=== PATIENT | male | born 1945 | race Caucasian/White ===

== ENCOUNTER 2017-06-11 11:52 | Inpatient (IN) | payer OTHER ==
[2017-06-11] MEDS ORDERED: SODIUM CHLORIDE 0.9% 1000 ML INFUS.BAG IV ONE (12:30)
--- NOTE | 2017-06-11 12:35 | PDOC ---
Attending Attestation - Resident Resident Name: Marito Quezada - ED Attending Attestation I have performed the following: I have examined & evaluated the patient, The case was reviewed & discussed with the resident, I agree w/resident's findings & plan, Exceptions are as noted - Medical Decision Making 06/11/17 14:47 71 yo M with HTN, DM h/o etoh cirrhosis, here from urgent care with concerns for tremors, and etoh withdrawal. no h/o seizure. no hallucinations. also c/o emesis x 3 yesterday and loose watery stool. on exam awake alert resting tremor. cardiac and lung exam normal. abd soft nt nd. differential: etoh withdrawal, anemia, electrolyte abnormality, dehydration, hypoglycemia renal failure, gi bleed , pancreatitis. plan hydrate him, antiemetics gi prophylaxis with protonix, labs, ativan for etoh withdrawal ciwa scale. liklely admit. abd nontender, last emesis yesterday no imaging at this point. 06/11/17 14:53 <Alisha Villarreal - Last Filed: 06/11/17 14:53> - HPI HPI: 06/11/17 15:19 The patient is a 71 year old male with a significant PMH of HTN, HLD, NIDDM, Alcoholic cirrhosis, EtoH dependence who presents to the emergency department sent in by Urgent Care with concerns for tremors and EtOH withdrawal. The patient endorses acute onset of tremors and 3 episodes of bilious, non-bloody emesis yesterday but denies emesis today. Of note, the patient drank 2 beers yesterday but typically drinks 10-12 beers a day for many years. Patient denies history of seizures or hallucinations. The patient is complaining of frontal LOPEZ, decreased appetite, loose watery stools but denies abdominal pain, chest pain, shortness of breath, and dizziness. Denies fever, nausea, vomit, diarrhea and constipation. Denies dysuria, frequency, urgency and hematuria. Allergies: NKA Past surgical history: None reported. Social history: Alcohol abuse. No reported drug or cigarette use. - Physicial Exam PE: 06/11/17 15:23 GENERAL: (+) Resting tremor. Awake, alert, and fully oriented, in no acute distress HEAD: No signs of trauma EYES: PERRLA, EOMI, sclera anicteric, conjunctiva clear ENT: Auricles normal inspection, hearing grossly normal, nares patent, oropharynx clear without exudates. Moist mucosa NECK: Normal ROM, supple, no lymphadenopathy, JVD, or masses LUNGS: Breath sounds equal, clear to auscultation bilaterally. No wheezes, and no crackles HEART: Regular rate and rhythm, normal S1 and S2, no murmurs, rubs or gallops ABDOMEN: Soft, nontender, normoactive bowel sounds. No guarding, no rebound. No masses EXTREMITIES: Normal range of motion, no edema. No clubbing or cyanosis. No cords, erythema, or tenderness NEUROLOGICAL: Cranial nerves II through XII grossly intact. Normal speech, normal gait SKIN: Warm, Dry, normal turgor, no rashes or lesions noted. <Dora Stephenson - Last Filed: 06/11/17 15:25> Heart Score/ECG Review #1 General ECG Interpretation: Normal Intervals, No acute ischemic changes Compared to previous ECG there are: Other (sinus tachycardia. 124.) <Alisha Villarreal - Last Filed: 06/11/17 14:53>
--- NOTE | 2017-06-11 12:44 | PDOC ---
History of Present Illness - General Chief Complaint: Tremors Stated Complaint: Substance Abuse Time Seen by Provider: 06/11/17 12:29 - History of Present Illness Initial Comments: 06/11/17 12:44 71 yo M with h/o HTN, HLD, NIDDM, Alcoholic cirrhosis, EtoH dependence, who arrives from outside provider with alcohol withdrawal symptoms. Patient arrives from outside office Dr. Aubrey Lara ( [facility]) with CIWA score of 14, and tachycardia. Patient reports acute development of tremors yesterday evening and 3 episodes of bilious, non bloody emesis. No episodes of vomiting today. Also endorses mild frontal LOPEZ, decreased appetite, and loose watery stools. Denies confusion, difficulty with ambulation, convulsions, hallucinations. Reports intake of 2 beers yesterday. tyypically drinks 10-12 beers a day for many years. Denies F/C, CP, SOB, abdominal pain, constipation, urinary complaints, weakness, lightheadedness, sensory changes. Denies h/o TIA/ CVA. Denies tobacco or illicit drug use. No change in diet, recent travels. Past History - Past Medical History Allergies/Adverse Reactions: Allergies Allergy/AdvReac Type Severity Reaction Status Date / Time No Known Drug Allergies Allergy Verified 08/01/14 06:37 Home Medications: Ambulatory Orders Lactulose (Oral Use) [Cephulac -] 20 gm PO BID 30 Days udc 07/11/15 Metoprolol Tartrate [Lopressor -] 25 mg PO BID #60 tablet 07/11/15 Multivitamins [Multivit ([facility] Formulary)] 1 tab PO DAILY #30 tab 07/11/15 Naph,Mb-Db/K pH,Mbdb [PHOS-NaK PACKET -] 1 packet PO BID #60 pow 07/11/15 Nystatin Oral Suspension - [Nystatin Oral Susp 906807 Units/5 ML -] 500,000 units PO Q6HPO 5 Days cup 07/11/15 Pantoprazole Sodium [Protonix -] 40 mg PO DAILY #30 tablet.ec 07/11/15 Thiamine HCl [Vitamin B1 -] 100 mg PO BID #60 tablet 07/11/15 Anemia: No Asthma: No Cancer: No Cardiac Disorders: No CVA: No COPD: No CHF: No Dementia: No Diabetes: Yes (IDDM) GI Disorders: (liver cirrhosis) Disorders: No HTN: Yes Hypercholesterolemia: No Liver Disease: Yes Seizures: No Thyroid Disease: No - Surgical History Cholecystectomy: Yes Orthopedic Surgery: Yes (FX LEFT ANKLE. left knee sx) - Suicide/Smoking/Psychosocial Hx Smoking Status: No Smoking History: Never smoked Have you smoked in the past 12 months: No Number of Cigarettes Smoked Daily: 0 If you are a former smoker, when did you quit?: 17YEARS Hx Alcohol Use: Yes Drug/Substance Use Hx: No Substance Use Type: Alcohol Hx Substance Use Treatment: No Review of Systems - Review of Systems Comments:: 06/11/17 12:43 GENERAL/CONSTITUTIONAL: No fever or chills. No weakness. HEAD, EYES, EARS, NOSE AND THROAT: No change in vision. No ear pain or discharge. No sore throat. CARDIOVASCULAR: No chest pain or shortness of breath RESPIRATORY: No cough, wheezing, or hemoptysis. GASTROINTESTINAL: No nausea, vomiting, diarrhea or constipation. GENITOURINARY: No dysuria, frequency, or change in urination. MUSCULOSKELETAL: No joint or muscle swelling or pain. No neck or back pain. SKIN: No rash NEUROLOGIC: + tremors and headache. No vertigo, loss of consciousness, or change in strength/sensation. ENDOCRINE: No increased thirst. No abnormal weight change HEMATOLOGIC/LYMPHATIC: No anemia, easy bleeding, or history of blood clots. ALLERGIC/IMMUNOLOGIC: No hives or skin allergy. 0 *Physical Exam - Vital Signs Last Vital Signs Temp Pulse Resp BP Pulse Ox 98.1 F 125 H 18 154/86 98 06/11/17 12:13 06/11/17 12:13 06/11/17 12:13 06/11/17 12:13 06/11/17 12:13 - Physical Exam Comments: 06/11/17 12:43 GENERAL: Tremulous, Awake, alert, and fully oriented, in no acute distress HEAD: No signs of trauma, normocephalic, atraumatic EYES: PERRLA, EOMI, sclera anicteric, conjunctiva clear ENT: + tongue fasciculations. Hearing grossly normal, nares patent, oropharynx clear without exudates. Moist mucosa NECK: Normal ROM, supple, no lymphadenopathy, JVD, or masses LUNGS: No distress, speaks full sentences, clear to auscultation bilaterally HEART: Regular rate and rhythm, normal S1 and S2, no murmurs, rubs or gallops, peripheral pulses normal and equal bilaterally. ABDOMEN: Soft, nontender, normoactive bowel sounds. No guarding, no rebound. No masses. Neg CVA ttp. EXTREMITIES : Normal inspection, Normal range of motion, no edema. No clubbing or cyanosis. NEUROLOGICAL: Cranial nerves II through XII grossly intact. Normal speech, normal gait, no focal sensorimotor deficits. Mild dysmetria on FTN. SKIN: Warm, Dry, normal turgor, no rashes or lesions noted General Appearance: Yes: Nourished ED Treatment Course - LABORATORY CBC & Chemistry Diagram: 06/11/17 12:40 06/11/17 12:40 - Medications Given in the ED: ED Medications Discontinued Medications Generic Name Dose Route Start Last Admin Trade Name Freq PRN Reason Stop Dose Admin Sodium Chloride 1,000 ml 06/11/17 12:30 06/11/17 12:31 Normal Saline - IV 06/11/17 12:31 1,000 ml ONCE ONE Administration Medical Decision Making - Medical Decision Making 06/11/17 13:25 71 yo M with h/o HTN, HLD, NIDDM, Alcoholic cirrhosis, EtoH dependence, who arrives from outside provider Dr. Aubrey Lara ( [facility]), CIWA score of 14, tachycardia, tremors, bilious, non bloody emesis, and loose watery stools. Denies confusion, difficulty with ambulation, convulsions, hallucinations. Reports intake of 2 beers yesterday. Typically drinks 10-12 beers a day for many years. Denies F/C, CP, SOB, abdominal pain, constipation, urinary complaints, weakness, lightheadedness, sensory changes. Denies h/o TIA/ CVA. Denies tobacco or illicit drug use. No change in diet, recent travels. Symptoms most likely 2/2 acute alcohol withdrawal. No evidence of alcoholic hallucinosis or delerium tremens on H&P. With GI upset will also consider gastroenteritis, hypoglycemia, or other underlying electrolyte abnormalities, or acid-base disturbances. Differential also includes pancreatitits, renal failure. ED Course: 06/11/17 13:53 CBC, CMP, UDS, NS, thiamine 06/11/17 14:03 06/11/17 14:13 BUN/Cr: 12/07.7 06/11/17 14:18 CK: 412 Alcohol level: <5 06/11/17 14:49 06/11/17 14:54 CIWA Score: 13 EKG: Sinus Tachycardia. Normal interval duration and axis. Absent JOSE, or STD. Artifact throughout from tremors. 06/11/17 15:09 Pt. admitted to [facility] for alcohol withdrawal on inpt. team. *DC/Admit/Observation/Transfer Diagnosis at time of Disposition: Alcohol withdrawal - Discharge Dispostion Admit: Yes - Referrals Referrals: Aubrey Lara MD [Primary Care Provider] - - Patient Instructions - Post Discharge Activity [facility] CIWA - CIWA Score Nausea/Vomitin-No Nausea/No Vomiting Muscle Tremors: 7-Severe,w/o Arm Extended Anxiety: 3 Agitation: 2 Paroxysmal Sweats: No Perspiration Orientation: 0-Oriented Tacttile Disturbances: 0-None Auditory Disturbances: 0-None Visual Disturbances: 0-None Headache: 1-Very Mild CIWA-Ar Total Score: 13
[2017-06-11 13:19] LABS: BASO % 0.5 % (0-2.0); EOS % 0.3 % (0-4.5); HEMATOCRIT 39.2 % (35.4-49); HEMOGLOBIN 13.4 GM/dL (11.7-16.9); LYMPH % 6.1 % (8-40); MCH 27.4 pg (25.7-33.7); MCHC 34.1 g/dl (32.0-35.9); MEAN CELL VOLUME 80.4 fl (80-96); MEAN PLT VOLUME 8.1 fl (7.5-11.1); MONO % 12.6 % (3.8-10.2); NEUT % 80.5 % (42.8-82.8); PLATELET COUNT 103 K/MM3 (134-434); RBC 4.87 M/mm3 (4.00-5.60); RDW 14.5 % (11.9-15.9); WHITE BLOOD COUNT 5.4 K/mm3 (4.0-10.0)
--- NOTE | 2017-06-11 13:23 | EKG ---
Test Reason : Blood Pressure : / mmHG Vent. Rate : 124 BPM Atrial Rate : 124 BPM P-R Int : 144 ms QRS Dur : 082 ms QT Int : 332 ms P-R-T Axes : 038 004 066 degrees QTc Int : 476 ms SINUS TACHYCARDIA OTHERWISE NORMAL ECG WHEN COMPARED WITH ECG OF 05-JUL-2015 10:38, NO SIGNIFICANT CHANGE WAS FOUND Confirmed by JASMINA HART MD ([id number]) on 06/11/2017 1:23:03 PM Referred By: Confirmed By:JASMINA HART MD
[2017-06-11 13:35] LABS: ALBUMIN 3.5 g/dl (3.4-5.0); ALK PHOS 144 U/L (45-117); ANION GAP 14 (8-16); BILIRUBIN,TOTAL 2.8 mg/dL (0.2-1.0); BLOOD UREA NITROGEN 10 mg/dL (7-18); CALCIUM 9.3 mg/dL (8.5-10.1); CHLORIDE 96 mmol/L (98-107); CO2 23 mmol/L (21-32); CREATININE 1.7 mg/dL (0.7-1.3); GLUCOSE,RANDOM 153 mg/dL (74-106); SGPT/ALT 53 U/L (12-78); SODIUM 133 mmol/L (136-145); TOT PROT 9.8 g/dl (6.4-8.2)
[2017-06-11] MEDS ORDERED: THIAMINE HCL 200 MG/2 ML VIAL IVPB ONE (13:51)
[2017-06-11 14:04] LABS: POTASSIUM 4.7 mmol/L (3.5-5.1); SGOT/AST 126 U/L (15-37)
[2017-06-11] MEDS ORDERED: LORazepam 2 MG/ML SDV VIAL ONE (14:25)
[2017-06-11] MEDS ORDERED: THIAMINE HCL 200 MG/2 ML VIAL ONE (14:25)
[2017-06-11] MEDS ORDERED: PANTOPRAZOLE SODIUM 40 MG VIAL IVPUSH ONE (14:52)
[2017-06-11] MEDS ORDERED: PANTOPRAZOLE SODIUM 40 MG VIAL ONE (14:59)
[2017-06-11] MEDS ORDERED: FOLIC ACID 1 MG TABLET (FP) PO ONE (15:02)
[2017-06-11] MEDS ORDERED: FOLIC ACID 1 MG TABLET (FP) ONE (15:06)
[2017-06-11] MEDS ORDERED: chlordiazePOXIDE HCL 25 MG CAPSULE PO ONE (15:32)
[2017-06-11] MEDS ORDERED: FOLIC ACID INJECTION - 1 MG, THIAMINE HCL 100 MG, MULTIVIT INJECTION ADULT 10 ML in SOD... IVPB ONE (15:32)
[2017-06-11 15:36] LABS: LIPASE 611 U/L (73-393)
[2017-06-11] MEDS ORDERED: chlordiazePOXIDE HCL 25 MG CAPSULE ONE (15:44)
--- NOTE | 2017-06-11 15:47 | HP ---
Admitting History and Physical - Primary Care Physician PCP: Aubrey Lara - Admission Chief Complaint: tremors History of Present Illness: This is a 71 year old female with pmhx DM II, HTN, HLD, alcoholic cirrhosis, ETOH abuse presented to the ED from Dr. Aubrey Lara ([facility]) office for alcohol withdrawals including tachycardia, DT's, and CIWA score of 14. PT reports he usually drinks 12 beers daily for 60 years and yesterday he drank 2, vomited 3 times, bile, no blood and began having tremors. He has a head ache. Denies chest pain, sob, use of drugs. History Source: Patient, Medical Record Limitations to Obtaining History: No Limitations - Past Medical History Cardiovascular: Yes: HTN, Hyperlipdemia Gastrointestinal: Yes: Gastritis, GERD, Other (Cardenas's esophagus) Hepatobiliary: Yes: Other (alcoholic liver disease) Endocrine: Yes: Diabetes Mellitus - Past Surgical History Past Surgical History: Yes: Joint Replacement (left total knee replacement) - Smoking History Smoking history: Never smoked Have you smoked in the past 12 months: No Aproximately how many cigarettes per day: 0 If you are a former smoker, when did you quit?: 17YEARS - Alcohol/Substance Use Hx Alcohol Use: Yes Number of Drinks Daily: 15 History of Substance Use: reports: None - Social History ADL: Family Assistance 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 History of Recent Travel: No Home Medications - Allergies Allergies/Adverse Reactions: Allergies Allergy/AdvReac Type Severity Reaction Status Date / Time No Known Drug Allergies Allergy Verified 08/01/14 06:37 - Home Medications Home Medications: Ambulatory Orders Lactulose (Oral Use) [Cephulac -] 20 gm PO BID 30 Days udc 07/11/15 Metoprolol Tartrate [Lopressor -] 25 mg PO BID #60 tablet 07/11/15 Multivitamins [Multivit ([facility] Formulary)] 1 tab PO DAILY #30 tab 07/11/15 Naph,Mb-Db/K pH,Mbdb [PHOS-NaK PACKET -] 1 packet PO BID #60 pow 07/11/15 Nystatin Oral Suspension - [Nystatin Oral Susp 102002 Units/5 ML -] 500,000 units PO Q6HPO 5 Days cup 07/11/15 Pantoprazole Sodium [Protonix -] 40 mg PO DAILY #30 tablet.ec 07/11/15 Thiamine HCl [Vitamin B1 -] 100 mg PO BID #60 tablet 07/11/15 Family Disease History - Family Disease History Family Disease History: Other: Father (alcoholic) Review of Systems - Review of Systems Constitutional: reports: No Symptoms Eyes: reports: No Symptoms HENT: reports: No Symptoms Neck: reports: No Symptoms Cardiovascular: reports: No Symptoms Respiratory: reports: No Symptoms Gastrointestinal: reports: Vomiting Genitourinary: reports: No Symptoms Musculoskeletal: reports: No Symptoms Integumentary: reports: No Symptoms Neurological: reports: Tremors (upper ext tremors) Endocrine: reports: No Symptoms Hematology/Lymphatic: reports: No Symptoms Psychiatric: reports: No Symptoms Physical Examination Vital Signs: Vital Signs Temperature 98.1 F 06/11/17 12:13 Pulse Rate 125 H 06/11/17 12:13 Respiratory Rate 18 06/11/17 12:13 Blood Pressure 154/86 06/11/17 12:13 O2 Sat by Pulse Oximetry (%) 98 06/11/17 12:13 Constitutional: Yes: Well Nourished Eyes: Yes: Conjunctiva Clear HENT: Yes: Atraumatic Neck: Yes: Supple Cardiovascular: Yes: Regular Rate and Rhythm, Tachycardia Respiratory: Yes: Regular, CTA Bilaterally Gastrointestinal: Yes: Normal Bowel Sounds, Soft Renal/: Yes: WNL Musculoskeletal: Yes: WNL Extremities: Yes: WNL Edema: No Integumentary: Yes: WNL Neurological: Yes: Alert, Oriented, Cran Nerves II-XII Intact, Tremors (upper ext tremors) Psychiatric: Yes: Alert, Oriented Labs: CBC, BMP 06/11/17 12:40 06/11/17 12:40 Imaging - Results EKG: Report Reviewed, Image Reviewed (ST) Problem List - Problems (1) Alcohol withdrawal Code(s): F10.239 - ALCOHOL DEPENDENCE WITH WITHDRAWAL, UNSPECIFIED (2) DM type 2 causing renal disease Code(s): E11.29 - TYPE 2 DIABETES MELLITUS W OTH DIABETIC KIDNEY COMPLICATION (3) HLD (hyperlipidemia) Code(s): E78.5 - HYPERLIPIDEMIA, UNSPECIFIED (4) Thrombocytopenia Code(s): D69.6 - THROMBOCYTOPENIA, UNSPECIFIED Assessment/Plan Assessment: 71 year old male admitted with ETOH withdrawal and TERRY Plan: 1. ETOH abuse, withdrawal - Banana bag in ED - Continue daily folic acid, thiamine - Continue IVF following banana bag - Start librium detox - Dr. Maya consulted - Previous admission EGD done showed erosions and esophagitis 2. TERRY - Continue IVF 3. DM II - ISS, BGM ACHS 4. HTN / Tachycardia - Due to withdrawal - Metoprolol 25mg BID - Echo 07/2017: Normal LV function Visit type - Emergency Visit Emergency Visit: Yes ED Registration Date: 06/11/17 Care time: The patient presented to the Emergency Department on the above date and was hospitalized for further evaluation of their emergent condition. - New Patient This patient is new to me today: Yes Date on this admission: 06/11/17 - Critical Care Critical Care patient: No Hospitalist Screening - Colonoscopy Questionnaire Colonoscopy Questionnaire: Colonoscopy Questionnaire - Patient: 50 - 75 years old and never had a screening colonoscopy: Unknown History of colon or rectal polyps, or CA: Unknown History of IBD, Crohn's disease or UC: Unknown History of abdominal radiation therapy as a child: Unknown - Relative: 1 with colon or rectal CA, or polyps at age 60 or younger: Unknown Colon or rectal CA diagnosed at age 45 or younger: Unknown Multiple relatives with colon or rectal CA: Unknown - Outcome: Screening Result: Negative Screen
[2017-06-11] MEDS ORDERED: INSULIN SLIDING SCALE (NOVOLOG) 1 VIAL SQ SCH (16:30)
[2017-06-11] MEDS: SODIUM CHLORIDE 1,000 ML IV SCH (16:46)
[2017-06-11] MEDS: chlordiazePOXIDE HCL 25 MG CAPSULE PO SCH ×2 (17:03→22:17)
[2017-06-11 18:06] LABS: COCAINE, UR NEGATIVE ng/ml (CUTOFF=300); METHADONE, UR NEGATIVE ng/ml (CUTOFF=300); OPIATES, URI NEGATIVE ng/ml (CUTOFF=300); PHENCYCLIDINE,URINE NEGATIVE ng/ml (CUTOFF=25); URINE AMPHETAMINES NEGATIVE ng/ml (CUTOFF=500); URINE BARBITURATES NEGATIVE ng/ml (CUTOFF=200); URINE BENZODIAZEPINES NEGATIVE ng/ml (CUTOFF=200)
[2017-06-11] MEDS: METOPROLOL TARTRATE 25 MG TABLET (FP) PO SCH (21:53)
[2017-06-11] MEDS: THIAMINE HCL 100 MG TABLET (FP) PO SCH (21:53)
[2017-06-11] MEDS: INSULIN SLIDING SCALE (NOVOLOG) 1 VIAL SQ SCH (21:57)
[2017-06-11 22:03] VITALS: BMI 27.4
[2017-06-12] MEDS: chlordiazePOXIDE HCL 25 MG CAPSULE PO PRN ×2 (00:26→14:23)
[2017-06-12] MEDS: chlordiazePOXIDE HCL 25 MG CAPSULE PO SCH ×5 (04:07→22:24)
[2017-06-12] MEDS: INSULIN SLIDING SCALE (NOVOLOG) 1 VIAL SQ SCH ×4 (06:20→23:24)
[2017-06-12] MEDS: SODIUM CHLORIDE 1,000 ML IV SCH ×2 (06:37→19:00)
[2017-06-12 08:00] LABS: BASO % 0.8 % (0-2.0); EOS % 3.5 % (0-4.5); HEMATOCRIT 34.5 % (35.4-49); HEMOGLOBIN 11.5 GM/dL (11.7-16.9); LYMPH % 16.2 % (8-40); MCH 26.8 pg (25.7-33.7); MCHC 33.3 g/dl (32.0-35.9); MEAN CELL VOLUME 80.5 fl (80-96); MEAN PLT VOLUME 8.3 fl (7.5-11.1); MONO % 12.8 % (3.8-10.2); NEUT % 66.7 % (42.8-82.8); PLATELET COUNT 72 K/MM3 (134-434); RBC 4.29 M/mm3 (4.00-5.60); RDW 14.3 % (11.9-15.9); WHITE BLOOD COUNT 4.2 K/mm3 (4.0-10.0)
[2017-06-12 08:19] LABS: INR 1.27 (0.82-1.09); PROTHROMBIN TIME (PATIENT) 14.3 SEC (9.98-11.88)
[2017-06-12 08:26] LABS: CHLORIDE 103 mmol/L (98-107); POTASSIUM 3.3 mmol/L (3.5-5.1); SODIUM 137 mmol/L (136-145)
[2017-06-12 08:40] LABS: ALBUMIN 3.1 g/dl (3.4-5.0); ALK PHOS 118 U/L (45-117); ANION GAP 11 (8-16); BILIRUBIN,TOTAL 1.6 mg/dL (0.2-1.0); BLOOD UREA NITROGEN 14 mg/dL (7-18); CALCIUM 8.5 mg/dL (8.5-10.1); CO2 23 mmol/L (21-32); CREATININE 1.1 mg/dL (0.7-1.3); GLUCOSE,RANDOM 103 mg/dL (74-106); MAGNESIUM 1.9 mg/dL (1.8-2.4); PHOSPHOROUS 2.4 mg/dL (2.5-4.9); SGOT/AST 87 U/L (15-37); SGPT/ALT 45 U/L (12-78); TOT PROT 7.8 g/dl (6.4-8.2)
[2017-06-12] MEDS ORDERED: PT OWN MED DRAWER 7, Y5N ONE (09:31)
[2017-06-12] MEDS: PANTOPRAZOLE 40 MG TABLET (FP) PO SCH (09:32)
[2017-06-12] MEDS: THIAMINE HCL 100 MG TABLET (FP) PO SCH ×2 (09:32→22:24)
[2017-06-12] MEDS: METOPROLOL TARTRATE 25 MG TABLET (FP) PO SCH ×2 (09:32→22:24)
[2017-06-12] MEDS: MULTIVITAMINS (DAILY MVI) TABLET (FP) PO SCH (09:32)
--- NOTE | 2017-06-12 10:44 | CONSULT ---
Consult Detox [facility] Reason for Current Admission/Consult: substance use Referred by:: Vicky Dasilva md - History History of Present Illness: 71 yo m w multiple medical comorbidities, DM, HTN, HLD, alcohol use disorder, alcholis cirrhosis, BArretts esophagus and gi bleed in past admitted from Dr. Aubrey Lara ([facility]) office for alcohol withdrawals sx in ED including evere LOPEZ and confusion, tachycardia, DT's, and CIWA score of 14. PT reports he usually drinks 12 beers daily for 60 years and yesterday he drank 2, vomited 3 times, bile, no blood and began having tremors. He has a head ache. Denies use of drugs, started on librium protocol but condition on floor not improving, patient remains agitated and in restraints. Nurses are however are not giving all prn librium doses as ordered reporting they do not work. Nurses report patient is eating well. - History Source History Provided By: Patient, Medical Record, Caregiver Limitations to Obtaining History: Language Barrier - Alcohol/Substance Use Hx Alcohol Use: Yes - Past Medical History Cardio/Vascular: Yes: HTN, Hyperlipdemia Gastrointestinal: Yes: Gastritis, GERD, Other (Cardenas's esophagus) Hepatobiliary: Yes: Other (alcoholic liver disease) Endocrine: Yes: Diabetes Mellitus - Past Surgical History Past Surgical History: Yes: Joint Replacement (left total knee replacement) - Significant Medical Findings: 71 yo m admitted for urgicare via ED with alcohol withdrawal delirium tremens, still agitated, tremulous with no sedation but vital signs stable oted on current regiemn, denies abdo pain in spite of elevated lipase and eating well. CIWA Score - CIWA Score Nausea/Vomitin-No Nausea/No Vomiting Muscle Tremors: 7-Severe,w/o Arm Extended Anxiety: 3 Agitation: 2 Paroxysmal Sweats: No Perspiration Orientation: 0-Oriented Tacttile Disturbances: 0-None Auditory Disturbances: 0-None Visual Disturbances: 0-None Headache: 1-Very Mild CIWA-Ar Total Score: 13 Assessment Plan - Diagnosis (1) Alcohol dependence with withdrawal delirium Status: Acute (2) Alcoholic cirrhosis of liver Status: Acute (3) Alcoholic hepatitis Status: Acute (4) Cardenas's esophagus determined by biopsy Status: Acute (5) DM type 2 causing renal disease Status: Acute (6) HLD (hyperlipidemia) Status: Acute (7) HTN (hypertension) Status: Acute (8) Hypokalemia Status: Acute (9) Hypomagnesemia Status: Acute (10) Thrombocytopenia Status: Acute - Plan Plan: chart imaging, labs reviewed, patint examined and hisotry taken, care discussed with medical team. Acohlic withdrawal with delirium noted Recommend: 1. slow down librium taper and give all prn medications availble if her remains tremulous and agitated - patient is still very tremulous and agitated after multiple doses, goal is mile sedation and vital signs pulse <90 bp WNL. Additional 1 time dose of 50mg libirium and haldol 0.5 ordered for patient. IV Ativan can be given if he remains agitated. IM medication is not needed and is painful. fluids, mvi, vitamins with folic acid, thiamine ordered. Keep patient in quiet dark setting. 2. hypokalemia - supplement 3. hypomagnesemia - supplement 4. diabetic control as per primary team. 5. detox will take longer than usual, arrange for rehab when medically stable. 6. ho nalcoholic cirrhosis - check ammonia level, give lactulose if needed. Pedro Maya MD [phone] - Medication Detox Regimen/Protocol: Librium
--- NOTE | 2017-06-12 10:59 | PN ---
Progress Note (short form) - Note Progress Note: pt seen/ examined chart reviewed sitting in chair. calm. Vital Signs Temp 98.5 F 06/12/17 06:00 Pulse 80 06/12/17 06:00 Resp 16 06/12/17 06:00 BP 148/80 06/12/17 06:00 Pulse Ox 97 06/11/17 22:08 Intake & Output 06/11/17 06/11/17 06/12/17 11:59 23:59 11:59 Intake Total 1206 Balance 1206 Weight 170 lb Intake: IV 1206 Normal Saline - 1,000 ml 1206 @ 83 mls/hr IV ASDIR LUIS E Rx#:[id number] Other: Voiding Method Urinal Height 5 ft 6 in Body Mass Index (BMI) 27.4 Weight Measurement Method Built in [facility] Weight Measurement Method Est/Stated by Patient Active Medications Chlordiazepoxide HCl (Librium -) 50 mg PO [id number] [facility] Stop: 06/12/17 11:01 Last Admin: 06/12/17 04:07 Dose: 50 mg Chlordiazepoxide HCl (Librium -) 25 mg PO [id number] LUIS E Stop: 06/13/17 11:01 Chlordiazepoxide HCl (Librium -) 15 mg PO [id number] [facility] Stop: 06/14/17 11:01 Chlordiazepoxide HCl (Librium -) 25 mg PO Q4H PRN PRN Reason: WITHDRAWAL(CONT SUBST) Stop: 06/14/17 16:31 Last Admin: 06/12/17 00:26 Dose: 25 mg Sodium Chloride (Normal Saline -) 1,000 mls @ 83 mls/hr IV ASDIR [facility] Last Admin: 06/12/17 06:37 Dose: 83 mls/hr Insulin Aspart (Novolog Vial Sliding Scale -) 1 vial SQ ACHS [facility] PRN Reason: Protocol Last Admin: 06/12/17 06:20 Dose: Not Given Metoprolol Tartrate (Lopressor -) 25 mg PO BID [facility] Last Admin: 06/12/17 09:32 Dose: 25 mg Multivitamins/Minerals/Vitamin C (Tab-A-Vit -) 1 tab PO DAILY [facility] Last Admin: 06/12/17 09:32 Dose: 1 tab Pantoprazole Sodium (Protonix -) 40 mg PO DAILY [facility] Last Admin: 06/12/17 09:32 Dose: 40 mg Potassium Chloride (Potassium Chloride Oral Liquid) 20 meq PO ONCE ONE Stop: 06/12/17 10:54 Thiamine HCl (Vitamin B1 -) 100 mg PO BID LUIS E Last Admin: 06/12/17 09:32 Dose: 100 mg CBC, BMP 06/12/17 07:05 06/12/17 07:05 Physical Examination Constitutional: Yes: Well Nourished/ awake/ comfortable Eyes: Yes: Conjunctiva Clear HENT: Yes: wnl Neck: Yes: Supple/ no jvd Cardiovascular: Yes: Regular Rate and Rhythm, Respiratory: Yes: Regular, CTA Bilaterally Gastrointestinal: Yes: Normal Bowel Sounds, Soft/ slightly distended Extremities: Yes: WNL Edema: No Integumentary: Yes: WNL Neurological: Yes: alert/ awake. tremors + Psychiatric: Yes: calm Imaging - Results EKG: Report Reviewed, Image Reviewed (ST) Problem List - Problems (1) Alcohol withdrawal Code(s): F10.239 - ALCOHOL DEPENDENCE WITH WITHDRAWAL, UNSPECIFIED (2) DM type 2 causing renal disease Code(s): E11.29 - TYPE 2 DIABETES MELLITUS W OTH DIABETIC KIDNEY COMPLICATION (3) HLD (hyperlipidemia) Code(s): E78.5 - HYPERLIPIDEMIA, UNSPECIFIED (4) Thrombocytopenia Code(s): D69.6 - THROMBOCYTOPENIA, UNSPECIFIED Assessment/Plan Assessment: 71 year old male admitted with ETOH withdrawal and TERRY with h/o cirrhosis/ varicies h/o gi bleed diabetes htn continue present care detox with librium detox consult monitor lytes discussed with nursing staff dvt prophylaxis with stocking will follow
[2017-06-12] MEDS ORDERED: INSULIN (NOVOLOG) ASPART 100 UNITS/ML 10ML VIAL ONE (11:04)
[2017-06-12] MEDS ORDERED: POTASSIUM CHLORIDE ORAL LIQUID 20 MEQ/15 ML PO ONE (11:35)
[2017-06-12] MEDS ORDERED: chlordiazePOXIDE HCL 25 MG CAPSULE PO ONE (18:16)
[2017-06-12] MEDS ORDERED: HALOPERIDOL 1 MG TABLET (FP) PO ONE (18:19)
[2017-06-12] MEDS ORDERED: LORazepam 2 MG/ML SDV VIAL IVPUSH ONE (20:49)
[2017-06-12] MEDS ORDERED: LORazepam 2 MG/ML SDV VIAL IM ONE (23:02)
[2017-06-13] MEDS ORDERED: LORazepam 2 MG/ML SDV VIAL IM ONE (02:30)
[2017-06-13] MEDS: chlordiazePOXIDE HCL 25 MG CAPSULE PO SCH ×2 (05:42→12:26)
[2017-06-13] MEDS: INSULIN SLIDING SCALE (NOVOLOG) 1 VIAL SQ SCH ×4 (06:01→21:43)
[2017-06-13 08:36] LABS: EOS % 4.3 % (0-4.5); HEMATOCRIT 32.8 % (35.4-49); LYMPH % 17.1 % (8-40); MCHC 33.5 g/dl (32.0-35.9); MEAN CELL VOLUME 80.5 fl (80-96); MONO % 14.5 % (3.8-10.2); NEUT % 63.1 % (42.8-82.8); PLATELET COUNT 69 K/MM3 (134-434); RBC 4.08 M/mm3 (4.00-5.60); RDW 14.1 % (11.9-15.9); WHITE BLOOD COUNT 2.9 K/mm3 (4.0-10.0)
[2017-06-13 09:06] LABS: CHLORIDE 105 mmol/L (98-107); SODIUM 139 mmol/L (136-145)
[2017-06-13 09:29] LABS: ALBUMIN 3.1 g/dl (3.4-5.0); ALK PHOS 123 U/L (45-117); ANION GAP 11 (8-16); BILIRUBIN,TOTAL 1.1 mg/dL (0.2-1.0); BLOOD UREA NITROGEN 10 mg/dL (7-18); CALCIUM 8.2 mg/dL (8.5-10.1); CO2 23 mmol/L (21-32); CREATININE 0.9 mg/dL (0.7-1.3); GLUCOSE,RANDOM 98 mg/dL (74-106); MAGNESIUM 1.9 mg/dL (1.8-2.4); SGOT/AST 94 U/L (15-37); SGPT/ALT 51 U/L (12-78); TOT PROT 7.7 g/dl (6.4-8.2)
[2017-06-13 09:41] LABS: POTASSIUM 2.9 mmol/L (3.5-5.1)
[2017-06-13] MEDS ORDERED: POTASSIUM CHLORIDE ORAL LIQUID 20 MEQ/15 ML PO ONE ×2 (10:12→15:00)
[2017-06-13] MEDS: MULTIVITAMINS (DAILY MVI) TABLET (FP) PO SCH (10:14)
[2017-06-13] MEDS: THIAMINE HCL 100 MG TABLET (FP) PO SCH ×2 (10:14→21:33)
[2017-06-13] MEDS: METOPROLOL TARTRATE 25 MG TABLET (FP) PO SCH ×2 (10:14→21:34)
[2017-06-13] MEDS: PANTOPRAZOLE 40 MG TABLET (FP) PO SCH (10:15)
--- NOTE | 2017-06-13 12:41 | PN ---
Progress Note, Physician Chief Complaint: Pt restrained Trying to get OOB - Current Medication List Current Medications: Active Medications Chlordiazepoxide HCl (Librium -) 25 mg PO Q4H PRN PRN Reason: WITHDRAWAL(CONT SUBST) Stop: 06/14/17 16:31 Last Admin: 06/12/17 14:23 Dose: 25 mg Chlordiazepoxide HCl (Librium -) 25 mg PO [id number] [facility] Stop: 06/14/17 11:01 Sodium Chloride (Normal Saline -) 1,000 mls @ 83 mls/hr IV ASDIR [facility] Last Admin: 06/12/17 19:00 Dose: 83 mls/hr Insulin Aspart (Novolog Vial Sliding Scale -) 1 vial SQ ACHS [facility] PRN Reason: Protocol Last Admin: 06/13/17 06:01 Dose: Not Given Metoprolol Tartrate (Lopressor -) 25 mg PO BID [facility] Last Admin: 06/13/17 10:14 Dose: 25 mg Multivitamins/Minerals/Vitamin C (Tab-A-Vit -) 1 tab PO DAILY [facility] Last Admin: 06/13/17 10:14 Dose: 1 tab Pantoprazole Sodium (Protonix -) 40 mg PO DAILY [facility] Last Admin: 06/13/17 10:15 Dose: 40 mg Potassium Chloride (Potassium Chloride Oral Liquid) 40 meq PO ONCE ONE Stop: 06/13/17 15:01 Thiamine HCl (Vitamin B1 -) 100 mg PO BID [facility] Last Admin: 06/13/17 10:14 Dose: 100 mg - Objective Vital Signs: Vital Signs Temperature 98 F 06/13/17 10:00 Pulse Rate 90 06/13/17 10:00 Respiratory Rate 18 06/13/17 10:00 Blood Pressure 139/79 06/13/17 10:00 O2 Sat by Pulse Oximetry (%) 97 06/12/17 21:00 Constitutional: Yes: No Distress Cardiovascular: Yes: Regular Rate and Rhythm Respiratory: Yes: Diminished Gastrointestinal: Yes: Normal Bowel Sounds, Soft. No: Tenderness Extremities: Yes: Other (tremors) Edema: No Labs: CBC, BMP 06/13/17 07:30 06/13/17 07:30 INR, PTT INR 1.27 (0.82-1.09) H 06/12/17 07:05 Problem List - Problems (1) Alcohol dependence with withdrawal delirium Code(s): F10.231 - ALCOHOL DEPENDENCE WITH WITHDRAWAL DELIRIUM (2) Alcoholic cirrhosis of liver Code(s): K70.30 - ALCOHOLIC CIRRHOSIS OF LIVER WITHOUT ASCITES (3) DM type 2 causing renal disease Code(s): E11.29 - TYPE 2 DIABETES MELLITUS W OTH DIABETIC KIDNEY COMPLICATION (4) HLD (hyperlipidemia) Code(s): E78.5 - HYPERLIPIDEMIA, UNSPECIFIED (5) HTN (hypertension) Code(s): I10 - ESSENTIAL (PRIMARY) HYPERTENSION Assessment/Plan PLAN Ammonia level elevated-- on lactulose On Librium Thiamine and MVI continue with meds restrained as pt is combative, kicking staff, trying to get OOB Pt is unsteady and pose a risk of fall
[2017-06-13] MEDS ORDERED: chlordiazePOXIDE 5 MG CAPSULE PO SCH (17:00)
[2017-06-13] MEDS: chlordiazePOXIDE 5 MG CAPSULE PO SCH ×2 (17:01→22:14)
[2017-06-13] MEDS: SODIUM CHLORIDE 1,000 ML IV SCH (17:01)
[2017-06-13] MEDS ORDERED: LACTULOSE 20 GM/30 ML UDC (FOR ORAL USE ONLY) PO PRN (17:58)
[2017-06-13] MEDS ORDERED: HALOPERIDOL 1 MG TABLET (FP) PO ONE (18:15)
[2017-06-13] MEDS ORDERED: chlordiazePOXIDE HCL 25 MG CAPSULE PO ONE (18:15)
[2017-06-13] MEDS: SODIUM CHLORIDE 0.9%/KCL 20 MEQ/1,000 ML INFUS.BAG IV SCH (20:06)
[2017-06-13 20:35] LABS: ANION GAP 9 (8-16); BLOOD UREA NITROGEN 10 mg/dL (7-18); CALCIUM 8.1 mg/dL (8.5-10.1); CHLORIDE 107 mmol/L (98-107); CO2 23 mmol/L (21-32); GLUCOSE,RANDOM 191 mg/dL (74-106); POTASSIUM 3.9 mmol/L (3.5-5.1); SODIUM 139 mmol/L (136-145)
[2017-06-13] MEDS: POTASSIUM CHLORIDE TABS 20 MEQ TABLET.ER (FP) PO SCH (21:33)
[2017-06-14] MEDS: chlordiazePOXIDE 5 MG CAPSULE PO SCH ×2 (06:00→12:41)
[2017-06-14] MEDS: INSULIN SLIDING SCALE (NOVOLOG) 1 VIAL SQ SCH ×4 (06:17→21:04)
[2017-06-14] MEDS ORDERED: ERYTHROMYCIN 0.5% OPHTHALMIC OINTMENT 3.5 GM TUBE OU ONE (06:24)
[2017-06-14 09:20] LABS: ANION GAP 8 (8-16); BLOOD UREA NITROGEN 8 mg/dL (7-18); CALCIUM 8.4 mg/dL (8.5-10.1); CHLORIDE 107 mmol/L (98-107); CO2 25 mmol/L (21-32); GLUCOSE,RANDOM 103 mg/dL (74-106); POTASSIUM 3.6 mmol/L (3.5-5.1); SODIUM 140 mmol/L (136-145)
[2017-06-14] MEDS: THIAMINE HCL 100 MG TABLET (FP) PO SCH ×2 (10:01→21:03)
[2017-06-14] MEDS: PANTOPRAZOLE 40 MG TABLET (FP) PO SCH (10:01)
[2017-06-14] MEDS: METOPROLOL TARTRATE 25 MG TABLET (FP) PO SCH ×2 (10:01→21:03)
[2017-06-14] MEDS: POTASSIUM CHLORIDE TABS 20 MEQ TABLET.ER (FP) PO SCH ×2 (10:01→21:03)
[2017-06-14] MEDS: MULTIVITAMINS (DAILY MVI) TABLET (FP) PO SCH (10:01)
[2017-06-14] MEDS ORDERED: ONDANSETRON *ODT* 4 MG TABLET SL PRN (10:07)
[2017-06-14] MEDS ORDERED: PT OWN MED DRAWER 7, Y5N ONE ×3 (11:53→20:44)
[2017-06-14] MEDS: ERYTHROMYCIN 0.5% OPHTHALMIC OINTMENT 3.5 GM TUBE OU SCH ×4 (12:23→23:46)
--- NOTE | 2017-06-14 12:35 | PN ---
Progress Note, Physician Chief Complaint: daughter at bedside Tremors+ - Current Medication List Current Medications: Active Medications Chlordiazepoxide HCl (Librium -) 25 mg PO Q4H PRN PRN Reason: WITHDRAWAL(CONT SUBST) Stop: 06/14/17 16:31 Last Admin: 06/12/17 14:23 Dose: 25 mg Chlordiazepoxide HCl (Librium -) 25 mg PO [id number] ON [facility] Stop: 06/15/17 05:01 Chlordiazepoxide HCl (Librium -) 15 mg PO [id number] ON [facility] OF [facility] Erythromycin (Erythromycin 0.5% Eye Ointment) 1 applic OU Q6HPO [facility] Last Admin: 06/14/17 12:23 Dose: Not Given Potassium Chloride/Sodium Chloride (Ns+20 Meq Kcl -) 20 meq in 1,000 mls @ 83 mls/hr IV ASDIR ON [facility] Last Admin: 06/13/17 20:06 Dose: 83 mls/hr Insulin Aspart (Novolog Vial Sliding Scale -) 1 vial SQ ACHS [facility] PRN Reason: Protocol Last Admin: 06/14/17 12:20 Dose: Not Given Lactulose (Cephulac (Oral Use)) 20 gm PO TID PRN PRN Reason: CONSTIPATION Lorazepam (Ativan Injection -) 2 mg IVPUSH TID PRN PRN Reason: WITHDRAWAL(CONT SUBST) Metoprolol Tartrate (Lopressor -) 25 mg PO BID [facility] Last Admin: 06/14/17 10:01 Dose: 25 mg Multivitamins/Minerals/Vitamin C (Tab-A-Vit -) 1 tab PO DAILY [facility] Last Admin: 06/14/17 10:01 Dose: 1 tab Ondansetron HCl (Zofran Odt -) 4 mg SL Q6H PRN PRN Reason: NAUSEA AND/OR VOMITING Pantoprazole Sodium (Protonix -) 40 mg PO DAILY [facility] Last Admin: 06/14/17 10:01 Dose: 40 mg Potassium Chloride (K-Dur -) 20 meq PO BID [facility] Last Admin: 06/14/17 10:01 Dose: 20 meq Multivit/Folic Acid/Iron ( Vitamins (Sjr) -) 1 tab PO DAILY [facility] Thiamine HCl (Vitamin B1 -) 100 mg PO BID [facility] Last Admin: 06/14/17 10:01 Dose: 100 mg - Objective Vital Signs: Vital Signs Temperature 98.6 F 06/14/17 10:00 Pulse Rate 76 06/14/17 10:00 Respiratory Rate 20 06/14/17 10:00 Blood Pressure 134/76 06/14/17 10:00 O2 Sat by Pulse Oximetry (%) 97 06/12/17 21:00 Constitutional: Yes: No Distress Cardiovascular: Yes: Regular Rate and Rhythm Respiratory: Yes: CTA Bilaterally Gastrointestinal: Yes: Normal Bowel Sounds, Soft. No: Tenderness Edema: No Labs: CBC, BMP 06/13/17 07:30 06/14/17 08:30 INR, PTT INR 1.27 (0.82-1.09) H 06/12/17 07:05 Problem List - Problems (1) Alcohol dependence with withdrawal delirium Code(s): F10.231 - ALCOHOL DEPENDENCE WITH WITHDRAWAL DELIRIUM (2) Alcoholic cirrhosis of liver Code(s): K70.30 - ALCOHOLIC CIRRHOSIS OF LIVER WITHOUT ASCITES (3) DM type 2 causing renal disease Code(s): E11.29 - TYPE 2 DIABETES MELLITUS W OTH DIABETIC KIDNEY COMPLICATION (4) HLD (hyperlipidemia) Code(s): E78.5 - HYPERLIPIDEMIA, UNSPECIFIED (5) HTN (hypertension) Code(s): I10 - ESSENTIAL (PRIMARY) HYPERTENSION Assessment/Plan PLAN Ammonia level elevated-- on lactulose On Librium Thiamine and MVI continue with meds Pt is unsteady and pose a risk of fall PT eval If pt unsteady after Librium dose is finished, he may need inpatient SNF
[2017-06-14] MEDS: chlordiazePOXIDE HCL 25 MG CAPSULE PO SCH ×3 (14:14→22:07)
[2017-06-14] MEDS ORDERED: chlordiazePOXIDE 5 MG CAPSULE PO SCH (15:00)
[2017-06-14] MEDS: PRENATAL VITAMINS W/ FOLIC ACID TABLET (FP) PO SCH (17:33)
[2017-06-14] MEDS: SODIUM CHLORIDE 0.9%/KCL 20 MEQ/1,000 ML INFUS.BAG IV SCH (20:54)
[2017-06-15] MEDS: chlordiazePOXIDE HCL 25 MG CAPSULE PO SCH (05:17)
[2017-06-15] MEDS: ERYTHROMYCIN 0.5% OPHTHALMIC OINTMENT 3.5 GM TUBE OU SCH ×3 (05:20→17:36)
[2017-06-15] MEDS ORDERED: PT OWN MED DRAWER 7, Y5N ONE ×4 (05:27→17:14)
[2017-06-15] MEDS: INSULIN SLIDING SCALE (NOVOLOG) 1 VIAL SQ SCH ×4 (06:13→22:05)
[2017-06-15] MEDS: THIAMINE HCL 100 MG TABLET (FP) PO SCH ×2 (09:46→22:18)
[2017-06-15] MEDS: METOPROLOL TARTRATE 25 MG TABLET (FP) PO SCH ×2 (09:47→22:17)
[2017-06-15] MEDS: PRENATAL VITAMINS W/ FOLIC ACID TABLET (FP) PO SCH (09:47)
[2017-06-15] MEDS: POTASSIUM CHLORIDE TABS 20 MEQ TABLET.ER (FP) PO SCH ×2 (09:47→22:17)
[2017-06-15] MEDS: MULTIVITAMINS (DAILY MVI) TABLET (FP) PO SCH (09:47)
[2017-06-15] MEDS: PANTOPRAZOLE 40 MG TABLET (FP) PO SCH (09:47)
--- NOTE | 2017-06-15 10:17 | PN ---
Progress Note, Physician History of Present Illness: pt seen/ examined. chart reviewed awake/ confused. afebrile - Current Medication List Current Medications: Active Medications Chlordiazepoxide HCl (Librium -) 15 mg PO [id number] [facility] Erythromycin (Erythromycin 0.5% Eye Ointment) 1 applic OU Q6HPO [facility] Last Admin: 06/15/17 05:20 Dose: 1 applic Potassium Chloride/Sodium Chloride (Ns+20 Meq Kcl -) 20 meq in 1,000 mls @ 83 mls/hr IV ASDIR [facility] Last Admin: 06/14/17 20:54 Dose: 83 mls/hr Insulin Aspart (Novolog Vial Sliding Scale -) 1 vial SQ ACHS [facility] PRN Reason: Protocol Last Admin: 06/15/17 06:13 Dose: Not Given Lactulose (Cephulac (Oral Use)) 20 gm PO TID PRN PRN Reason: CONSTIPATION Lorazepam (Ativan Injection -) 2 mg IVPUSH TID PRN PRN Reason: WITHDRAWAL(CONT SUBST) Last Admin: 06/14/17 21:25 Dose: 2 mg Metoprolol Tartrate (Lopressor -) 25 mg PO BID [facility] Last Admin: 06/15/17 09:47 Dose: 25 mg Multivitamins/Minerals/Vitamin C (Tab-A-Vit -) 1 tab PO DAILY [facility] Last Admin: 06/15/17 09:47 Dose: 1 tab Ondansetron HCl (Zofran Odt -) 4 mg SL Q6H PRN PRN Reason: NAUSEA AND/OR VOMITING Pantoprazole Sodium (Protonix -) 40 mg PO DAILY [facility] Last Admin: 06/15/17 09:47 Dose: 40 mg Potassium Chloride (K-Dur -) 20 meq PO BID [facility] Last Admin: 06/15/17 09:47 Dose: 20 meq Multivit/Folic Acid/Iron ( Vitamins (Sjr) -) 1 tab PO DAILY [facility] Last Admin: 06/15/17 09:47 Dose: 1 tab Thiamine HCl (Vitamin B1 -) 100 mg PO BID [facility] Last Admin: 06/15/17 09:46 Dose: 100 mg - Objective Vital Signs: Vital Signs Temperature 98.8 F 06/15/17 06:14 Pulse Rate 79 06/15/17 06:14 Respiratory Rate 20 06/15/17 06:14 Blood Pressure 138/80 06/15/17 06:14 O2 Sat by Pulse Oximetry (%) 97 06/12/17 21:00 Constitutional: Yes: No Distress, Calm Neck: Yes: Supple Cardiovascular: Yes: Regular Rate and Rhythm Respiratory: Yes: CTA Bilaterally Gastrointestinal: Yes: Soft Edema: No Labs: CBC, BMP 06/13/17 07:30 06/14/17 08:30 INR, PTT INR 1.27 (0.82-1.09) H 06/12/17 07:05 Problem List - Problems (1) Alcohol dependence with withdrawal delirium Code(s): F10.231 - ALCOHOL DEPENDENCE WITH WITHDRAWAL DELIRIUM (2) Alcoholic cirrhosis of liver Code(s): K70.30 - ALCOHOLIC CIRRHOSIS OF LIVER WITHOUT ASCITES (3) DM type 2 causing renal disease Code(s): E11.29 - TYPE 2 DIABETES MELLITUS W OTH DIABETIC KIDNEY COMPLICATION (4) HTN (hypertension) Code(s): I10 - ESSENTIAL (PRIMARY) HYPERTENSION Assessment/Plan Assessment/Plan continue present care On Librium Thiamine and MVI continue with meds Pt is unsteady and pose a risk of fall PT eval will follow
[2017-06-15] MEDS ORDERED: INSULIN (NOVOLOG) ASPART 100 UNITS/ML 10ML VIAL ONE (11:23)
[2017-06-15] MEDS: chlordiazePOXIDE 5 MG CAPSULE PO SCH ×3 (11:27→22:18)
--- NOTE | 2017-06-15 18:29 | PN ---
[facility] Progress Note (SOAP) Subjective: still restrained, but sleeping peacefully no signs of withdrawal sx on 1:1, eating well, no BM Objective: 06/16/17 14:35 Vital Signs - 24 hr 06/15/17 06/15/17 06/16/17 21:00 22:21 06:47 Temperature 98 F 97.6 F Pulse Rate 73 69 Respiratory 20 20 20 Rate Blood Pressure 138/75 138/72 O2 Sat by Pulse 99 Oximetry (%) 06/16/17 09:00 Temperature 98.6 F Pulse Rate 75 Respiratory 18 Rate Blood Pressure 120/61 O2 Sat by Pulse 97 Oximetry (%) 06/16/17 14:36 Laboratory Tests 06/11/17 06/11/17 06/11/17 12:40 12:40 17:13 WBC 5.4 RBC 4.87 D Hgb 13.4 D Hct 39.2 D MCV 80.4 MCH 27.4 MCHC 34.1 RDW 14.5 Plt Count 103 L MPV 8.1 Neutrophils % 80.5 D Lymphocytes % 6.1 L D Monocytes % 12.6 H Eosinophils % 0.3 D Basophils % 0.5 PT with INR INR Sodium 133 L Potassium 4.7 D Chloride 96 L Carbon Dioxide 23 Anion Gap 14 BUN 10 D Creatinine 1.7 H D Creat Clearance w eGFR 40.16 POC Glucometer Random Glucose 153 H Calcium 9.3 Phosphorus Magnesium Total Bilirubin 2.8 H D AST 126 H D ALT 53 Alkaline Phosphatase 144 H Ammonia Creatine Kinase 412 H Creatine Kinase Index 0.7 CK-MB (CK-2) 3.119 Total Protein 9.8 H D Albumin 3.5 D Lipase 611 H Opiates Screen Negative Methadone Screen Negative Barbiturate Screen Negative Phencyclidine Screen Negative Ur Amphetamines Screen Negative MDMA (Ecstasy) Screen Negative Benzodiazepines Screen Negative Cocaine Screen Negative U Marijuana (THC) Screen Negative Alcohol, Quantitative < 5.0 06/11/17 06/12/17 06/12/17 21:56 05:18 07:05 WBC 4.2 RBC 4.29 Hgb 11.5 L D Hct 34.5 L MCV 80.5 MCH 26.8 MCHC 33.3 RDW 14.3 Plt Count 72 L D MPV 8.3 Neutrophils % 66.7 Lymphocytes % 16.2 D Monocytes % 12.8 H Eosinophils % 3.5 D Basophils % 0.8 PT with INR INR Sodium Potassium Chloride Carbon Dioxide Anion Gap BUN Creatinine Creat Clearance w eGFR POC Glucometer 137 119 Random Glucose Calcium Phosphorus Magnesium Total Bilirubin AST ALT Alkaline Phosphatase Ammonia Creatine Kinase Creatine Kinase Index CK-MB (CK-2) Total Protein Albumin Lipase Opiates Screen Methadone Screen Barbiturate Screen Phencyclidine Screen Ur Amphetamines Screen MDMA (Ecstasy) Screen Benzodiazepines Screen Cocaine Screen U Marijuana (THC) Screen Alcohol, Quantitative 06/12/17 06/12/17 06/12/17 07:05 07:05 11:17 WBC RBC Hgb Hct MCV MCH MCHC RDW Plt Count MPV Neutrophils % Lymphocytes % Monocytes % Eosinophils % Basophils % PT with INR 14.30 H INR 1.27 H Sodium 137 Potassium 3.3 L D Chloride 103 Carbon Dioxide 23 Anion Gap 11 BUN 14 D Creatinine 1.1 D Creat Clearance w eGFR > 60 POC Glucometer 198 Random Glucose 103 D Calcium 8.5 Phosphorus 2.4 L D Magnesium 1.9 D Total Bilirubin 1.6 H D AST 87 H D ALT 45 Alkaline Phosphatase 118 H Ammonia Creatine Kinase Creatine Kinase Index CK-MB (CK-2) Total Protein 7.8 D Albumin 3.1 L Lipase Opiates Screen Methadone Screen Barbiturate Screen Phencyclidine Screen Ur Amphetamines Screen MDMA (Ecstasy) Screen Benzodiazepines Screen Cocaine Screen U Marijuana (THC) Screen Alcohol, Quantitative 06/12/17 06/12/17 06/13/17 16:45 22:32 05:48 WBC RBC Hgb Hct MCV MCH MCHC RDW Plt Count MPV Neutrophils % Lymphocytes % Monocytes % Eosinophils % Basophils % PT with INR INR Sodium Potassium Chloride Carbon Dioxide Anion Gap BUN Creatinine Creat Clearance w eGFR POC Glucometer 130 132 125 Random Glucose Calcium Phosphorus Magnesium Total Bilirubin AST ALT Alkaline Phosphatase Ammonia Creatine Kinase Creatine Kinase Index CK-MB (CK-2) Total Protein Albumin Lipase Opiates Screen Methadone Screen Barbiturate Screen Phencyclidine Screen Ur Amphetamines Screen MDMA (Ecstasy) Screen Benzodiazepines Screen Cocaine Screen U Marijuana (THC) Screen Alcohol, Quantitative 06/13/17 06/13/17 06/13/17 07:30 07:30 07:55 WBC 2.9 L D RBC 4.08 Hgb 11.0 L Hct 32.8 L MCV 80.5 MCH 27.0 MCHC 33.5 RDW 14.1 Plt Count 69 L MPV 8.0 Neutrophils % 63.1 Lymphocytes % 17.1 Monocytes % 14.5 H Eosinophils % 4.3 Basophils % 1.0 PT with INR INR Sodium 139 Potassium 2.9 L* Chloride 105 Carbon Dioxide 23 Anion Gap 11 BUN 10 D Creatinine 0.9 Creat Clearance w eGFR > 60 POC Glucometer Random Glucose 98 Calcium 8.2 L Phosphorus Magnesium 1.9 Total Bilirubin 1.1 H D AST 94 H ALT 51 Alkaline Phosphatase 123 H Ammonia 51.29 H Creatine Kinase Creatine Kinase Index CK-MB (CK-2) Total Protein 7.7 Albumin 3.1 L Lipase Opiates Screen Methadone Screen Barbiturate Screen Phencyclidine Screen Ur Amphetamines Screen MDMA (Ecstasy) Screen Benzodiazepines Screen Cocaine Screen U Marijuana (THC) Screen Alcohol, Quantitative 06/13/17 06/13/17 06/13/17 11:24 16:45 19:40 WBC RBC Hgb Hct MCV MCH MCHC RDW Plt Count MPV Neutrophils % Lymphocytes % Monocytes % Eosinophils % Basophils % PT with INR INR Sodium 139 Potassium 3.9 D Chloride 107 Carbon Dioxide 23 Anion Gap 9 BUN 10 Creatinine 1.0 Creat Clearance w eGFR POC Glucometer 115 138 Random Glucose 191 H D Calcium 8.1 L Phosphorus Magnesium Total Bilirubin AST ALT Alkaline Phosphatase Ammonia Creatine Kinase Creatine Kinase Index CK-MB (CK-2) Total Protein Albumin Lipase Opiates Screen Methadone Screen Barbiturate Screen Phencyclidine Screen Ur Amphetamines Screen MDMA (Ecstasy) Screen Benzodiazepines Screen Cocaine Screen U Marijuana (THC) Screen Alcohol, Quantitative 06/13/17 06/14/17 06/14/17 21:42 06:14 08:30 WBC RBC Hgb Hct MCV MCH MCHC RDW Plt Count MPV Neutrophils % Lymphocytes % Monocytes % Eosinophils % Basophils % PT with INR INR Sodium 140 Potassium 3.6 Chloride 107 Carbon Dioxide 25 Anion Gap 8 BUN 8 Creatinine 1.0 Creat Clearance w eGFR POC Glucometer 105 118 Random Glucose 103 D Calcium 8.4 L Phosphorus Magnesium Total Bilirubin AST ALT Alkaline Phosphatase Ammonia Creatine Kinase Creatine Kinase Index CK-MB (CK-2) Total Protein Albumin Lipase Opiates Screen Methadone Screen Barbiturate Screen Phencyclidine Screen Ur Amphetamines Screen MDMA (Ecstasy) Screen Benzodiazepines Screen Cocaine Screen U Marijuana (THC) Screen Alcohol, Quantitative 06/14/17 06/14/17 06/14/17 08:30 12:19 17:31 WBC RBC Hgb Hct MCV MCH MCHC RDW Plt Count MPV Neutrophils % Lymphocytes % Monocytes % Eosinophils % Basophils % PT with INR INR Sodium Potassium Chloride Carbon Dioxide Anion Gap BUN Creatinine Creat Clearance w eGFR POC Glucometer 135 146 Random Glucose Calcium Phosphorus Magnesium Total Bilirubin AST ALT Alkaline Phosphatase Ammonia 43.10 H Creatine Kinase Creatine Kinase Index CK-MB (CK-2) Total Protein Albumin Lipase Opiates Screen Methadone Screen Barbiturate Screen Phencyclidine Screen Ur Amphetamines Screen MDMA (Ecstasy) Screen Benzodiazepines Screen Cocaine Screen U Marijuana (THC) Screen Alcohol, Quantitative 06/14/17 06/15/17 06/15/17 21:02 05:15 11:22 WBC RBC Hgb Hct MCV MCH MCHC RDW Plt Count MPV Neutrophils % Lymphocytes % Monocytes % Eosinophils % Basophils % PT with INR INR Sodium Potassium Chloride Carbon Dioxide Anion Gap BUN Creatinine Creat Clearance w eGFR POC Glucometer 149 132 141 Random Glucose Calcium Phosphorus Magnesium Total Bilirubin AST ALT Alkaline Phosphatase Ammonia Creatine Kinase Creatine Kinase Index CK-MB (CK-2) Total Protein Albumin Lipase Opiates Screen Methadone Screen Barbiturate Screen Phencyclidine Screen Ur Amphetamines Screen MDMA (Ecstasy) Screen Benzodiazepines Screen Cocaine Screen U Marijuana (THC) Screen Alcohol, Quantitative 06/15/17 06/15/17 06/16/17 17:04 20:54 06:18 WBC RBC Hgb Hct MCV MCH MCHC RDW Plt Count MPV Neutrophils % Lymphocytes % Monocytes % Eosinophils % Basophils % PT with INR INR Sodium Potassium Chloride Carbon Dioxide Anion Gap BUN Creatinine Creat Clearance w eGFR POC Glucometer 119 116 98 Random Glucose Calcium Phosphorus Magnesium Total Bilirubin AST ALT Alkaline Phosphatase Ammonia Creatine Kinase Creatine Kinase Index CK-MB (CK-2) Total Protein Albumin Lipase Opiates Screen Methadone Screen Barbiturate Screen Phencyclidine Screen Ur Amphetamines Screen MDMA (Ecstasy) Screen Benzodiazepines Screen Cocaine Screen U Marijuana (THC) Screen Alcohol, Quantitative 06/16/17 06/16/17 11:04 12:42 WBC RBC Hgb Hct MCV MCH MCHC RDW Plt Count MPV Neutrophils % Lymphocytes % Monocytes % Eosinophils % Basophils % PT with INR INR Sodium 142 Potassium 4.2 Chloride 110 H Carbon Dioxide 21 Anion Gap 11 BUN 9 Creatinine 1.0 Creat Clearance w eGFR POC Glucometer 107 Random Glucose 97 Calcium 8.8 Phosphorus Magnesium Total Bilirubin AST ALT Alkaline Phosphatase Ammonia Creatine Kinase Creatine Kinase Index CK-MB (CK-2) Total Protein Albumin Lipase Opiates Screen Methadone Screen Barbiturate Screen Phencyclidine Screen Ur Amphetamines Screen MDMA (Ecstasy) Screen Benzodiazepines Screen Cocaine Screen U Marijuana (THC) Screen Alcohol, Quantitative Assessment: 06/16/17 14:36 alcohol withdrawal delirium persists, cotn detox ativan prn if not responsive to oral liirum, cont fluids, lacutlose for elevated ammonia level, k supplementaton and vitamins
[2017-06-15] MEDS: LACTULOSE 20 GM/30 ML UDC (FOR ORAL USE ONLY) PO SCH (22:18)
[2017-06-16] MEDS ORDERED: PT OWN MED DRAWER 7, Y5N ONE ×2 (00:41→17:33)
[2017-06-16] MEDS: SODIUM CHLORIDE 0.9%/KCL 20 MEQ/1,000 ML INFUS.BAG IV SCH ×2 (03:30→16:08)
[2017-06-16] MEDS: chlordiazePOXIDE 5 MG CAPSULE PO SCH ×2 (06:04→11:03)
[2017-06-16] MEDS: ERYTHROMYCIN 0.5% OPHTHALMIC OINTMENT 3.5 GM TUBE OU SCH ×3 (06:04→11:55)
[2017-06-16] MEDS: INSULIN SLIDING SCALE (NOVOLOG) 1 VIAL SQ SCH ×4 (06:48→22:00)
[2017-06-16] MEDS: METOPROLOL TARTRATE 25 MG TABLET (FP) PO SCH ×2 (09:41→21:38)
[2017-06-16] MEDS: THIAMINE HCL 100 MG TABLET (FP) PO SCH (09:41)
[2017-06-16] MEDS: POTASSIUM CHLORIDE TABS 20 MEQ TABLET.ER (FP) PO SCH (09:41)
[2017-06-16] MEDS: PRENATAL VITAMINS W/ FOLIC ACID TABLET (FP) PO SCH (09:41)
[2017-06-16] MEDS: MULTIVITAMINS (DAILY MVI) TABLET (FP) PO SCH (09:41)
[2017-06-16] MEDS: PANTOPRAZOLE 40 MG TABLET (FP) PO SCH (09:41)
[2017-06-16] MEDS: LACTULOSE 20 GM/30 ML UDC (FOR ORAL USE ONLY) PO SCH (09:41)
[2017-06-16] MEDS ORDERED: INSULIN (NOVOLOG) ASPART 100 UNITS/ML 10ML VIAL ONE (10:58)
--- NOTE | 2017-06-16 11:58 | PN ---
Progress Note, Physician Chief Complaint: at bedside Tremors+ decreased was agitated yesterday - Current Medication List Current Medications: Active Medications Chlordiazepoxide HCl (Librium -) 15 mg PO [id number] [facility] Last Admin: 06/16/17 11:03 Dose: 15 mg Erythromycin (Erythromycin 0.5% Eye Ointment) 1 applic OU Q6HPO [facility] Last Admin: 06/16/17 11:55 Dose: Not Given Potassium Chloride/Sodium Chloride (Ns+20 Meq Kcl -) 20 meq in 1,000 mls @ 83 mls/hr IV ASDIR [facility] Last Admin: 06/16/17 03:30 Dose: 83 mls/hr Insulin Aspart (Novolog Vial Sliding Scale -) 1 vial SQ ACHS [facility] PRN Reason: Protocol Last Admin: 06/16/17 11:05 Dose: Not Given Lactulose (Cephulac (Oral Use)) 20 gm PO BID [facility] Last Admin: 06/16/17 09:41 Dose: 20 gm Lorazepam (Ativan Injection -) 2 mg IVPUSH TID PRN PRN Reason: WITHDRAWAL(CONT SUBST) Last Admin: 06/16/17 05:45 Dose: 2 mg Metoprolol Tartrate (Lopressor -) 25 mg PO BID [facility] Last Admin: 06/16/17 09:41 Dose: 25 mg Multivitamins/Minerals/Vitamin C (Tab-A-Vit -) 1 tab PO DAILY [facility] Last Admin: 06/16/17 09:41 Dose: 1 tab Ondansetron HCl (Zofran Odt -) 4 mg SL Q6H PRN PRN Reason: NAUSEA AND/OR VOMITING Pantoprazole Sodium (Protonix -) 40 mg PO DAILY [facility] Last Admin: 06/16/17 09:41 Dose: 40 mg Potassium Chloride (K-Dur -) 20 meq PO BID [facility] Last Admin: 06/16/17 09:41 Dose: 20 meq Multivit/Folic Acid/Iron ( Vitamins (Sjr) -) 1 tab PO DAILY [facility] Last Admin: 06/16/17 09:41 Dose: 1 tab Thiamine HCl (Vitamin B1 -) 100 mg PO BID [facility] Last Admin: 06/16/17 09:41 Dose: 100 mg - Objective Vital Signs: Vital Signs Temperature 98.6 F 06/16/17 09:00 Pulse Rate 75 06/16/17 09:00 Respiratory Rate 18 06/16/17 09:00 Blood Pressure 120/61 06/16/17 09:00 O2 Sat by Pulse Oximetry (%) 97 06/16/17 09:00 Constitutional: Yes: No Distress, Calm Cardiovascular: Yes: Regular Rate and Rhythm Respiratory: Yes: Diminished Gastrointestinal: Yes: Normal Bowel Sounds, Soft. No: Tenderness Edema: No Labs: CBC, BMP 06/13/17 07:30 06/14/17 08:30 INR, PTT INR 1.27 (0.82-1.09) H 06/12/17 07:05 Problem List - Problems (1) Alcohol dependence with withdrawal delirium Code(s): F10.231 - ALCOHOL DEPENDENCE WITH WITHDRAWAL DELIRIUM (2) Alcoholic cirrhosis of liver Code(s): K70.30 - ALCOHOLIC CIRRHOSIS OF LIVER WITHOUT ASCITES (3) DM type 2 causing renal disease Code(s): E11.29 - TYPE 2 DIABETES MELLITUS W OTH DIABETIC KIDNEY COMPLICATION (4) HLD (hyperlipidemia) Code(s): E78.5 - HYPERLIPIDEMIA, UNSPECIFIED (5) HTN (hypertension) Code(s): I10 - ESSENTIAL (PRIMARY) HYPERTENSION Assessment/Plan PLAN Ammonia level elevated-- on lactulose On Librium-- will be done today Thiamine and MVI continue with meds Pt is unsteady and pose a risk of fall PT eval If pt unsteady after Librium dose is finished, he may need inpatient SNF
[2017-06-16 13:32] LABS: ANION GAP 11 (8-16); BLOOD UREA NITROGEN 9 mg/dL (7-18); CALCIUM 8.8 mg/dL (8.5-10.1); CHLORIDE 110 mmol/L (98-107); CO2 21 mmol/L (21-32); GLUCOSE,RANDOM 97 mg/dL (74-106); POTASSIUM 4.2 mmol/L (3.5-5.1); SODIUM 142 mmol/L (136-145)
--- NOTE | 2017-06-16 13:49 | PN ---
[facility] Progress Note (SOAP) Subjective: family at bedside, yoandy is sleeping peacefully, no restraints, nurses report agiation this am requiring ativan ivp 2mg, on libirum 15mg q6h no prn s orally given, family reports does nto eat when he drinks has had dts 3x in past. Objective: 06/16/17 13:49 Vital Signs - 8 hr 06/16/17 06/16/17 06:47 09:00 Temperature 97.6 F 98.6 F Pulse Rate 69 75 Respiratory 20 18 Rate Blood Pressure 138/72 120/61 O2 Sat by Pulse 97 Oximetry (%) 06/16/17 14:38 Laboratory Tests 06/11/17 06/11/17 06/11/17 12:40 12:40 17:13 WBC 5.4 RBC 4.87 D Hgb 13.4 D Hct 39.2 D MCV 80.4 MCH 27.4 MCHC 34.1 RDW 14.5 Plt Count 103 L MPV 8.1 Neutrophils % 80.5 D Lymphocytes % 6.1 L D Monocytes % 12.6 H Eosinophils % 0.3 D Basophils % 0.5 PT with INR INR Sodium 133 L Potassium 4.7 D Chloride 96 L Carbon Dioxide 23 Anion Gap 14 BUN 10 D Creatinine 1.7 H D Creat Clearance w eGFR 40.16 POC Glucometer Random Glucose 153 H Calcium 9.3 Phosphorus Magnesium Total Bilirubin 2.8 H D AST 126 H D ALT 53 Alkaline Phosphatase 144 H Ammonia Creatine Kinase 412 H Creatine Kinase Index 0.7 CK-MB (CK-2) 3.119 Total Protein 9.8 H D Albumin 3.5 D Lipase 611 H Opiates Screen Negative Methadone Screen Negative Barbiturate Screen Negative Phencyclidine Screen Negative Ur Amphetamines Screen Negative MDMA (Ecstasy) Screen Negative Benzodiazepines Screen Negative Cocaine Screen Negative U Marijuana (THC) Screen Negative Alcohol, Quantitative < 5.0 06/11/17 06/12/17 06/12/17 21:56 05:18 07:05 WBC 4.2 RBC 4.29 Hgb 11.5 L D Hct 34.5 L MCV 80.5 MCH 26.8 MCHC 33.3 RDW 14.3 Plt Count 72 L D MPV 8.3 Neutrophils % 66.7 Lymphocytes % 16.2 D Monocytes % 12.8 H Eosinophils % 3.5 D Basophils % 0.8 PT with INR INR Sodium Potassium Chloride Carbon Dioxide Anion Gap BUN Creatinine Creat Clearance w eGFR POC Glucometer 137 119 Random Glucose Calcium Phosphorus Magnesium Total Bilirubin AST ALT Alkaline Phosphatase Ammonia Creatine Kinase Creatine Kinase Index CK-MB (CK-2) Total Protein Albumin Lipase Opiates Screen Methadone Screen Barbiturate Screen Phencyclidine Screen Ur Amphetamines Screen MDMA (Ecstasy) Screen Benzodiazepines Screen Cocaine Screen U Marijuana (THC) Screen Alcohol, Quantitative 06/12/17 06/12/17 06/12/17 07:05 07:05 11:17 WBC RBC Hgb Hct MCV MCH MCHC RDW Plt Count MPV Neutrophils % Lymphocytes % Monocytes % Eosinophils % Basophils % PT with INR 14.30 H INR 1.27 H Sodium 137 Potassium 3.3 L D Chloride 103 Carbon Dioxide 23 Anion Gap 11 BUN 14 D Creatinine 1.1 D Creat Clearance w eGFR > 60 POC Glucometer 198 Random Glucose 103 D Calcium 8.5 Phosphorus 2.4 L D Magnesium 1.9 D Total Bilirubin 1.6 H D AST 87 H D ALT 45 Alkaline Phosphatase 118 H Ammonia Creatine Kinase Creatine Kinase Index CK-MB (CK-2) Total Protein 7.8 D Albumin 3.1 L Lipase Opiates Screen Methadone Screen Barbiturate Screen Phencyclidine Screen Ur Amphetamines Screen MDMA (Ecstasy) Screen Benzodiazepines Screen Cocaine Screen U Marijuana (THC) Screen Alcohol, Quantitative 06/12/17 06/12/17 06/13/17 16:45 22:32 05:48 WBC RBC Hgb Hct MCV MCH MCHC RDW Plt Count MPV Neutrophils % Lymphocytes % Monocytes % Eosinophils % Basophils % PT with INR INR Sodium Potassium Chloride Carbon Dioxide Anion Gap BUN Creatinine Creat Clearance w eGFR POC Glucometer 130 132 125 Random Glucose Calcium Phosphorus Magnesium Total Bilirubin AST ALT Alkaline Phosphatase Ammonia Creatine Kinase Creatine Kinase Index CK-MB (CK-2) Total Protein Albumin Lipase Opiates Screen Methadone Screen Barbiturate Screen Phencyclidine Screen Ur Amphetamines Screen MDMA (Ecstasy) Screen Benzodiazepines Screen Cocaine Screen U Marijuana (THC) Screen Alcohol, Quantitative 06/13/17 06/13/17 06/13/17 07:30 07:30 07:55 WBC 2.9 L D RBC 4.08 Hgb 11.0 L Hct 32.8 L MCV 80.5 MCH 27.0 MCHC 33.5 RDW 14.1 Plt Count 69 L MPV 8.0 Neutrophils % 63.1 Lymphocytes % 17.1 Monocytes % 14.5 H Eosinophils % 4.3 Basophils % 1.0 PT with INR INR Sodium 139 Potassium 2.9 L* Chloride 105 Carbon Dioxide 23 Anion Gap 11 BUN 10 D Creatinine 0.9 Creat Clearance w eGFR > 60 POC Glucometer Random Glucose 98 Calcium 8.2 L Phosphorus Magnesium 1.9 Total Bilirubin 1.1 H D AST 94 H ALT 51 Alkaline Phosphatase 123 H Ammonia 51.29 H Creatine Kinase Creatine Kinase Index CK-MB (CK-2) Total Protein 7.7 Albumin 3.1 L Lipase Opiates Screen Methadone Screen Barbiturate Screen Phencyclidine Screen Ur Amphetamines Screen MDMA (Ecstasy) Screen Benzodiazepines Screen Cocaine Screen U Marijuana (THC) Screen Alcohol, Quantitative 06/13/17 06/13/17 06/13/17 11:24 16:45 19:40 WBC RBC Hgb Hct MCV MCH MCHC RDW Plt Count MPV Neutrophils % Lymphocytes % Monocytes % Eosinophils % Basophils % PT with INR INR Sodium 139 Potassium 3.9 D Chloride 107 Carbon Dioxide 23 Anion Gap 9 BUN 10 Creatinine 1.0 Creat Clearance w eGFR POC Glucometer 115 138 Random Glucose 191 H D Calcium 8.1 L Phosphorus Magnesium Total Bilirubin AST ALT Alkaline Phosphatase Ammonia Creatine Kinase Creatine Kinase Index CK-MB (CK-2) Total Protein Albumin Lipase Opiates Screen Methadone Screen Barbiturate Screen Phencyclidine Screen Ur Amphetamines Screen MDMA (Ecstasy) Screen Benzodiazepines Screen Cocaine Screen U Marijuana (THC) Screen Alcohol, Quantitative 06/13/17 06/14/17 06/14/17 21:42 06:14 08:30 WBC RBC Hgb Hct MCV MCH MCHC RDW Plt Count MPV Neutrophils % Lymphocytes % Monocytes % Eosinophils % Basophils % PT with INR INR Sodium 140 Potassium 3.6 Chloride 107 Carbon Dioxide 25 Anion Gap 8 BUN 8 Creatinine 1.0 Creat Clearance w eGFR POC Glucometer 105 118 Random Glucose 103 D Calcium 8.4 L Phosphorus Magnesium Total Bilirubin AST ALT Alkaline Phosphatase Ammonia Creatine Kinase Creatine Kinase Index CK-MB (CK-2) Total Protein Albumin Lipase Opiates Screen Methadone Screen Barbiturate Screen Phencyclidine Screen Ur Amphetamines Screen MDMA (Ecstasy) Screen Benzodiazepines Screen Cocaine Screen U Marijuana (THC) Screen Alcohol, Quantitative 06/14/17 06/14/17 06/14/17 08:30 12:19 17:31 WBC RBC Hgb Hct MCV MCH MCHC RDW Plt Count MPV Neutrophils % Lymphocytes % Monocytes % Eosinophils % Basophils % PT with INR INR Sodium Potassium Chloride Carbon Dioxide Anion Gap BUN Creatinine Creat Clearance w eGFR POC Glucometer 135 146 Random Glucose Calcium Phosphorus Magnesium Total Bilirubin AST ALT Alkaline Phosphatase Ammonia 43.10 H Creatine Kinase Creatine Kinase Index CK-MB (CK-2) Total Protein Albumin Lipase Opiates Screen Methadone Screen Barbiturate Screen Phencyclidine Screen Ur Amphetamines Screen MDMA (Ecstasy) Screen Benzodiazepines Screen Cocaine Screen U Marijuana (THC) Screen Alcohol, Quantitative 06/14/17 06/15/17 06/15/17 21:02 05:15 11:22 WBC RBC Hgb Hct MCV MCH MCHC RDW Plt Count MPV Neutrophils % Lymphocytes % Monocytes % Eosinophils % Basophils % PT with INR INR Sodium Potassium Chloride Carbon Dioxide Anion Gap BUN Creatinine Creat Clearance w eGFR POC Glucometer 149 132 141 Random Glucose Calcium Phosphorus Magnesium Total Bilirubin AST ALT Alkaline Phosphatase Ammonia Creatine Kinase Creatine Kinase Index CK-MB (CK-2) Total Protein Albumin Lipase Opiates Screen Methadone Screen Barbiturate Screen Phencyclidine Screen Ur Amphetamines Screen MDMA (Ecstasy) Screen Benzodiazepines Screen Cocaine Screen U Marijuana (THC) Screen Alcohol, Quantitative 06/15/17 06/15/17 06/16/17 17:04 20:54 06:18 WBC RBC Hgb Hct MCV MCH MCHC RDW Plt Count MPV Neutrophils % Lymphocytes % Monocytes % Eosinophils % Basophils % PT with INR INR Sodium Potassium Chloride Carbon Dioxide Anion Gap BUN Creatinine Creat Clearance w eGFR POC Glucometer 119 116 98 Random Glucose Calcium Phosphorus Magnesium Total Bilirubin AST ALT Alkaline Phosphatase Ammonia Creatine Kinase Creatine Kinase Index CK-MB (CK-2) Total Protein Albumin Lipase Opiates Screen Methadone Screen Barbiturate Screen Phencyclidine Screen Ur Amphetamines Screen MDMA (Ecstasy) Screen Benzodiazepines Screen Cocaine Screen U Marijuana (THC) Screen Alcohol, Quantitative 06/16/17 06/16/17 11:04 12:42 WBC RBC Hgb Hct MCV MCH MCHC RDW Plt Count MPV Neutrophils % Lymphocytes % Monocytes % Eosinophils % Basophils % PT with INR INR Sodium 142 Potassium 4.2 Chloride 110 H Carbon Dioxide 21 Anion Gap 11 BUN 9 Creatinine 1.0 Creat Clearance w eGFR POC Glucometer 107 Random Glucose 97 Calcium 8.8 Phosphorus Magnesium Total Bilirubin AST ALT Alkaline Phosphatase Ammonia Creatine Kinase Creatine Kinase Index CK-MB (CK-2) Total Protein Albumin Lipase Opiates Screen Methadone Screen Barbiturate Screen Phencyclidine Screen Ur Amphetamines Screen MDMA (Ecstasy) Screen Benzodiazepines Screen Cocaine Screen U Marijuana (THC) Screen Alcohol, Quantitative Assessment: 06/16/17 14:39 alcohol withdrawal - completed detox, very sedated, will leave on prn ativan ivp d/c libirum diarrhea this am from lactulose will decrease to daily cm for elevated ammonia, d/c k supplementation repeat labs. terrence is still to weak to [facility], consdier half-way placement at thisi time.
[2017-06-17] MEDS: ERYTHROMYCIN 0.5% OPHTHALMIC OINTMENT 3.5 GM TUBE OU SCH ×4 (00:05→17:32)
[2017-06-17] MEDS ORDERED: PT OWN MED DRAWER 7, Y5N ONE ×2 (06:09→10:04)
[2017-06-17] MEDS: THIAMINE HCL 100 MG TABLET (FP) PO SCH ×3 (06:20→22:01)
[2017-06-17] MEDS: INSULIN SLIDING SCALE (NOVOLOG) 1 VIAL SQ SCH ×4 (06:23→21:34)
[2017-06-17 08:43] LABS: ANION GAP 7 (8-16); BLOOD UREA NITROGEN 7 mg/dL (7-18); CALCIUM 8.4 mg/dL (8.5-10.1); CHLORIDE 110 mmol/L (98-107); CO2 24 mmol/L (21-32); POTASSIUM 3.3 mmol/L (3.5-5.1); SODIUM 141 mmol/L (136-145)
[2017-06-17 08:47] LABS: GLUCOSE,RANDOM 117 mg/dL (74-106)
[2017-06-17] MEDS: METOPROLOL TARTRATE 25 MG TABLET (FP) PO SCH ×2 (10:56→22:01)
[2017-06-17] MEDS: MULTIVITAMINS (DAILY MVI) TABLET (FP) PO SCH (10:56)
[2017-06-17] MEDS: LACTULOSE 20 GM/30 ML UDC (FOR ORAL USE ONLY) PO SCH (10:56)
[2017-06-17] MEDS: PRENATAL VITAMINS W/ FOLIC ACID TABLET (FP) PO SCH (10:56)
[2017-06-17] MEDS: PANTOPRAZOLE 40 MG TABLET (FP) PO SCH (10:56)
[2017-06-17] MEDS ORDERED: POTASSIUM CHLORIDE ORAL LIQUID 20 MEQ/15 ML PO ONE (12:30)
--- NOTE | 2017-06-17 12:49 | PN ---
Progress Note, Physician Chief Complaint: at bedside Tremors+ decreased was agitated yesterday - Current Medication List Current Medications: Active Medications Erythromycin (Erythromycin 0.5% Eye Ointment) 1 applic OU Q6HPO [facility] Last Admin: 06/17/17 06:21 Dose: 1 applic Potassium Chloride/Sodium Chloride (Ns+20 Meq Kcl -) 20 meq in 1,000 mls @ 83 mls/hr IV ASDIR [facility] Last Admin: 06/16/17 16:08 Dose: 83 mls/hr Insulin Aspart (Novolog Vial Sliding Scale -) 1 vial SQ ACHS [facility] PRN Reason: Protocol Last Admin: 06/17/17 12:13 Dose: Not Given Lactulose (Cephulac (Oral Use)) 20 gm PO DAILY [facility] Last Admin: 06/17/17 10:56 Dose: 20 gm Lorazepam (Ativan Injection -) 2 mg IM Q8H PRN PRN Reason: ANXIETY Last Admin: 06/17/17 06:23 Dose: 2 mg Metoprolol Tartrate (Lopressor -) 25 mg PO BID [facility] Last Admin: 06/17/17 10:56 Dose: 25 mg Multivitamins/Minerals/Vitamin C (Tab-A-Vit -) 1 tab PO DAILY [facility] Last Admin: 06/17/17 10:56 Dose: 1 tab Ondansetron HCl (Zofran Odt -) 4 mg SL Q6H PRN PRN Reason: NAUSEA AND/OR VOMITING Pantoprazole Sodium (Protonix -) 40 mg PO DAILY [facility] Last Admin: 06/17/17 10:56 Dose: 40 mg Multivit/Folic Acid/Iron ( Vitamins (Sjr) -) 1 tab PO DAILY [facility] Last Admin: 06/17/17 10:56 Dose: 1 tab Thiamine HCl (Vitamin B1 -) 100 mg PO BID [facility] Last Admin: 06/17/17 10:56 Dose: 100 mg - Objective Vital Signs: Vital Signs Temperature 98.8 F 06/17/17 06:14 Pulse Rate 74 06/17/17 10:00 Respiratory Rate 18 06/17/17 10:00 Blood Pressure 100/50 06/17/17 10:00 O2 Sat by Pulse Oximetry (%) 97 06/17/17 09:00 Constitutional: Yes: No Distress Cardiovascular: Yes: Regular Rate and Rhythm Respiratory: Yes: CTA Bilaterally Gastrointestinal: Yes: Normal Bowel Sounds, Soft. No: Tenderness Edema: No Labs: CBC, BMP 06/13/17 07:30 06/17/17 06:45 INR, PTT INR 1.27 (0.82-1.09) H 06/12/17 07:05 Problem List - Problems (1) Alcohol dependence with withdrawal delirium Code(s): F10.231 - ALCOHOL DEPENDENCE WITH WITHDRAWAL DELIRIUM (2) Alcoholic cirrhosis of liver Code(s): K70.30 - ALCOHOLIC CIRRHOSIS OF LIVER WITHOUT ASCITES (3) DM type 2 causing renal disease Code(s): E11.29 - TYPE 2 DIABETES MELLITUS W OTH DIABETIC KIDNEY COMPLICATION (4) HLD (hyperlipidemia) Code(s): E78.5 - HYPERLIPIDEMIA, UNSPECIFIED (5) HTN (hypertension) Code(s): I10 - ESSENTIAL (PRIMARY) HYPERTENSION Assessment/Plan PLAN Ammonia level decreased-- on lactulose On Librium-- completed Thiamine and MVI continue with meds Pt is unsteady and pose a risk of fall PT eval need inpatient SNF
[2017-06-17] MEDS: SODIUM CHLORIDE 0.9%/KCL 20 MEQ/1,000 ML INFUS.BAG IV SCH ×2 (17:32→19:40)
[2017-06-17] MEDS ORDERED: LORazepam 2 MG/ML SDV VIAL IVPUSH ONE (23:45)
[2017-06-18] MEDS: INSULIN SLIDING SCALE (NOVOLOG) 1 VIAL SQ SCH ×2 (06:16→11:18)
[2017-06-18] MEDS: ERYTHROMYCIN 0.5% OPHTHALMIC OINTMENT 3.5 GM TUBE OU SCH ×2 (06:17→12:00)
[2017-06-18 08:23] LABS: ANION GAP 11 (8-16); CALCIUM 8.9 mg/dL (8.5-10.1); CHLORIDE 108 mmol/L (98-107); CO2 22 mmol/L (21-32); GLUCOSE,RANDOM 93 mg/dL (74-106); POTASSIUM 3.4 mmol/L (3.5-5.1); SODIUM 141 mmol/L (136-145)
[2017-06-18 08:24] LABS: BLOOD UREA NITROGEN 8 mg/dL (7-18)
[2017-06-18] MEDS ORDERED: PT OWN MED DRAWER 7, Y5N ONE (10:13)
[2017-06-18] MEDS: METOPROLOL TARTRATE 25 MG TABLET (FP) PO SCH (10:19)
[2017-06-18] MEDS: LACTULOSE 20 GM/30 ML UDC (FOR ORAL USE ONLY) PO SCH (10:19)
[2017-06-18] MEDS: MULTIVITAMINS (DAILY MVI) TABLET (FP) PO SCH (10:19)
[2017-06-18] MEDS: THIAMINE HCL 100 MG TABLET (FP) PO SCH (10:19)
[2017-06-18] MEDS: PRENATAL VITAMINS W/ FOLIC ACID TABLET (FP) PO SCH (10:19)
[2017-06-18] MEDS: PANTOPRAZOLE 40 MG TABLET (FP) PO SCH (10:19)
--- NOTE | 2017-06-18 13:05 | PN ---
Progress Note, Physician - Current Medication List Current Medications: Active Medications Erythromycin (Erythromycin 0.5% Eye Ointment) 1 applic OU Q6HPO [facility] Last Admin: 06/18/17 06:17 Dose: 1 applic Potassium Chloride/Sodium Chloride (Ns+20 Meq Kcl -) 20 meq in 1,000 mls @ 83 mls/hr IV ASDIR [facility] Last Admin: 06/17/17 19:40 Dose: Not Given Insulin Aspart (Novolog Vial Sliding Scale -) 1 vial SQ ACHS [facility] PRN Reason: Protocol Last Admin: 06/18/17 11:18 Dose: Not Given Lactulose (Cephulac (Oral Use)) 20 gm PO DAILY [facility] Last Admin: 06/18/17 10:19 Dose: 20 gm Metoprolol Tartrate (Lopressor -) 25 mg PO BID [facility] Last Admin: 06/18/17 10:19 Dose: 25 mg Multivitamins/Minerals/Vitamin C (Tab-A-Vit -) 1 tab PO DAILY [facility] Last Admin: 06/18/17 10:19 Dose: 1 tab Ondansetron HCl (Zofran Odt -) 4 mg SL Q6H PRN PRN Reason: NAUSEA AND/OR VOMITING Pantoprazole Sodium (Protonix -) 40 mg PO DAILY [facility] Last Admin: 06/18/17 10:19 Dose: 40 mg Multivit/Folic Acid/Iron ( Vitamins (Sjr) -) 1 tab PO DAILY [facility] Last Admin: 06/18/17 10:19 Dose: 1 tab Thiamine HCl (Vitamin B1 -) 100 mg PO BID [facility] Last Admin: 06/18/17 10:19 Dose: 100 mg - Objective Vital Signs: Vital Signs Temperature 98.0 F 06/18/17 06:52 Pulse Rate 76 06/18/17 06:52 Respiratory Rate 18 06/18/17 06:52 Blood Pressure 136/72 06/18/17 06:52 O2 Sat by Pulse Oximetry (%) 99 06/17/17 20:05 Labs: CBC, BMP 06/13/17 07:30 06/18/17 07:12 INR, PTT INR 1.27 (0.82-1.09) H 06/12/17 07:05 Problem List - Problems (1) Alcohol dependence with withdrawal delirium Code(s): F10.231 - ALCOHOL DEPENDENCE WITH WITHDRAWAL DELIRIUM (2) Alcoholic cirrhosis of liver Code(s): K70.30 - ALCOHOLIC CIRRHOSIS OF LIVER WITHOUT ASCITES (3) DM type 2 causing renal disease Code(s): E11.29 - TYPE 2 DIABETES MELLITUS W OTH DIABETIC KIDNEY COMPLICATION (4) HLD (hyperlipidemia) Code(s): E78.5 - HYPERLIPIDEMIA, UNSPECIFIED (5) HTN (hypertension) Code(s): I10 - ESSENTIAL (PRIMARY) HYPERTENSION
[2017-06-18 13:15] VITALS: BP 130/68; PULSE 55; TEMP 98.1
--- NOTE | 2017-06-18 14:16 | DS ---
Physical Examination Vital Signs: Vital Signs Temperature 98.1 F 06/18/17 13:13 Pulse Rate 55 L 06/18/17 13:13 Respiratory Rate 20 06/18/17 13:13 Blood Pressure 130/68 06/18/17 13:13 O2 Sat by Pulse Oximetry (%) 99 06/17/17 20:05 Constitutional: Yes: No Distress Cardiovascular: Yes: Regular Rate and Rhythm Respiratory: Yes: CTA Bilaterally Gastrointestinal: Yes: Normal Bowel Sounds, Soft. No: Tenderness Edema: No Labs: CBC, BMP 06/13/17 07:30 06/18/17 07:12 Discharge Summary Reason For Visit: ALCOHOL WITHDRAWAL SYNDROME Hospital Course: Admitted for withdrawal Completed Librium Seen by detox physician Stable for dc to SNF-- pt is unsteady gait Condition: Improved - Instructions Referrals: Aubrey Lara MD [Primary Care Provider] - Disposition: LONG-TERM FACILITY - Home Medications Comprehensive Discharge Medication List: Ambulatory Orders Lactulose (Oral Use) [Cephulac -] 20 gm PO BID 30 Days udc 07/11/15 Metoprolol Tartrate [Lopressor -] 25 mg PO BID #60 tablet 07/11/15 Multivitamins [Multivit ([facility] Formulary)] 1 tab PO DAILY #30 tab 07/11/15 Pantoprazole Sodium [Protonix -] 40 mg PO DAILY #30 tablet.ec 07/11/15 Thiamine HCl [Vitamin B1 -] 100 mg PO BID #60 tablet 07/11/15
[2017-06-18] MEDS ORDERED: POTASSIUM CHLORIDE ORAL LIQUID 20 MEQ/15 ML PO ONE (14:30)
== END 2017-06-18 17:09 | DRG 897 ==
LOC: JER 11:52 → JERBED 15:08 → J6S 20:32
PROVIDERS: ADMIT Internal Medicine; ATTEND Internal Medicine
PROC: HZ2ZZZZ Detoxification Services for Substance Abuse Treatment (ICD-10-PCS; principal; 2017-06-11)
DX: F10.231 Alcohol dependence with withdrawal delirium (principal); N17.9 Acute kidney failure, unspecified; K70.30 Alcoholic cirrhosis of liver without ascites; E11.29 Type 2 diabetes mellitus with other diabetic kidney complication; E78.5 Hyperlipidemia, unspecified; I10 Essential (primary) hypertension; E87.6 Hypokalemia; E83.42 Hypomagnesemia; D69.6 Thrombocytopenia, unspecified; R00.0 Tachycardia, unspecified
CPT/HCPCS: 36415; 80048; 80053; 80307; 82140; 82550; 82553; 82962; 83690; 83735; 84100; 85025; 85610; 93005; 93010; 97116-GP; 99282-25; J7030

== ENCOUNTER 2018-04-02 14:51 | Inpatient (IN) | payer BC, OTHER ==
--- NOTE | 2018-04-02 15:55 | PDOC ---
Rapid Medical Evaluation Time Seen by Provider: 04/02/18 15:51 Medical Evaluation: Allergies Allergy/AdvReac Type Severity Reaction Status Date / Time No Known Drug Allergies Allergy Verified 08/01/14 06:37 04/02/18 15:52 Pt c/o: vomiting blood since yesterday x 4 , hx etoh abuse, no hx of esop varices, black bloody stool, now dizzy Pt on brief exam: BP 107/60 Patient ordered for: labs, protonix 80mg, ekg, cxr, type and screen Pt to proceed to the ED Discharge Disposition - Diagnosis GI (gastrointestinal bleed) - Referrals - Patient Instructions - Post Discharge Activity
[2018-04-02] MEDS ORDERED: PANTOPRAZOLE SODIUM 40 MG VIAL IVPUSH ONE (15:57)
[2018-04-02] MEDS ORDERED: PANTOPRAZOLE SODIUM 40 MG/100 ML BAG IVPB ONE (16:07)
[2018-04-02] MEDS ORDERED: PANTOPRAZOLE SODIUM 40 MG VIAL ONE (16:07)
--- NOTE | 2018-04-02 16:15 | PDOC ---
History of Present Illness - General Chief Complaint: Vomiting Blood Stated Complaint: VOMITING AB PAIN Time Seen by Provider: 04/02/18 15:51 History Source: Patient Exam Limitations: Language Barrier - History of Present Illness Initial Comments: 04/02/18 16:00 72 year old puerto rican speaking man with a history of etoh abuse, esophageal candidiasis (2016), liver cirrhosis and prior episode of melena (2016) who presents w/ 3 episodes of bloody vomiting last night after which he took an addy seltzer and drank water. He had 4 episodes of vomiting afterwards which were nonbloody and nonbiliious. The patient also had 2 episodes of dark bloody stools since yesterday. He drinks a 6 pack of beer a day, last drink was 3 days ago. He reports some shaking for the past 1-2 days. Does not use anti-coagulants. He denies abdominal pain, chest pain, shortness of breath, dysuria, hematuria, recent travel, recent illness. EGD in 2016 was done due to melenotic episode Findings: esophageal candidiasis, multiple punctate shallow erosions in gastric antrum Phys Asst: [id number] PCP: Jane Past History - Past Medical History Allergies/Adverse Reactions: Allergies Allergy/AdvReac Type Severity Reaction Status Date / Time No Known Drug Allergies Allergy Verified 04/02/18 15:54 Home Medications: Ambulatory Orders Lactulose (Oral Use) [Cephulac -] 20 gm PO BID 30 Days udc 07/11/15 Metoprolol Tartrate [Lopressor -] 25 mg PO BID #60 tablet 07/11/15 Multivitamins [Multivit ([facility] Formulary)] 1 tab PO DAILY #30 tab 07/11/15 Pantoprazole Sodium [Protonix -] 40 mg PO DAILY #30 tablet.ec 07/11/15 Thiamine HCl [Vitamin B1 -] 100 mg PO BID #60 tablet 07/11/15 Unobtainable 04/02/18 Anemia: No Asthma: No Cancer: No Cardiac Disorders: No CVA: No COPD: No CHF: No Dementia: No Diabetes: Yes (IDDM) GI Disorders: Yes (G I bleed) Disorders: No HTN: Yes Hypercholesterolemia: No Liver Disease: Yes (cirrhosis) Seizures: No Thyroid Disease: No - Surgical History Cholecystectomy: Yes Orthopedic Surgery: Yes (FX LEFT ANKLE. left knee sx) - Suicide/Smoking/Psychosocial Hx Smoking Status: No Smoking History: Never smoked Have you smoked in the past 12 months: No Number of Cigarettes Smoked Daily: 0 If you are a former smoker, when did you quit?: 17YEARS Hx Alcohol Use: Yes Drug/Substance Use Hx: Yes (every day) Substance Use Type: None Hx Substance Use Treatment: No Review of Systems - Review of Systems Able to Perform ROS?: Yes Is the patient limited Belarusian proficient: No Constitutional: No: Chills, Diaphoresis, Fever HEENTM: No: Tearing, Tinnitus Respiratory: No: Cough, Orthopnea, Shortness of Breath *Physical Exam - Vital Signs Last Vital Signs Temp Pulse Resp BP Pulse Ox 98.7 F 115 H 22 H 107/62 100 04/02/18 15:54 04/02/18 15:54 04/02/18 15:54 04/02/18 15:54 04/02/18 15:54 - Physical Exam Comments: 04/03/18 09:19 GENERAL: Awake, alert, and fully oriented, in no acute distress HEAD: No signs of trauma, normocephalic, atraumatic EYES: EOMI, sclera ictericus, conjunctiva clear ENT: oropharynx clear without exudates. Moist mucosa NECK: Normal ROM, supple LUNGS: No distress, speaks full sentences, clear to auscultation bilaterally HEART: Regular rate and rhythm, normal S1 and S2, no murmurs, rubs or gallops, peripheral pulses normal and equal bilaterally. ABDOMEN: Soft, nontender, normoactive bowel sounds. No guarding, no rebound. No masses EXTREMITIES : Normal inspection, Normal range of motion, no edema. No clubbing or cyanosis. NEUROLOGICAL: Cranial nerves II through XII grossly intact. Normal speech, no focal sensorimotor deficits, hand tremor and tongue fasciculations noted SKIN: Warm, Dry, normal turgor, no rashes or lesions noted, yellowing of the skin Moderate Sedation - Procedure Monitoring Vital Signs: Procedure Monitoring Vital Signs Temperature 98.7 F 04/02/18 15:54 Pulse Rate 115 H 04/02/18 15:54 Respiratory Rate 22 H 04/02/18 15:54 Blood Pressure 107/62 04/02/18 15:54 O2 Sat by Pulse Oximetry (%) 100 04/02/18 15:54 ED Treatment Course - LABORATORY CBC & Chemistry Diagram: 04/03/18 05:30 04/02/18 16:15 Medical Decision Making - Medical Decision Making 04/02/18 16:02 72 year old puerto rican speaking man with a history of etoh abuse, esophageal candidiasis (2016), liver cirrhosis and prior episode of melena (2016) who presents w/ 3 episodes of bloody vomiting last night after which he took an addy seltzer and drank water. He had 4 episodes of vomiting afterwards which were nonbloody and nonbiliious. The patient also had 2 episodes of dark bloody stools since yesterday. He drinks a 6 pack of beer a day, last drink was 3 days ago. He reports some shaking for the past 1-2 days. Does not use anti-coagulants. He denies abdominal pain, chest pain, shortness of breath, dysuria, hematuria, recent travel, recent illness. ED Course: Per RME: labs, protonix 80mg, ekg, cxr, type and screen consider romel brown tear, esophageal varices vs erosive gastritis vs portal hypertensive gastropathy cbc, cmp, type and screen, ptt, pt/inr, stool hemeoccult valium and ativan for alcohol withdrawal protonix for ugib 04/02/18 17:20 Patient tachycardic to 112, but bp 126/68 at bedside 04/02/18 17:26 labs with acute drop in hb from baseline per prior labs positive stool heme occult 04/02/18 17:27 pending GI consult call back Will admit for management of GI bleed and GI evaluation *DC/Admit/Observation/Transfer Diagnosis at time of Disposition: GI (gastrointestinal bleed) Qualifiers: GI bleed type/associated pathology: unspecified gastrointestinal hemorrhage type Qualified Code(s): K92.2 - Gastrointestinal hemorrhage, unspecified - Discharge Dispostion Condition at time of disposition: Fair Decision to Admit order: Yes - Referrals - Patient Instructions - Post Discharge Activity
[2018-04-02 16:27] LABS: BASO % 0.6 % (0-2.0); EOS % 0.3 % (0-4.5); HEMATOCRIT 25.8 % (35.4-49); HEMOGLOBIN 9.3 GM/dL (11.7-16.9); LYMPH % 13.1 % (8-40); MCH 30.6 pg (25.7-33.7); MEAN PLT VOLUME 8.1 fl (7.5-11.1); MONO % 7.4 % (3.8-10.2); NEUT % 78.6 % (42.8-82.8); PLATELET COUNT 203 K/MM3 (134-434); RBC 3.04 M/mm3 (4.00-5.60); RDW 15.2 % (11.9-15.9)
[2018-04-02 16:44] LABS: INR 1.22 (0.83-1.09); PROTHROMBIN TIME (PATIENT) 14.4 SEC (9.7-13.0)
[2018-04-02] MEDS ORDERED: diazePAM 5 MG TABLET PO ONE (17:07)
[2018-04-02] MEDS ORDERED: diazePAM 5 MG TABLET ONE (17:10)
[2018-04-02] MEDS ORDERED: LORazepam 2 MG/ML SDV VIAL ONE (17:10)
[2018-04-02 17:15] LABS: ALBUMIN 3.4 g/dl (3.4-5.0); ALK PHOS 83 U/L (45-117); ANION GAP 7 MMOL/L (8-16); BILIRUBIN,TOTAL 0.9 mg/dL (0.2-1); BLOOD UREA NITROGEN 46 mg/dL (7-18); CALCIUM 8.4 mg/dL (8.5-10.1); CHLORIDE 100 mmol/L (98-107); CO2 29 mmol/L (21-32); CREATININE 1.3 mg/dL (0.55-1.3); GLUCOSE,RANDOM 245 mg/dL (74-106); MAGNESIUM 2.6 mg/dL (1.8-2.4); POTASSIUM 4.6 mmol/L (3.5-5.1); SGOT/AST 38 U/L (15-37); SGPT/ALT 23 U/L (13-61); SODIUM 136 mmol/L (136-145); TOT PROT 8.2 g/dl (6.4-8.2)
--- NOTE | 2018-04-02 17:21 | PDOC ---
Attending Attestation - Medical Decision Making 04/02/18 17:54 Phone Calls: Call placed to Dr. Brown at 5:33 pm. Case discussed with Dr. Farris at 5:36 pm. ICU called at 5:39 pm Case discussed with Dr. Ramirez. <Anjana Christopher - Last Filed: 04/02/18 17:54> - Resident Resident Name: Emeli Bauman - ED Attending Attestation I have performed the following: I have examined & evaluated the patient, The case was reviewed & discussed with the resident, I agree w/resident's findings & plan - HPI HPI: 04/02/18 17:14 Mr. Ruben Ochoa is a 72 year old Faroese speaking male with past medical history significant for HTN, HLD, DM II, ETOH abuse, alcoholic cirrhosis presents to the emergency department with generalized headache, dizziness, hematemesis and decreased PO intake. History was obtained via [employer] professor ID [id number]. The patient presents with multiple episode of hemetemesis x several episodes since last night. Associated with 2 episodes of bloody black stools. Denies chest pain or SOB, abdominal pain. The patient reports his last drink was 2 days ago, typically drinks 6 pack-beer. The patient s last EGD was 07/09/2015, which was significant for candidiasis esophagitis, gastric erosions, no evidence of varicies was noted. Allergies: NKDA Social history: Former smoker, alcohol user. No drug use reported. Surgical history: left total knee replacement. PCP: Dr. Lara. 04/02/18 19:21 - Physicial Exam PE: 04/02/18 17:27 General: Well appearing, awake and alert, NAD. HEENT: NCAT, PERRL, EOMI, scleral icteric, moist mucus membranes, clear oropharynx, no oral lesions.. +tongue fasiculations Neck: neck supple, FROM Resp: CTAB, normal and even respirations, no respiratory distress CVS: +tachycardic, no murmurs, 2+ peripheral pulses throughout, no peripheral edema Abdomen: soft, NTND, no peritoneal signs. ; no gross blood on rectal exam, brown stool; +guiaic positive Back: nontender, normal inspection and ROM MSK: no edema, HOLLIDAY x4, ROM intact. No clubbing or cyanosis. normal bulk and tone. Extremities: no calf tenderness Neuro: alert, oriented appropriately; no focal neurologic deficits, speech clear. +tremors Skin: warm and well perfused, cap refill <2 sec, jaundiced - Medical Decision Making 04/02/18 17:28 See HPI for details DDx. Alcohol withdrawal syndrome, pancreatitis, hepatitis, electrolyte/ metabolic derangements. dehydration. UGIB, LGIB. variceal bleed, PUD, duodenal ulcer bleed, diverticular bleed, mass Vital signs reviewed, +normotensive, +tachycardic. no fever rectally 98.6 Prior notes reviewed, including admissions, discharges and consultations. prior EGD in 2016 with gastric erosions and candidal esophagitis. laboratory results and imaging reviewed, basic labs and lytes wnl, notable for significantly elevated BUN, could be hypovolemic vs GIB. acute anemia, down to H /H 9.3/25.8 coags elevated as expected with cirrhotic liver disease txs ordered. guaiac positive, no gross bleeding or melena here, only historically per patient. Cardiac panel_neg trop, no e/o ischemia EKG sinus tachycardia to 115bpm, no interval abnormalities, narrow QRS, ST and T wave segments and morphology normal. Nonspecific T wave abnormalities ED course: IVF hydration. hold transfusion until Hb<7. protonix bolus and gtt. Ativan/valium for Alcohol w/d treatment with tachycardia and tremors and symptoms. ICU cs for GIB, closer monitoring, serial H/H and ppi gtt spoke with Dr Brown, agree with plan, PPI gtt and close monitoring, may need prbcs if continues to trend down. will see in am for more urgent colonoscopy/egd Admit to ICU for acute ETOH w/d, GIB and GI cs, close monitoring. 04/02/18 18:43 04/02/18 19:21 04/02/18 19:22 <Kajal Nowak - Last Filed: 04/02/18 19:23>
[2018-04-02] MEDS: LACTATED RINGERS SOLUTION 1,000 ML/1,000 ML INFUS.BAG IV SCH (17:44)
--- NOTE | 2018-04-02 17:51 | HP ---
CHIEF COMPLAINT: vomiting up blood, dark black stools, alcohol withdrawal symptoms PCP: Dr. Lara HISTORY OF PRESENT ILLNESS: Patient is a 72 year old male with a past medical history of ETOH abuse, esophageal candidiasis, liver cirrhosis and prior episode of melena, hypertension, hyperlipedmia, diabetes. Patient was seen in the ED awaiting bed placement. He is awake and alert and in no acute distress. Tells me that he is here after he became concerned over vomiting a total of 4 times between yesterday and today. Yesterday he vomited twice and with streaks of blood and what sounds like coffee ground emesis. He had again vomited today at least twice associated with 2 episodes of bloody dark black stools. He tells me that he stopped drinking for about three days in an effort to abstain from alcohol but began to experience upper body tremors, nausea, vomiting, headaches and feelings of lightheadness. He has been drinking most of his life. He drinks about 1 pack of beer daily, sometimes more. last drink 3 days ago. In the ED he was given Protonix 80mg iv push, Valium for the tremors as well as Lorazepam. He is noted to be tachycardic with upper body tremors. He is calm and in no acute distress at this time. Will order: banana bag and keep NPO. Will give him ativan 1mg TID scheduled for the acute alcohol withdrawal. Further, GI has been consulted to see patient for possible procedure. ER course was notable for: (1) hmg/hct 9.3/25.8 (2) CIWA 10 (3) PAST MEDICAL HISTORY: ETOH abuse, esophageal candidiasis, liver cirrhosis and prior episode of melena, hypertension, hyperlipedmia, diabetes. PAST SURGICAL HISTORY: Social History: Smoking: denies Alcohol: daily beer drinking 1 pack - 2 packs per day Drugs: none Family History: Allergies No Known Drug Allergies Allergy (Verified 04/02/18 15:54) HOME MEDICATIONS: Home Medications Medication Instructions Recorded Lactulose (Oral Use) [Cephulac -] 20 gm PO BID 30 Days udc 07/11/15 Metoprolol Tartrate [Lopressor -] 25 mg PO BID #60 tablet 07/11/15 Multivitamins [Multivit ([facility] 1 tab PO DAILY #30 tab 07/11/15 Formulary)] Pantoprazole Sodium [Protonix -] 40 mg PO DAILY #30 tablet.ec 07/11/15 Thiamine HCl [Vitamin B1 -] 100 mg PO BID #60 tablet 07/11/15 REVIEW OF SYSTEMS CONSTITUTIONAL: Absent: fever, chills, diaphoresis, generalized weakness, malaise, loss of appetite, weight change HEENT: Absent: rhinorrhea, nasal congestion, throat pain, throat swelling, difficulty swallowing, mouth swelling, ear pain, eye pain, visual changes CARDIOVASCULAR: Absent: chest pain, syncope, palpitations, irregular heart rate, lightheadedness , peripheral edema RESPIRATORY: Absent: cough, shortness of breath, dyspnea with exertion, orthopnea, wheezing, stridor, hemoptysis GASTROINTESTINAL: Absent: abdominal pain, abdominal distension, GENITOURINARY: Absent: dysuria, frequency, urgency, hesitancy, hematuria, flank pain, genital pain MUSCULOSKELETAL: Absent: myalgia, arthralgia, joint swelling, back pain, neck pain SKIN: Absent: rash, itching, pallor HEMATOLOGIC/IMMUNOLOGIC: Absent: easy bleeding, easy bruising, lymphadenopathy, frequent infections ENDOCRINE: Absent: unexplained weight gain, unexplained weight loss, heat intolerance, cold intolerance NEUROLOGIC: Absent: headache, focal weakness or paresthesias, dizziness, unsteady gait, seizure, mental status changes, bladder or bowel incontinence PHYSICAL EXAMINATION Vital Signs - 24 hr 04/02/18 04/02/18 15:54 16:56 Temperature 98.7 F 98.6 F Pulse Rate 115 H Respiratory 22 H Rate Blood Pressure 107/62 O2 Sat by Pulse 100 Oximetry (%) GENERAL: Awake, alert, and fully oriented, ANXIOUS. kuwaiti speaking HEAD: Normal with no signs of trauma. EYES: Pupils equal, round and reactive to light, extraocular movements intact, sclera anicteric, conjunctiva clear. No lid lag. EARS, NOSE, THROAT: Ears normal, nares patent, oropharynx clear without exudates. Moist mucous membranes. NECK: Normal range of motion, supple without lymphadenopathy, JVD, or masses. LUNGS: Breath sounds equal, mild congestion on upper lobes. tolerating room air HEART: tachycardia 110s ABDOMEN: Soft, nontender, not distended, MUSCULOSKELETAL: Normal range of motion at all joints. No bony deformities or tenderness. No CVA tenderness. UPPER EXTREMITIES: No peripheral edema. LOWER EXTREMITIES: surgical scar left knee, NEUROLOGICAL: Normal speech. gait not observed PSYCHIATRIC:anxiety, depressed affect SKIN: Warm, dry, normal turgor, no rashes or lesions noted, normal capillary refill. Laboratory Results - last 24 hr 04/02/18 04/02/18 04/02/18 16:15 16:15 16:15 WBC 10.0 RBC 3.04 L Hgb 9.3 L Hct 25.8 L D MCV 85.0 MCH 30.6 D MCHC 36.0 H RDW 15.2 Plt Count 203 D MPV 8.1 D Absolute Neuts (auto) 7.9 Neutrophils % 78.6 D Lymphocytes % 13.1 D Monocytes % 7.4 Eosinophils % 0.3 D Basophils % 0.6 Nucleated RBC % 0 PT with INR 14.40 H INR 1.22 H Sodium 136 Potassium 4.6 Chloride 100 Carbon Dioxide 29 Anion Gap 7 L BUN 46 H Creatinine 1.3 Creat Clearance w eGFR 54.57 Random Glucose 245 H Calcium 8.4 L Magnesium 2.6 H Total Bilirubin 0.9 AST 38 H ALT 23 Alkaline Phosphatase 83 Creatine Kinase 166 Creatine Kinase Index 1.5 CK-MB (CK-2) 2.6 Troponin I < 0.02 Total Protein 8.2 Albumin 3.4 Stool Occult Blood Blood Type Antibody Screen 04/02/18 04/02/18 16:15 16:56 WBC RBC Hgb Hct MCV MCH MCHC RDW Plt Count MPV Absolute Neuts (auto) Neutrophils % Lymphocytes % Monocytes % Eosinophils % Basophils % Nucleated RBC % PT with INR INR Sodium Potassium Chloride Carbon Dioxide Anion Gap BUN Creatinine Creat Clearance w eGFR Random Glucose Calcium Magnesium Total Bilirubin AST ALT Alkaline Phosphatase Creatine Kinase Creatine Kinase Index CK-MB (CK-2) Troponin I Total Protein Albumin Stool Occult Blood Positive Blood Type O POSITIVE Antibody Screen Negative ASSESSMENT/PLAN: Patient is a 72 year old male with a past medical history of ETOH abuse, esophageal candidiasis, liver cirrhosis and prior episode of melena, hypertension, hyperlipedmia, diabetes. Patient was seen in the ED awaiting bed placement. He is awake and alert and in no acute distress. Tells me that he is here after he became concerned over vomiting a total of 4 times between yesterday and today. Yesterday he vomited twice and with streaks of blood and what sounds like coffee ground emesis. He had again vomited today at least twice associated with 2 episodes of bloody dark black stools. He tells me that he stopped drinking for about three days in an effort to abstain from alcohol but began to experience upper body tremors, nausea, vomiting, headaches and feelings of lightheadness. He has been drinking most of his life. He drinks about 1 pack of beer daily, sometimes more. last drink 3 days ago. In the ED he was given Protonix 80mg iv push, Valium for the tremors as well as Lorazepam. He is noted to be tachycardic with upper body tremors. He is calm and in no acute distress at this time. Will order: banana bag and keep NPO. Will give him ativan 1mg TID scheduled for the acute alcohol withdrawal. Further, GI has been consulted to see patient for possible procedure. Acute Alcohol Withdrawal Start on Ativan 1mg TID scheduled for withdrawal Banana bag x 1 CIWA 10 keep NPO until GI evaluates daily CIWA Consider detox consult GI bleed Rule out esophageal varicies/esophageal candidiasis/possible erosions in gastric antrum +stool blood Protonix BID IVF hydration Keep NPO GI consulted Card: Tachycardia in the setting of acute alcohol withdrawal Hypertension: continue to monitor. HLD: on no home meds. fen banana bag, LR @ 100 electrolytes daily monitoring npo prophy SCDs His home meds need to be reconciled. Tells me he is on on medication for depression and anxiety. Visit type - Emergency Visit Emergency Visit: Yes ED Registration Date: 04/02/18 Care time: The patient presented to the Emergency Department on the above date and was hospitalized for further evaluation of their emergent condition. - New Patient This patient is new to me today: No - Critical Care Critical Care patient: No
[2018-04-02] MEDS ORDERED: FOLIC ACID INJECTION - 1 MG, THIAMINE HCL 100 MG, MULTIVIT INJECTION ADULT 10 ML in SOD... IVPB ONE (18:46)
[2018-04-02] MEDS: LORazepam 2 MG/ML SDV VIAL IVPUSH SCH (21:43)
[2018-04-02] MEDS: PANTOPRAZOLE SODIUM 40 MG VIAL IVPUSH SCH (21:43)
[2018-04-02] MEDS: CHLORHEXIDINE GLUCONATE 4% CLEANSER FOR DECOLONIZATION TP SCH (21:47)
[2018-04-02] MEDS: MUPIROCIN 2% TOPICAL OINTMENT FOR DECOLONIZATION NS SCH (21:47)
--- NOTE | 2018-04-02 22:21 | CONSULT ---
Consultation: REQUESTING PROVIDER: CONSULT REQUEST: We have been asked to medically evaluate this patient for ICU Admision. HISTORY OF PRESENT ILLNESS: 72 y/o primarily Tongan speaking M with PMHx of ETOH abuse, Alcoholic cirrhosis , esophageal candidiasis, HTN, HLD, DM presents after having multiple episodes of Hematemesis. Patient says last night he had 3 episodes of hematemesis ( unable to quantify) followed by multiple episodes of NBNB vomiting. Patient tried addy seltzer that provided minimal relief. Additionally patient had 2 melanic stools yesterday without any noticable geovanna bleeding. Denies any accompanying nausea, vomiting, abdominal pain, indigestion, diarrhea, constipation. Denies any recent NSAID use, trauma or medication changes. Patient endorses drinking a 6-pack of beer daily and mentions his last drink was 2 days ago. Additionally, he experiences generalized headache, dizziness and decreased PO intake. Denies any associated fevers, chills, chest pain, SOB. Patients last EGD was 07/2015, which was significant for candidal esophagitis, nonbleeding gastric antrum erosions. REVIEW OF SYSTEMS: As per HPI PHYSICAL EXAMINATION Vital Signs - 24 hr 04/02/18 04/02/18 04/02/18 15:54 16:56 18:39 Temperature 98.7 F 98.6 F Pulse Rate 115 H Pulse Rate [ 104 H Apical] Respiratory 22 H 14 Rate Blood Pressure 107/62 Blood Pressure 94/50 L [Left Arm] O2 Sat by Pulse 100 96 Oximetry (%) 04/02/18 20:40 Temperature Pulse Rate Pulse Rate [ 97 H Apical] Respiratory 17 Rate Blood Pressure Blood Pressure 93/52 L [Left Arm] O2 Sat by Pulse 100 Oximetry (%) GENERAL: A&Ox3, NAD HEAD: NCAT EYES: PERRL, EOMI EARS, NOSE, THROAT: Moist mucous membranes. NECK: Supple, No JVD LUNGS: CTA b/l, No wheezes, No crackles HEART: Regular rate and rhythm, normal S1 and S2 without murmur ABDOMEN: Soft, nontender, not distended, + bowel sounds, no guarding, no rebound LOWER EXTREMITIES: 2+ pulses, No peripheral edema. NEUROLOGICAL: Cranial nerves II-XII intact. Normal speech. SKIN: Warm, dry, Surgical scar over left Knee Laboratory Results - last 24 hr 04/02/18 04/02/18 04/02/18 16:15 16:15 16:15 WBC 10.0 RBC 3.04 L Hgb 9.3 L Hct 25.8 L D MCV 85.0 MCH 30.6 D MCHC 36.0 H RDW 15.2 Plt Count 203 D MPV 8.1 D Absolute Neuts (auto) 7.9 Neutrophils % 78.6 D Lymphocytes % 13.1 D Monocytes % 7.4 Eosinophils % 0.3 D Basophils % 0.6 Nucleated RBC % 0 PT with INR 14.40 H INR 1.22 H Sodium 136 Potassium 4.6 Chloride 100 Carbon Dioxide 29 Anion Gap 7 L BUN 46 H Creatinine 1.3 Creat Clearance w eGFR 54.57 Random Glucose 245 H Calcium 8.4 L Magnesium 2.6 H Total Bilirubin 0.9 AST 38 H ALT 23 Alkaline Phosphatase 83 Creatine Kinase 166 Creatine Kinase Index 1.5 CK-MB (CK-2) 2.6 Troponin I < 0.02 Total Protein 8.2 Albumin 3.4 Stool Occult Blood Blood Type Antibody Screen 04/02/18 04/02/18 04/02/18 16:15 16:56 19:00 WBC RBC Hgb Hct MCV MCH MCHC RDW Plt Count MPV Absolute Neuts (auto) Neutrophils % Lymphocytes % Monocytes % Eosinophils % Basophils % Nucleated RBC % PT with INR INR Sodium Potassium Chloride Carbon Dioxide Anion Gap BUN Creatinine Creat Clearance w eGFR Random Glucose Calcium Magnesium Total Bilirubin AST ALT Alkaline Phosphatase Creatine Kinase Creatine Kinase Index CK-MB (CK-2) Troponin I Total Protein Albumin Stool Occult Blood Positive Blood Type O POSITIVE O POSITIVE Antibody Screen Negative Active Medications Chlorhexidine Gluconate (Hibiclens For Decolonization -) 1 applic TP HS LUIS E Last Admin: 04/02/18 21:47 Dose: 1 applic Lactated Ringer's (Lactated Ringers Solution) 1,000 ml in 1,000 mls @ 125 mls/ hr IV ASDIR LUIS E Last Admin: 04/02/18 17:44 Dose: 125 mls/hr Folic Acid 1 mg/ Thiamine HCl 100 mg/ Multivitamins/Minerals 10 ml/ Sodium Chloride 1,000 mls @ 125 mls/hr IVPB ONCE ONE Stop: 04/03/18 02:45 Last Admin: 04/02/18 20:30 Dose: 125 mls/hr Lorazepam (Ativan Injection -) 1 mg IVPUSH TID LUIS E Last Admin: 04/02/18 21:43 Dose: 1 mg Mupirocin (Bactroban Ointment (For Decolonization) -) 1 applic NS BID [facility] Stop: 04/07/18 21:59 Last Admin: 04/02/18 21:47 Dose: 1 applic Pantoprazole Sodium (Protonix Iv) 40 mg IVPUSH BID [facility] Last Admin: 04/02/18 21:43 Dose: 40 mg ASSESSMENT/PLAN: 72 y/o primarily Tongan speaking M with PMHx of ETOH abuse, Alcoholic cirrhosis , esophageal candidiasis, HTN, HLD, DM presents after having multiple episodes of Hematemesis and will be monitored in ICU. #Neuro Acute EtOH Withdrawal Hx of EtOH abuse -Banana bag x1 -Lorazepam 1mg TID -Currently NPO; Can begin PO Librium protocol once taking orals -Continue to monitor CIWA score -Neuro Checks Q4H -Consider Detox consult #Cardio Tachycardia on arrival likely due to withdrawal Hx of HTN/HLD -Continue Lorazepam as above -Trop < 0.02 -EKG pending -BP Stable off pressors; Maintaining MAP > 65 -Continue to monitor #Pulmonary -Maintaining Airway -CXR: No acute chest pathology -No active issues, continue to monitor #GI GI Bleed likely due to EtOH abuse Elevated INR with a hx of Alcoholic cirrhosis Hx of Esophageal candidiasis -FOBT +, Elevated BUN -GI (Dr. Brown) consulted -Establish 2 large bore IV Access sites -Monitor Hgb/Hct; Transfuse Hgb < 7.0 -Continue hydration via Banana bag @ 125 mls/hr -Continue IV Pantoprazole 40mg BID -Keep NPO for possible EGD/Colonoscopy #Hematology -H&H stable in the setting of GI Bleed -Monitor Hgb/Hct; Transfuse Hgb < 7.0 #Endocrine DM -A1c pending for AM -ISS BGMs ACHS #ID -Afebrile, No elevated WBC count -Continue to monitor for signs of infection #FEN -Banana bag @ 125 mls/hr -Lytes WNL -NPO #PPx -DVT: SCDs -GI: Pantoprazole Code Status: Full Code Dispo: We will continue to follow the patient. Thank you for this consultative opportunity. Visit type - Emergency Visit Emergency Visit: Yes ED Registration Date: 04/02/18 Care time: The patient presented to the Emergency Department on the above date and was hospitalized for further evaluation of their emergent condition. - New Patient This patient is new to me today: Yes Date on this admission: 04/03/18 - Critical Care Critical Care patient: Yes Total Critical Care Time (in minutes): 55 Critical Care Statement: The care of this patient involved high complexity decision making to prevent further life threatening deterioration of the patient 's condition and/or to evaluate & treat vital organ system(s) failure or risk of failure.
[2018-04-03 05:59] LABS: BASO % 0.7 % (0-2.0); EOS % 3.3 % (0-4.5); HEMATOCRIT 21.2 % (35.4-49); HEMOGLOBIN 7.6 GM/dL (11.7-16.9); LYMPH % 21.4 % (8-40); MCHC 35.7 g/dl (32.0-35.9); MEAN CELL VOLUME 83.9 fl (80-96); MEAN PLT VOLUME 7.6 fl (7.5-11.1); MONO % 9.9 % (3.8-10.2); NEUT % 64.7 % (42.8-82.8); PLATELET COUNT 114 K/MM3 (134-434); RBC 2.52 M/mm3 (4.00-5.60); RDW 15.2 % (11.9-15.9); WHITE BLOOD COUNT 5.1 K/mm3 (4.0-10.0)
[2018-04-03] MEDS: LORazepam 2 MG/ML SDV VIAL IVPUSH SCH ×3 (06:13→21:54)
[2018-04-03 06:37] LABS: INR 1.17 (0.83-1.09); PROTHROMBIN TIME (PATIENT) 13.8 SEC (9.7-13.0)
--- NOTE | 2018-04-03 08:10 | CONSULT ---
Consult Consult Specialty:: PULM/CCM Referred by:: Dr. Rafael Marie Reason for Consultation:: GIB - History of Present Illness Chief Complaint: N/V History of Present Illness: Mr. Doe is 72 y/o man, pt of Dr. Lara, w/ a long hx/o HTN, HL, DM Et-OH & Et-OH cirrhosis c/b GIBs 2/2 Et-OH gastritis & esophageal candidiasis (well known to our GI Team hx/o multiple EGDs w/ Dr. Brown). The pt presents to the ED O/N c/o N/V w/ blood in Vomit X3 CAN PUSHER. The pt also endorses dark tarry stools since yesterday. The pt reports a 6 pack of beer/day (last reported drink X3 days in the past). The pt does endorse some mild tremors since cessation of Et- [place]. A/p ED report: The pt denies any CP, SOB, abd pain, dysuria, hematuria, recent travel, or recent illness. Hgb Hx usually between 12 -14. Hgb in ED on this Admit = 9.3 -----> Now: 7.6. Since admit to ICU no hematemisis and no melena. GIB m/l 2/2 Et-OH gastritis. - History Source History Provided By: Patient, Medical Record Limitations to Obtaining History: Language Barrier - Past Medical History Cardio/Vascular: Yes: HTN, Hyperlipdemia Gastrointestinal: Yes: Gastritis, GERD, Other (Cardenas's esophagus) Hepatobiliary: Yes: Other (alcoholic liver disease) Endocrine: Yes: Diabetes Mellitus - Past Surgical History Past Surgical History: Yes: Joint Replacement (left total knee replacement) - Alcohol/Substance Use Hx Alcohol Use: Yes Number of Drinks Daily: 15 History of Substance Use: reports: None - Smoking History Smoking history: Never smoked Have you smoked in the past 12 months: No Aproximately how many cigarettes per day: 0 If you are a former smoker, when did you quit?: 17YEARS - Social History Usual Living Arrangement: With Spouse ADL: Family Assistance 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 History of Recent Travel: No Home Medications - Allergies Allergies/Adverse Reactions: Allergies Allergy/AdvReac Type Severity Reaction Status Date / Time No Known Drug Allergies Allergy Verified 04/02/18 15:54 - Home Medications Home Medications: Ambulatory Orders Lactulose (Oral Use) [Cephulac -] 20 gm PO BID 30 Days udc 07/11/15 Metoprolol Tartrate [Lopressor -] 25 mg PO BID #60 tablet 07/11/15 Multivitamins [Multivit ([facility] Formulary)] 1 tab PO DAILY #30 tab 07/11/15 Pantoprazole Sodium [Protonix -] 40 mg PO DAILY #30 tablet.ec 07/11/15 Thiamine HCl [Vitamin B1 -] 100 mg PO BID #60 tablet 07/11/15 Unobtainable 04/02/18 Family Disease History - Family Disease History Family History: Denies Family Disease History: Other: Father (alcoholic) Review of Systems - Review of Systems Constitutional: reports: No Symptoms Eyes: reports: No Symptoms HENT: reports: No Symptoms Neck: reports: No Symptoms Cardiovascular: reports: No Symptoms Respiratory: reports: No Symptoms Gastrointestinal: reports: Melena, Nausea, Vomiting, Vomiting Blood Genitourinary: reports: No Symptoms Breasts: reports: No Symptoms Reported Musculoskeletal: reports: No Symptoms Integumentary: reports: No Symptoms Neurological: reports: Dizziness Endocrine: reports: No Symptoms Hematology/Lymphatic: reports: No Symptoms Psychiatric: reports: No Symptoms Pain Intensity: 0 Physical Exam Vital Signs: Vital Signs Temperature 98.1 F 04/03/18 06:00 Pulse Rate 84 04/03/18 06:00 Respiratory Rate 12 04/03/18 06:00 Blood Pressure 108/64 04/03/18 06:00 O2 Sat by Pulse Oximetry (%) 95 04/02/18 21:00 Intake & Output 03/31/18 04/01/18 04/02/18 04/03/18 23:59 23:59 23:59 23:59 Intake Total 250 875 Output Total 200 250 Balance 50 625 Weight 76.402 kg 76.612 kg Constitutional: Yes: Well Nourished, No Distress, Calm Eyes: Yes: WNL, Conjunctiva Clear, EOM Intact HENT: Yes: WNL, Atraumatic, Normocephalic. No: Thrush Neck: Yes: WNL, Supple, Trachea Midline Cardiovascular: Yes: WNL, Regular Rate and Rhythm Respiratory: Yes: WNL, Regular, CTA Bilaterally Gastrointestinal: Yes: Hematemesis, Tenderness, Epigastrium, Vomiting ...Rectal Exam: Yes: Deferred Renal/: Yes: WNL Breast(s): Yes: WNL Musculoskeletal: Yes: WNL Extremities: Yes: WNL Edema: No Peripheral Pulses WNL: Yes Neurological: Yes: WNL, Alert, Oriented. No: Seizure, Tremors ...Motor Strength: WNL Psychiatric: Yes: WNL, Alert, Oriented Labs: CBC, BMP 04/03/18 05:30 04/02/18 16:15 INR, PTT INR 1.17 (0.83-1.09) H 04/03/18 05:30 Imaging - Results Chest X-ray: Image Reviewed (04/02: Clear (My Read).) EKG: Image Reviewed (12-Lead 04/02: S-Tach in the low 1-teens w/o ectopy, normal axis, notice flattened T-waves in some of the lateral leads but non-specific, QTc = 522ms, no acute process (My Read).) Assessment/Plan ASSESS: This is a 72 y/o man w/ HTN, HLD, DM, Et-OH & Et-OH cirrhosis c/b GIBs & esophageal candidiasis who present now w/ recurrent GIB (m/l Et-OH gastritis) +/- Et-OH w/ draw. PULM: GIB -NPO -Asp Precautions -Supp FiO2 for an SpO2 > 92% -Nebs prn GI: GIB m/l Et-OH gastritis -NPO -HOB > 30 -Maintain Active T & S -Maintain Large bore IV access X2 -Trend LA -PPI gtt -Octreotide gtt -CBC q 6 -Normal Transfusion Thresholds -EGD Neuro: c/f EtOH Withdrawal -B1 -Folate -Et-OH protocol CARDS: HTN, HL -Hold all Anti-HTN meds until bleeding has stopped -Resume a/p ENDO: DM -FSs -ISS prn FEN -Banana bag @ 125 mls/hr -Lytes WNL -NPO PPX: -Hold off on AC until all bleeding has stopped -SCDs -PPI Code Status: Full Code Dispo: D/c --> Med Surg GI to follow. Thank you for this interesting consult. DGL, ACNP-BC [facility] ICU PULM/CCM [id number]
[2018-04-03] MEDS: PANTOPRAZOLE SODIUM 40 MG VIAL IVPUSH SCH ×2 (10:17→21:54)
[2018-04-03] MEDS: MUPIROCIN 2% TOPICAL OINTMENT FOR DECOLONIZATION NS SCH ×2 (10:24→21:55)
--- NOTE | 2018-04-03 10:45 | PN ---
Progress Note (short form) - Note Progress Note: Pt examined ETOH abuse, alcohol cirrhosis admitted for GI bleed Awake and alert Vital Signs - 24 hr 04/02/18 04/02/18 04/02/18 15:54 16:56 18:39 Temperature 98.7 F 98.6 F Pulse Rate 115 H Pulse Rate [ 104 H Apical] Respiratory 22 H 14 Rate Blood Pressure 107/62 Blood Pressure 94/50 L [Left Arm] O2 Sat by Pulse 100 96 Oximetry (%) 04/02/18 04/02/18 04/02/18 20:40 21:00 22:45 Temperature 98.1 F 98.2 F Pulse Rate 93 H 92 H Pulse Rate [ 97 H Apical] Respiratory 17 12 12 Rate Blood Pressure 112/58 L 112/58 L Blood Pressure 93/52 L [Left Arm] O2 Sat by Pulse 100 95 Oximetry (%) 04/03/18 04/03/18 04/03/18 00:00 02:00 04:00 Temperature 98.1 F Pulse Rate 97 H 88 84 Pulse Rate [ Apical] Respiratory 17 11 8 L Rate Blood Pressure 105/58 L 92/61 108/55 L Blood Pressure [Left Arm] O2 Sat by Pulse Oximetry (%) 04/03/18 04/03/18 04/03/18 06:00 08:00 09:00 Temperature 98.1 F 97.7 F Pulse Rate 84 86 Pulse Rate [ Apical] Respiratory 12 11 Rate Blood Pressure 108/64 112/56 L Blood Pressure [Left Arm] O2 Sat by Pulse 95 Oximetry (%) Current Medications Generic Name Dose Route Start Last Admin Trade Name Freq PRN Reason Stop Dose Admin Chlorhexidine Gluconate 1 applic 04/02/18 22:00 04/02/18 21:47 Hibiclens For Decolonization - TP 1 applic HS LUIS E Administration Lactated Ringer's 1,000 ml in 1,000 mls @ 125 mls/hr 04/02/18 17:30 04/02/18 17:44 Lactated Ringers Solution IV 125 mls/hr ASDIR LUIS E Administration Lorazepam 1 mg 04/02/18 22:00 04/03/18 06:13 Ativan Injection - IVPUSH 1 mg TID LUIS E Administration Mupirocin 1 applic 04/02/18 22:00 04/03/18 10:24 Bactroban Ointment (For Decolonization) - NS 04/07/18 21:59 1 applic BID LUIS E Administration Pantoprazole Sodium 40 mg 04/02/18 22:00 04/03/18 10:17 Protonix Iv IVPUSH 40 mg BID LUIS E Administration Laboratory Results - last 24 hr 04/02/18 04/02/18 04/02/18 16:15 16:15 16:15 WBC 10.0 RBC 3.04 L Hgb 9.3 L Hct 25.8 L D MCV 85.0 MCH 30.6 D MCHC 36.0 H RDW 15.2 Plt Count 203 D MPV 8.1 D Absolute Neuts (auto) 7.9 Neutrophils % 78.6 D Lymphocytes % 13.1 D Monocytes % 7.4 Eosinophils % 0.3 D Basophils % 0.6 Nucleated RBC % 0 PT with INR 14.40 H INR 1.22 H Sodium 136 Potassium 4.6 Chloride 100 Carbon Dioxide 29 Anion Gap 7 L BUN 46 H Creatinine 1.3 Creat Clearance w eGFR 54.57 POC Glucometer Random Glucose 245 H Hemoglobin A1c % Calcium 8.4 L Magnesium 2.6 H Total Bilirubin 0.9 AST 38 H ALT 23 Alkaline Phosphatase 83 Creatine Kinase 166 Creatine Kinase Index 1.5 CK-MB (CK-2) 2.6 Troponin I < 0.02 Total Protein 8.2 Albumin 3.4 Stool Occult Blood Blood Type Antibody Screen 04/02/18 04/02/18 04/02/18 16:15 16:56 19:00 WBC RBC Hgb Hct MCV MCH MCHC RDW Plt Count MPV Absolute Neuts (auto) Neutrophils % Lymphocytes % Monocytes % Eosinophils % Basophils % Nucleated RBC % PT with INR INR Sodium Potassium Chloride Carbon Dioxide Anion Gap BUN Creatinine Creat Clearance w eGFR POC Glucometer Random Glucose Hemoglobin A1c % Calcium Magnesium Total Bilirubin AST ALT Alkaline Phosphatase Creatine Kinase Creatine Kinase Index CK-MB (CK-2) Troponin I Total Protein Albumin Stool Occult Blood Positive Blood Type O POSITIVE O POSITIVE Antibody Screen Negative 04/02/18 04/03/18 04/03/18 22:38 05:30 05:30 WBC 5.1 RBC 2.52 L Hgb 7.6 L Hct 21.2 L D MCV 83.9 MCH 30.0 MCHC 35.7 RDW 15.2 Plt Count 114 L D MPV 7.6 Absolute Neuts (auto) 3.3 Neutrophils % 64.7 Lymphocytes % 21.4 D Monocytes % 9.9 Eosinophils % 3.3 D Basophils % 0.7 Nucleated RBC % 0 PT with INR 13.80 H INR 1.17 H Sodium Potassium Chloride Carbon Dioxide Anion Gap BUN Creatinine Creat Clearance w eGFR POC Glucometer [phone] Random Glucose Hemoglobin A1c % Calcium Magnesium Total Bilirubin AST ALT Alkaline Phosphatase Creatine Kinase Creatine Kinase Index CK-MB (CK-2) Troponin I Total Protein Albumin Stool Occult Blood Blood Type Antibody Screen 04/03/18 04/03/18 04/03/18 05:30 05:30 06:40 WBC RBC Hgb Hct MCV MCH MCHC RDW Plt Count MPV Absolute Neuts (auto) Neutrophils % Lymphocytes % Monocytes % Eosinophils % Basophils % Nucleated RBC % PT with INR INR Sodium Potassium Chloride Carbon Dioxide Anion Gap BUN Creatinine Creat Clearance w eGFR POC Glucometer 152.78650 Random Glucose Hemoglobin A1c % 6.4 H Calcium Magnesium 2.5 H Total Bilirubin AST ALT Alkaline Phosphatase Creatine Kinase Creatine Kinase Index CK-MB (CK-2) Troponin I Total Protein Albumin Stool Occult Blood Blood Type Antibody Screen S1 s2 RRR Lungs decreased Pale+ Abd- soft, obese , NT No edema PLAN on protonix drip will transfuse one unit spoke with GI Dr Brown-- pt will be going for endoscopy today NPO iv fluids Lorazepam for alcohol withdrawal Problem List - Problems (1) Gastrointestinal hemorrhage Code(s): K92.2 - GASTROINTESTINAL HEMORRHAGE, UNSPECIFIED Qualifiers: GI bleed type/associated pathology: unspecified gastrointestinal hemorrhage type Qualified Code(s): K92.2 - Gastrointestinal hemorrhage, unspecified (2) Alcohol dependence with withdrawal delirium Code(s): F10.231 - ALCOHOL DEPENDENCE WITH WITHDRAWAL DELIRIUM (3) Alcoholic cirrhosis of liver Code(s): K70.30 - ALCOHOLIC CIRRHOSIS OF LIVER WITHOUT ASCITES (4) Alcoholic hepatitis Code(s): K70.10 - ALCOHOLIC HEPATITIS WITHOUT ASCITES (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
[2018-04-03] MEDS ORDERED: PANTOPRAZOLE SODIUM 80 MG in SODIUM CHLORIDE 100 ML IVPB SCH (11:00)
--- NOTE | 2018-04-03 11:06 | CON.GI ---
Consult Consult Specialty:: Gastroenterology Reason for Consultation:: Dr. Latasha Alves - History of Present Illness Chief Complaint: Melena and hematemesis History of Present Illness: 72M has had melena for that past few days culminating in bright red and black hematemesis which caused him to stop drinking alcohol. He drinks beer daily, about 1/2 case a day. he denies abdominal pain. He has a h/o repeated UGI bleeds and had an EGD with in [address] Mejía in 2013. Both times he had an alcoholic gastritis but no varices. He had gastric intestinal metaplasia on [facility] EGDs and Ko's metaplasia in 2013. He had candidal esophagitis in 2015 which was treated. He has repeated told to abstain from alcohol but has not complied. He is followed by Dr Noel at [facility] and the [facility]. - History Source History Provided By: Patient Limitations to Obtaining History: Language Barrier - Past Medical History Cardio/Vascular: Yes: HTN, Hyperlipdemia Gastrointestinal: Yes: Gastritis, GERD, Other (Ko's esophagus 2013, Candidal esophagitis 2105) Hepatobiliary: Yes: Other (alcoholic liver disease) Heme/Onc: Yes: Anemia Psych: Yes: Addictions (alcoholism) Endocrine: Yes: Diabetes Mellitus - Past Surgical History Past Surgical History: Yes: Joint Replacement (left total knee replacement) - Alcohol/Substance Use Hx Alcohol Use: Yes Number of Drinks Daily: 15 (beer) History of Substance Use: reports: None - Smoking History Smoking history: Never smoked Have you smoked in the past 12 months: No Aproximately how many cigarettes per day: 0 If you are a former smoker, when did you quit?: 17YEARS - Social History Usual Living Arrangement: With Spouse ADL: Family Assistance 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 Place of : Other (born in [facility]) History of Recent Travel: No Home Medications - Allergies Allergies/Adverse Reactions: Allergies Allergy/AdvReac Type Severity Reaction Status Date / Time No Known Drug Allergies Allergy Verified 04/02/18 15:54 - Home Medications Home Medications: Ambulatory Orders Lactulose (Oral Use) [Cephulac -] 20 gm PO BID 30 Days udc 07/11/15 Metoprolol Tartrate [Lopressor -] 25 mg PO BID #60 tablet 07/11/15 Multivitamins [Multivit ([facility] Formulary)] 1 tab PO DAILY #30 tab 07/11/15 Pantoprazole Sodium [Protonix -] 40 mg PO DAILY #30 tablet.ec 07/11/15 Thiamine HCl [Vitamin B1 -] 100 mg PO BID #60 tablet 07/11/15 Unobtainable 04/02/18 Family Disease History - Family Disease History Family Disease History: Other: Father (alcoholic) Review of Systems Unable to obtain ROS, reason: language barrier Physical Exam-GI Vital Signs: Vital Signs Temperature 97.7 F 04/03/18 08:00 Pulse Rate 86 04/03/18 08:00 Respiratory Rate 11 04/03/18 08:00 Blood Pressure 112/56 L 04/03/18 08:00 O2 Sat by Pulse Oximetry (%) 95 04/03/18 09:00 CBC,CMP WBC 5.1 K/mm3 (4.0-10.0) 04/03/18 05:30 RBC 2.52 M/mm3 (4.00-5.60) L 04/03/18 05:30 Hgb 7.6 GM/dL (11.7-16.9) L 04/03/18 05:30 Hct 21.2 % (35.4-49) L D 04/03/18 05:30 MCV 83.9 fl (80-96) 04/03/18 05:30 MCH 30.0 pg (25.7-33.7) 04/03/18 05:30 MCHC 35.7 g/dl (32.0-35.9) 04/03/18 05:30 RDW 15.2 % (11.9-15.9) 04/03/18 05:30 Plt Count 114 K/MM3 (134-434) L D 04/03/18 05:30 MPV 7.6 fl (7.5-11.1) 04/03/18 05:30 Absolute Neuts (auto) 3.3 K/mm3 (1.5-8.0) 04/03/18 05:30 Neutrophils % 64.7 % (42.8-82.8) 04/03/18 05:30 Lymphocytes % 21.4 % (8-40) D 04/03/18 05:30 Monocytes % 9.9 % (3.8-10.2) 04/03/18 05:30 Eosinophils % 3.3 % (0-4.5) D 04/03/18 05:30 Basophils % 0.7 % (0-2.0) 04/03/18 05:30 Nucleated RBC % 0 % (0-0) 04/03/18 05:30 Sodium 136 mmol/L (136-145) 04/02/18 16:15 Potassium 4.6 mmol/L (3.5-5.1) 04/02/18 16:15 Chloride 100 mmol/L (98-107) 04/02/18 16:15 Carbon Dioxide 29 mmol/L (21-32) 04/02/18 16:15 Anion Gap 7 MMOL/L (8-16) L 04/02/18 16:15 BUN 46 mg/dL (7-18) H 04/02/18 16:15 Creatinine 1.3 mg/dL (0.55-1.3) 04/02/18 16:15 Creat Clearance w eGFR 54.57 (>60) 04/02/18 16:15 POC Glucometer 152.10975 UNITS (80-120) 04/03/18 06:40 Random Glucose 245 mg/dL (74-106) H 04/02/18 16:15 Hemoglobin A1c % 6.4 % (4.2-6.3) H 04/03/18 05:30 Calcium 8.4 mg/dL (8.5-10.1) L 04/02/18 16:15 Magnesium 2.5 mg/dL (1.8-2.4) H 04/03/18 05:30 Total Bilirubin 0.9 mg/dL (0.2-1) 04/02/18 16:15 AST 38 U/L (15-37) H 04/02/18 16:15 ALT 23 U/L (13-61) 04/02/18 16:15 Alkaline Phosphatase 83 U/L (45-117) 04/02/18 16:15 Creatine Kinase 166 U/L (26-308) 04/02/18 16:15 Creatine Kinase Index 1.5 % (0.0-5.0) 04/02/18 16:15 CK-MB (CK-2) 2.6 ng/mL (0.5-3.6) 04/02/18 16:15 Troponin I < 0.02 ng/ml (0.00-0.05) 04/02/18 16:15 Total Protein 8.2 g/dl (6.4-8.2) 04/02/18 16:15 Albumin 3.4 g/dl (3.4-5.0) 04/02/18 16:15 Current Medications Generic Name Dose Route Start Last Admin Trade Name Lloyd PRN Reason Stop Dose Admin Chlorhexidine Gluconate 1 applic 04/02/18 22:00 04/02/18 21:47 Hibiclens For Decolonization - TP 1 applic HS LUIS E Administration Lactated Ringer's 1,000 ml in 1,000 mls @ 125 mls/hr 04/02/18 17:30 04/02/18 17:44 Lactated Ringers Solution IV 125 mls/hr ASDIR LUIS E Administration Pantoprazole Sodium 80 mg/ 100 mls @ 10 mls/hr 04/03/18 11:00 Sodium Chloride IVPB Q10H LUIS E 8 MG/HR Lorazepam 1 mg 04/02/18 22:00 04/03/18 06:13 Ativan Injection - IVPUSH 1 mg TID LUIS E Administration Mupirocin 1 applic 04/02/18 22:00 04/03/18 10:24 Bactroban Ointment (For Decolonization) - NS 04/07/18 21:59 1 applic BID LUIS E Administration Constitutional: Yes: Calm Eyes: Yes: Conjunctiva Clear HENT: Yes: Atraumatic Neck: Yes: Trachea Midline Cardiovascular: Yes: Regular Rate and Rhythm Respiratory: Yes: CTA Bilaterally Gastrointestinal Inspection: Yes: WNL ...Auscultate: Yes: Normoactive Bowel Sounds ...Palpate: Yes: Soft, Other (nontender) ...Rectal Exam: Yes: Guaiac Positive (black loose stool) Edema: No Neurological: Yes: Alert, Oriented Labs: CBC, BMP 04/03/18 05:30 04/02/18 16:15 INR, PTT INR 1.17 (0.83-1.09) H 04/03/18 05:30 Problem List - Problems (1) Alcoholic gastritis with bleeding Assessment/Plan: Will do EGD today. Continue PPI. Have again using a healthcare interpreter told Ruben that he must abandon all alcohol usage. Code(s): K29.21 - ALCOHOLIC GASTRITIS WITH BLEEDING (2) Hx of candidiasis of mouth Code(s): Z86.19 - PERSONAL HISTORY OF OTHER INFECTIOUS AND PARASITIC DISEASES (3) Gastrointestinal hemorrhage Code(s): K92.2 - GASTROINTESTINAL HEMORRHAGE, UNSPECIFIED Qualifiers: GI bleed type/associated pathology: unspecified gastrointestinal hemorrhage type Qualified Code(s): K92.2 - Gastrointestinal hemorrhage, unspecified (4) Alcohol dependence with withdrawal delirium Code(s): F10.231 - ALCOHOL DEPENDENCE WITH WITHDRAWAL DELIRIUM (5) Alcoholic hepatitis Code(s): K70.10 - ALCOHOLIC HEPATITIS WITHOUT ASCITES (6) 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 I have advised EGD and possible rubber band ligation of varices with a staff nurse serving as our healthcare interpreter. I have informed him of the potential for such complications as perforation and hemorrhage. He has granted an informed consent. I will do the procedure today. A transfusion has been ordered and a PPI drip will be started. I have discussed the case with Dr. Alves.
[2018-04-03] MEDS ORDERED: PT OWN MED DRAWER 7, Y5N ONE (13:08)
--- NOTE | 2018-04-03 13:14 | EKG ---
Test Reason : Blood Pressure : / mmHG Vent. Rate : 115 BPM Atrial Rate : 115 BPM P-R Int : 126 ms QRS Dur : 094 ms QT Int : 378 ms P-R-T Axes : 031 019 090 degrees QTc Int : 522 ms SINUS TACHYCARDIA NONSPECIFIC ST AND T WAVE ABNORMALITY ABNORMAL ECG WHEN COMPARED WITH ECG OF 11-JUN-2017 12:00, NONSPECIFIC T WAVE ABNORMALITY NOW EVIDENT IN LATERAL LEADS Confirmed by REZA HERMOSILLO MD ([id number]) on 04/03/2018 1:13:57 PM Referred By: Confirmed By:REZA HERMOSILLO MD
[2018-04-03] MEDS ORDERED: PROMETHAZINE HCL 25 MG/1 ML VIAL IVPB PRN (13:33)
[2018-04-03] MEDS ORDERED: ONDANSETRON 4 MG/2 ML VIAL IVPUSH PRN (13:33)
[2018-04-03] MEDS ORDERED: EPINEPHrine 1:10,000 (P-F SYR) 1 MG/10 ML DISP.SYRIN ONE (14:03)
--- NOTE | 2018-04-03 14:58 | PN ---
Progress Note (short form) - Note Progress Note: GI Procedure NOte: Please see attached EGD report. Multiple small gastric ulcers were found likely due to alcoholic gastritis. No hemorrhage found. Will advance diet, Discussed findings with the daughter and . Alcohol abstension again advised. Problem List - Problems (1) Alcoholic gastritis with bleeding Code(s): K29.21 - ALCOHOLIC GASTRITIS WITH BLEEDING (2) Hx of candidiasis of mouth Code(s): Z86.19 - PERSONAL HISTORY OF OTHER INFECTIOUS AND PARASITIC DISEASES (3) Gastrointestinal hemorrhage Code(s): K92.2 - GASTROINTESTINAL HEMORRHAGE, UNSPECIFIED Qualifiers: GI bleed type/associated pathology: unspecified gastrointestinal hemorrhage type Qualified Code(s): K92.2 - Gastrointestinal hemorrhage, unspecified (4) Alcohol dependence with withdrawal delirium Code(s): F10.231 - ALCOHOL DEPENDENCE WITH WITHDRAWAL DELIRIUM (5) Alcoholic hepatitis Code(s): K70.10 - ALCOHOLIC HEPATITIS WITHOUT ASCITES (6) 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
[2018-04-03] MEDS: LACTATED RINGERS SOLUTION 1,000 ML/1,000 ML INFUS.BAG IV SCH (17:30)
[2018-04-03] MEDS: LACTATED RINGERS SOLUTION 1,000 ML IV SCH (17:31)
[2018-04-03] MEDS ORDERED: FLU VACCINE QUAD 60 MCG/0.5 ML (MDV 18-19) IM ONE (18:43)
[2018-04-03] MEDS: CHLORHEXIDINE GLUCONATE 4% CLEANSER FOR DECOLONIZATION TP SCH (21:55)
[2018-04-03] MEDS ORDERED: LORazepam 2 MG/ML SDV VIAL IVPUSH STA (23:29)
[2018-04-03] MEDS ORDERED: LORazepam 2 MG/ML SDV VIAL IM STA (23:31)
[2018-04-03] MEDS ORDERED: PHENobarbital SODIUM 130 MG/1 ML VIAL IV STA (23:37)
[2018-04-03] MEDS ORDERED: LORazepam 2 MG/ML SDV VIAL ONE (23:59)
[2018-04-04] MEDS ORDERED: LORazepam 2 MG/ML SDV VIAL ONE ×3 (00:06→20:47)
[2018-04-04] MEDS ORDERED: LORazepam 2 MG/ML SDV VIAL IVPUSH STA ×5 (00:11→17:51)
[2018-04-04] MEDS ORDERED: PHENobarbital SODIUM 130 MG/1 ML VIAL IV STA ×3 (01:16→17:52)
[2018-04-04] MEDS: LORazepam 2 MG/ML SDV VIAL IVPUSH SCH (05:22)
[2018-04-04] MEDS ORDERED: LORazepam 2 MG/ML SDV VIAL IVPUSH ONE ×3 (06:35→20:45)
[2018-04-04] MEDS ORDERED: PHENobarbital SODIUM 130 MG/1 ML VIAL IV ONE (06:37)
[2018-04-04 09:26] LABS: BASO % 0.7 % (0-2.0); EOS % 3.1 % (0-4.5); HEMATOCRIT 24.7 % (35.4-49); HEMOGLOBIN 8.8 GM/dL (11.7-16.9); LYMPH % 29.9 % (8-40); MCH 30.9 pg (25.7-33.7); MCHC 35.6 g/dl (32.0-35.9); MEAN CELL VOLUME 86.7 fl (80-96); MEAN PLT VOLUME 7.9 fl (7.5-11.1); MONO % 13.5 % (3.8-10.2); NEUT % 52.8 % (42.8-82.8); PLATELET COUNT 92 K/MM3 (134-434); RBC 2.84 M/mm3 (4.00-5.60); RETICULOCYTES 5.34 % (0.5-1.5); WHITE BLOOD COUNT 3.6 K/mm3 (4.0-10.0)
--- NOTE | 2018-04-04 09:49 | PN ---
GI Progress Note Subjective: GI NOte: Discussed case with our professional athlete Theresa Leon NP who reports that Ruben went into florid DT's last night. Currently sedated on phenobarb. No bleeding overnight. Repeat Hb stable. LFTs pending. - Objective Vital Signs: Vital Signs Temperature 98.4 F 04/04/18 03:00 Pulse Rate 128 H 04/04/18 05:00 Respiratory Rate 10 04/04/18 03:00 Blood Pressure 166/65 04/04/18 05:00 O2 Sat by Pulse Oximetry (%) 97 04/03/18 21:00 Laboratory Tests 04/02/18 04/03/18 04/04/18 16:15 05:30 09:00 Hgb 9.3 L 7.6 L 8.8 L Plt Count 92 L Total Bilirubin Ammonia 04/04/18 04/04/18 09:00 09:00 Hgb Plt Count Total Bilirubin Pending Ammonia Pending Constitutional: Other (Sedated on phenobarbital) ...Auscultate: Yes: Normoactive Bowel Sounds ...Palpate: Yes: Soft, Other (nontender) Labs: INR, PTT INR 1.17 (0.83-1.09) H 04/03/18 05:30 Problem List - Problems (1) Alcoholic gastritis with bleeding Assessment/Plan: Bleeding has resolved. Now having DT's. When he awakens his diet can be advanced to solids and an oral librium taper can be started. Code(s): K29.21 - ALCOHOLIC GASTRITIS WITH BLEEDING (2) Hx of candidiasis of mouth Code(s): Z86.19 - PERSONAL HISTORY OF OTHER INFECTIOUS AND PARASITIC DISEASES (3) Gastrointestinal hemorrhage Code(s): K92.2 - GASTROINTESTINAL HEMORRHAGE, UNSPECIFIED Qualifiers: GI bleed type/associated pathology: unspecified gastrointestinal hemorrhage type Qualified Code(s): K92.2 - Gastrointestinal hemorrhage, unspecified (4) Alcohol dependence with withdrawal delirium Code(s): F10.231 - ALCOHOL DEPENDENCE WITH WITHDRAWAL DELIRIUM (5) Alcoholic hepatitis Code(s): K70.10 - ALCOHOLIC HEPATITIS WITHOUT ASCITES (6) 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
[2018-04-04 09:51] LABS: ALBUMIN 2.9 g/dl (3.4-5.0); ALK PHOS 73 U/L (45-117); ANION GAP 8 MMOL/L (8-16); BILIRUBIN,DIRECT 0.4 mg/dL (0.0-0.2); BLOOD UREA NITROGEN 13 mg/dL (7-18); CALCIUM 7.5 mg/dL (8.5-10.1); CHLORIDE 106 mmol/L (98-107); CO2 26 mmol/L (21-32); CREATININE 0.9 mg/dL (0.55-1.3); GLUCOSE,RANDOM 119 mg/dL (74-106); POTASSIUM 3.2 mmol/L (3.5-5.1); SGOT/AST 35 U/L (15-37); SGPT/ALT 23 U/L (13-61); SODIUM 140 mmol/L (136-145); TOT PROT 6.8 g/dl (6.4-8.2)
--- NOTE | 2018-04-04 10:08 | PN ---
Progress Note (short form) - Note Progress Note: PULM/CCM Pt seen & Examined in the ICU. EGD yesterady shows all bleeding has stopped. Hgb stable (Never needed a transfusion). C/c/b Et-OH w/ drawl. Active Medications Chlorhexidine Gluconate (Hibiclens For Decolonization -) 1 applic TP HS [facility] Last Admin: 04/03/18 21:55 Dose: 1 applic Lactated Ringer's (Lactated Ringers Solution) 1,000 mls @ 125 mls/hr IV ASDIR [facility] Last Admin: 04/03/18 17:31 Dose: 125 mls/hr Mupirocin (Bactroban Ointment (For Decolonization) -) 1 applic NS BID [facility] Stop: 04/07/18 21:59 Last Admin: 04/03/18 21:55 Dose: 1 applic Ondansetron HCl (Zofran Injection) 4 mg IVPUSH Q6H PRN PRN Reason: NAUSEA AND/OR VOMITING Pantoprazole Sodium (Protonix Iv) 40 mg IVPUSH BID [facility] Last Admin: 04/03/18 21:54 Dose: 40 mg Phenobarbital (Phenobarbital Injection -) 130 mg IV ONCE STA Stop: 04/04/18 10:02 Promethazine HCl (Phenergan Injection -) 12.5 mg IVPB Q6H PRN PRN Reason: NAUSEA-FOR RESCUE AFTER 15 MIN V/S Period Temp Pulse Resp BP Sys/Hartman Pulse Ox Last 24 Hr 97.6 F-98.4 F 76-128 10-20 105-166/52-88 97 Intake & Output 04/01/18 04/02/18 04/03/18 04/04/18 23:59 23:59 23:59 23:59 Intake Total 250 2865 700 Output Total 200 850 Balance 50 2014 Weight 76.402 kg 76.612 kg 78.29 kg GEN: Well nourished 72 y/o man in good shape but in obvious Et-OH w/ drawl PULM: CTAB CV: nml S1 S2, RR, unable to appreciate any G/M/R ABD: + BS, S/S N/T N/D X4Q EXT: + pulses, WWP X4, (-) edema CBC, BMP 04/04/18 09:00 04/04/18 09:00 Imaging - Results Chest X-ray: Image Reviewed (04/02: Clear (My Read).) EKG: Image Reviewed (12-Lead 04/02: S-Tach in the low 1-teens w/o ectopy, normal axis, notice flattened T-waves in some of the lateral leads but non-specific, QTc = 522ms, no acute process (My Read).) Assessment/Plan ASSESS: This is a 72 y/o man w/ HTN, HLD, DM, Et-OH & Et-OH cirrhosis c/b GIBs & esophageal candidiasis admitted to the ICU now s/p recurrent GIB (m/l Et-OH gastritis) c/b Et-OH w/ draw. PULM: s/p GIB -Advanced diet as tolerated -Supp FiO2 for an SpO2 > 92% -Nebs prn -CPT -PULM Toilet GI: s/p GIB m/l Et-OH gastritis -Advanced diet as tolerated -HOB > 30 -Trend LA -PPI gtt --> BID -Trend CBC -Normal Transfusion Thresholds Neuro: c/f EtOH Withdrawal -B1 -Folate -Convert Phenobarb monotherapy --> librium CARDS: HTN, HL -Can resume home Anti-HTN meds ENDO: DM -FSs -ISS prn FEN -Advanced diet as tolerated PPX: -SQH -SCDs -PPI Code Status: Full Code Dispo: D/c --> Med Surg GI to follow. Thank you for this interesting consult. JARAD, [facility] ICU PULM/CCM [id number] Critical Care Total Critical Care Time (in minutes): 36 Critical Care Statement: The care of this patient involved high complexity decision making to prevent further life threatening deterioration of the patient 's condition and/or to evaluate & treat vital organ system(s) failure or risk of failure.
[2018-04-04] MEDS: MUPIROCIN 2% TOPICAL OINTMENT FOR DECOLONIZATION NS SCH ×2 (10:49→23:43)
[2018-04-04] MEDS: PANTOPRAZOLE SODIUM 40 MG VIAL IVPUSH SCH ×2 (10:49→23:43)
--- NOTE | 2018-04-04 10:55 | PN ---
Progress Note (short form) - Note Progress Note: Pt examined went for EGD yesterday- no bleeding noted did not get transfused no further bleeding now going through withdrawals received Lorazepam sleepy Vital Signs - 24 hr 04/03/18 04/03/18 04/03/18 15:45 16:00 17:00 Temperature 97.8 F 97.9 F 98.2 F Pulse Rate 90 82 82 Respiratory 17 11 17 Rate Blood Pressure 121/68 117/61 114/72 O2 Sat by Pulse Oximetry (%) 04/03/18 04/03/18 04/03/18 19:00 21:00 23:00 Temperature 98.1 F 98.2 F Pulse Rate 90 89 98 H Respiratory 20 19 16 Rate Blood Pressure 113/65 127/52 L 137/75 O2 Sat by Pulse 97 Oximetry (%) 04/04/18 04/04/18 04/04/18 01:00 03:00 05:00 Temperature 98.4 F Pulse Rate 101 H 84 128 H Respiratory 13 10 Rate Blood Pressure 144/88 105/55 L 166/65 O2 Sat by Pulse Oximetry (%) 04/04/18 04/04/18 04/04/18 09:00 11:46 14:45 Temperature Pulse Rate 101 H 101 H Respiratory 20 20 20 Rate Blood Pressure 157/71 142/89 O2 Sat by Pulse 97 Oximetry (%) Current Medications Generic Name Dose Route Start Last Admin Trade Name Freq PRN Reason Stop Dose Admin Chlorhexidine Gluconate 1 applic 04/02/18 22:00 04/03/18 21:55 Hibiclens For Decolonization - TP 1 applic HS LUIS E Administration Lactated Ringer's 1,000 mls @ 125 mls/hr 04/03/18 13:45 04/04/18 13:52 Lactated Ringers Solution IV 125 mls/hr ASDIR LUIS E Administration Mupirocin 1 applic 04/02/18 22:00 04/04/18 10:49 Bactroban Ointment (For Decolonization) - NS 04/07/18 21:59 1 applic BID LUIS E Administration Ondansetron HCl 4 mg 04/03/18 13:33 Zofran Injection IVPUSH Q6H PRN NAUSEA AND/OR VOMITING Pantoprazole Sodium 40 mg 04/03/18 22:00 04/04/18 10:49 Protonix Iv IVPUSH 40 mg BID LUIS E Administration Promethazine HCl 12.5 mg 04/03/18 13:33 Phenergan Injection - IVPB Q6H PRN NAUSEA-FOR RESCUE AFTER 15 MIN Laboratory Results - last 24 hr 04/03/18 04/03/18 04/04/18 16:55 22:10 07:26 WBC RBC Hgb Hct MCV MCH MCHC RDW Plt Count MPV Absolute Neuts (auto) Neutrophils % Lymphocytes % Monocytes % Eosinophils % Basophils % Nucleated RBC % Retic Count Sodium Potassium Chloride Carbon Dioxide Anion Gap BUN Creatinine Creat Clearance w eGFR POC Glucometer 132.90265 121.80801 154.25519 Random Glucose Calcium Total Bilirubin Direct Bilirubin AST ALT Alkaline Phosphatase Ammonia Total Protein Albumin 04/04/18 04/04/18 04/04/18 09:00 09:00 09:00 WBC 3.6 L RBC 2.84 L Hgb 8.8 L Hct 24.7 L D MCV 86.7 MCH 30.9 MCHC 35.6 RDW 16.0 H Plt Count 92 L MPV 7.9 Absolute Neuts (auto) 1.9 Neutrophils % 52.8 Lymphocytes % 29.9 D Monocytes % 13.5 H Eosinophils % 3.1 Basophils % 0.7 Nucleated RBC % 0 Retic Count 5.34 H Sodium 140 Potassium 3.2 L Chloride 106 Carbon Dioxide 26 Anion Gap 8 BUN 13 Creatinine 0.9 Creat Clearance w eGFR > 60 POC Glucometer Random Glucose 119 H Calcium 7.5 L Total Bilirubin 1.0 Direct Bilirubin 0.4 H AST 35 ALT 23 Alkaline Phosphatase 73 Ammonia 23.01 Total Protein 6.8 Albumin 2.9 L Lungs decreased Pale+ Abd- soft, obese , NT No edema PLAN on protonix liquid diet iv fluids replace potassium may need to start Librium when more awake Lorazepam for alcohol withdrawal Problem List - Problems (1) Gastrointestinal hemorrhage Code(s): K92.2 - GASTROINTESTINAL HEMORRHAGE, UNSPECIFIED Qualifiers: GI bleed type/associated pathology: unspecified gastrointestinal hemorrhage type Qualified Code(s): K92.2 - Gastrointestinal hemorrhage, unspecified (2) Alcohol dependence with withdrawal delirium Code(s): F10.231 - ALCOHOL DEPENDENCE WITH WITHDRAWAL DELIRIUM (3) Alcoholic cirrhosis of liver Code(s): K70.30 - ALCOHOLIC CIRRHOSIS OF LIVER WITHOUT ASCITES (4) Alcoholic hepatitis Code(s): K70.10 - ALCOHOLIC HEPATITIS WITHOUT ASCITES (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
[2018-04-04] MEDS: KCL 10 MEQ IVPB 10 MEQ/100 ML INFUS.BAG IVPB SCH ×2 (11:35→12:00)
[2018-04-04] MEDS: LACTATED RINGERS SOLUTION 1,000 ML IV SCH (13:52)
[2018-04-04] MEDS ORDERED: chlordiazePOXIDE HCL 25 MG CAPSULE PO PRN (16:38)
[2018-04-04] MEDS: chlordiazePOXIDE HCL 25 MG CAPSULE PO SCH (18:00)
[2018-04-04] MEDS: CHLORHEXIDINE GLUCONATE 4% CLEANSER FOR DECOLONIZATION TP SCH (23:43)
[2018-04-05] MEDS ORDERED: MELATONIN 5 MG TABLETS PO ONE (00:12)
[2018-04-05] MEDS ORDERED: LORazepam 2 MG/ML SDV VIAL ONE (01:58)
[2018-04-05] MEDS: chlordiazePOXIDE HCL 25 MG CAPSULE PO SCH ×6 (02:18→22:04)
[2018-04-05] MEDS ORDERED: PHENobarbital SODIUM 130 MG/1 ML VIAL IV ONE (02:30)
[2018-04-05] MEDS ORDERED: PHENobarbital SODIUM 65 MG/1 ML VIAL ONE ×2 (02:45)
[2018-04-05] MEDS ORDERED: LORazepam 2 MG/ML SDV VIAL IVPUSH PRN (03:11)
[2018-04-05] MEDS: PHENobarbital SODIUM 130 MG/1 ML VIAL IV ONE ×2 (03:18→07:38)
[2018-04-05 05:45] LABS: EOS % 6.2 % (0-4.5); HEMATOCRIT 27.5 % (35.4-49); HEMOGLOBIN 10.1 GM/dL (11.7-16.9); LYMPH % 24.3 % (8-40); MCH 30.8 pg (25.7-33.7); MCHC 36.6 g/dl (32.0-35.9); MEAN CELL VOLUME 84.2 fl (80-96); MEAN PLT VOLUME 7.6 fl (7.5-11.1); MONO % 15.6 % (3.8-10.2); NEUT % 52.9 % (42.8-82.8); PLATELET COUNT 119 K/MM3 (134-434); RBC 3.26 M/mm3 (4.00-5.60); RETICULOCYTES 6.64 % (0.5-1.5); WHITE BLOOD COUNT 3.8 K/mm3 (4.0-10.0)
--- NOTE | 2018-04-05 05:48 | PN ---
Progress Note, Physician Chief Complaint: s/p EGD and biopsy under general anesthesia TIVA History of Present Illness: post procedure day one - Current Medication List Current Medications: Active Medications Chlordiazepoxide HCl (Librium -) 50 mg PO [id number]-PWB [facility] Stop: 04/05/18 11:01 Last Admin: 04/05/18 02:18 Dose: Not Given Chlordiazepoxide HCl (Librium -) 25 mg PO [id number]-TFV [facility] Stop: 04/06/18 11:01 Chlordiazepoxide HCl (Librium -) 15 mg PO [id number]-[id number] [facility] Stop: 04/07/18 11:01 Chlordiazepoxide HCl (Librium -) 25 mg PO Q4H PRN PRN Reason: WITHDRAWAL(CONT SUBST) Stop: 04/07/18 16:37 Chlordiazepoxide HCl (Librium -) 10 mg PO [id number] [facility] Stop: 04/08/18 11:01 Chlorhexidine Gluconate (Hibiclens For Decolonization -) 1 applic TP HS [facility] Last Admin: 04/04/18 23:43 Dose: 1 applic Lactated Ringer's (Lactated Ringers Solution) 1,000 mls @ 125 mls/hr IV ASDIR [facility] Last Admin: 04/04/18 13:52 Dose: 125 mls/hr Lorazepam (Ativan Injection -) 2 mg IVPUSH Q6H PRN PRN Reason: AGITATION Stop: 04/06/18 02:03 Mupirocin (Bactroban Ointment (For Decolonization) -) 1 applic NS BID [facility] Stop: 04/07/18 21:59 Last Admin: 04/04/18 23:43 Dose: 1 applic Ondansetron HCl (Zofran Injection) 4 mg IVPUSH Q6H PRN PRN Reason: NAUSEA AND/OR VOMITING Pantoprazole Sodium (Protonix Iv) 40 mg IVPUSH BID [facility] Last Admin: 04/04/18 23:43 Dose: 40 mg Promethazine HCl (Phenergan Injection -) 12.5 mg IVPB Q6H PRN PRN Reason: NAUSEA-FOR RESCUE AFTER 15 MIN - Objective Vital Signs: Vital Signs Temperature 97.2 F L 04/05/18 02:00 Pulse Rate 92 H 04/05/18 02:00 Respiratory Rate 12 04/05/18 02:00 Blood Pressure 147/74 04/05/18 02:00 O2 Sat by Pulse Oximetry (%) 97 04/04/18 21:00 Constitutional: Yes: Well Nourished Cardiovascular: Yes: WNL Respiratory: Yes: WNL Gastrointestinal: Yes: WNL Labs: INR, PTT INR 1.17 (0.83-1.09) H 04/03/18 05:30 Assessment/Plan No acute adverse effects of anesthetic, dept of anesthesia will sign off care at this time
[2018-04-05 05:59] LABS: INR 1.15 (0.83-1.09); PROTHROMBIN TIME (PATIENT) 13.6 SEC (9.7-13.0)
[2018-04-05 07:22] LABS: ALBUMIN 3.4 g/dl (3.4-5.0); ALK PHOS 108 U/L (45-117); ANION GAP 6 MMOL/L (8-16); BILIRUBIN,DIRECT 0.5 mg/dL (0.0-0.2); BILIRUBIN,TOTAL 1.3 mg/dL (0.2-1); BLOOD UREA NITROGEN 8 mg/dL (7-18); CHLORIDE 102 mmol/L (98-107); CO2 28 mmol/L (21-32); CREATININE 0.9 mg/dL (0.55-1.3); GLUCOSE,RANDOM 117 mg/dL (74-106); SGOT/AST 71 U/L (15-37); SGPT/ALT 32 U/L (13-61); SODIUM 137 mmol/L (136-145); TOT PROT 8.2 g/dl (6.4-8.2)
[2018-04-05] MEDS ORDERED: POTASSIUM CHLORIDE ORAL LIQUID 20 MEQ/15 ML PO ONE (08:28)
[2018-04-05] MEDS ORDERED: POTASSIUM CHLORIDE TABS 20 MEQ TABLET.ER (FP) PO ONE (08:46)
[2018-04-05 08:59] LABS: MAGNESIUM 1.9 mg/dL (1.8-2.4)
[2018-04-05 09:54] LABS: POTASSIUM 2.9 mmol/L (3.5-5.1)
[2018-04-05] MEDS: KCL 10 MEQ IVPB 10 MEQ/100 ML INFUS.BAG IVPB SCH ×3 (09:56→12:05)
[2018-04-05 10:04] LABS: PHOSPHOROUS 2.7 mg/dL (2.5-4.9)
--- NOTE | 2018-04-05 10:45 | PN ---
Progress Note (short form) - Note Progress Note: pt seen/ examined in icu chart reviewed. lethargic due to sedation. Vital Signs Temp 98.0 F 04/05/18 06:00 Pulse 86 04/05/18 08:00 Resp 12 04/05/18 08:00 BP 127/67 04/05/18 08:00 Pulse Ox 99 04/05/18 08:38 Intake & Output 04/04/18 04/04/18 04/05/18 11:59 23:59 11:59 Intake Total 700 2525 975 Balance 700 2525 975 Weight 172 lb 9.6 oz 171 lb 8.314 oz Intake: IV 500 1875 875 # 875 LACTATED RINGERS SOLUTION 500 1,000 ml In 1,000 ml @ 125 mls/hr IV ASDIR LUIS E Rx#:[id number] Lactated Ringers Solution 1875 1,000 ml @ 125 mls/hr IV ASDIR LUIS E Rx#: [id number] IVPB 200 300 100 Oral 350 Other: Voiding Method Toilet Diaper Diaper # Unmeasured Voids Void 2 3 5 Bowel Movement No No Weight Measurement Method Built in Bedscale Built in Bedscale Active Medications Chlordiazepoxide HCl (Librium -) 50 mg PO [id number] [facility] Stop: 04/05/18 11:01 Last Admin: 04/05/18 06:43 Dose: Not Given Chlordiazepoxide HCl (Librium -) 25 mg PO [id number] [facility] Stop: 04/06/18 11:01 Chlordiazepoxide HCl (Librium -) 15 mg PO [id number]-LVU [facility] Stop: 04/07/18 11:01 Chlordiazepoxide HCl (Librium -) 25 mg PO Q4H PRN PRN Reason: WITHDRAWAL(CONT SUBST) Stop: 04/07/18 16:37 Chlordiazepoxide HCl (Librium -) 10 mg PO [id number] [facility] Stop: 04/08/18 11:01 Chlorhexidine Gluconate (Hibiclens For Decolonization -) 1 applic TP HS [facility] Last Admin: 04/04/18 23:43 Dose: 1 applic Potassium Chloride (Potassium Chloride 10 Meq Premix Ivpb -) 10 meq in 100 mls @ 100 mls/hr IVPB Q60M [facility] Stop: 04/05/18 12:29 Last Admin: 04/05/18 09:56 Dose: 100 mls/hr Lorazepam (Ativan Injection -) 2 mg IVPUSH Q6H PRN PRN Reason: AGITATION Stop: 04/06/18 02:03 Mupirocin (Bactroban Ointment (For Decolonization) -) 1 applic NS BID [facility] Stop: 04/07/18 21:59 Last Admin: 04/04/18 23:43 Dose: 1 applic Ondansetron HCl (Zofran Injection) 4 mg IVPUSH Q6H PRN PRN Reason: NAUSEA AND/OR VOMITING Pantoprazole Sodium (Protonix Iv) 40 mg IVPUSH BID [facility] Last Admin: 04/04/18 23:43 Dose: 40 mg Promethazine HCl (Phenergan Injection -) 12.5 mg IVPB Q6H PRN PRN Reason: NAUSEA-FOR RESCUE AFTER 15 MIN Thiamine HCl (Vitamin B1 Injection -) 200 mg IM DAILY [facility] Stop: 04/09/18 23:59 CBC, BMP 04/05/18 05:15 04/05/18 05:15 physical exam lethargic CVS--S1-S2 regular Lungs decreased Abd- soft, obese , NT No edema PLAN chart reviewed continue present care Supplement potassium and monitor lites Encourage eating--- and more awake change fluids/ decrease rate Thiamine injections discussed with ICU team also Will follow
[2018-04-05] MEDS: D5-1/2NS+20 MEQ KCL - 20 MEQ/1,000 ML INFUS.BAG IV SCH (11:01)
[2018-04-05] MEDS ORDERED: chlordiazePOXIDE HCL 25 MG CAPSULE PO PRN (11:11)
[2018-04-05] MEDS: PANTOPRAZOLE SODIUM 40 MG VIAL IVPUSH SCH ×2 (11:14→22:04)
--- NOTE | 2018-04-05 11:53 | PN ---
Teaching Attending Note Name of Resident: Zeinab Marie ATTENDING PHYSICIAN STATEMENT I saw and evaluated the patient. I reviewed the resident's note and discussed the case with the resident. I agree with the resident's findings and plan as documented. SUBJECTIVE: Patient seen and examined in the ICU. Lethargic due to sedation. Not tremulous. No acute bleeding noted. H & H stable. Intake & Output 04/02/18 04/03/18 04/04/18 04/05/18 23:59 23:59 23:59 23:59 Intake Total 250 2865 3225 975 Output Total 200 850 Balance 50 2014 3225 975 Weight 168 lb 7 oz 168 lb 14.4 oz 172 lb 9.6 oz 171 lb 8.314 oz Last Vital Signs Temp Pulse Resp BP Pulse Ox 98.0 F 86 12 127/67 99 04/05/18 06:00 04/05/18 08:00 04/05/18 08:00 04/05/18 08:00 04/05/18 08:38 Active Medications Chlordiazepoxide HCl (Librium -) 50 mg PO [id number] [facility] Stop: 04/06/18 05:01 Last Admin: 04/05/18 11:21 Dose: Not Given Chlordiazepoxide HCl (Librium -) 25 mg PO [id number]-[id number] [facility] Stop: 04/07/18 05:01 Chlordiazepoxide HCl (Librium -) 15 mg PO [id number] [facility] Stop: 04/08/18 05:01 Chlordiazepoxide HCl (Librium -) 25 mg PO Q4H PRN PRN Reason: WITHDRAWAL(CONT SUBST) Stop: 04/08/18 11:10 Chlordiazepoxide HCl (Librium -) 10 mg PO [id number] [facility] Stop: 04/09/18 05:01 Chlorhexidine Gluconate (Hibiclens For Decolonization -) 1 applic TP HS [facility] Last Admin: 04/04/18 23:43 Dose: 1 applic Potassium Chloride (Potassium Chloride 10 Meq Premix Ivpb -) 10 meq in 100 mls @ 100 mls/hr IVPB Q60M [facility] Stop: 04/05/18 12:29 Last Admin: 04/05/18 11:03 Dose: 100 mls/hr Potassium Chloride/Dextrose/Sod Cl (D5-1/2ns+20 Meq Kcl -) 20 meq in 1,000 mls @ 100 mls/hr IV ASDIR [facility] Last Admin: 04/05/18 11:01 Dose: 100 mls/hr Lorazepam (Ativan Injection -) 2 mg IVPUSH Q6H PRN PRN Reason: AGITATION Stop: 04/06/18 02:03 Mupirocin (Bactroban Ointment (For Decolonization) -) 1 applic NS BID [facility] Stop: 04/07/18 21:59 Last Admin: 04/04/18 23:43 Dose: 1 applic Ondansetron HCl (Zofran Injection) 4 mg IVPUSH Q6H PRN PRN Reason: NAUSEA AND/OR VOMITING Pantoprazole Sodium (Protonix Iv) 40 mg IVPUSH BID [facility] Last Admin: 04/05/18 11:14 Dose: 40 mg Promethazine HCl (Phenergan Injection -) 12.5 mg IVPB Q6H PRN PRN Reason: NAUSEA-FOR RESCUE AFTER 15 MIN Thiamine HCl (Vitamin B1 Injection -) 200 mg IM DAILY [facility] Stop: 04/09/18 23:59 Constitutional: Yes: Lethargic, NAD Eyes: Yes: WNL, Conjunctiva Clear, EOM Intact HENT: Yes: WNL, Atraumatic, Normocephalic. No: Thrush Neck: Yes: WNL, Supple, Trachea Midline Cardiovascular: Yes: WNL, Regular Rate and Rhythm Respiratory: Yes: WNL, Regular, CTA Bilaterally Gastrointestinal: Yes: (+) BS, not distended ...Rectal Exam: Yes: Deferred Renal/: Yes: WNL Breast(s): Yes: WNL Musculoskeletal: Yes: WNL Extremities: Yes: WNL Edema: No Peripheral Pulses WNL: Yes Neurological: Yes: Lethargic. No: Seizure, Tremors ...Motor Strength: WNL Psychiatric: Yes: Lethargic Labs: Laboratory Results - last 24 hr 04/04/18 04/05/18 04/05/18 17:54 05:15 05:15 WBC 3.8 L RBC 3.26 L Hgb 10.1 L Hct 27.5 L MCV 84.2 MCH 30.8 MCHC 36.6 H RDW 16.0 H Plt Count 119 L D MPV 7.6 Absolute Neuts (auto) 2.0 Neutrophils % 52.9 Lymphocytes % 24.3 Monocytes % 15.6 H Eosinophils % 6.2 H D Basophils % 1.0 Nucleated RBC % 0 Retic Count 6.64 H D PT with INR 13.60 H INR 1.15 H Sodium Potassium Chloride Carbon Dioxide Anion Gap BUN Creatinine Creat Clearance w eGFR POC Glucometer 104.04488 Random Glucose Calcium Phosphorus Magnesium Total Bilirubin Direct Bilirubin AST ALT Alkaline Phosphatase Ammonia Total Protein Albumin 04/05/18 04/05/18 05:15 05:15 WBC RBC Hgb Hct MCV MCH MCHC RDW Plt Count MPV Absolute Neuts (auto) Neutrophils % Lymphocytes % Monocytes % Eosinophils % Basophils % Nucleated RBC % Retic Count PT with INR INR Sodium 137 Potassium 2.9 L* Chloride 102 Carbon Dioxide 28 Anion Gap 6 L BUN 8 Creatinine 0.9 Creat Clearance w eGFR > 60 POC Glucometer Random Glucose 117 H Calcium 8.0 L Phosphorus 2.7 Magnesium 1.9 Total Bilirubin 1.3 H Direct Bilirubin 0.5 H AST 71 H ALT 32 Alkaline Phosphatase 108 Ammonia 23.50 Total Protein 8.2 Albumin 3.4 Assessment/Plan Acute GI Bleed: ETOH withdrawal ETOH abuse Cirrhosis History of esophageal candidiasis HTN HLD Normal transfusion thresholds Aspiration precautions PPI PO when mental status improves / cleared by GI Librium per protocol Maintain Large bore IV access X2 Folate Thiamine Glycemic control IVF Floor Mechanical VTE prophylaxis Dr Polanco Critical care time spent in reviewing chart, evaluating patient and formulating plan - 36 minutes.
[2018-04-05] MEDS: MUPIROCIN 2% TOPICAL OINTMENT FOR DECOLONIZATION NS SCH ×2 (12:15→22:04)
--- NOTE | 2018-04-05 12:37 | PN ---
GI Progress Note Subjective: GI NOte: Difficult to assess mental status as he is lethargic following Ativan . He did take a Librium and hopefully will comply with an oral tapering regimen. Will resume Lactulose which was part of his outpatient regimen. - Objective Vital Signs: Vital Signs Temperature 98.0 F 04/05/18 06:00 Pulse Rate 86 04/05/18 08:00 Respiratory Rate 12 04/05/18 08:00 Blood Pressure 127/67 04/05/18 08:00 O2 Sat by Pulse Oximetry (%) 99 04/05/18 08:38 Laboratory Tests 04/04/18 04/05/18 04/05/18 09:00 05:15 05:15 Hgb 8.8 L 10.1 L Retic Count 6.64 H D Potassium 2.9 L* Total Bilirubin 1.3 H AST 71 H ALT 32 Alkaline Phosphatase 108 Ammonia 04/05/18 05:15 Hgb Retic Count Potassium Total Bilirubin AST ALT Alkaline Phosphatase Ammonia 23.50 Constitutional: Other (Lethargic but sedated) ...Auscultate: Yes: Normoactive Bowel Sounds ...Palpate: Yes: Soft, Other (nontender) Labs: CBC, BMP 04/05/18 05:15 04/05/18 05:15 INR, PTT INR 1.15 (0.83-1.09) H 04/05/18 05:15 Assessment/Plan Resolved bleed\ DTs, and possible hepatic encephalopthy Contiue Librium taper Start lactulose Trial of solids I have discussed the case with Taylor his nurse Problem List - Problems (1) Alcoholic gastritis with bleeding Assessment/Plan: Bleeding has resolved. Now having DT's. Continue oral librium taper and lactulose. Will start solid diet Code(s): K29.21 - ALCOHOLIC GASTRITIS WITH BLEEDING (2) Hx of candidiasis of mouth Code(s): Z86.19 - PERSONAL HISTORY OF OTHER INFECTIOUS AND PARASITIC DISEASES (3) Gastrointestinal hemorrhage Code(s): K92.2 - GASTROINTESTINAL HEMORRHAGE, UNSPECIFIED Qualifiers: GI bleed type/associated pathology: unspecified gastrointestinal hemorrhage type Qualified Code(s): K92.2 - Gastrointestinal hemorrhage, unspecified (4) Alcohol dependence with withdrawal delirium Code(s): F10.231 - ALCOHOL DEPENDENCE WITH WITHDRAWAL DELIRIUM (5) Alcoholic hepatitis Code(s): K70.10 - ALCOHOLIC HEPATITIS WITHOUT ASCITES (6) 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
[2018-04-05] MEDS: THIAMINE HCL 200 MG/2 ML VIAL IM SCH (13:47)
--- NOTE | 2018-04-05 14:40 | PN ---
Physical Exam: SUBJECTIVE: Patient seen and examined this morning. Lethargic however mumbles. No further episodes of hematemesis. Denies fevers, chills, chest pain, SOB, nausea, vomiting, diarrhea, constipation. OBJECTIVE: Vital Signs Period Temp Pulse Resp BP Sys/Hartman Pulse Ox Last 24 Hr 97.2 F-98.0 F 74-107 12-21 97-157/54-89 97-100 GENERAL: Lethargic, Arousable to verbal and painful stimuli HEAD: NCAT EYES: PERRL, EOMI ENT: Moist mucous membranes. NECK: Supple, No JVD LUNGS: CTA b/l, No wheezes, No crackles HEART: Regular rate and rhythm, normal S1 and S2 without murmur ABDOMEN: Soft, nontender, not distended, + bowel sounds, no guarding, no rebound EXTREMITIES: 2+ pulses, No peripheral edema. NEUROLOGICAL: Lethargic SKIN: Warm, dry, Surgical scar over left Knee Laboratory Results - last 24 hr 04/04/18 04/05/18 04/05/18 17:54 05:15 05:15 WBC 3.8 L RBC 3.26 L Hgb 10.1 L Hct 27.5 L MCV 84.2 MCH 30.8 MCHC 36.6 H RDW 16.0 H Plt Count 119 L D MPV 7.6 Absolute Neuts (auto) 2.0 Neutrophils % 52.9 Lymphocytes % 24.3 Monocytes % 15.6 H Eosinophils % 6.2 H D Basophils % 1.0 Nucleated RBC % 0 Retic Count 6.64 H D PT with INR 13.60 H INR 1.15 H Sodium Potassium Chloride Carbon Dioxide Anion Gap BUN Creatinine Creat Clearance w eGFR POC Glucometer 104.30582 Random Glucose Calcium Phosphorus Magnesium Total Bilirubin Direct Bilirubin AST ALT Alkaline Phosphatase Ammonia Total Protein Albumin 04/05/18 04/05/18 04/05/18 05:15 05:15 13:43 WBC RBC Hgb Hct MCV MCH MCHC RDW Plt Count MPV Absolute Neuts (auto) Neutrophils % Lymphocytes % Monocytes % Eosinophils % Basophils % Nucleated RBC % Retic Count PT with INR INR Sodium 137 Potassium 2.9 L* Chloride 102 Carbon Dioxide 28 Anion Gap 6 L BUN 8 Creatinine 0.9 Creat Clearance w eGFR > 60 POC Glucometer 131.81904 Random Glucose 117 H Calcium 8.0 L Phosphorus 2.7 Magnesium 1.9 Total Bilirubin 1.3 H Direct Bilirubin 0.5 H AST 71 H ALT 32 Alkaline Phosphatase 108 Ammonia 23.50 Total Protein 8.2 Albumin 3.4 Active Medications Chlordiazepoxide HCl (Librium -) 50 mg PO [id number] [facility] Stop: 04/06/18 05:01 Last Admin: 04/05/18 11:21 Dose: Not Given Chlordiazepoxide HCl (Librium -) 25 mg PO F0V-QTG [facility] Stop: 04/07/18 05:01 Chlordiazepoxide HCl (Librium -) 15 mg PO [id number] [facility] Stop: 04/08/18 05:01 Chlordiazepoxide HCl (Librium -) 25 mg PO Q4H PRN PRN Reason: WITHDRAWAL(CONT SUBST) Stop: 04/08/18 11:10 Chlordiazepoxide HCl (Librium -) 10 mg PO [id number]-TKC [facility] Stop: 04/09/18 05:01 Chlorhexidine Gluconate (Hibiclens For Decolonization -) 1 applic TP HS [facility] Last Admin: 04/04/18 23:43 Dose: 1 applic Potassium Chloride/Dextrose/Sod Cl (D5-1/2ns+20 Meq Kcl -) 20 meq in 1,000 mls @ 100 mls/hr IV ASDIR [facility] Last Admin: 04/05/18 11:01 Dose: 100 mls/hr Lactulose (Cephulac (Oral Use)) 20 gm PO BID [facility] Lorazepam (Ativan Injection -) 2 mg IVPUSH Q6H PRN PRN Reason: AGITATION Stop: 04/06/18 02:03 Mupirocin (Bactroban Ointment (For Decolonization) -) 1 applic NS BID [facility] Stop: 04/07/18 21:59 Last Admin: 04/05/18 12:15 Dose: 1 applic Ondansetron HCl (Zofran Injection) 4 mg IVPUSH Q6H PRN PRN Reason: NAUSEA AND/OR VOMITING Pantoprazole Sodium (Protonix Iv) 40 mg IVPUSH BID [facility] Last Admin: 04/05/18 11:14 Dose: 40 mg Promethazine HCl (Phenergan Injection -) 12.5 mg IVPB Q6H PRN PRN Reason: NAUSEA-FOR RESCUE AFTER 15 MIN Thiamine HCl (Vitamin B1 Injection -) 200 mg IM DAILY [facility] Stop: 04/09/18 23:59 Last Admin: 04/05/18 13:47 Dose: 200 mg ASSESSMENT/PLAN: 72 y/o primarily Albanian speaking M with PMHx of ETOH abuse, Alcoholic cirrhosis , esophageal candidiasis, HTN, HLD, DM presents after having multiple episodes of Hematemesis and will be monitored in ICU. #Neuro Acute EtOH Withdrawal Hx of EtOH abuse -D5-1/2ns + 20 Meq Kcl @ 100 mls/hr -Lorazepam 2mg Q6H -Thiamine 200 mg IM DAILY -Librium protocol -Continue to monitor CIWA score -Aspiration precautions -Neuro Checks Q4H -Consider Detox consult #Cardio Tachycardia on arrival likely due to withdrawal, resolved Hx of HTN/HLD -Continue Lorazepam -Trop < 0.02 -EKG SINUS TACHYCARDIA, NONSPECIFIC ST AND T WAVE ABNORMALITY, VR 115, QTC 522 -BP Stable off pressors; Maintaining MAP > 65 -Continue to monitor #Pulmonary -Maintaining Airway -CXR: No acute chest pathology -No active issues, continue to monitor #GI GI Bleed likely due to Alcoholic gastritis Elevated INR with a hx of Alcoholic cirrhosis Hx of Esophageal candidiasis -FOBT +, Elevated BUN -GI (Dr. Brown) consulted, EGD revealed multiple small gastric ulcers, no hemorrhage -Establish 2 large bore IV Access sites -Monitor Hgb/Hct; Transfuse Hgb < 7.0 -Continue hydration via D5-1/2ns + 20 Meq Kcl @ 100 mls/hr -Continue IV Pantoprazole 40mg BID -Start Lactulose 20gm BID -Trial Soft diet #Hematology -Monitor Hgb/Hct; Transfuse Hgb < 7.0 #Endocrine DM -A1c 6.4% -ISS BGMs ACHS #ID -Afebrile, No elevated WBC count -Continue to monitor for signs of infection #FEN -D5-1/2ns + 20 Meq Kcl @ 100 mls/hr -Lytes WNL -Soft diet #PPx -DVT: SCDs -GI: Pantoprazole Code Status: Full Code Dispo: Transfer to Med-Surg Visit type - Emergency Visit Emergency Visit: Yes ED Registration Date: 04/02/18 Care time: The patient presented to the Emergency Department on the above date and was hospitalized for further evaluation of their emergent condition. - New Patient This patient is new to me today: No - Critical Care Critical Care patient: Yes Total Critical Care Time (in minutes): 36 Critical Care Statement: The care of this patient involved high complexity decision making to prevent further life threatening deterioration of the patient 's condition and/or to evaluate & treat vital organ system(s) failure or risk of failure.
--- NOTE | 2018-04-05 16:45 | RAPID ---
Physical Examination Vital Signs: Syed Huizar called in ICU 13. Upon arrival, pt was being evaluated by ICU team and nurses. Per nurse, pt was previously sitting upright in chair at bedside and requesting to use the restroom. Pt then went back to bed and later was found to have BP with systolic in 60s, also minimally responsive to sternal rub. Per nurse, at baseline pt is usually talking, walking, and pleasant, however patient has been more lethargic this weekend. NIHSS BP 105/56 HR 73 RR 12 O2 99% BGMs ~130s Lethargic, only arousable to sternal rub, but follows commands if stimulated; RRR, normal S1, S2 CTA B/L Soft, NT/ND 2+ radial pulses b/l A/P: -NIHSS 8 -Head CT and ABG ordered -Plan d/w attending and ICU team Labs: CBC, BMP 04/05/18 05:15 04/05/18 05:15 Suspected CVA - Suspected CVA Exam Time (Syed Huizar Time): 16:17 CT Stroke ordered: No Stat "Code Huizar" Consult to Neurology called: No Last Known Well (Date): 04/05/18 Last Known Well (Time): 16:17
[2018-04-05] MEDS ORDERED: SODIUM CHLORIDE 1,000 ML IV STA (16:48)
[2018-04-05 16:50] LABS: ARTERIAL BLD GAS O2 SATURATION 98.1 % (90-98.9); ARTERIAL BLOOD GAS PCO2 35.6 mmHg (35-45); ARTERIAL BLOOD GAS PO2 99.4 mmHg (70-100); ARTERIAL BLOOD GAS pH 7.42 (7.35-7.45)
[2018-04-05 16:55] LABS: ALLENS TEST POSITIVE
[2018-04-05] MEDS ORDERED: chlordiazePOXIDE HCL 25 MG CAPSULE PO SCH (17:00)
[2018-04-05] MEDS: CHLORHEXIDINE GLUCONATE 4% CLEANSER FOR DECOLONIZATION TP SCH (22:04)
[2018-04-05] MEDS: LACTULOSE 20 GM/30 ML UDC (FOR ORAL USE ONLY) PO SCH (22:04)
[2018-04-06 06:10] LABS: BASO % 0.8 % (0-2.0); EOS % 9.3 % (0-4.5); HEMATOCRIT 22.1 % (35.4-49); HEMOGLOBIN 7.9 GM/dL (11.7-16.9); LYMPH % 28.9 % (8-40); MCH 30.2 pg (25.7-33.7); MCHC 35.7 g/dl (32.0-35.9); MEAN CELL VOLUME 84.6 fl (80-96); MEAN PLT VOLUME 8.1 fl (7.5-11.1); MONO % 20.3 % (3.8-10.2); NEUT % 40.7 % (42.8-82.8); PLATELET COUNT 97 K/MM3 (134-434); RBC 2.62 M/mm3 (4.00-5.60); RDW 15.9 % (11.9-15.9); WHITE BLOOD COUNT 3.7 K/mm3 (4.0-10.0)
[2018-04-06] MEDS: chlordiazePOXIDE HCL 25 MG CAPSULE PO SCH ×4 (06:11→22:21)
[2018-04-06 06:25] LABS: ALBUMIN 2.6 g/dl (3.4-5.0); ALK PHOS 78 U/L (45-117); ANION GAP 5 MMOL/L (8-16); BILIRUBIN,DIRECT 0.3 mg/dL (0.0-0.2); BILIRUBIN,TOTAL 0.7 mg/dL (0.2-1); BLOOD UREA NITROGEN 7 mg/dL (7-18); CHLORIDE 108 mmol/L (98-107); CO2 25 mmol/L (21-32); CREATININE 0.9 mg/dL (0.55-1.3); MAGNESIUM 1.9 mg/dL (1.8-2.4); PHOSPHOROUS 2.7 mg/dL (2.5-4.9); POTASSIUM 4.3 mmol/L (3.5-5.1); SGOT/AST 53 U/L (15-37); SGPT/ALT 27 U/L (13-61); SODIUM 137 mmol/L (136-145)
[2018-04-06 06:35] LABS: GLUCOSE,RANDOM 348 mg/dL (74-106)
[2018-04-06 06:36] LABS: CALCIUM 6.7 mg/dL (8.5-10.1)
[2018-04-06] MEDS: LACTULOSE 20 GM/30 ML UDC (FOR ORAL USE ONLY) PO SCH ×2 (09:17→22:21)
[2018-04-06] MEDS: PANTOPRAZOLE SODIUM 40 MG VIAL IVPUSH SCH (09:17)
[2018-04-06] MEDS: THIAMINE HCL 200 MG/2 ML VIAL IM SCH (09:22)
[2018-04-06] MEDS: D5-1/2NS+20 MEQ KCL - 20 MEQ/1,000 ML INFUS.BAG IV SCH ×3 (09:24→23:23)
[2018-04-06 09:46] LABS: ANISOCYTOSIS 1+; MACROCYTOSIS 0; PLATELET ESTIMATE DECREASED
--- NOTE | 2018-04-06 11:07 | PN ---
Progress Note (short form) - Note Progress Note: Pt examined pt was lethargic, hypotensive yesterday when sat up in chair CT head- negative awake but drowsy Vital Signs - 24 hr 04/05/18 04/05/18 04/05/18 12:00 14:30 16:00 Temperature 98.5 F Pulse Rate 74 85 88 Respiratory 15 16 14 Rate Blood Pressure 129/69 119/70 62/40 L O2 Sat by Pulse Oximetry (%) 04/05/18 04/05/18 04/05/18 16:11 16:17 16:22 Temperature Pulse Rate 63 76 78 Respiratory 18 15 18 Rate Blood Pressure 87/72 L 105/56 L 107/60 O2 Sat by Pulse Oximetry (%) 04/05/18 04/05/18 04/05/18 18:00 19:29 19:34 Temperature Pulse Rate 80 Respiratory 18 Rate Blood Pressure 122/69 O2 Sat by Pulse 99 99 Oximetry (%) 04/05/18 04/05/18 04/06/18 20:00 22:00 00:00 Temperature 98.2 F Pulse Rate 71 94 H 75 Respiratory 18 18 16 Rate Blood Pressure 115/63 128/69 108/61 O2 Sat by Pulse Oximetry (%) 04/06/18 04/06/18 04/06/18 02:00 04:00 06:00 Temperature 98.4 F 98.1 F Pulse Rate 86 70 75 Respiratory 18 16 18 Rate Blood Pressure 125/71 131/70 132/66 O2 Sat by Pulse Oximetry (%) 04/06/18 04/06/18 04/06/18 07:45 08:07 08:11 Temperature Pulse Rate 72 Respiratory 18 Rate Blood Pressure 113/70 128/67 O2 Sat by Pulse 99 Oximetry (%) 04/06/18 04/06/18 08:17 10:00 Temperature 98.4 F Pulse Rate 74 Respiratory 18 Rate Blood Pressure 115/87 O2 Sat by Pulse 100 Oximetry (%) Current Medications Generic Name Dose Route Start Last Admin Trade Name Freq PRN Reason Stop Dose Admin Chlordiazepoxide HCl 25 mg 04/06/18 11:00 Librium - PO 04/07/18 05:01 [id number] LUIS E Chlordiazepoxide HCl 15 mg 04/07/18 11:00 Librium - PO 04/08/18 05:01 [id number] LUIS E Chlordiazepoxide HCl 25 mg 04/05/18 11:11 Librium - PO 04/08/18 11:10 Q4H PRN WITHDRAWAL(CONT SUBST) Chlordiazepoxide HCl 10 mg 04/08/18 11:00 Librium - PO 04/09/18 05:01 [id number] LUIS E Chlorhexidine Gluconate 1 applic 04/02/18 22:00 04/05/18 22:04 Hibiclens For Decolonization - TP 1 applic HS LUIS E Administration Potassium Chloride/Dextrose/Sod Cl 20 meq in 1,000 mls @ 100 mls/hr 04/05/18 11:00 04/06/18 09:24 D5-1/2ns+20 Meq Kcl - IV 100 mls/hr ASDIR LUIS E Administration Lactulose 20 gm 04/05/18 22:00 04/06/18 09:17 Cephulac (Oral Use) PO 20 gm BID LUIS E Administration Mupirocin 1 applic 04/02/18 22:00 04/05/18 22:04 Bactroban Ointment (For Decolonization) - NS 04/07/18 21:59 1 applic BID LUIS E Administration Ondansetron HCl 4 mg 04/03/18 13:33 Zofran Injection IVPUSH Q6H PRN NAUSEA AND/OR VOMITING Pantoprazole Sodium 40 mg 04/03/18 22:00 04/06/18 09:17 Protonix Iv IVPUSH 40 mg BID LUIS E Administration Promethazine HCl 12.5 mg 04/03/18 13:33 Phenergan Injection - IVPB Q6H PRN NAUSEA-FOR RESCUE AFTER 15 MIN Thiamine HCl 200 mg 04/05/18 10:45 04/06/18 09:22 Vitamin B1 Injection - IM 04/09/18 23:59 200 mg DAILY LUIS E Administration Laboratory Results - last 24 hr 04/04/18 04/05/18 04/05/18 09:00 13:43 16:18 WBC RBC Hgb Hct MCV MCH MCHC RDW Plt Count MPV Absolute Neuts (auto) Neutrophils % Neutrophils % (Manual) Band Neutrophils % Lymphocytes % Lymphocytes % (Manual) Monocytes % Monocytes % (Manual) Eosinophils % Eosinophils % (Manual) Basophils % Basophils % (Manual) Myelocytes % (Man) Promyelocytes % (Man) Blast Cells % (Manual) Nucleated RBC % Metamyelocytes Hypochromia Platelet Estimate Polychromasia Poikilocytosis Anisocytosis Microcytosis Macrocytosis Stomatocytes Anticoagulation Therapy Puncture Site ABG pH ABG pCO2 at Pt Temp ABG pO2 at Pt Temp ABG HCO3 ABG O2 Sat (Measured) ABG O2 Content ABG Base Excess Morteza Test O2 Delivery Device Oxygen Flow Rate Vent Mode Vent Rate Mechanical Rate Pressure Support Vent Sodium Potassium Chloride Carbon Dioxide Anion Gap BUN Creatinine Creat Clearance w eGFR POC Glucometer 131.19845 130.28749 Random Glucose Calcium Phosphorus Magnesium Total Bilirubin Direct Bilirubin AST ALT Alkaline Phosphatase Ammonia Total Protein Albumin Tumor Marker AFP 4.6 04/05/18 04/06/18 04/06/18 16:35 05:15 05:15 WBC 3.7 L RBC 2.62 L Hgb 7.9 L Hct 22.1 L D MCV 84.6 MCH 30.2 MCHC 35.7 RDW 15.9 Plt Count 97 L MPV 8.1 Absolute Neuts (auto) 1.5 Neutrophils % 40.7 L D Neutrophils % (Manual) 43.7 Band Neutrophils % 0.0 Lymphocytes % 28.9 Lymphocytes % (Manual) 27.1 Monocytes % 20.3 H Monocytes % (Manual) 19 H Eosinophils % 9.3 H Eosinophils % (Manual) 9.4 H Basophils % 0.8 Basophils % (Manual) 0.0 Myelocytes % (Man) 0 Promyelocytes % (Man) 0 Blast Cells % (Manual) 0 Nucleated RBC % 0 Metamyelocytes 0 Hypochromia 0 Platelet Estimate Decreased Polychromasia 1+ Poikilocytosis 0 Anisocytosis 1+ Microcytosis 1+ Macrocytosis 0 Stomatocytes 0 Anticoagulation Therapy No Result Required. Puncture Site Left radial ABG pH 7.42 ABG pCO2 at Pt Temp 35.6 ABG pO2 at Pt Temp 99.4 ABG HCO3 22.7 ABG O2 Sat (Measured) 98.1 ABG O2 Content 11.7 L ABG Base Excess -1.0 Morteza Test Positive O2 Delivery Device No Result Required. Oxygen Flow Rate No Vent Mode No Result Required. Vent Rate No Result Required. Mechanical Rate No Result Required. Pressure Support Vent No Result Required. Sodium 137 Potassium 4.3 Chloride 108 H Carbon Dioxide 25 Anion Gap 5 L BUN 7 Creatinine 0.9 Creat Clearance w eGFR > 60 POC Glucometer Random Glucose 348 H* Calcium 6.7 L* Phosphorus 2.7 Magnesium 1.9 Total Bilirubin 0.7 Direct Bilirubin 0.3 H AST 53 H ALT 27 Alkaline Phosphatase 78 Ammonia Total Protein 6.0 L Albumin 2.6 L Tumor Marker AFP 04/06/18 05:15 WBC RBC Hgb Hct MCV MCH MCHC RDW Plt Count MPV Absolute Neuts (auto) Neutrophils % Neutrophils % (Manual) Band Neutrophils % Lymphocytes % Lymphocytes % (Manual) Monocytes % Monocytes % (Manual) Eosinophils % Eosinophils % (Manual) Basophils % Basophils % (Manual) Myelocytes % (Man) Promyelocytes % (Man) Blast Cells % (Manual) Nucleated RBC % Metamyelocytes Hypochromia Platelet Estimate Polychromasia Poikilocytosis Anisocytosis Microcytosis Macrocytosis Stomatocytes Anticoagulation Therapy Puncture Site ABG pH ABG pCO2 at Pt Temp ABG pO2 at Pt Temp ABG HCO3 ABG O2 Sat (Measured) ABG O2 Content ABG Base Excess Morteza Test O2 Delivery Device Oxygen Flow Rate Vent Mode Vent Rate Mechanical Rate Pressure Support Vent Sodium Potassium Chloride Carbon Dioxide Anion Gap BUN Creatinine Creat Clearance w eGFR POC Glucometer Random Glucose Calcium Phosphorus Magnesium Total Bilirubin Direct Bilirubin AST ALT Alkaline Phosphatase Ammonia 26.00 Total Protein Albumin Tumor Marker AFP S1 S2 RRR Lungs decreased Pale+ Abd- soft, obese , NT No edema PLAN on protonix on po librium iv fluids fall precautions PT eval stable HCT possibly due to orthostasis he became lethargic, meds may have contributed to this as well Problem List - Problems (1) Gastrointestinal hemorrhage Code(s): K92.2 - GASTROINTESTINAL HEMORRHAGE, UNSPECIFIED Qualifiers: GI bleed type/associated pathology: unspecified gastrointestinal hemorrhage type Qualified Code(s): K92.2 - Gastrointestinal hemorrhage, unspecified (2) Alcohol dependence with withdrawal delirium Code(s): F10.231 - ALCOHOL DEPENDENCE WITH WITHDRAWAL DELIRIUM (3) Alcoholic cirrhosis of liver Code(s): K70.30 - ALCOHOLIC CIRRHOSIS OF LIVER WITHOUT ASCITES (4) Alcoholic hepatitis Code(s): K70.10 - ALCOHOLIC HEPATITIS WITHOUT ASCITES (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
--- NOTE | 2018-04-06 11:12 | PN ---
Physical Exam: SUBJECTIVE: Patient seen and examined this morning. Syed coronel called yesterday evening; Head CT negative, ABG did not reveal hypercapnia. Mental status improved this AM, patient more responsive however remains confused. No further episodes of hematemesis. Denies fevers, chills, chest pain, SOB, nausea, vomiting, diarrhea, constipation. OBJECTIVE: Vital Signs Period Temp Pulse Resp BP Sys/Hartman Pulse Ox Last 24 Hr 98.1 F-98.5 F 63-94 14-18 62-132/40-87 99-100 GENERAL: A&Ox2, NAD HEAD: NCAT EYES: PERRL, EOMI ENT: Moist mucous membranes NECK: Supple, No JVD LUNGS: CTA b/l, No wheezes, No crackles HEART: RRR, normal S1 and S2 without murmur ABDOMEN: Soft, nontender, not distended, + bowel sounds, no guarding, no rebound EXTREMITIES: 2+ pulses, No peripheral edema. NEUROLOGICAL: Cranial nerves II through XII grossly intact. Confused Speech. SKIN: Warm, dry, Surgical scar over left Knee Laboratory Last Values WBC 3.7 K/mm3 (4.0-10.0) L 04/06/18 05:15 RBC 2.62 M/mm3 (4.00-5.60) L 04/06/18 05:15 Hgb 7.9 GM/dL (11.7-16.9) L 04/06/18 05:15 Hct 22.1 % (35.4-49) L D 04/06/18 05:15 MCV 84.6 fl (80-96) 04/06/18 05:15 MCH 30.2 pg (25.7-33.7) 04/06/18 05:15 MCHC 35.7 g/dl (32.0-35.9) 04/06/18 05:15 RDW 15.9 % (11.9-15.9) 04/06/18 05:15 Plt Count 97 K/MM3 (134-434) L 04/06/18 05:15 MPV 8.1 fl (7.5-11.1) 04/06/18 05:15 Absolute Neuts (auto) 1.5 K/mm3 (1.5-8.0) 04/06/18 05:15 Neutrophils % 40.7 % (42.8-82.8) L D 04/06/18 05:15 Neutrophils % (Manual) 43.7 % (42.8-82.8) 04/06/18 05:15 Band Neutrophils % 0.0 % 04/06/18 05:15 Lymphocytes % 28.9 % (8-40) 04/06/18 05:15 Lymphocytes % (Manual) 27.1 % (8-40) 04/06/18 05:15 Monocytes % 20.3 % (3.8-10.2) H 04/06/18 05:15 Monocytes % (Manual) 19 % (3.8-10.2) H 04/06/18 05:15 Eosinophils % 9.3 % (0-4.5) H 04/06/18 05:15 Eosinophils % (Manual) 9.4 % (0-4.5) H 04/06/18 05:15 Basophils % 0.8 % (0-2.0) 04/06/18 05:15 Basophils % (Manual) 0.0 % (0-2.0) 04/06/18 05:15 Myelocytes % (Man) 0 % (0-2) 04/06/18 05:15 Promyelocytes % (Man) 0 % (0-2) 04/06/18 05:15 Blast Cells % (Manual) 0 % (0-0) 04/06/18 05:15 Nucleated RBC % 0 % (0-0) 04/06/18 05:15 Metamyelocytes 0 % (0-2) 04/06/18 05:15 Hypochromia 0 04/06/18 05:15 Platelet Estimate Decreased 04/06/18 05:15 Polychromasia 1+ 04/06/18 05:15 Poikilocytosis 0 04/06/18 05:15 Anisocytosis 1+ 04/06/18 05:15 Microcytosis 1+ 04/06/18 05:15 Macrocytosis 0 04/06/18 05:15 Stomatocytes 0 04/06/18 05:15 Retic Count 6.64 % (0.5-1.5) H D 04/05/18 05:15 PT with INR 13.60 SEC (9.7-13.0) H 04/05/18 05:15 INR 1.15 (0.83-1.09) H 04/05/18 05:15 Anticoagulation Therapy No Result Required. 04/05/18 16:35 Puncture Site Left radial 04/05/18 16:35 ABG pH 7.42 (7.35-7.45) 04/05/18 16:35 ABG pCO2 at Pt Temp 35.6 mmHg (35-45) 04/05/18 16:35 ABG pO2 at Pt Temp 99.4 mmHg (70-100) 04/05/18 16:35 ABG HCO3 22.7 meq/L (22-26) 04/05/18 16:35 ABG O2 Sat (Measured) 98.1 % (90-98.9) 04/05/18 16:35 ABG O2 Content 11.7 % vol (15-22) L 04/05/18 16:35 ABG Base Excess -1.0 meq/l (-2-2) 04/05/18 16:35 Morteza Test Positive 04/05/18 16:35 O2 Delivery Device No Result Required. 04/05/18 16:35 Oxygen Flow Rate No 04/05/18 16:35 Vent Mode No Result Required. 04/05/18 16:35 Vent Rate No Result Required. 04/05/18 16:35 Mechanical Rate No Result Required. 04/05/18 16:35 Pressure Support Vent No Result Required. 04/05/18 16:35 Sodium 137 mmol/L (136-145) 04/06/18 05:15 Potassium 4.3 mmol/L (3.5-5.1) 04/06/18 05:15 Chloride 108 mmol/L (98-107) H 04/06/18 05:15 Carbon Dioxide 25 mmol/L (21-32) 04/06/18 05:15 Anion Gap 5 MMOL/L (8-16) L 04/06/18 05:15 BUN 7 mg/dL (7-18) 04/06/18 05:15 Creatinine 0.9 mg/dL (0.55-1.3) 04/06/18 05:15 Creat Clearance w eGFR > 60 (>60) 04/06/18 05:15 POC Glucometer 130.65333 UNITS (80-120) 04/05/18 16:18 Random Glucose 348 mg/dL (74-106) H* 04/06/18 05:15 Hemoglobin A1c % 6.4 % (4.2-6.3) H 04/03/18 05:30 Calcium 6.7 mg/dL (8.5-10.1) L* 04/06/18 05:15 Phosphorus 2.7 mg/dL (2.5-4.9) 04/06/18 05:15 Magnesium 1.9 mg/dL (1.8-2.4) 04/06/18 05:15 Total Bilirubin 0.7 mg/dL (0.2-1) 04/06/18 05:15 Direct Bilirubin 0.3 mg/dL (0.0-0.2) H 04/06/18 05:15 AST 53 U/L (15-37) H 04/06/18 05:15 ALT 27 U/L (13-61) 04/06/18 05:15 Alkaline Phosphatase 78 U/L (45-117) 04/06/18 05:15 Ammonia 26.00 umol/L (11-32) 04/06/18 05:15 Creatine Kinase 166 U/L (26-308) 04/02/18 16:15 Creatine Kinase Index 1.5 % (0.0-5.0) 04/02/18 16:15 CK-MB (CK-2) 2.6 ng/mL (0.5-3.6) 04/02/18 16:15 Troponin I < 0.02 ng/ml (0.00-0.05) 04/02/18 16:15 Total Protein 6.0 g/dl (6.4-8.2) L 04/06/18 05:15 Albumin 2.6 g/dl (3.4-5.0) L 04/06/18 05:15 Tumor Marker AFP 4.6 ng/ml (0.0-8.3) 04/04/18 09:00 Stool Occult Blood Positive (NEGATIVE) 04/02/18 16:56 Blood Type O POSITIVE 04/02/18 19:00 Antibody Screen Negative 04/02/18 16:15 Crossmatch See Detail 04/02/18 16:15 Active Medications Chlordiazepoxide HCl (Librium -) 25 mg PO [id number] LUIS E Stop: 04/07/18 05:01 Chlordiazepoxide HCl (Librium -) 15 mg PO [id number] [facility] Stop: 04/08/18 05:01 Chlordiazepoxide HCl (Librium -) 25 mg PO Q4H PRN PRN Reason: WITHDRAWAL(CONT SUBST) Stop: 04/08/18 11:10 Chlordiazepoxide HCl (Librium -) 10 mg PO [id number] [facility] Stop: 04/09/18 05:01 Chlorhexidine Gluconate (Hibiclens For Decolonization -) 1 applic TP HS [facility] Last Admin: 04/05/18 22:04 Dose: 1 applic Potassium Chloride/Dextrose/Sod Cl (D5-1/2ns+20 Meq Kcl -) 20 meq in 1,000 mls @ 100 mls/hr IV ASDIR [facility] Last Admin: 04/06/18 09:24 Dose: 100 mls/hr Lactulose (Cephulac (Oral Use)) 20 gm PO BID [facility] Last Admin: 04/06/18 09:17 Dose: 20 gm Mupirocin (Bactroban Ointment (For Decolonization) -) 1 applic NS BID [facility] Stop: 04/07/18 21:59 Last Admin: 04/05/18 22:04 Dose: 1 applic Ondansetron HCl (Zofran Injection) 4 mg IVPUSH Q6H PRN PRN Reason: NAUSEA AND/OR VOMITING Pantoprazole Sodium (Protonix Iv) 40 mg IVPUSH BID [facility] Last Admin: 04/06/18 09:17 Dose: 40 mg Promethazine HCl (Phenergan Injection -) 12.5 mg IVPB Q6H PRN PRN Reason: NAUSEA-FOR RESCUE AFTER 15 MIN Thiamine HCl (Vitamin B1 Injection -) 200 mg IM DAILY [facility] Stop: 04/09/18 23:59 Last Admin: 04/06/18 09:22 Dose: 200 mg ASSESSMENT/PLAN: 72 y/o primarily Vietnamese speaking M with PMHx of ETOH abuse, Alcoholic cirrhosis , esophageal candidiasis, HTN, HLD, DM presents after having multiple episodes of Hematemesis and will be monitored in ICU. #Neuro Acute EtOH Withdrawal Hx of EtOH abuse -D5-1/2ns + 20 Meq Kcl @ 100 mls/hr -Thiamine 200 mg IM DAILY -Continue Librium protocol -Continue to monitor CIWA score -Aspiration precautions -Neuro Checks Q4H -Consider Detox consult #Cardio Tachycardia on arrival likely due to withdrawal, resolved Hx of HTN/HLD -Trop < 0.02 -EKG SINUS TACHYCARDIA, NONSPECIFIC ST AND T WAVE ABNORMALITY, VR 115, QTC 522 -BP Stable off pressors; Maintaining MAP > 65 -Continue to monitor #Pulmonary -Maintaining Airway -CXR: No acute chest pathology -No active issues, continue to monitor #GI GI Bleed likely due to Alcoholic gastritis Elevated INR with a hx of Alcoholic cirrhosis Hx of Esophageal candidiasis -GI (Dr. Brown) consulted, EGD revealed multiple small gastric ulcers, no hemorrhage -Establish 2 large bore IV Access sites -Monitor Hgb/Hct; Transfuse Hgb < 7.0 -Continue hydration via D5-1/2ns + 20 Meq Kcl @ 100 mls/hr -IV Pantoprazole 40mg BID -Lactulose 20gm BID -Soft diet #Hematology -Monitor Hgb/Hct; Transfuse Hgb < 7.0 -S/P 1 unit pRBCs #Endocrine DM -A1c 6.4% -ISS BGMs ACHS #ID -Afebrile, No elevated WBC count -Continue to monitor for signs of infection #FEN -D5-1/2ns + 20 Meq Kcl @ 100 mls/hr -Lytes WNL -Soft diet #PPx -DVT: SCDs -GI: Pantoprazole Code Status: Full Code Dispo: Transfer to Med-Surg Visit type - Emergency Visit Emergency Visit: Yes ED Registration Date: 04/02/18 Care time: The patient presented to the Emergency Department on the above date and was hospitalized for further evaluation of their emergent condition. - New Patient This patient is new to me today: No - Critical Care Critical Care patient: Yes Total Critical Care Time (in minutes): 37 Critical Care Statement: The care of this patient involved high complexity decision making to prevent further life threatening deterioration of the patient 's condition and/or to evaluate & treat vital organ system(s) failure or risk of failure.
--- NOTE | 2018-04-06 11:34 | PN ---
Teaching Attending Note Name of Resident: Zeinab Marie ATTENDING PHYSICIAN STATEMENT I saw and evaluated the patient. I reviewed the resident's note and discussed the case with the resident. I agree with the resident's findings and plan as documented. SUBJECTIVE: Patient seen and examined in the ICU. More wake today but remains confused. [facility]inks he is in a [facility] in the [email or web address] Knows his name and . Not tremulous. No acute bleeding noted. Drop in H & H noted but elevated counts yesterday likely spurious. Intake & Output 04/03/18 04/04/18 04/05/18 04/06/18 23:59 23:59 23:59 23:59 Intake Total 2865 3225 3700 2050 Output Total 850 300 Balance 2014 3225 3700 1750 Weight 168 lb 14.4 oz 172 lb 9.6 oz 171 lb 173 lb 3.2 oz Last Vital Signs Temp Pulse Resp BP Pulse Ox 98.4 F 74 18 115/87 100 04/06/18 10:00 04/06/18 10:00 04/06/18 10:00 04/06/18 10:00 04/06/18 08:17 Active Medications Chlordiazepoxide HCl (Librium -) 25 mg PO [id number] [facility] Stop: 04/07/18 05:01 Chlordiazepoxide HCl (Librium -) 15 mg PO [id number] LUIS E Stop: 04/08/18 05:01 Chlordiazepoxide HCl (Librium -) 25 mg PO Q4H PRN PRN Reason: WITHDRAWAL(CONT SUBST) Stop: 04/08/18 11:10 Chlordiazepoxide HCl (Librium -) 10 mg PO [id number] LUIS E Stop: 04/09/18 05:01 Chlorhexidine Gluconate (Hibiclens For Decolonization -) 1 applic TP HS [facility] Last Admin: 04/05/18 22:04 Dose: 1 applic Potassium Chloride/Dextrose/Sod Cl (D5-1/2ns+20 Meq Kcl -) 20 meq in 1,000 mls @ 100 mls/hr IV ASDIR [facility] Last Admin: 04/06/18 09:24 Dose: 100 mls/hr Lactulose (Cephulac (Oral Use)) 20 gm PO BID LUIS E Last Admin: 04/06/18 09:17 Dose: 20 gm Mupirocin (Bactroban Ointment (For Decolonization) -) 1 applic NS BID [facility] Stop: 04/07/18 21:59 Last Admin: 04/05/18 22:04 Dose: 1 applic Ondansetron HCl (Zofran Injection) 4 mg IVPUSH Q6H PRN PRN Reason: NAUSEA AND/OR VOMITING Pantoprazole Sodium (Protonix Iv) 40 mg IVPUSH BID [facility] Last Admin: 04/06/18 09:17 Dose: 40 mg Promethazine HCl (Phenergan Injection -) 12.5 mg IVPB Q6H PRN PRN Reason: NAUSEA-FOR RESCUE AFTER 15 MIN Thiamine HCl (Vitamin B1 Injection -) 200 mg IM DAILY [facility] Stop: 04/09/18 23:59 Last Admin: 04/06/18 09:22 Dose: 200 mg Constitutional: Yes: More awake, confused, NAD Eyes: Yes: WNL, Conjunctiva Clear, EOM Intact HENT: Yes: WNL, Atraumatic, Normocephalic. No: Thrush Neck: Yes: WNL, Supple, Trachea Midline Cardiovascular: Yes: WNL, Regular Rate and Rhythm Respiratory: Yes: WNL, Regular, CTA Bilaterally Gastrointestinal: Yes: (+) BS, not distended ...Rectal Exam: Yes: Deferred Renal/: Yes: WNL Breast(s): Yes: WNL Musculoskeletal: Yes: WNL Extremities: Yes: WNL Edema: No Peripheral Pulses WNL: Yes Neurological: Yes: Confused. No: Seizure, Tremors ...Motor Strength: WNL Psychiatric: Yes: Confused Labs: Laboratory Results - last 24 hr 04/04/18 04/05/18 04/05/18 09:00 13:43 16:18 WBC RBC Hgb Hct MCV MCH MCHC RDW Plt Count MPV Absolute Neuts (auto) Neutrophils % Neutrophils % (Manual) Band Neutrophils % Lymphocytes % Lymphocytes % (Manual) Monocytes % Monocytes % (Manual) Eosinophils % Eosinophils % (Manual) Basophils % Basophils % (Manual) Myelocytes % (Man) Promyelocytes % (Man) Blast Cells % (Manual) Nucleated RBC % Metamyelocytes Hypochromia Platelet Estimate Polychromasia Poikilocytosis Anisocytosis Microcytosis Macrocytosis Stomatocytes Anticoagulation Therapy Puncture Site ABG pH ABG pCO2 at Pt Temp ABG pO2 at Pt Temp ABG HCO3 ABG O2 Sat (Measured) ABG O2 Content ABG Base Excess Morteza Test O2 Delivery Device Oxygen Flow Rate Vent Mode Vent Rate Mechanical Rate Pressure Support Vent Sodium Potassium Chloride Carbon Dioxide Anion Gap BUN Creatinine Creat Clearance w eGFR POC Glucometer 131.99928 130.97120 Random Glucose Calcium Phosphorus Magnesium Total Bilirubin Direct Bilirubin AST ALT Alkaline Phosphatase Ammonia Total Protein Albumin Tumor Marker AFP 4.6 04/05/18 04/06/18 04/06/18 16:35 05:15 05:15 WBC 3.7 L RBC 2.62 L Hgb 7.9 L Hct 22.1 L D MCV 84.6 MCH 30.2 MCHC 35.7 RDW 15.9 Plt Count 97 L MPV 8.1 Absolute Neuts (auto) 1.5 Neutrophils % 40.7 L D Neutrophils % (Manual) 43.7 Band Neutrophils % 0.0 Lymphocytes % 28.9 Lymphocytes % (Manual) 27.1 Monocytes % 20.3 H Monocytes % (Manual) 19 H Eosinophils % 9.3 H Eosinophils % (Manual) 9.4 H Basophils % 0.8 Basophils % (Manual) 0.0 Myelocytes % (Man) 0 Promyelocytes % (Man) 0 Blast Cells % (Manual) 0 Nucleated RBC % 0 Metamyelocytes 0 Hypochromia 0 Platelet Estimate Decreased Polychromasia 1+ Poikilocytosis 0 Anisocytosis 1+ Microcytosis 1+ Macrocytosis 0 Stomatocytes 0 Anticoagulation Therapy No Result Required. Puncture Site Left radial ABG pH 7.42 ABG pCO2 at Pt Temp 35.6 ABG pO2 at Pt Temp 99.4 ABG HCO3 22.7 ABG O2 Sat (Measured) 98.1 ABG O2 Content 11.7 L ABG Base Excess -1.0 Morteza Test Positive O2 Delivery Device No Result Required. Oxygen Flow Rate No Vent Mode No Result Required. Vent Rate No Result Required. Mechanical Rate No Result Required. Pressure Support Vent No Result Required. Sodium 137 Potassium 4.3 Chloride 108 H Carbon Dioxide 25 Anion Gap 5 L BUN 7 Creatinine 0.9 Creat Clearance w eGFR > 60 POC Glucometer Random Glucose 348 H* Calcium 6.7 L* Phosphorus 2.7 Magnesium 1.9 Total Bilirubin 0.7 Direct Bilirubin 0.3 H AST 53 H ALT 27 Alkaline Phosphatase 78 Ammonia Total Protein 6.0 L Albumin 2.6 L Tumor Marker AFP 04/06/18 05:15 WBC RBC Hgb Hct MCV MCH MCHC RDW Plt Count MPV Absolute Neuts (auto) Neutrophils % Neutrophils % (Manual) Band Neutrophils % Lymphocytes % Lymphocytes % (Manual) Monocytes % Monocytes % (Manual) Eosinophils % Eosinophils % (Manual) Basophils % Basophils % (Manual) Myelocytes % (Man) Promyelocytes % (Man) Blast Cells % (Manual) Nucleated RBC % Metamyelocytes Hypochromia Platelet Estimate Polychromasia Poikilocytosis Anisocytosis Microcytosis Macrocytosis Stomatocytes Anticoagulation Therapy Puncture Site ABG pH ABG pCO2 at Pt Temp ABG pO2 at Pt Temp ABG HCO3 ABG O2 Sat (Measured) ABG O2 Content ABG Base Excess Morteza Test O2 Delivery Device Oxygen Flow Rate Vent Mode Vent Rate Mechanical Rate Pressure Support Vent Sodium Potassium Chloride Carbon Dioxide Anion Gap BUN Creatinine Creat Clearance w eGFR POC Glucometer Random Glucose Calcium Phosphorus Magnesium Total Bilirubin Direct Bilirubin AST ALT Alkaline Phosphatase Ammonia 26.00 Total Protein Albumin Tumor Marker AFP Assessment/Plan Acute GI Bleed: ETOH withdrawal ETOH abuse Cirrhosis History of esophageal candidiasis HTN HLD Normal transfusion thresholds: would hold transfusion today Aspiration precautions PPI PO as tolerated Librium per protocol Maintain Large bore IV access X2 Folate Thiamine Glycemic control IVF Floor Mechanical VTE prophylaxis Dr Polanco Critical care time spent in reviewing chart, evaluating patient and formulating plan - 36 minutes.
[2018-04-06] MEDS: MUPIROCIN 2% TOPICAL OINTMENT FOR DECOLONIZATION NS SCH (11:38)
[2018-04-06] MEDS ORDERED: chlordiazePOXIDE 5 MG CAPSULE PO SCH (17:00)
--- NOTE | 2018-04-06 17:00 | PATH ---
Surgical Pathology Report Patient Name: LILIANA HANDLEY [facility]. Rec. #: [id number] /Age/Gender: 1945 (Age: 72) / M Account: [id number] Location: ICU TRACTOR DRIVER Taken: 04/03/2018 Received: 04/05/2018 Reported: 04/06/2018 Physicians: Stephanie Fitch M.D. Specimen(s) Received BX ANTRUM Clinical History Upper GI bleed, anemia Postoperative diagnosis: Alcoholic gastritis Final Diagnosis STOMACH, ANTRAL GASTRITIS, BIOPSY: GASTRIC ANTRAL MUCOSA WITH MODERATE CHRONIC ACTIVE GASTRITIS. IMMUNOHISTOCHEMICAL STAIN FOR H. PYLORI IS NEGATIVE. Electronically Signed Penelope Gan M.D. Gross Description Received in formalin, labeled "antral gastritis biopsy" are 2 ansari, irregular portions of soft tissue measuring 0.2 and 0.3 cm. in greatest dimension. The specimens are submitted in toto in one cassette. 04/05/2018 [facility]04/05/2018
--- NOTE | 2018-04-06 17:04 | PN ---
GI Progress Note Subjective: GI NOte: Events of last night noted. Today Ruben is lucid, conversant and not agitated. His Hb has dropped to 7.9 but nursing reports that his BM was soft, brown and semisolid. His Mg and calcium are low and will be attended to. Will repeat CBC - Objective Vital Signs: Vital Signs Temperature 98.6 F 04/06/18 14:00 Pulse Rate 94 H 04/06/18 16:00 Respiratory Rate 18 04/06/18 16:00 Blood Pressure 95/54 L 04/06/18 16:00 O2 Sat by Pulse Oximetry (%) 100 04/06/18 08:17 Laboratory Tests 04/05/18 04/06/18 04/06/18 05:15 05:15 05:15 Hgb 10.1 L 7.9 L Plt Count 97 L BUN 7 Creatinine 0.9 Calcium 6.7 L* Magnesium 1.9 Total Bilirubin 0.7 Ammonia 04/06/18 05:15 Hgb Plt Count BUN Creatinine Calcium Magnesium Total Bilirubin Ammonia 26.00 Constitutional: No Distress ...Auscultate: Yes: Normoactive Bowel Sounds ...Palpate: Yes: Soft, Other (nontender) Labs: CBC, BMP 04/06/18 05:15 04/06/18 05:15 INR, PTT INR 1.15 (0.83-1.09) H 04/05/18 05:15 Assessment/Plan Resolved GI bleed, Cause of Hb drop a mystery so will repeat. [place] no flank hematomas or overt bleeding Delirium tremens now under control Component of hepatic encephalopathy suspected. I have again discussed the need to absolutely abstain from any further intake. Problem List - Problems (1) Alcoholic gastritis with bleeding Code(s): K29.21 - ALCOHOLIC GASTRITIS WITH BLEEDING (2) Hx of candidiasis of mouth Code(s): Z86.19 - PERSONAL HISTORY OF OTHER INFECTIOUS AND PARASITIC DISEASES (3) Gastrointestinal hemorrhage Code(s): K92.2 - GASTROINTESTINAL HEMORRHAGE, UNSPECIFIED Qualifiers: GI bleed type/associated pathology: unspecified gastrointestinal hemorrhage type Qualified Code(s): K92.2 - Gastrointestinal hemorrhage, unspecified (4) Alcohol dependence with withdrawal delirium Code(s): F10.231 - ALCOHOL DEPENDENCE WITH WITHDRAWAL DELIRIUM (5) Alcoholic hepatitis Code(s): K70.10 - ALCOHOLIC HEPATITIS WITHOUT ASCITES (6) 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
[2018-04-06] MEDS ORDERED: MAGNESIUM SULF 50% (8.12 MEQ/2 ML-1 GM VIAL) IVPB ONE (17:06)
[2018-04-06] MEDS ORDERED: CALCIUM CHLORIDE 1 GM/10 ML *DISP.SYRIN IVPB ONE (17:09)
[2018-04-06] MEDS ORDERED: CALCIUM CHLORIDE 1 GM/10 ML *DISP.SYRIN ONE (17:35)
[2018-04-06 18:47] LABS: BASO % 0.8 % (0-2.0); HEMATOCRIT 26.4 % (35.4-49); HEMOGLOBIN 9.1 GM/dL (11.7-16.9); LYMPH % 23.8 % (8-40); MCH 29.6 pg (25.7-33.7); MCHC 34.5 g/dl (32.0-35.9); MEAN CELL VOLUME 85.6 fl (80-96); MEAN PLT VOLUME 8.1 fl (7.5-11.1); MONO % 15.1 % (3.8-10.2); NEUT % 52.3 % (42.8-82.8); PLATELET COUNT 128 K/MM3 (134-434); RBC 3.08 M/mm3 (4.00-5.60)
[2018-04-06] MEDS ORDERED: ONDANSETRON 4 MG/2 ML VIAL IVPUSH PRN (20:57)
[2018-04-06] MEDS ORDERED: PROMETHAZINE HCL 25 MG/1 ML VIAL IVPB PRN (20:57)
[2018-04-06] MEDS ORDERED: chlordiazePOXIDE HCL 25 MG CAPSULE PO PRN (20:57)
[2018-04-06] MEDS: CHLORHEXIDINE GLUCONATE 4% CLEANSER FOR DECOLONIZATION TP SCH (22:24)
[2018-04-07] MEDS: chlordiazePOXIDE HCL 25 MG CAPSULE PO SCH (05:48)
[2018-04-07 08:15] LABS: BASO % 0.8 % (0-2.0); EOS % 5.8 % (0-4.5); HEMATOCRIT 22.8 % (35.4-49); LYMPH % 27.9 % (8-40); MCH 29.7 pg (25.7-33.7); MCHC 35.1 g/dl (32.0-35.9); MEAN CELL VOLUME 84.5 fl (80-96); MEAN PLT VOLUME 8.3 fl (7.5-11.1); MONO % 20.4 % (3.8-10.2); NEUT % 45.1 % (42.8-82.8); PLATELET COUNT 111 K/MM3 (134-434); RBC 2.69 M/mm3 (4.00-5.60); RDW 15.7 % (11.9-15.9); WHITE BLOOD COUNT 4.4 K/mm3 (4.0-10.0)
[2018-04-07 08:29] LABS: ALBUMIN 2.5 g/dl (3.4-5.0); ALK PHOS 127 U/L (45-117); ANION GAP 8 MMOL/L (8-16); BILIRUBIN,TOTAL 0.4 mg/dL (0.2-1); BLOOD UREA NITROGEN 10 mg/dL (7-18); CALCIUM 7.7 mg/dL (8.5-10.1); CHLORIDE 110 mmol/L (98-107); CO2 23 mmol/L (21-32); GLUCOSE,RANDOM 162 mg/dL (74-106); PHOSPHOROUS 2.4 mg/dL (2.5-4.9); POTASSIUM 3.4 mmol/L (3.5-5.1); SGOT/AST 36 U/L (15-37); SGPT/ALT 29 U/L (13-61); SODIUM 140 mmol/L (136-145); TOT PROT 6.2 g/dl (6.4-8.2)
[2018-04-07] MEDS: THIAMINE HCL 200 MG/2 ML VIAL IM SCH (10:16)
[2018-04-07] MEDS: LACTULOSE 20 GM/30 ML UDC (FOR ORAL USE ONLY) PO SCH ×2 (10:16→21:58)
[2018-04-07 10:23] LABS: ACANTHOCYTES 1+; ANISOCYTOSIS 2+; MACROCYTOSIS 0; PLATELET ESTIMATE DECREASED; TEAR DROP CELLS 1+
[2018-04-07] MEDS ORDERED: chlordiazePOXIDE 5 MG CAPSULE PO SCH ×2 (11:00→17:00)
--- NOTE | 2018-04-07 12:50 | PN ---
Progress Note (short form) - Note Progress Note: Pt examined daughter at bedside no complaints Vital Signs - 24 hr 04/06/18 04/06/18 04/06/18 14:00 16:00 18:00 Temperature 98.6 F Pulse Rate 88 94 H 96 H Respiratory 18 18 18 Rate Blood Pressure 98/36 L 95/54 L 81/62 L O2 Sat by Pulse Oximetry (%) 04/06/18 04/06/18 04/07/18 20:00 23:00 05:50 Temperature 98.5 F 98.7 F Pulse Rate 90 89 91 H Respiratory 18 18 18 Rate Blood Pressure 109/68 105/56 L 140/63 O2 Sat by Pulse 100 100 Oximetry (%) 04/07/18 09:00 Temperature Pulse Rate 93 H Respiratory 20 Rate Blood Pressure 127/51 L O2 Sat by Pulse Oximetry (%) Current Medications Generic Name Dose Route Start Last Admin Trade Name Freq PRN Reason Stop Dose Admin Chlordiazepoxide HCl 25 mg 04/06/18 20:57 Librium - PO 04/08/18 11:10 Q4H PRN WITHDRAWAL(CONT SUBST) Chlordiazepoxide HCl 15 mg 04/07/18 11:00 Librium - PO 04/08/18 05:01 [id number] LUIS E Chlordiazepoxide HCl 10 mg 04/08/18 11:00 Librium - PO 04/09/18 05:01 [id number] LUIS E Chlorhexidine Gluconate 1 applic 04/06/18 22:00 04/06/18 22:24 Hibiclens For Decolonization - TP 1 applic HS LUIS E Administration Potassium Chloride/Dextrose/Sod Cl 20 meq in 1,000 mls @ 100 mls/hr 04/06/18 20:57 04/06/18 23:23 D5-1/2ns+20 Meq Kcl - IV 100 mls/hr ASDIR LUIS E Administration Lactulose 20 gm 04/06/18 22:00 04/07/18 10:16 Cephulac (Oral Use) PO 20 gm BID LUIS E Administration Thiamine HCl 200 mg 04/07/18 10:00 04/07/18 10:16 Vitamin B1 Injection - IM 04/09/18 23:59 200 mg DAILY LUIS E Administration Laboratory Results - last 24 hr 04/06/18 04/06/18 04/06/18 16:43 18:00 18:00 WBC 3.0 L RBC 3.08 L Hgb 9.1 L Hct 26.4 L D MCV 85.6 MCH 29.6 MCHC 34.5 RDW 16.0 H Plt Count 128 L D MPV 8.1 Absolute Neuts (auto) 1.6 Neutrophils % 52.3 D Neutrophils % (Manual) Band Neutrophils % Lymphocytes % 23.8 Lymphocytes % (Manual) Monocytes % 15.1 H Monocytes % (Manual) Eosinophils % 8.0 H Eosinophils % (Manual) Basophils % 0.8 Basophils % (Manual) Myelocytes % (Man) Promyelocytes % (Man) Blast Cells % (Manual) Nucleated RBC % 0 Metamyelocytes Hypochromia Platelet Estimate Polychromasia Poikilocytosis Anisocytosis Microcytosis Macrocytosis Spherocytes Tear Drop Cells Acanthocytes (Spur) Sodium Potassium Chloride Carbon Dioxide Anion Gap BUN Creatinine Creat Clearance w eGFR POC Glucometer [phone] Random Glucose Calcium Phosphorus Magnesium Total Bilirubin AST ALT Alkaline Phosphatase Ammonia Total Protein Albumin Blood Type O POSITIVE Antibody Screen Negative 04/07/18 04/07/18 04/07/18 05:52 07:00 07:00 WBC 4.4 RBC 2.69 L Hgb 8.0 L Hct 22.8 L MCV 84.5 MCH 29.7 MCHC 35.1 RDW 15.7 Plt Count 111 L MPV 8.3 Absolute Neuts (auto) 2.0 Neutrophils % 45.1 Neutrophils % (Manual) 50.0 Band Neutrophils % 1.0 Lymphocytes % 27.9 Lymphocytes % (Manual) 17.0 D Monocytes % 20.4 H Monocytes % (Manual) 13 H Eosinophils % 5.8 H Eosinophils % (Manual) 7.0 H Basophils % 0.8 Basophils % (Manual) 0.0 Myelocytes % (Man) 0 Promyelocytes % (Man) 0 Blast Cells % (Manual) 0 Nucleated RBC % 0 Metamyelocytes 0 Hypochromia 1+ Platelet Estimate Decreased Polychromasia 2+ Poikilocytosis 1+ Anisocytosis 2+ Microcytosis 1+ Macrocytosis 0 Spherocytes 1+ Tear Drop Cells 1+ Acanthocytes (Spur) 1+ Sodium 140 Potassium 3.4 L Chloride 110 H Carbon Dioxide 23 Anion Gap 8 BUN 10 Creatinine 1.0 Creat Clearance w eGFR > 60 POC Glucometer 237 Random Glucose 162 H Calcium 7.7 L Phosphorus 2.4 L Magnesium 2.0 Total Bilirubin 0.4 AST 36 ALT 29 Alkaline Phosphatase 127 H Ammonia Total Protein 6.2 L Albumin 2.5 L Blood Type Antibody Screen 04/07/18 04/07/18 07:00 12:20 WBC RBC Hgb Hct MCV MCH MCHC RDW Plt Count MPV Absolute Neuts (auto) Neutrophils % Neutrophils % (Manual) Band Neutrophils % Lymphocytes % Lymphocytes % (Manual) Monocytes % Monocytes % (Manual) Eosinophils % Eosinophils % (Manual) Basophils % Basophils % (Manual) Myelocytes % (Man) Promyelocytes % (Man) Blast Cells % (Manual) Nucleated RBC % Metamyelocytes Hypochromia Platelet Estimate Polychromasia Poikilocytosis Anisocytosis Microcytosis Macrocytosis Spherocytes Tear Drop Cells Acanthocytes (Spur) Sodium Potassium Chloride Carbon Dioxide Anion Gap BUN Creatinine Creat Clearance w eGFR POC Glucometer 175 Random Glucose Calcium Phosphorus Magnesium Total Bilirubin AST ALT Alkaline Phosphatase Ammonia 48.60 H Total Protein Albumin Blood Type Antibody Screen Lungs decreased Pale+ Abd- soft, obese , NT No edema PLAN on protonix on po librium replace potassium increase lactulose iv fluids fall precautions PT eval monitor HCT Problem List - Problems (1) Gastrointestinal hemorrhage Code(s): K92.2 - GASTROINTESTINAL HEMORRHAGE, UNSPECIFIED Qualifiers: GI bleed type/associated pathology: unspecified gastrointestinal hemorrhage type Qualified Code(s): K92.2 - Gastrointestinal hemorrhage, unspecified (2) Alcohol dependence with withdrawal delirium Code(s): F10.231 - ALCOHOL DEPENDENCE WITH WITHDRAWAL DELIRIUM (3) Alcoholic cirrhosis of liver Code(s): K70.30 - ALCOHOLIC CIRRHOSIS OF LIVER WITHOUT ASCITES (4) Alcoholic hepatitis Code(s): K70.10 - ALCOHOLIC HEPATITIS WITHOUT ASCITES (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
[2018-04-07] MEDS ORDERED: POTASSIUM CHLORIDE TABS 20 MEQ TABLET.ER (FP) PO ONE (13:10)
[2018-04-07] MEDS: chlordiazePOXIDE 5 MG CAPSULE PO SCH ×3 (13:51→22:59)
[2018-04-07] MEDS: CHLORHEXIDINE GLUCONATE 4% CLEANSER FOR DECOLONIZATION TP SCH (21:59)
[2018-04-08] MEDS: D5-1/2NS+20 MEQ KCL - 20 MEQ/1,000 ML INFUS.BAG IV SCH (05:07)
[2018-04-08] MEDS: chlordiazePOXIDE 5 MG CAPSULE PO SCH ×4 (05:07→22:09)
[2018-04-08 08:18] LABS: BASO % 0.9 % (0-2.0); EOS % 6.3 % (0-4.5); HEMATOCRIT 22.8 % (35.4-49); LYMPH % 29.4 % (8-40); MCH 29.2 pg (25.7-33.7); MEAN CELL VOLUME 83.5 fl (80-96); MEAN PLT VOLUME 8.7 fl (7.5-11.1); MONO % 16.7 % (3.8-10.2); NEUT % 46.7 % (42.8-82.8); PLATELET COUNT 136 K/MM3 (134-434); RBC 2.73 M/mm3 (4.00-5.60); RDW 16.4 % (11.9-15.9); WHITE BLOOD COUNT 4.8 K/mm3 (4.0-10.0)
[2018-04-08 08:27] LABS: ALBUMIN 2.6 g/dl (3.4-5.0); ALK PHOS 110 U/L (45-117); ANION GAP 6 MMOL/L (8-16); BILIRUBIN,TOTAL 0.4 mg/dL (0.2-1); BLOOD UREA NITROGEN 7 mg/dL (7-18); CALCIUM 7.7 mg/dL (8.5-10.1); CHLORIDE 110 mmol/L (98-107); CO2 22 mmol/L (21-32); GLUCOSE,RANDOM 168 mg/dL (74-106); POTASSIUM 3.7 mmol/L (3.5-5.1); SGOT/AST 26 U/L (15-37); SGPT/ALT 28 U/L (13-61); SODIUM 137 mmol/L (136-145); TOT PROT 6.2 g/dl (6.4-8.2)
[2018-04-08] MEDS: LACTULOSE 20 GM/30 ML UDC (FOR ORAL USE ONLY) PO SCH ×2 (10:02→21:40)
[2018-04-08] MEDS: THIAMINE HCL 200 MG/2 ML VIAL IM SCH (10:03)
[2018-04-08] MEDS ORDERED: chlordiazePOXIDE HCL 10 MG CAPSULE PO SCH (11:00)
--- NOTE | 2018-04-08 12:16 | DS ---
Physical Examination Vital Signs: Vital Signs Temperature 99.5 F 04/08/18 06:00 Pulse Rate 88 04/08/18 06:00 Respiratory Rate 20 04/08/18 06:00 Blood Pressure 135/63 04/08/18 06:00 O2 Sat by Pulse Oximetry (%) 100 04/07/18 21:00 Constitutional: Yes: No Distress, Calm Cardiovascular: Yes: Regular Rate and Rhythm Respiratory: Yes: CTA Bilaterally Gastrointestinal: Yes: Normal Bowel Sounds, Soft, Abdomen, Obese. No: Tenderness Edema: No Labs: CBC, BMP 04/08/18 07:00 04/08/18 07:00 Discharge Summary Reason For Visit: ALCOHOL DEPENDENCE WITH WITHDRAWL DELIRUM Current Active Problems Alcoholic gastritis with bleeding (Acute) Gastrointestinal hemorrhage (Acute) Hx of candidiasis of mouth (Acute) Hospital Course: Admitted for alcohol withdrawal, GI bleeding-- was initially in ICU-- seen by GI -- had underwent EGD-- no bleeding seen HCT stable Pt on librium pt has unsteady gait will need STR stable for dc to [facility] Condition: Fair - Instructions Referrals: Aubrey Lara MD [Primary Care Provider] - Disposition: ASSISTED FACILITY - Home Medications Comprehensive Discharge Medication List: Ambulatory Orders Lactulose (Oral Use) [Cephulac -] 20 gm PO BID 30 Days udc 07/11/15 Metoprolol Tartrate [Lopressor -] 25 mg PO BID #60 tablet 07/11/15 Multivitamins [Multivit ([facility] Formulary)] 1 tab PO DAILY #30 tab 07/11/15 Pantoprazole Sodium [Protonix -] 40 mg PO DAILY #30 tablet.ec 07/11/15 Thiamine HCl [Vitamin B1 -] 100 mg PO BID #60 tablet 07/11/15 Unobtainable 04/02/18
[2018-04-08] MEDS: CHLORHEXIDINE GLUCONATE 4% CLEANSER FOR DECOLONIZATION TP SCH (21:41)
[2018-04-09] MEDS: chlordiazePOXIDE 5 MG CAPSULE PO SCH (05:51)
[2018-04-09 06:43] VITALS: TEMP 98.4
[2018-04-09] MEDS ORDERED: PT OWN MED DRAWER 7, Y5N ONE (09:29)
[2018-04-09] MEDS: LACTULOSE 20 GM/30 ML UDC (FOR ORAL USE ONLY) PO SCH (09:39)
[2018-04-09] MEDS: THIAMINE HCL 200 MG/2 ML VIAL IM SCH (09:41)
--- NOTE | 2018-04-09 10:52 | PN ---
Progress Note (short form) - Note Progress Note: pt seen/ examined sitting in chair comfortable all f/u noted Vital Signs Temp 98.4 F 04/09/18 05:00 Pulse 87 04/09/18 05:00 Resp 20 04/09/18 05:00 BP 125/59 L 04/09/18 05:00 Pulse Ox 100 04/08/18 22:00 Intake & Output 04/08/18 04/08/18 04/09/18 11:59 23:59 11:59 Intake Total 1500 2004 Output Total 1300 Balance 1500 705 Weight 174 lb 6 oz 178 lb 5 oz Intake: IV 1200 805 D5-1/2NS+20 MEQ KCL - 20 1200 800 meq In 1,000 ml @ 100 mls /hr IV ASDIR LUIS E Rx#: [id number] saline Lock 5 Oral 300 1200 Output: Urine 1300 Void 1300 Other: Voiding Method Urinal Urinal # Unmeasured Voids Void 1 Bowel Movement Yes No Yes # Bowel Movements 1 2 Weight Measurement Method Built in [facility] Built in [facility] Active Medications Chlorhexidine Gluconate (Hibiclens For Decolonization -) 1 applic TP HS [facility] Last Admin: 04/08/18 21:41 Dose: Not Given Lactulose (Cephulac (Oral Use)) 30 gm PO BID [facility] Last Admin: 04/09/18 09:39 Dose: 30 gm Thiamine HCl (Vitamin B1 Injection -) 200 mg IM DAILY [facility] Stop: 04/09/18 23:59 Last Admin: 04/09/18 09:41 Dose: 200 mg CBC, BMP 04/08/18 07:00 04/08/18 07:00 Physical Exam Awake/ comfortable Sitting in chair Constitutional: Yes: No Distress, Calm Cardiovascular: Yes: Regular Rate and Rhythm Respiratory: Yes: CTA Bilaterally Gastrointestinal: Yes: Normal Bowel Sounds, Soft, Abdomen, Obese. No: Tenderness Edema: No A/p stable d/c planning see detailed discharge summary Anticipate d/c today
[2018-04-09 14:32] VITALS: BP 118/57; PULSE 93
--- NOTE | 2018-04-09 14:54 | PN ---
Progress Note (short form) - Note Progress Note: Overall appears better. No acute events overnight. Intake & Output 04/06/18 04/07/18 04/08/18 04/09/18 23:59 23:59 23:59 23:59 Intake Total 3550 3200 3505 600 Output Total 1100 1300 1300 Balance 2450 1900 2205 600 Weight 173 lb 3.2 oz 175 lb 5 oz 174 lb 6 oz 178 lb 5 oz Last Vital Signs Temp Pulse Resp BP Pulse Ox 98.4 F 93 H 21 H 118/57 L 100 04/09/18 14:00 04/09/18 14:00 04/09/18 14:00 04/09/18 14:00 04/09/18 09:00 Active Medications Chlorhexidine Gluconate (Hibiclens For Decolonization -) 1 applic TP HS [facility] Last Admin: 04/08/18 21:41 Dose: Not Given Lactulose (Cephulac (Oral Use)) 30 gm PO BID [facility] Last Admin: 04/09/18 09:39 Dose: 30 gm Thiamine HCl (Vitamin B1 Injection -) 200 mg IM DAILY [facility] Stop: 04/09/18 23:59 Last Admin: 04/09/18 09:41 Dose: 200 mg Constitutional: Yes: NAD Eyes: Yes: WNL, Conjunctiva Clear, EOM Intact HENT: Yes: WNL, Atraumatic, Normocephalic. No: Thrush Neck: Yes: WNL, Supple, Trachea Midline Cardiovascular: Yes: WNL, Regular Rate and Rhythm Respiratory: Yes: WNL, Regular, CTA Bilaterally Gastrointestinal: Yes: (+) BS, not distended ...Rectal Exam: Yes: Deferred Renal/: Yes: WNL Breast(s): Yes: WNL Musculoskeletal: Yes: WNL Extremities: Yes: WNL Edema: No Peripheral Pulses WNL: Yes Neurological: non-focal ...Motor Strength: WNL Labs: Laboratory Results - last 24 hr 04/08/18 04/08/18 04/09/18 16:59 22:30 06:20 POC Glucometer 230 307 165 04/09/18 12:11 POC Glucometer 215 Assessment/Plan Acute GI Bleed ETOH withdrawal ETOH abuse Cirrhosis History of esophageal candidiasis HTN HLD Aspiration precautions PO as tolerated Folate Thiamine D/C planning Dr Polanco
[2018-04-09 15:22] VITALS: BMI 34.7
== END 2018-04-09 18:31 | disposition home or self-care (01) | DRG 378 ==
LOC: JER 14:51 → JERBED 17:53 → JICU 21:25 → J6S 04-06 22:47
PROVIDERS: ADMIT Internal Medicine; ATTEND Internal Medicine
PROC: 30233N1 Transfusion of Nonautologous Red Blood Cells into Peripheral Vein, Percutaneous Approach (ICD-10-PCS; 2018-04-03)
PROC: 0DB68ZX Excision of Stomach, Via Natural or Artificial Opening Endoscopic, Diagnostic (ICD-10-PCS; principal; 2018-04-03 14:00)
DX: K29.21 Alcoholic gastritis with bleeding (principal); F10.231 Alcohol dependence with withdrawal delirium; K70.30 Alcoholic cirrhosis of liver without ascites; I85.10 Secondary esophageal varices without bleeding; Z86.19 Personal history of other infectious and parasitic diseases; E78.5 Hyperlipidemia, unspecified; I10 Essential (primary) hypertension; K29.50 Unspecified chronic gastritis without bleeding; E11.9 Type 2 diabetes mellitus without complications; D69.6 Thrombocytopenia, unspecified; R00.0 Tachycardia, unspecified
CPT/HCPCS: 36415; 36430; 36600; 70450-TC; 71045-TC-FY; 80048; 80053; 80076; 82105; 82140; 82272; 82550; 82553; 82803; 82962; 83036; 83735; 84100; 84484; 85025; 85027; 85044; 85610; 86850; 86900; 86901; 86922; 88305-TC; 90688; 93005; 93010; 97116-GP; 97161-GP; 99284-25; G0008; J7030; P9038; P9058

== ENCOUNTER 2022-10-07 11:08 | Inpatient (IN) | payer OTHER ==
[2022-10-07 13:11] LABS: ALBUMIN 3.8 g/dl (3.4-5.0); CALCIUM 9.3 mg/dL (8.5-10.1)
[2022-10-07 13:14] LABS: CREATININE 1.7 mg/dL (0.55-1.3); TOT PROT 8.6 g/dl (6.4-8.2)
[2022-10-07 13:16] LABS: BASO % 1.1 % (0-2.0); BILIRUBIN,TOTAL 0.5 mg/dL (0.2-1); EOS % 12.9 % (0-4.5); HEMATOCRIT 32.9 % (35.4-49); HEMOGLOBIN 11.3 GM/dL (11.7-16.9); MCH 26.7 pg (25.7-33.7); MCHC 34.3 g/dl (32.0-35.9); MEAN CELL VOLUME 77.8 fl (80-96); MEAN PLT VOLUME 8.8 fl (7.5-11.1); MONO % 9.4 % (3.8-10.2); NEUT % 56.6 % (42.8-82.8); PLATELET COUNT 153 10^3/uL (134-434); RBC 4.22 M/mm3 (4.00-5.60); RDW 14.7 % (11.9-15.9); WHITE BLOOD COUNT 5.9 K/mm3 (4.0-10.0)
[2022-10-07] MEDS ORDERED: ACETAMINOPHEN 1000 MG/100 ML BAG IVPB ONE (13:29)
[2022-10-07] MEDS ORDERED: ACETAMINOPHEN INJECTION 100 ML IVPB ONE (13:43)
[2022-10-07 14:01] LABS: ERYTHROCYTE SEDIMENTATION RATE 58 mm/hr (0-20)
[2022-10-07] MEDS ORDERED: SODIUM CHLORIDE 0.9% 500 ML INFUS.BAG IV ONE (14:17)
[2022-10-07] MEDS ORDERED: VANCOMYCIN 1 GM in D5W (PRE-DOCKED) 1,000 MG/250 ML (RESTRICTED TO ID ONLY IVPB ONE (14:37)
[2022-10-07] MEDS ORDERED: PIPERACILLIN/TAZOB 2.25 GM 2.25 GM/50 ML BAG IVPB ONE (14:57)
[2022-10-07] MEDS ORDERED: VANCOMYCIN/WATER FOR INJ (PEG) 1,000 MG/200 ML BAG IVPB ONE (14:57)
[2022-10-07] MEDS: PIPERACILLIN/TAZOB 2.25 GM 2.25 GM in DEXTROSE 5%-WATER - 50 ML IVPB SCH ×2 (15:13→23:01)
[2022-10-07] MEDS ORDERED: LACTATED RINGERS SOLUTION 1,000 ML/1,000 ML INFUS.BAG IV SCH (16:45)
[2022-10-07] MEDS ORDERED: HEPARIN NA (PORCINE) 5,000 UNITS/ML 1ML VIAL SQ SCH (22:00)
[2022-10-07 22:44] VITALS: BMI 26.6
[2022-10-07] MEDS: traZODone HCL 50 MG TABLET (FP) PO SCH (23:02)
[2022-10-07] MEDS: INSULIN SLIDING SCALE (NOVOLOG) 1 VIAL SQ SCH (23:33)
[2022-10-08] MEDS: PIPERACILLIN/TAZOB 2.25 GM 2.25 GM in DEXTROSE 5%-WATER - 50 ML IVPB SCH ×4 (03:37→17:15)
[2022-10-08] MEDS: INSULIN SLIDING SCALE (NOVOLOG) 1 VIAL SQ SCH ×4 (09:23→22:15)
[2022-10-08] MEDS: PANTOPRAZOLE 40 MG TABLET PO SCH ×2 (09:24→09:28)
[2022-10-08] MEDS: FOLIC ACID 1 MG TABLET (FP) PO SCH (09:28)
[2022-10-08] MEDS: THIAMINE HCL 100 MG TABLET (FP) PO SCH (09:28)
[2022-10-08] MEDS: CLOPIDOGREL BISULFATE 75 MG TABLET (FP) PO SCH (09:29)
[2022-10-08] MEDS: amLODIPine BESYLATE 5 MG TABLET (FP) PO SCH (09:29)
[2022-10-08] MEDS ORDERED: VANCOMYCIN 1 GM in D5W (PRE-DOCKED) 1,000 MG/250 ML (RESTRICTED TO ID ONLY IVPB SCH ×2 (10:00→15:00)
[2022-10-08 11:19] LABS: BASO % 1.1 % (0-2.0); EOS % 11.5 % (0-4.5); HEMATOCRIT 32.9 % (35.4-49); HEMOGLOBIN 10.8 GM/dL (11.7-16.9); LYMPH % 21.9 % (8-40); MCH 25.8 pg (25.7-33.7); MCHC 32.9 g/dl (32.0-35.9); MEAN CELL VOLUME 78.4 fl (80-96); MEAN PLT VOLUME 8.9 fl (7.5-11.1); MONO % 7.9 % (3.8-10.2); NEUT % 57.6 % (42.8-82.8); PLATELET COUNT 157 10^3/uL (134-434); RBC 4.19 M/mm3 (4.00-5.60); RDW 14.5 % (11.9-15.9); WHITE BLOOD COUNT 5.2 K/mm3 (4.0-10.0)
[2022-10-08 11:22] LABS: INR 1.16 (0.83-1.09); PROTHROMBIN TIME (PATIENT) 13.4 SEC (9.7-13.0)
[2022-10-08 11:43] LABS: POTASSIUM 3.7 mmol/L (3.5-5.1)
[2022-10-08 12:02] LABS: BLOOD UREA NITROGEN 17.9 mg/dL (7-18)
[2022-10-08 12:03] LABS: ALBUMIN 3.6 g/dl (3.4-5.0); CALCIUM 9.2 mg/dL (8.5-10.1); MAGNESIUM 2.3 mg/dL (1.8-2.4)
[2022-10-08 12:06] LABS: CREATININE 1.5 mg/dL (0.55-1.3)
[2022-10-08 12:07] LABS: TOT PROT 7.9 g/dl (6.4-8.2)
[2022-10-08 12:08] LABS: PHOSPHOROUS 3.2 mg/dL (2.5-4.9)
[2022-10-08 12:09] LABS: BILIRUBIN,TOTAL 0.5 mg/dL (0.2-1)
[2022-10-08] MEDS ORDERED: ROSUVASTATIN CA 40 MG TABLET PO SCH (22:00)
[2022-10-08] MEDS ORDERED: ROSUVASTATIN CA 20 MG TABLET PO SCH (22:00)
[2022-10-08] MEDS: traZODone HCL 50 MG TABLET (FP) PO SCH (22:09)
[2022-10-09] MEDS: PIPERACILLIN/TAZOB 2.25 GM 2.25 GM in DEXTROSE 5%-WATER - 50 ML IVPB SCH ×4 (06:01→19:42)
[2022-10-09] MEDS: INSULIN SLIDING SCALE (NOVOLOG) 1 VIAL SQ SCH ×4 (06:27→22:20)
[2022-10-09] MEDS ORDERED: oxyCODONE HCL 5 MG TABLET PO PRN ×2 (08:50)
[2022-10-09] MEDS ORDERED: ACETAMINOPHEN 500 MG TABLET (FP) PO PRN (08:50)
[2022-10-09] MEDS: THIAMINE HCL 100 MG TABLET (FP) PO SCH (09:37)
[2022-10-09] MEDS: FOLIC ACID 1 MG TABLET (FP) PO SCH (09:37)
[2022-10-09] MEDS: amLODIPine BESYLATE 5 MG TABLET (FP) PO SCH (09:37)
[2022-10-09] MEDS: CLOPIDOGREL BISULFATE 75 MG TABLET (FP) PO SCH (09:38)
[2022-10-09 10:57] LABS: HEMATOCRIT 31.6 % (35.4-49); HEMOGLOBIN 10.3 GM/dL (11.7-16.9); MCH 25.4 pg (25.7-33.7); MCHC 32.5 g/dl (32.0-35.9); MEAN CELL VOLUME 78.2 fl (80-96); MEAN PLT VOLUME 8.8 fl (7.5-11.1); PLATELET COUNT 136 10^3/uL (134-434); RBC 4.04 M/mm3 (4.00-5.60); RDW 14.4 % (11.9-15.9); WHITE BLOOD COUNT 5.6 K/mm3 (4.0-10.0)
[2022-10-09 11:17] LABS: POTASSIUM 3.6 mmol/L (3.5-5.1)
[2022-10-09 11:19] LABS: CALCIUM 9.6 mg/dL (8.5-10.1)
[2022-10-09 11:20] LABS: ALBUMIN 3.5 g/dl (3.4-5.0); BLOOD UREA NITROGEN 24.3 mg/dL (7-18)
[2022-10-09 11:23] LABS: CREATININE 1.8 mg/dL (0.55-1.3)
[2022-10-09 11:24] LABS: BILIRUBIN,TOTAL 0.6 mg/dL (0.2-1)
[2022-10-09 11:25] LABS: TOT PROT 7.8 g/dl (6.4-8.2)
[2022-10-09] MEDS ORDERED: HEPARIN NA (PORCINE) 5,000 UNITS/ML 1ML VIAL ONE (15:01)
[2022-10-09] MEDS ORDERED: ONDANSETRON 4 MG/2 ML VIAL IVPUSH PRN ×2 (15:28→18:21)
[2022-10-09] MEDS ORDERED: LACTATED RINGERS SOLUTION 1,000 ML IV SCH (15:30)
[2022-10-09] MEDS ORDERED: MIDAZOLAM HCL 2 MG/2 ML SINGLE DOSE VIAL ONE (15:34)
[2022-10-09] MEDS ORDERED: PROPOFOL 20 ML ONE ×2 (15:34→15:36)
[2022-10-09] MEDS ORDERED: LIDOCAINE HCL 1%, 10 MG/ML (20ML VIAL) NR ONE (16:12)
[2022-10-09] MEDS: LACTATED RINGERS SOLUTION 1,000 ML IV SCH (21:50)
[2022-10-09] MEDS: ROSUVASTATIN CA 20 MG TABLET PO SCH (22:10)
[2022-10-09] MEDS: oxyCODONE HCL 5 MG TABLET PO PRN (22:16)
[2022-10-09] MEDS: traZODone HCL 50 MG TABLET (FP) PO SCH (22:17)
[2022-10-10] MEDS: oxyCODONE HCL 5 MG TABLET PO PRN ×4 (02:11→22:37)
[2022-10-10] MEDS: PIPERACILLIN/TAZOB 2.25 GM 2.25 GM in DEXTROSE 5%-WATER - 50 ML IVPB SCH ×2 (02:45→09:41)
[2022-10-10] MEDS: INSULIN SLIDING SCALE (NOVOLOG) 1 VIAL SQ SCH (08:14)
[2022-10-10] MEDS: FOLIC ACID 1 MG TABLET (FP) PO SCH (09:40)
[2022-10-10] MEDS: amLODIPine BESYLATE 5 MG TABLET (FP) PO SCH (09:40)
[2022-10-10] MEDS: THIAMINE HCL 100 MG TABLET (FP) PO SCH (09:41)
[2022-10-10] MEDS: CLOPIDOGREL BISULFATE 75 MG TABLET (FP) PO SCH (09:41)
[2022-10-10 10:26] LABS: HEMATOCRIT 29.4 % (35.4-49); HEMOGLOBIN 9.8 GM/dL (11.7-16.9); MCH 25.9 pg (25.7-33.7); MCHC 33.3 g/dl (32.0-35.9); MEAN CELL VOLUME 77.6 fl (80-96); MEAN PLT VOLUME 8.6 fl (7.5-11.1); PLATELET COUNT 117 10^3/uL (134-434); RBC 3.78 M/mm3 (4.00-5.60); RDW 14.5 % (11.9-15.9); WHITE BLOOD COUNT 4.8 K/mm3 (4.0-10.0)
[2022-10-10 10:37] LABS: POTASSIUM 3.8 mmol/L (3.5-5.1)
[2022-10-10 10:43] LABS: CALCIUM 8.7 mg/dL (8.5-10.1)
[2022-10-10 10:44] LABS: BLOOD UREA NITROGEN 17.4 mg/dL (7-18); MAGNESIUM 2.1 mg/dL (1.8-2.4)
[2022-10-10 10:45] LABS: ALBUMIN 3.3 g/dl (3.4-5.0)
[2022-10-10 10:48] LABS: CREATININE 1.6 mg/dL (0.55-1.3); PHOSPHOROUS 3.3 mg/dL (2.5-4.9)
[2022-10-10 10:49] LABS: BILIRUBIN,TOTAL 0.6 mg/dL (0.2-1); TOT PROT 7.2 g/dl (6.4-8.2)
[2022-10-10] MEDS: LACTATED RINGERS SOLUTION 1,000 ML IV SCH (17:25)
[2022-10-10] MEDS: ACETAMINOPHEN 500 MG TABLET (FP) PO PRN (17:31)
[2022-10-10] MEDS: traZODone HCL 50 MG TABLET (FP) PO SCH (21:19)
[2022-10-10] MEDS: ROSUVASTATIN CA 20 MG TABLET PO SCH (21:20)
[2022-10-11] MEDS: amLODIPine BESYLATE 5 MG TABLET (FP) PO SCH (09:11)
[2022-10-11] MEDS: THIAMINE HCL 100 MG TABLET (FP) PO SCH (09:11)
[2022-10-11] MEDS: ACETAMINOPHEN 500 MG TABLET (FP) PO PRN (09:11)
[2022-10-11] MEDS: FOLIC ACID 1 MG TABLET (FP) PO SCH (09:12)
[2022-10-11] MEDS: CLOPIDOGREL BISULFATE 75 MG TABLET (FP) PO SCH (09:12)
[2022-10-11 09:55] LABS: HEMATOCRIT 29.7 % (35.4-49); MCH 25.8 pg (25.7-33.7); MCHC 33.5 g/dl (32.0-35.9); MEAN CELL VOLUME 77.1 fl (80-96); MEAN PLT VOLUME 8.5 fl (7.5-11.1); PLATELET COUNT 115 10^3/uL (134-434); RBC 3.86 M/mm3 (4.00-5.60); RDW 14.7 % (11.9-15.9); WHITE BLOOD COUNT 5.1 K/mm3 (4.0-10.0)
[2022-10-11 10:21] LABS: POTASSIUM 3.6 mmol/L (3.5-5.1)
[2022-10-11 10:29] LABS: BLOOD UREA NITROGEN 17.4 mg/dL (7-18); CALCIUM 9.4 mg/dL (8.5-10.1)
[2022-10-11 10:33] LABS: CREATININE 1.6 mg/dL (0.55-1.3)
[2022-10-11] MEDS: oxyCODONE HCL 5 MG TABLET PO PRN (17:10)
[2022-10-11] MEDS: traZODone HCL 50 MG TABLET (FP) PO SCH (22:11)
[2022-10-11] MEDS: ROSUVASTATIN CA 20 MG TABLET PO SCH (22:12)
[2022-10-12] MEDS: oxyCODONE HCL 5 MG TABLET PO PRN ×3 (02:18→21:19)
[2022-10-12] MEDS: THIAMINE HCL 100 MG TABLET (FP) PO SCH (09:16)
[2022-10-12] MEDS: FOLIC ACID 1 MG TABLET (FP) PO SCH (09:16)
[2022-10-12] MEDS: amLODIPine BESYLATE 5 MG TABLET (FP) PO SCH (09:16)
[2022-10-12] MEDS: CLOPIDOGREL BISULFATE 75 MG TABLET (FP) PO SCH (09:16)
[2022-10-12] MEDS: POLYETHYLENE GLYCOL (HEALTHYLAX) 3350 17 GM PACKET PO SCH ×2 (14:08→21:18)
[2022-10-12] MEDS: DOCUSATE SODIUM 100 MG CAPSULE (FP) PO SCH ×2 (14:08→21:19)
[2022-10-12] MEDS: SENNOSIDES 8.6MG TABLET (FP) PO SCH ×2 (14:08→21:19)
[2022-10-12] MEDS: ROSUVASTATIN CA 20 MG TABLET PO SCH (21:19)
[2022-10-12] MEDS: traZODone HCL 50 MG TABLET (FP) PO SCH (21:19)
[2022-10-13] MEDS: DOCUSATE SODIUM 100 MG CAPSULE (FP) PO SCH (05:10)
[2022-10-13] MEDS: oxyCODONE HCL 5 MG TABLET PO PRN (09:34)
[2022-10-13] MEDS: POLYETHYLENE GLYCOL (HEALTHYLAX) 3350 17 GM PACKET PO SCH ×2 (09:34→22:05)
[2022-10-13] MEDS: amLODIPine BESYLATE 5 MG TABLET (FP) PO SCH (09:35)
[2022-10-13] MEDS: CLOPIDOGREL BISULFATE 75 MG TABLET (FP) PO SCH (09:35)
[2022-10-13] MEDS: SENNOSIDES 8.6MG TABLET (FP) PO SCH ×2 (09:35→22:05)
[2022-10-13] MEDS: FOLIC ACID 1 MG TABLET (FP) PO SCH (09:35)
[2022-10-13] MEDS: THIAMINE HCL 100 MG TABLET (FP) PO SCH (09:35)
[2022-10-13 10:28] LABS: BASO % 0.7 % (0-2.0); EOS % 9.3 % (0-4.5); HEMATOCRIT 30.3 % (35.4-49); HEMOGLOBIN 10.2 GM/dL (11.7-16.9); MCH 25.8 pg (25.7-33.7); MCHC 33.7 g/dl (32.0-35.9); MEAN CELL VOLUME 76.7 fl (80-96); MEAN PLT VOLUME 8.2 fl (7.5-11.1); PLATELET COUNT 121 10^3/uL (134-434); RBC 3.95 M/mm3 (4.00-5.60); RDW 14.6 % (11.9-15.9); WHITE BLOOD COUNT 6.2 K/mm3 (4.0-10.0)
[2022-10-13 14:59] LABS: ALBUMIN 3.2 g/dl (3.4-5.0); BILIRUBIN,TOTAL 0.8 mg/dL (0.2-1); CALCIUM 9.2 mg/dL (8.5-10.1); CREATININE 1.8 mg/dL (0.55-1.3); POTASSIUM 3.5 mmol/L (3.5-5.1); TOT PROT 7.2 g/dl (6.4-8.2)
[2022-10-13] MEDS: ROSUVASTATIN CA 20 MG TABLET PO SCH (22:04)
[2022-10-13] MEDS: traZODone HCL 50 MG TABLET (FP) PO SCH (22:05)
[2022-10-14 08:54] LABS: HEMATOCRIT 27.9 % (35.4-49); HEMOGLOBIN 9.2 GM/dL (11.7-16.9); MCH 25.7 pg (25.7-33.7); MCHC 33.1 g/dl (32.0-35.9); MEAN CELL VOLUME 77.7 fl (80-96); MEAN PLT VOLUME 8.8 fl (7.5-11.1); PLATELET COUNT 132 10^3/uL (134-434); RBC 3.59 M/mm3 (4.00-5.60); RDW 14.3 % (11.9-15.9); WHITE BLOOD COUNT 6.4 K/mm3 (4.0-10.0)
[2022-10-14 09:00] LABS: POTASSIUM 3.5 mmol/L (3.5-5.1)
[2022-10-14 09:09] LABS: BLOOD UREA NITROGEN 18.2 mg/dL (7-18); CREATININE 1.8 mg/dL (0.55-1.3)
[2022-10-14 09:10] LABS: ALBUMIN 2.9 g/dl (3.4-5.0)
[2022-10-14 09:12] LABS: BILIRUBIN,TOTAL 0.5 mg/dL (0.2-1); TOT PROT 6.8 g/dl (6.4-8.2)
[2022-10-14] MEDS: THIAMINE HCL 100 MG TABLET (FP) PO SCH (09:46)
[2022-10-14] MEDS: CLOPIDOGREL BISULFATE 75 MG TABLET (FP) PO SCH (09:46)
[2022-10-14] MEDS: amLODIPine BESYLATE 5 MG TABLET (FP) PO SCH (09:46)
[2022-10-14] MEDS: FOLIC ACID 1 MG TABLET (FP) PO SCH (09:47)
[2022-10-14] MEDS: SENNOSIDES 8.6MG TABLET (FP) PO SCH ×2 (09:47→21:39)
[2022-10-14] MEDS: POLYETHYLENE GLYCOL (HEALTHYLAX) 3350 17 GM PACKET PO SCH ×2 (09:47→21:39)
[2022-10-14 13:37] LABS: EPI CELLS 4 /uL (0-25.1); HYALINE CASTS 0 /uL (0-3.1); URINE APPEARANCE CLEAR; URINE BACTERIA 6 /uL (0-1359); URINE BILIRUBIN NEGATIVE (NEGATIVE); URINE COLOR YELLOW; URINE GLUCOSE (UA) NEGATIVE (NEGATIVE); URINE KETONE NEGATIVE (NEGATIVE); URINE LEUK ESTERASE NEGATIVE (NEGATIVE); URINE NITRITE NEGATIVE (NEGATIVE); URINE PROTEIN 1+ (NEGATIVE); URINE RBC 15 /uL (0-23.9); URINE WBC 4 /uL (0-25.8)
[2022-10-14] MEDS ORDERED: LACTATED RINGERS SOLUTION 1,000 ML IV SCH ×2 (15:00→16:32)
[2022-10-14] MEDS ORDERED: GENTAMICIN SO4 80 MG/2 ML VIAL ONE (15:02)
[2022-10-14] MEDS ORDERED: MIDAZOLAM HCL 2 MG/2 ML SINGLE DOSE VIAL ONE (15:05)
[2022-10-14] MEDS ORDERED: LIDOCAINE HCL/PF 2% SDV 5ML VIAL ONE (15:05)
[2022-10-14] MEDS ORDERED: PROPOFOL 20 ML ONE (15:05)
[2022-10-14] MEDS ORDERED: LIDOCAINE HCL 1%, 10 MG/ML (20ML VIAL) NR ONE ×2 (15:28)
[2022-10-14] MEDS ORDERED: ONDANSETRON 4 MG/2 ML VIAL ONE (15:32)
[2022-10-14] MEDS ORDERED: ceFAZolin SODIUM 1 GM VIAL ONE (15:38)
[2022-10-14] MEDS ORDERED: ACETAMINOPHEN 500 MG TABLET (FP) PO PRN (16:32)
[2022-10-14] MEDS: oxyCODONE HCL 5 MG TABLET PO PRN ×2 (20:38→21:46)
[2022-10-14] MEDS: traZODone HCL 50 MG TABLET (FP) PO SCH (21:39)
[2022-10-14] MEDS: ROSUVASTATIN CA 20 MG TABLET PO SCH (21:40)
[2022-10-15] MEDS: oxyCODONE HCL 5 MG TABLET PO PRN ×3 (06:04→21:45)
[2022-10-15 09:08] LABS: HEMATOCRIT 29.7 % (35.4-49); HEMOGLOBIN 10.2 GM/dL (11.7-16.9); MCH 26.1 pg (25.7-33.7); MCHC 34.4 g/dl (32.0-35.9); MEAN CELL VOLUME 75.9 fl (80-96); MEAN PLT VOLUME 8.2 fl (7.5-11.1); PLATELET COUNT 152 10^3/uL (134-434); RBC 3.91 M/mm3 (4.00-5.60); RDW 14.7 % (11.9-15.9); WHITE BLOOD COUNT 5.5 K/mm3 (4.0-10.0)
[2022-10-15] MEDS: amLODIPine BESYLATE 5 MG TABLET (FP) PO SCH (10:07)
[2022-10-15] MEDS: SENNOSIDES 8.6MG TABLET (FP) PO SCH ×2 (10:07→21:45)
[2022-10-15] MEDS: THIAMINE HCL 100 MG TABLET (FP) PO SCH (10:07)
[2022-10-15] MEDS: POLYETHYLENE GLYCOL (HEALTHYLAX) 3350 17 GM PACKET PO SCH (10:07)
[2022-10-15] MEDS: FOLIC ACID 1 MG TABLET (FP) PO SCH (10:08)
[2022-10-15] MEDS: CLOPIDOGREL BISULFATE 75 MG TABLET (FP) PO SCH (10:08)
[2022-10-15 10:20] LABS: CALCIUM 9.3 mg/dL (8.5-10.1)
[2022-10-15 10:21] LABS: ALBUMIN 3.2 g/dl (3.4-5.0); BLOOD UREA NITROGEN 20.6 mg/dL (7-18)
[2022-10-15 10:25] LABS: BILIRUBIN,TOTAL 0.6 mg/dL (0.2-1); TOT PROT 7.5 g/dl (6.4-8.2)
[2022-10-15 10:26] LABS: CREATININE 1.5 mg/dL (0.55-1.3)
[2022-10-15] MEDS: GABAPENTIN 100 MG CAPSULE PO SCH ×2 (15:00→21:45)
[2022-10-15] MEDS: ROSUVASTATIN CA 20 MG TABLET PO SCH (21:45)
[2022-10-15] MEDS: traZODone HCL 50 MG TABLET (FP) PO SCH (21:45)
[2022-10-16] MEDS: POLYETHYLENE GLYCOL (HEALTHYLAX) 3350 17 GM PACKET PO SCH ×3 (00:30→21:36)
[2022-10-16 08:30] LABS: HEMATOCRIT 26.9 % (35.4-49); HEMOGLOBIN 9.2 GM/dL (11.7-16.9); MCH 26.3 pg (25.7-33.7); MCHC 34.1 g/dl (32.0-35.9); MEAN CELL VOLUME 77.2 fl (80-96); MEAN PLT VOLUME 8.4 fl (7.5-11.1); PLATELET COUNT 149 10^3/uL (134-434); RBC 3.48 M/mm3 (4.00-5.60); RDW 14.2 % (11.9-15.9)
[2022-10-16 09:16] LABS: POTASSIUM 4.3 mmol/L (3.5-5.1)
[2022-10-16 09:21] LABS: CALCIUM 8.9 mg/dL (8.5-10.1)
[2022-10-16 09:22] LABS: BLOOD UREA NITROGEN 24.2 mg/dL (7-18); MAGNESIUM 2.2 mg/dL (1.8-2.4)
[2022-10-16 09:25] LABS: CREATININE 1.7 mg/dL (0.55-1.3); PHOSPHOROUS 4.2 mg/dL (2.5-4.9)
[2022-10-16] MEDS: oxyCODONE HCL 5 MG TABLET PO PRN ×2 (09:35→21:33)
[2022-10-16] MEDS: amLODIPine BESYLATE 5 MG TABLET (FP) PO SCH (09:35)
[2022-10-16] MEDS: THIAMINE HCL 100 MG TABLET (FP) PO SCH (09:35)
[2022-10-16] MEDS: GABAPENTIN 100 MG CAPSULE PO SCH ×2 (09:35→21:34)
[2022-10-16] MEDS: CLOPIDOGREL BISULFATE 75 MG TABLET (FP) PO SCH (09:35)
[2022-10-16] MEDS: SENNOSIDES 8.6MG TABLET (FP) PO SCH ×2 (09:35→21:33)
[2022-10-16] MEDS: FOLIC ACID 1 MG TABLET (FP) PO SCH (09:35)
[2022-10-16 12:35] LABS: ALBUMIN 3.1 g/dl (3.4-5.0)
[2022-10-16 12:38] LABS: BILIRUBIN,DIRECT 0.2 mg/dL (0.0-0.2)
[2022-10-16 12:40] LABS: BILIRUBIN,TOTAL 0.5 mg/dL (0.2-1); TOT PROT 6.7 g/dl (6.4-8.2)
[2022-10-16] MEDS: PIPERACILLIN/TAZOB 3.375 GM 3.375 GM in DEXTROSE 5%-WATER - 50 ML IVPB SCH ×2 (15:34→18:31)
[2022-10-16] MEDS: ROSUVASTATIN CA 20 MG TABLET PO SCH (21:33)
[2022-10-16] MEDS: traZODone HCL 50 MG TABLET (FP) PO SCH (21:34)
[2022-10-17] MEDS: PIPERACILLIN/TAZOB 3.375 GM 3.375 GM in DEXTROSE 5%-WATER - 50 ML IVPB SCH ×3 (01:58→17:32)
[2022-10-17] MEDS: oxyCODONE HCL 5 MG TABLET PO PRN ×3 (08:59→21:36)
[2022-10-17 09:14] LABS: HEMATOCRIT 29.4 % (35.4-49); HEMOGLOBIN 9.8 GM/dL (11.7-16.9); MCH 25.8 pg (25.7-33.7); MCHC 33.5 g/dl (32.0-35.9); MEAN CELL VOLUME 77.1 fl (80-96); MEAN PLT VOLUME 8.4 fl (7.5-11.1); PLATELET COUNT 162 10^3/uL (134-434); RBC 3.81 M/mm3 (4.00-5.60); RDW 14.3 % (11.9-15.9); WHITE BLOOD COUNT 4.4 K/mm3 (4.0-10.0)
[2022-10-17 09:42] LABS: POTASSIUM 4.1 mmol/L (3.5-5.1)
[2022-10-17 09:54] LABS: CALCIUM 8.9 mg/dL (8.5-10.1)
[2022-10-17 09:58] LABS: CREATININE 1.7 mg/dL (0.55-1.3)
[2022-10-17] MEDS: GABAPENTIN 100 MG CAPSULE PO SCH ×2 (10:03→21:38)
[2022-10-17] MEDS: FOLIC ACID 1 MG TABLET (FP) PO SCH (10:03)
[2022-10-17] MEDS: THIAMINE HCL 100 MG TABLET (FP) PO SCH (10:03)
[2022-10-17] MEDS: amLODIPine BESYLATE 5 MG TABLET (FP) PO SCH (10:03)
[2022-10-17] MEDS: POLYETHYLENE GLYCOL (HEALTHYLAX) 3350 17 GM PACKET PO SCH ×2 (10:03→21:38)
[2022-10-17] MEDS: CLOPIDOGREL BISULFATE 75 MG TABLET (FP) PO SCH (10:03)
[2022-10-17] MEDS: SENNOSIDES 8.6MG TABLET (FP) PO SCH ×2 (10:03→21:36)
[2022-10-17] MEDS: traZODone HCL 50 MG TABLET (FP) PO SCH (21:38)
[2022-10-17] MEDS: HEPARIN NA (PORCINE) 5,000 UNITS/ML 1ML VIAL SQ SCH (21:39)
[2022-10-17] MEDS: ROSUVASTATIN CA 20 MG TABLET PO SCH (21:40)
[2022-10-18] MEDS: PIPERACILLIN/TAZOB 3.375 GM 3.375 GM in DEXTROSE 5%-WATER - 50 ML IVPB SCH ×3 (01:39→17:47)
[2022-10-18 09:59] LABS: HEMATOCRIT 27.7 % (35.4-49); HEMOGLOBIN 9.5 GM/dL (11.7-16.9); MCH 25.8 pg (25.7-33.7); MCHC 34.2 g/dl (32.0-35.9); MEAN CELL VOLUME 75.4 fl (80-96); PLATELET COUNT 147 10^3/uL (134-434); RBC 3.68 M/mm3 (4.00-5.60); RDW 14.3 % (11.9-15.9); WHITE BLOOD COUNT 4.3 K/mm3 (4.0-10.0)
[2022-10-18] MEDS: HEPARIN NA (PORCINE) 5,000 UNITS/ML 1ML VIAL SQ SCH ×2 (10:01→21:03)
[2022-10-18] MEDS: THIAMINE HCL 100 MG TABLET (FP) PO SCH (10:01)
[2022-10-18] MEDS: SENNOSIDES 8.6MG TABLET (FP) PO SCH ×2 (10:01→21:06)
[2022-10-18] MEDS: GABAPENTIN 100 MG CAPSULE PO SCH ×2 (10:01→21:04)
[2022-10-18] MEDS: LACTOBACILLUS ACIDOPHILUS 1 TABLET PO SCH (10:01)
[2022-10-18] MEDS: amLODIPine BESYLATE 5 MG TABLET (FP) PO SCH (10:01)
[2022-10-18] MEDS: CLOPIDOGREL BISULFATE 75 MG TABLET (FP) PO SCH (10:01)
[2022-10-18] MEDS: FOLIC ACID 1 MG TABLET (FP) PO SCH (10:02)
[2022-10-18] MEDS: POLYETHYLENE GLYCOL (HEALTHYLAX) 3350 17 GM PACKET PO SCH ×2 (10:02→21:06)
[2022-10-18 10:46] LABS: POTASSIUM 4.1 mmol/L (3.5-5.1)
[2022-10-18 10:49] LABS: CALCIUM 8.7 mg/dL (8.5-10.1)
[2022-10-18 10:50] LABS: BLOOD UREA NITROGEN 20.1 mg/dL (7-18)
[2022-10-18] MEDS: oxyCODONE HCL 5 MG TABLET PO PRN ×2 (10:50→21:05)
[2022-10-18 10:53] LABS: CREATININE 1.8 mg/dL (0.55-1.3)
[2022-10-18] MEDS: traZODone HCL 50 MG TABLET (FP) PO SCH (21:04)
[2022-10-18] MEDS: ROSUVASTATIN CA 20 MG TABLET PO SCH (21:04)
[2022-10-19] MEDS: PIPERACILLIN/TAZOB 3.375 GM 3.375 GM in DEXTROSE 5%-WATER - 50 ML IVPB SCH ×3 (01:58→17:27)
[2022-10-19] MEDS: amLODIPine BESYLATE 5 MG TABLET (FP) PO SCH (09:19)
[2022-10-19] MEDS: FOLIC ACID 1 MG TABLET (FP) PO SCH (09:19)
[2022-10-19] MEDS: LACTOBACILLUS ACIDOPHILUS 1 TABLET PO SCH (09:19)
[2022-10-19] MEDS: SENNOSIDES 8.6MG TABLET (FP) PO SCH ×2 (09:19→22:06)
[2022-10-19] MEDS: POLYETHYLENE GLYCOL (HEALTHYLAX) 3350 17 GM PACKET PO SCH ×3 (09:19→22:08)
[2022-10-19] MEDS: CLOPIDOGREL BISULFATE 75 MG TABLET (FP) PO SCH (09:19)
[2022-10-19] MEDS: GABAPENTIN 100 MG CAPSULE PO SCH ×2 (09:20→22:05)
[2022-10-19] MEDS: THIAMINE HCL 100 MG TABLET (FP) PO SCH (09:20)
[2022-10-19] MEDS: HEPARIN NA (PORCINE) 5,000 UNITS/ML 1ML VIAL SQ SCH ×2 (09:20→22:07)
[2022-10-19] MEDS: oxyCODONE HCL 5 MG TABLET PO PRN (11:13)
[2022-10-19] MEDS: ROSUVASTATIN CA 20 MG TABLET PO SCH (22:06)
[2022-10-19] MEDS: traZODone HCL 50 MG TABLET (FP) PO SCH (22:06)
[2022-10-20] MEDS: PIPERACILLIN/TAZOB 3.375 GM 3.375 GM in DEXTROSE 5%-WATER - 50 ML IVPB SCH ×3 (02:10→17:40)
[2022-10-20] MEDS: oxyCODONE HCL 5 MG TABLET PO PRN ×2 (02:13→11:57)
[2022-10-20] MEDS: SENNOSIDES 8.6MG TABLET (FP) PO SCH ×2 (11:39→22:00)
[2022-10-20] MEDS: GABAPENTIN 100 MG CAPSULE PO SCH ×2 (11:40→22:01)
[2022-10-20] MEDS: FOLIC ACID 1 MG TABLET (FP) PO SCH (11:40)
[2022-10-20] MEDS: amLODIPine BESYLATE 5 MG TABLET (FP) PO SCH (11:40)
[2022-10-20] MEDS: LACTOBACILLUS ACIDOPHILUS 1 TABLET PO SCH (11:40)
[2022-10-20] MEDS: CLOPIDOGREL BISULFATE 75 MG TABLET (FP) PO SCH (11:40)
[2022-10-20] MEDS: THIAMINE HCL 100 MG TABLET (FP) PO SCH (11:41)
[2022-10-20] MEDS: HEPARIN NA (PORCINE) 5,000 UNITS/ML 1ML VIAL SQ SCH ×2 (11:41→22:01)
[2022-10-20] MEDS: POLYETHYLENE GLYCOL (HEALTHYLAX) 3350 17 GM PACKET PO SCH ×2 (11:58→21:59)
[2022-10-20] MEDS: ROSUVASTATIN CA 20 MG TABLET PO SCH (21:59)
[2022-10-20] MEDS: traZODone HCL 50 MG TABLET (FP) PO SCH (22:00)
[2022-10-21] MEDS: PIPERACILLIN/TAZOB 3.375 GM 3.375 GM in DEXTROSE 5%-WATER - 50 ML IVPB SCH ×3 (03:07→17:06)
[2022-10-21] MEDS: oxyCODONE HCL 5 MG TABLET PO PRN (05:09)
[2022-10-21 10:21] LABS: BASO % 1.1 % (0-2.0); EOS % 10.2 % (0-4.5); HEMATOCRIT 28.1 % (35.4-49); HEMOGLOBIN 9.5 GM/dL (11.7-16.9); LYMPH % 24.1 % (8-40); MCH 25.5 pg (25.7-33.7); MCHC 33.7 g/dl (32.0-35.9); MEAN CELL VOLUME 75.7 fl (80-96); MONO % 9.3 % (3.8-10.2); NEUT % 55.3 % (42.8-82.8); PLATELET COUNT 149 10^3/uL (134-434); RBC 3.71 M/mm3 (4.00-5.60); RDW 14.3 % (11.9-15.9); WHITE BLOOD COUNT 4.7 K/mm3 (4.0-10.0)
[2022-10-21] MEDS: GABAPENTIN 100 MG CAPSULE PO SCH ×2 (10:32→21:56)
[2022-10-21] MEDS: FOLIC ACID 1 MG TABLET (FP) PO SCH (10:32)
[2022-10-21] MEDS: POLYETHYLENE GLYCOL (HEALTHYLAX) 3350 17 GM PACKET PO SCH ×2 (10:32→21:55)
[2022-10-21] MEDS: HEPARIN NA (PORCINE) 5,000 UNITS/ML 1ML VIAL SQ SCH ×2 (10:32→21:56)
[2022-10-21] MEDS: THIAMINE HCL 100 MG TABLET (FP) PO SCH (10:33)
[2022-10-21] MEDS: SENNOSIDES 8.6MG TABLET (FP) PO SCH ×2 (10:33→21:55)
[2022-10-21] MEDS: amLODIPine BESYLATE 5 MG TABLET (FP) PO SCH (10:33)
[2022-10-21] MEDS: LACTOBACILLUS ACIDOPHILUS 1 TABLET PO SCH (10:33)
[2022-10-21] MEDS: CLOPIDOGREL BISULFATE 75 MG TABLET (FP) PO SCH (10:33)
[2022-10-21 10:54] LABS: POTASSIUM 3.9 mmol/L (3.5-5.1)
[2022-10-21 11:09] LABS: CALCIUM 8.9 mg/dL (8.5-10.1)
[2022-10-21 11:10] LABS: ALBUMIN 3.2 g/dl (3.4-5.0); BLOOD UREA NITROGEN 17.7 mg/dL (7-18); MAGNESIUM 2.4 mg/dL (1.8-2.4)
[2022-10-21 11:13] LABS: CREATININE 1.8 mg/dL (0.55-1.3); PHOSPHOROUS 3.7 mg/dL (2.5-4.9)
[2022-10-21 11:14] LABS: BILIRUBIN,TOTAL 0.6 mg/dL (0.2-1)
[2022-10-21 11:15] LABS: TOT PROT 7.5 g/dl (6.4-8.2)
[2022-10-21] MEDS: ROSUVASTATIN CA 20 MG TABLET PO SCH (21:55)
[2022-10-21] MEDS: traZODone HCL 50 MG TABLET (FP) PO SCH (21:56)
[2022-10-22] MEDS: PIPERACILLIN/TAZOB 3.375 GM 3.375 GM in DEXTROSE 5%-WATER - 50 ML IVPB SCH ×3 (02:03→17:47)
[2022-10-22] MEDS: oxyCODONE HCL 5 MG TABLET PO PRN ×3 (02:07→21:48)
[2022-10-22] MEDS: FOLIC ACID 1 MG TABLET (FP) PO SCH (09:46)
[2022-10-22] MEDS: GABAPENTIN 100 MG CAPSULE PO SCH ×2 (09:47→21:49)
[2022-10-22] MEDS: LACTOBACILLUS ACIDOPHILUS 1 TABLET PO SCH (09:47)
[2022-10-22] MEDS: THIAMINE HCL 100 MG TABLET (FP) PO SCH (09:47)
[2022-10-22] MEDS: HEPARIN NA (PORCINE) 5,000 UNITS/ML 1ML VIAL SQ SCH ×2 (09:47→21:51)
[2022-10-22] MEDS: CLOPIDOGREL BISULFATE 75 MG TABLET (FP) PO SCH (09:47)
[2022-10-22] MEDS: SENNOSIDES 8.6MG TABLET (FP) PO SCH ×2 (09:47→21:49)
[2022-10-22] MEDS: amLODIPine BESYLATE 5 MG TABLET (FP) PO SCH (09:47)
[2022-10-22] MEDS: POLYETHYLENE GLYCOL (HEALTHYLAX) 3350 17 GM PACKET PO SCH ×3 (09:48→21:51)
[2022-10-22 10:59] VITALS: RESP 18
[2022-10-22] MEDS: ROSUVASTATIN CA 20 MG TABLET PO SCH (21:48)
[2022-10-22] MEDS: traZODone HCL 50 MG TABLET (FP) PO SCH (21:49)
[2022-10-23] MEDS: PIPERACILLIN/TAZOB 3.375 GM 3.375 GM in DEXTROSE 5%-WATER - 50 ML IVPB SCH ×2 (02:12→10:52)
[2022-10-23] MEDS: FOLIC ACID 1 MG TABLET (FP) PO SCH (10:51)
[2022-10-23] MEDS: CLOPIDOGREL BISULFATE 75 MG TABLET (FP) PO SCH (10:51)
[2022-10-23] MEDS: THIAMINE HCL 100 MG TABLET (FP) PO SCH (10:51)
[2022-10-23] MEDS: LACTOBACILLUS ACIDOPHILUS 1 TABLET PO SCH (10:51)
[2022-10-23] MEDS: GABAPENTIN 100 MG CAPSULE PO SCH (10:51)
[2022-10-23] MEDS: SENNOSIDES 8.6MG TABLET (FP) PO SCH (10:51)
[2022-10-23] MEDS: amLODIPine BESYLATE 5 MG TABLET (FP) PO SCH (10:51)
[2022-10-23] MEDS: HEPARIN NA (PORCINE) 5,000 UNITS/ML 1ML VIAL SQ SCH (10:52)
[2022-10-23] MEDS: POLYETHYLENE GLYCOL (HEALTHYLAX) 3350 17 GM PACKET PO SCH (10:53)
[2022-10-23 17:24] VITALS: BP 151/54; PULSE 64; TEMP 98.4
== END 2022-10-23 17:59 | DRG 271 ==
LOC: JER 11:08 → JERBED 11:53 → J5S 18:50
PROVIDERS: ADMIT Internal Medicine
PROC: 04CN3ZZ Extirpation of Matter from Left Popliteal Artery, Percutaneous Approach (ICD-10-PCS; 2022-10-09)
PROC: 047N3Z1 Dilation of Left Popliteal Artery using Drug-Coated Balloon, Percutaneous Approach (ICD-10-PCS; 2022-10-09)
PROC: 047Q3Z1 Dilation of Left Anterior Tibial Artery using Drug-Coated Balloon, Percutaneous Approach (ICD-10-PCS; 2022-10-09)
PROC: B40DYZZ Plain Radiography of Aorta and Bilateral Lower Extremity Arteries using Other Contrast (ICD-10-PCS; principal; 2022-10-09 10:30)
PROC: 0KBW0ZZ Excision of Left Foot Muscle, Open Approach (ICD-10-PCS; 2022-10-14)
PROC: 0HRNXJ3 Replacement of Left Foot Skin with Synthetic Substitute, Full Thickness, External Approach (ICD-10-PCS; 2022-10-14)
PROC: 0QBP0ZZ Excision of Left Metatarsal, Open Approach (ICD-10-PCS; 2022-10-14)
PROC: B43GZZZ Magnetic Resonance Imaging (MRI) of Left Lower Extremity Arteries (ICD-10-PCS; 2022-10-14)
PROC: 2W1TX6Z Compression of Left Foot using Pressure Dressing (ICD-10-PCS; 2022-10-14)
PROC: 02HV33Z Insertion of Infusion Device into Superior Vena Cava, Percutaneous Approach (ICD-10-PCS; 2022-10-23)
PROC: B518ZZA Fluoroscopy of Superior Vena Cava, Guidance (ICD-10-PCS; 2022-10-23)
DX: E11.51 Type 2 diabetes mellitus with diabetic peripheral angiopathy without gangrene (principal); L03.116 Cellulitis of left lower limb; L97.528 Non-pressure chronic ulcer of other part of left foot with other specified severity; M86.172 Other acute osteomyelitis, left ankle and foot; N17.9 Acute kidney failure, unspecified; M86.8X7 Other osteomyelitis, ankle and foot; E11.69 Type 2 diabetes mellitus with other specified complication; E11.621 Type 2 diabetes mellitus with foot ulcer; K70.30 Alcoholic cirrhosis of liver without ascites; K22.70 Barrett's esophagus without dysplasia; I77.1 Stricture of artery; F10.20 Alcohol dependence, uncomplicated; I25.10 Atherosclerotic heart disease of native coronary artery without angina pectoris; E78.5 Hyperlipidemia, unspecified; I12.9 Hypertensive chronic kidney disease with stage 1 through stage 4 chronic kidney disease, or unspecified chronic kidney disease; E11.22 Type 2 diabetes mellitus with diabetic chronic kidney disease; N18.9 Chronic kidney disease, unspecified; F32.A Depression, unspecified; L08.89 Other specified local infections of the skin and subcutaneous tissue; D64.9 Anemia, unspecified; B96.89 Other specified bacterial agents as the cause of diseases classified elsewhere; B95.7 Other staphylococcus as the cause of diseases classified elsewhere; Z89.422 Acquired absence of other left toe(s)
CPT/HCPCS: 11042; 36415; 36569; 73630-TC-LT; 73718-TC-LT; 76000-TC-FY; 77001-TC-FY; 80048; 80053; 80076; 81003; 82436; 82962; 83036; 83735; 84100; 84133; 84300; 85025; 85027; 85610; 85651; 85730; 86140; 87070; 87075; 87186; 87205; 87635; 93005; 93010; 93925-TC; 94760; 97116-GP; 99285-25; C1751; C1760; C1769; C1776; J1644; Q4121

== ENCOUNTER 2023-04-21 14:11 | Inpatient (IN) | payer OTHER ==
[2023-04-21] MEDS ORDERED: ACETAMINOPHEN INJECTION 100 ML IVPB ONE (16:36)
[2023-04-21] MEDS: ACETAMINOPHEN 1000 MG/100 ML BAG IVPB ONE (16:39)
[2023-04-21 16:43] LABS: EOS % 12.4 % (0-4.5); HEMATOCRIT 29.6 % (35.4-49); HEMOGLOBIN 9.8 GM/dL (11.7-16.9); LYMPH % 19.6 % (8-40); MCH 24.4 pg (25.7-33.7); MCHC 33.1 g/dl (32.0-35.9); MEAN CELL VOLUME 73.5 fl (80-96); MEAN PLT VOLUME 8.4 fl (7.5-11.1); MONO % 11.7 % (3.8-10.2); NEUT % 55.3 % (42.8-82.8); PLATELET COUNT 131 10^3/uL (134-434); RBC 4.02 M/mm3 (4.00-5.60); RDW 15.3 % (11.9-15.9); WHITE BLOOD COUNT 4.3 K/mm3 (4.0-10.0)
[2023-04-21 16:49] LABS: INR 1.12 (0.83-1.09)
[2023-04-21 16:52] LABS: ACTIVATED PTT 34.3 SECONDS (25.2-36.5)
[2023-04-21 16:59] LABS: POTASSIUM 4.6 mmol/L (3.5-5.1)
[2023-04-21 17:01] LABS: CALCIUM 9.7 mg/dL (8.5-10.1)
[2023-04-21 17:02] LABS: ALBUMIN 3.8 g/dl (3.4-5.0); BLOOD UREA NITROGEN 22.1 mg/dL (7-18)
[2023-04-21 17:05] LABS: CREATININE 1.9 mg/dL (0.55-1.3)
[2023-04-21 17:07] LABS: BILIRUBIN,TOTAL 0.7 mg/dL (0.2-1); TOT PROT 8.8 g/dl (6.4-8.2)
[2023-04-21] MEDS ORDERED: INSULIN ASPART SLIDING SCALE (NOVOLOG) 1 VIAL SQ SCH (21:45)
[2023-04-21] MEDS ORDERED: amLODIPine BESYLATE 5 MG TABLET (FP) PO ONE (22:08)
[2023-04-21] MEDS: HEPARIN NA (PORCINE) 5,000 UNITS/ML 1ML VIAL SQ SCH (22:45)
[2023-04-21] MEDS: PANTOPRAZOLE 20 MG TABLET PO SCH (22:45)
[2023-04-21] MEDS: amLODIPine BESYLATE 5 MG TABLET (FP) PO ONE (23:49)
[2023-04-22 01:38] VITALS: BMI 24.7
[2023-04-22] MEDS: ACETAMINOPHEN 1000 MG/100 ML BAG IVPB ONE ×2 (03:22→12:11)
[2023-04-22] MEDS: INSULIN ASPART SLIDING SCALE (NOVOLOG) 1 VIAL SQ SCH (06:00)
[2023-04-22] MEDS: GABAPENTIN 100 MG CAPSULE PO SCH (06:49)
[2023-04-22] MEDS: LOSARTAN POTASSIUM 25 MG TABLET PO SCH (09:19)
[2023-04-22] MEDS: CLOPIDOGREL BISULFATE 75 MG TABLET (FP) PO SCH (09:19)
[2023-04-22 09:54] LABS: EOS % 12.7 % (0-4.5); HEMATOCRIT 30.5 % (35.4-49); LYMPH % 23.8 % (8-40); MCH 23.9 pg (25.7-33.7); MCHC 32.6 g/dl (32.0-35.9); MEAN CELL VOLUME 73.3 fl (80-96); MEAN PLT VOLUME 8.9 fl (7.5-11.1); MONO % 10.8 % (3.8-10.2); NEUT % 51.7 % (42.8-82.8); PLATELET COUNT 146 10^3/uL (134-434); RBC 4.16 M/mm3 (4.00-5.60); RDW 15.3 % (11.9-15.9); RETICULOCYTES 1.16 % (0.5-1.5); WHITE BLOOD COUNT 4.5 K/mm3 (4.0-10.0)
[2023-04-22 10:18] LABS: POTASSIUM 3.8 mmol/L (3.5-5.1)
[2023-04-22 10:20] LABS: BLOOD UREA NITROGEN 21.9 mg/dL (7-18)
[2023-04-22 10:21] LABS: CALCIUM 9.1 mg/dL (8.5-10.1)
[2023-04-22 10:22] LABS: ALBUMIN 3.7 g/dl (3.4-5.0); MAGNESIUM 2.4 mg/dL (1.8-2.4)
[2023-04-22 10:23] LABS: CREATININE 1.6 mg/dL (0.55-1.3)
[2023-04-22 10:24] LABS: PHOSPHOROUS 3.5 mg/dL (2.5-4.9)
[2023-04-22 10:25] LABS: BILIRUBIN,TOTAL 0.7 mg/dL (0.2-1); TOT PROT 8.3 g/dl (6.4-8.2)
[2023-04-22] MEDS: SODIUM CHLORIDE 1,000 ML IV SCH (13:25)
[2023-04-22] MEDS: FOLIC ACID 1 MG TABLET (FP) PO SCH (14:24)
[2023-04-22] MEDS: traZODone HCL 50 MG TABLET (FP) PO SCH (21:52)
[2023-04-22] MEDS ORDERED: ROSUVASTATIN CA 40 MG TABLET PO SCH (22:00)
[2023-04-22] MEDS ORDERED: ROSUVASTATIN CA 20 MG TABLET PO SCH (22:00)
[2023-04-22] MEDS: ROSUVASTATIN CA 20 MG TABLET PO SCH (22:31)
[2023-04-23] MEDS: amLODIPine BESYLATE 5 MG TABLET (FP) PO SCH (09:15)
[2023-04-23] MEDS: ACETAMINOPHEN 1000 MG/100 ML BAG IVPB ONE (09:23)
[2023-04-23 10:20] LABS: BASO % 1.2 % (0-2.0); EOS % 12.8 % (0-4.5); HEMATOCRIT 28.3 % (35.4-49); HEMOGLOBIN 9.3 GM/dL (11.7-16.9); LYMPH % 25.1 % (8-40); MCHC 32.9 g/dl (32.0-35.9); MEAN CELL VOLUME 73.1 fl (80-96); MEAN PLT VOLUME 8.2 fl (7.5-11.1); NEUT % 48.9 % (42.8-82.8); PLATELET COUNT 126 10^3/uL (134-434); RBC 3.86 M/mm3 (4.00-5.60); RDW 15.5 % (11.9-15.9)
[2023-04-23] MEDS ORDERED: oxyCODONE HCL 5 MG TABLET PO PRN (10:30)
[2023-04-23 10:41] LABS: POTASSIUM 3.8 mmol/L (3.5-5.1)
[2023-04-23 10:49] LABS: ALBUMIN 3.3 g/dl (3.4-5.0); CALCIUM 9.3 mg/dL (8.5-10.1)
[2023-04-23 10:50] LABS: MAGNESIUM 2.1 mg/dL (1.8-2.4)
[2023-04-23 10:52] LABS: CREATININE 1.5 mg/dL (0.55-1.3); PHOSPHOROUS 3.4 mg/dL (2.5-4.9)
[2023-04-23 10:53] LABS: TOT PROT 7.7 g/dl (6.4-8.2)
[2023-04-23 10:54] LABS: BILIRUBIN,TOTAL 0.6 mg/dL (0.2-1)
[2023-04-23] MEDS ORDERED: ONDANSETRON 4 MG/2 ML VIAL IVPUSH PRN ×2 (11:39→13:37)
[2023-04-23] MEDS ORDERED: LACTATED RINGERS SOLUTION 1,000 ML IV SCH ×2 (11:45→13:37)
[2023-04-23] MEDS ORDERED: PROPOFOL 20 ML ONE (11:46)
[2023-04-23] MEDS ORDERED: MIDAZOLAM HCL 2 MG/2 ML SINGLE DOSE VIAL ONE (11:46)
[2023-04-23] MEDS: ceFAZolin SODIUM 1 GM VIAL IVPB ONE (11:57)
[2023-04-23] MEDS ORDERED: ceFAZolin SODIUM 1 GM VIAL ONE (11:57)
[2023-04-23] MEDS: IOHEXOL 300 MG/ML INFUS..BTL IV ONE (12:07)
[2023-04-23] MEDS: LIDOCAINE HCL 1%, 10 MG/ML (20ML VIAL) INF ONE (12:07)
[2023-04-23] MEDS: LIDOCAINE HCL 1%, 10 MG/ML (50 mL VIAL) INF ONE ×2 (12:07)
[2023-04-23] MEDS ORDERED: HEPARIN NA (PORCINE) 5,000 UNITS/ML 1ML VIAL ONE (12:15)
[2023-04-23] MEDS ORDERED: ACETAMINOPHEN 325 MG TABLET (FP) PO PRN ×2 (13:00)
[2023-04-23] MEDS ORDERED: amLODIPine BESYLATE 5 MG TABLET (FP) PO ONE (13:37)
[2023-04-23] MEDS: SODIUM CHLORIDE 1,000 ML IV SCH (13:40)
[2023-04-23] MEDS: INSULIN ASPART SLIDING SCALE (NOVOLOG) 1 VIAL SQ SCH (16:52)
[2023-04-23 20:37] VITALS: RESP 18
[2023-04-23] MEDS: traZODone HCL 50 MG TABLET (FP) PO SCH (21:53)
[2023-04-23] MEDS: ROSUVASTATIN CA 20 MG TABLET PO SCH (21:53)
[2023-04-23] MEDS: GABAPENTIN 100 MG CAPSULE PO SCH (21:54)
[2023-04-24] MEDS: oxyCODONE HCL 5 MG TABLET PO PRN (06:57)
[2023-04-24] MEDS: PANTOPRAZOLE 20 MG TABLET PO SCH (09:15)
[2023-04-24] MEDS: amLODIPine BESYLATE 5 MG TABLET (FP) PO SCH (09:15)
[2023-04-24] MEDS: FOLIC ACID 1 MG TABLET (FP) PO SCH (09:15)
[2023-04-24] MEDS: ACETAMINOPHEN 325 MG TABLET (FP) PO PRN (09:15)
[2023-04-24] MEDS: CLOPIDOGREL BISULFATE 75 MG TABLET (FP) PO SCH (09:15)
[2023-04-24 09:59] LABS: EOS % 10.8 % (0-4.5); HEMATOCRIT 28.4 % (35.4-49); HEMOGLOBIN 9.5 GM/dL (11.7-16.9); LYMPH % 18.8 % (8-40); MCH 25.3 pg (25.7-33.7); MCHC 33.6 g/dl (32.0-35.9); MEAN CELL VOLUME 75.3 fl (80-96); MEAN PLT VOLUME 8.7 fl (7.5-11.1); NEUT % 58.4 % (42.8-82.8); PLATELET COUNT 122 10^3/uL (134-434); RBC 3.77 M/mm3 (4.00-5.60); RDW 15.8 % (11.9-15.9); WHITE BLOOD COUNT 4.2 K/mm3 (4.0-10.0)
[2023-04-24 10:22] LABS: CALCIUM 9.3 mg/dL (8.5-10.1)
[2023-04-24 10:23] LABS: ALBUMIN 3.4 g/dl (3.4-5.0); CREATININE 1.6 mg/dL (0.55-1.3)
[2023-04-24 10:26] LABS: PHOSPHOROUS 3.3 mg/dL (2.5-4.9)
[2023-04-24 10:28] LABS: BILIRUBIN,TOTAL 0.6 mg/dL (0.2-1); TOT PROT 7.8 g/dl (6.4-8.2)
[2023-04-24 12:06] VITALS: BP 122/66; PULSE 66; TEMP 98.3
[2023-04-24] MEDS: GABAPENTIN 100 MG CAPSULE PO ONE (12:29)
== END 2023-04-24 17:16 | disposition home or self-care (01) | DRG 271 ==
LOC: JER 14:11 → JERBED 18:22 → J6S 20:46
PROVIDERS: ADMIT Internal Medicine; ATTEND Internal Medicine
PROC: X27H385 Dilation of Right Femoral Artery with Sustained Release Drug-eluting Intraluminal Device, Percutaneous Approach, New Technology Group 5 (ICD-10-PCS; 2023-04-23)
PROC: 047R3ZZ Dilation of Right Posterior Tibial Artery, Percutaneous Approach (ICD-10-PCS; 2023-04-23)
PROC: B41DYZZ Fluoroscopy of Aorta and Bilateral Lower Extremity Arteries using Other Contrast (ICD-10-PCS; 2023-04-23)
PROC: 04CK3ZZ Extirpation of Matter from Right Femoral Artery, Percutaneous Approach (ICD-10-PCS; principal; 2023-04-23 12:00)
DX: E11.51 Type 2 diabetes mellitus with diabetic peripheral angiopathy without gangrene (principal); N17.9 Acute kidney failure, unspecified; E11.621 Type 2 diabetes mellitus with foot ulcer; F10.20 Alcohol dependence, uncomplicated; E11.22 Type 2 diabetes mellitus with diabetic chronic kidney disease; I77.1 Stricture of artery; E11.42 Type 2 diabetes mellitus with diabetic polyneuropathy; I12.9 Hypertensive chronic kidney disease with stage 1 through stage 4 chronic kidney disease, or unspecified chronic kidney disease; F17.210 Nicotine dependence, cigarettes, uncomplicated; N18.9 Chronic kidney disease, unspecified; E78.5 Hyperlipidemia, unspecified; K21.9 Gastro-esophageal reflux disease without esophagitis
CPT/HCPCS: 0241U-QW; 11042; 36415; 76000-TC-FY; 80053; 82550; 82728; 82962; 83540; 83550; 83735; 84100; 85025; 85045; 85610; 85730; 86850; 86870; 86880; 86900; 86901; 86902; 93922; 93925-TC; 93970-TC; 94760; 97116-GP; 97162-GP; 99285-25; C1897; J0131; J1644

== ENCOUNTER 2023-04-30 09:10 | Emergency (ER) | payer OTHER ==
[2023-04-30 09:20] VITALS: TEMP 98.7; BMI 26.6
[2023-04-30] MEDS ORDERED: ACETAMINOPHEN INJECTION 100 ML IVPB ONE (10:18)
[2023-04-30] MEDS ORDERED: FAMOTIDINE 20 MG/50 ML IVPB 20 MG/50 ML MG IVPB ONE (10:18)
[2023-04-30] MEDS: SODIUM CHLORIDE 0.9% 500 ML INFUS.BAG IV ONE (10:37)
[2023-04-30] MEDS: ACETAMINOPHEN 1000 MG/100 ML BAG IVPB ONE (10:37)
[2023-04-30] MEDS: FAMOTIDINE 20 MG/50 ML IVPB 20 MG/50 ML MG IVPB ONE (10:38)
[2023-04-30 10:45] LABS: BASO % 1.3 % (0-2.0); EOS % 7.3 % (0-4.5); HEMOGLOBIN 9.8 GM/dL (11.7-16.9); LYMPH % 12.1 % (8-40); MCH 23.9 pg (25.7-33.7); MCHC 32.6 g/dl (32.0-35.9); MEAN CELL VOLUME 73.2 fl (80-96); MONO % 6.2 % (3.8-10.2); NEUT % 73.1 % (42.8-82.8); PLATELET COUNT 141 10^3/uL (134-434); RDW 15.6 % (11.9-15.9); WHITE BLOOD COUNT 4.4 K/mm3 (4.0-10.0)
[2023-04-30 10:53] LABS: INR 1.19 (0.83-1.09); PROTHROMBIN TIME (PATIENT) 13.8 SEC (9.7-13.0)
[2023-04-30 10:55] LABS: ACTIVATED PTT 31.3 SECONDS (25.2-36.5)
[2023-04-30 11:03] LABS: POTASSIUM 4.1 mmol/L (3.5-5.1)
[2023-04-30 11:05] LABS: ALBUMIN 3.6 g/dl (3.4-5.0); CALCIUM 9.1 mg/dL (8.5-10.1); MAGNESIUM 2.3 mg/dL (1.8-2.4)
[2023-04-30 11:06] LABS: BLOOD UREA NITROGEN 17.3 mg/dL (7-18)
[2023-04-30 11:08] LABS: CREATININE 1.6 mg/dL (0.55-1.3)
[2023-04-30 11:10] LABS: BILIRUBIN,TOTAL 0.6 mg/dL (0.2-1); TOT PROT 8.3 g/dl (6.4-8.2)
[2023-04-30 12:39] LABS: EPI CELLS 3 /uL (0-25.1); HYALINE CASTS 0 /uL (0-3.1); PH,URINE 7.5 (5.0-8.0); URINE APPEARANCE CLEAR; URINE BACTERIA 5 /uL (0-1359); URINE BILIRUBIN NEGATIVE (NEGATIVE); URINE COLOR YELLOW; URINE GLUCOSE (UA) NEGATIVE (NEGATIVE); URINE KETONE NEGATIVE (NEGATIVE); URINE LEUK ESTERASE NEGATIVE (NEGATIVE); URINE NITRITE NEGATIVE (NEGATIVE); URINE PROTEIN 1+ (NEGATIVE); URINE RBC 7 /uL (0-23.9); URINE UROBILINOGEN 0.2 mg/dL (0.2-1.0); URINE WBC 1 /uL (0-25.8)
[2023-04-30] MEDS ORDERED: ONDANSETRON 4 MG/2 ML VIAL ONE (12:39)
[2023-04-30 12:48] VITALS: BP 146/65; PULSE 65; RESP 12
[2023-04-30] MEDS: ONDANSETRON 4 MG/2 ML VIAL IVPUSH ONE (12:48)
[2023-04-30] MEDS ORDERED: KETOROLAC TROMETHAMINE 15 MG/ML VIAL ONE (14:53)
[2023-04-30] MEDS: KETOROLAC TROMETHAMINE 15 MG/ML VIAL IM ONE (15:04)
== END 2023-04-30 15:05 | disposition home or self-care (01) ==
LOC: JER 09:10
PROC: 3E033GC Introduction of Other Therapeutic Substance into Peripheral Vein, Percutaneous Approach (ICD-10-PCS; principal; 2023-04-30)
PROC: 3E033GC Introduction of Other Therapeutic Substance into Peripheral Vein, Percutaneous Approach (ICD-10-PCS; 2023-04-30)
PROC: 3E033GC Introduction of Other Therapeutic Substance into Peripheral Vein, Percutaneous Approach (ICD-10-PCS; 2023-04-30)
PROC: 3E0233Z Introduction of Anti-inflammatory into Muscle, Percutaneous Approach (ICD-10-PCS; 2023-04-30)
DX: R10.13 Epigastric pain (principal); R10.11 Right upper quadrant pain; R11.2 Nausea with vomiting, unspecified; Z20.822 Contact with and (suspected) exposure to COVID-19
CPT/HCPCS: 0241U-QW; 36415; 71045-TC-FY; 74176-TC; 76705-TC; 80053; 81003; 82962; 83690; 83735; 84484; 85025; 85610; 85730; 86850; 86870; 86880; 86900; 86901; 86902; 87086; 93005; 93010; 99285-25; J0131

== ENCOUNTER 2023-05-09 09:55 | Emergency (ER) | payer OTHER ==
[2023-05-09 10:10] VITALS: RESP 20; BMI 28.3
[2023-05-09] MEDS: ACETAMINOPHEN 1000 MG/100 ML BAG IVPB ONE (10:57)
[2023-05-09] MEDS: SODIUM CHLORIDE 0.9% 500 ML INFUS.BAG IV ONE (10:57)
[2023-05-09] MEDS ORDERED: ACETAMINOPHEN INJECTION 100 ML IVPB ONE (11:00)
[2023-05-09 11:03] LABS: BASO % 0.7 % (0-2.0); EOS % 4.6 % (0-4.5); HEMATOCRIT 28.1 % (35.4-49); HEMOGLOBIN 8.9 GM/dL (11.7-16.9); INR 1.21 (0.83-1.09); LYMPH % 19.4 % (8-40); MCH 23.3 pg (25.7-33.7); MCHC 31.5 g/dl (32.0-35.9); MEAN CELL VOLUME 73.8 fl (80-96); NEUT % 65.3 % (42.8-82.8); PLATELET COUNT 192 10^3/uL (134-434); RBC 3.81 M/mm3 (4.00-5.60); RDW 16.7 % (11.9-15.9)
[2023-05-09 11:05] LABS: ACTIVATED PTT 29.8 SECONDS (25.2-36.5)
[2023-05-09 11:13] LABS: POTASSIUM 4.4 mmol/L (3.5-5.1)
[2023-05-09 11:16] LABS: ALBUMIN 3.4 g/dl (3.4-5.0); BLOOD UREA NITROGEN 37.6 mg/dL (7-18)
[2023-05-09 11:19] LABS: CREATININE 2.1 mg/dL (0.55-1.3)
[2023-05-09] MEDS ORDERED: HEPARIN NA (PORCINE) 5,000 UNITS/ML 1ML VIAL IVPUSH PRN ×2 (11:19)
[2023-05-09 11:21] LABS: TOT PROT 8.1 g/dl (6.4-8.2)
[2023-05-09] MEDS ORDERED: HEPARIN INFUSION - 25,000 UNITS/500 ML INFUS.BAG IVPB ONE (11:22)
[2023-05-09] MEDS ORDERED: HEPARIN NA (PORCINE) 5,000 UNITS/ML 1ML VIAL ONE (11:22)
[2023-05-09] MEDS ORDERED: ASPIRIN 81 MG CHEWABLE TABLETS ONE (11:22)
[2023-05-09] MEDS: HEPARIN SOD,PORK IN 0.45% NACL 25,000 UNITS/500 ML INFUS.BAG IVPB SCH (11:36)
[2023-05-09] MEDS: ASPIRIN 81 MG CHEWABLE TABLETS PO ONE (11:36)
[2023-05-09] MEDS: HEPARIN NA (PORCINE) 5,000 UNITS/ML 1ML VIAL IVPUSH ONE (11:36)
[2023-05-09] MEDS ORDERED: fentaNYL CITRATE 250 MCG/5 ML VIAL ONE (11:54)
[2023-05-09 13:01] VITALS: BP 121/66; PULSE 100; TEMP 97.7
== END 2023-05-09 12:00 | disposition short-term general hospital (02) ==
LOC: JER 09:55
PROC: 3E033NZ Introduction of Analgesics, Hypnotics, Sedatives into Peripheral Vein, Percutaneous Approach (ICD-10-PCS; principal; 2023-05-09)
PROC: 3E033GC Introduction of Other Therapeutic Substance into Peripheral Vein, Percutaneous Approach (ICD-10-PCS; 2023-05-09)
PROC: 3E033GC Introduction of Other Therapeutic Substance into Peripheral Vein, Percutaneous Approach (ICD-10-PCS; 2023-05-09)
DX: R07.81 Pleurodynia (principal); R11.2 Nausea with vomiting, unspecified; R10.811 Right upper quadrant abdominal tenderness; R10.816 Epigastric abdominal tenderness; R05.9 Cough, unspecified; R00.0 Tachycardia, unspecified; I21.3 ST elevation (STEMI) myocardial infarction of unspecified site; I44.7 Left bundle-branch block, unspecified; Z20.822 Contact with and (suspected) exposure to COVID-19
CPT/HCPCS: 0241U-QW; 36415; 71045-TC-FY; 80053; 84484; 85025; 85610; 85730; 86850; 86870; 86880; 86900; 86901; 86902; 93005; 93010; 99291; J0131; J1644

== ENCOUNTER 2023-07-02 03:55 | Day surgery (SDC) | payer OTHER ==
[2023-06-29 16:15] VITALS: BMI 25.0
[2023-07-02] MEDS: HEPARIN NA (PORCINE) 5,000 UNITS/ML 1ML VIAL SQ ONE
[2023-07-02 08:17] LABS: INR 1.07 (0.83-1.09); PROTHROMBIN TIME (PATIENT) 12.4 SEC (9.7-13.0)
[2023-07-02] MEDS ORDERED: LIDOCAINE HCL 1%, 10 MG/ML (20ML VIAL) ONE (08:29)
[2023-07-02] MEDS ORDERED: HEPARIN NA (PORCINE) 5,000 UNITS/ML 1ML VIAL ONE (08:29)
[2023-07-02] MEDS: oxyCODONE HCL 5 MG TABLET PO ONE (10:25)
[2023-07-02] MEDS ORDERED: MIDAZOLAM HCL 2 MG/2 ML SINGLE DOSE VIAL ONE (10:28)
[2023-07-02] MEDS ORDERED: FENTANYL CITRATE/PF 50 MCG/ML VIAL ONE ×2 (10:35→11:03)
[2023-07-02] MEDS: ceFAZolin SODIUM 1 GM VIAL IVPB ONE (10:37)
[2023-07-02] MEDS ORDERED: PROPOFOL 20 ML ONE (10:38)
[2023-07-02] MEDS: LIDOCAINE HCL 1%, 10 MG/ML (20ML VIAL) INF ONE ×2 (10:42)
[2023-07-02] MEDS ORDERED: ONDANSETRON 4 MG/2 ML VIAL IVPUSH PRN (11:36)
[2023-07-02] MEDS ORDERED: ACETAMINOPHEN INJECTION 100 ML IVPB ONE (11:37)
[2023-07-02] MEDS ORDERED: LACTATED RINGERS SOLUTION 1,000 ML IV SCH (11:45)
[2023-07-02] MEDS: ACETAMINOPHEN 1000 MG/100 ML BAG IVPB ONE (11:45)
[2023-07-02 13:03] VITALS: RESP 16
[2023-07-02] MEDS ORDERED: IBUPROFEN 600 MG TABLET (FP) PO ONE ×2 (13:21→13:22)
[2023-07-02] MEDS ORDERED: oxyCODONE HCL 5 MG TABLET PO ONE (13:24)
[2023-07-02] MEDS ORDERED: oxyCODONE HCL 5 MG TABLET ONE (13:27)
[2023-07-02 14:30] VITALS: BP 107/59; PULSE 79; TEMP 96.6
== END 2023-07-02 14:20 | disposition home or self-care (01) ==
LOC: JASU-SURG 03:55
PROVIDERS: ATTEND Surgery Vascular Surgery
PROC: 047K3Z1 Dilation of Right Femoral Artery using Drug-Coated Balloon, Percutaneous Approach (ICD-10-PCS; principal; 2023-07-02 09:00)
DX: I70.211 Atherosclerosis of native arteries of extremities with intermittent claudication, right leg (principal); L97.512 Non-pressure chronic ulcer of other part of right foot with fat layer exposed
CPT/HCPCS: 37225; C2623; 36415; 76000-TC-FY; 85610; 94760; C1760; J0131; J1644

== ENCOUNTER 2023-10-02 09:02 | Observation (INO) | payer OTHER ==
[2023-10-02] MEDS: SODIUM CHLORIDE 1,000 ML IV SCH (09:45)
[2023-10-02] MEDS: GABAPENTIN 300 MG CAPSULE PO ONE (09:45)
[2023-10-02] MEDS ORDERED: ACETAMINOPHEN INJECTION 100 ML IVPB ONE (10:36)
[2023-10-02] MEDS: ACETAMINOPHEN 1000 MG/100 ML BAG IVPB ONE (10:39)
[2023-10-02 10:43] LABS: BASO % 1.1 % (0-2.0); EOS % 11.3 % (0-4.5); HEMOGLOBIN 8.4 GM/dL (11.7-16.9); LYMPH % 18.3 % (8-40); MCH 22.7 pg (25.7-33.7); MCHC 32.4 g/dl (32.0-35.9); MEAN CELL VOLUME 70.1 fl (80-96); MEAN PLT VOLUME 8.2 fl (7.5-11.1); MONO % 12.5 % (3.8-10.2); NEUT % 56.8 % (42.8-82.8); PLATELET COUNT 153 10^3/uL (134-434); RBC 3.71 M/mm3 (4.00-5.60); RDW 22.6 % (11.9-15.9); WHITE BLOOD COUNT 4.6 K/mm3 (4.0-10.0)
[2023-10-02 10:49] LABS: INR 1.1 (0.83-1.09); PROTHROMBIN TIME (PATIENT) 12.6 SEC (9.7-13.0)
[2023-10-02 10:51] LABS: ACTIVATED PTT 32.8 SECONDS (25.2-36.5)
[2023-10-02 11:03] LABS: POTASSIUM 4.3 mmol/L (3.5-5.1)
[2023-10-02 11:05] LABS: CALCIUM 9.2 mg/dL (8.5-10.1)
[2023-10-02 11:06] LABS: ALBUMIN 3.2 g/dl (3.4-5.0); BLOOD UREA NITROGEN 25.6 mg/dL (7-18)
[2023-10-02 11:09] LABS: CREATININE 1.6 mg/dL (0.55-1.3)
[2023-10-02 11:11] LABS: BILIRUBIN,TOTAL 0.5 mg/dL (0.2-1)
[2023-10-02 11:33] LABS: ANISOCYTOSIS 2+; MACROCYTOSIS 0; OVALOCYTE 1+
[2023-10-02] MEDS: SODIUM CHLORIDE 0.9% 500 ML INFUS.BAG IV ONE (12:25)
[2023-10-02] MEDS ORDERED: GABAPENTIN 300 MG CAPSULE ONE (13:19)
[2023-10-02 15:55] LABS: PH,URINE 7.5 (5.0-8.0); URINE APPEARANCE CLEAR; URINE BILIRUBIN NEGATIVE (NEGATIVE); URINE COLOR YELLOW; URINE GLUCOSE (UA) 3+ (NEGATIVE); URINE KETONE NEGATIVE (NEGATIVE); URINE LEUK ESTERASE NEGATIVE (NEGATIVE); URINE NITRITE NEGATIVE (NEGATIVE); URINE PROTEIN NEGATIVE (NEGATIVE); URINE UROBILINOGEN 0.2 mg/dL (0.2-1.0)
[2023-10-02 17:58] VITALS: BMI 25.3
[2023-10-02] MEDS ORDERED: ACETAMINOPHEN 500 MG TABLET (FP) PO PRN (18:25)
[2023-10-02] MEDS: POLYETHYLENE GLYCOL (HEALTHYLAX) 3350 17 GM PACKET PO SCH (21:19)
[2023-10-02] MEDS: ATORVASTATIN CA 80 MG TABLET (FP) PO SCH (21:19)
[2023-10-02] MEDS: ASPIRIN COATED 81 MG TABLET.EC PO SCH (21:19)
[2023-10-02] MEDS: SENNOSIDES 8.6MG TABLET (FP) PO SCH (21:19)
[2023-10-02] MEDS: CLOPIDOGREL BISULFATE 75 MG TABLET (FP) PO SCH (21:19)
[2023-10-02] MEDS: INSULIN ASPART SLIDING SCALE (NOVOLOG) 1 VIAL SQ SCH (21:23)
[2023-10-03] MEDS: ACETAMINOPHEN 325 MG TABLET (FP) PO PRN (00:04)
[2023-10-03 06:40] LABS: RETICULOCYTES 1.22 % (0.5-1.5)
[2023-10-03 09:18] LABS: HEMATOCRIT 27.8 % (35.4-49); HEMOGLOBIN 9.2 GM/dL (11.7-16.9); MCH 23.4 pg (25.7-33.7); MCHC 33.2 g/dl (32.0-35.9); MEAN CELL VOLUME 70.4 fl (80-96); MEAN PLT VOLUME 8.7 fl (7.5-11.1); PLATELET COUNT 145 10^3/uL (134-434); RBC 3.95 M/mm3 (4.00-5.60); RDW 21.8 % (11.9-15.9); WHITE BLOOD COUNT 3.6 K/mm3 (4.0-10.0)
[2023-10-03 09:27] LABS: POTASSIUM 4.1 mmol/L (3.5-5.1)
[2023-10-03] MEDS: PANTOPRAZOLE 40 MG TABLET PO SCH (09:27)
[2023-10-03 09:29] LABS: BLOOD UREA NITROGEN 23.5 mg/dL (7-18); CALCIUM 8.5 mg/dL (8.5-10.1); MAGNESIUM 2.1 mg/dL (1.8-2.4)
[2023-10-03 09:31] LABS: PHOSPHOROUS 3.5 mg/dL (2.5-4.9)
[2023-10-03 09:33] LABS: CREATININE 1.4 mg/dL (0.55-1.3)
[2023-10-03] MEDS: GABAPENTIN 100 MG CAPSULE PO SCH (13:56)
[2023-10-03] MEDS: IRON SUCROSE INJECTION 300 MG in SODIUM CHLORIDE 235 ML IVPB ONE (14:55)
[2023-10-04 07:09] VITALS: RESP 18
[2023-10-04 09:12] LABS: EOS % 12.3 % (0-4.5); HEMATOCRIT 28.6 % (35.4-49); HEMOGLOBIN 9.2 GM/dL (11.7-16.9); MCH 23.4 pg (25.7-33.7); MCHC 32.3 g/dl (32.0-35.9); MEAN CELL VOLUME 72.6 fl (80-96); MEAN PLT VOLUME 8.2 fl (7.5-11.1); NEUT % 54.7 % (42.8-82.8); PLATELET COUNT 137 10^3/uL (134-434); RBC 3.94 M/mm3 (4.00-5.60); RDW 22.6 % (11.9-15.9)
[2023-10-04] MEDS: amLODIPine BESYLATE 5 MG TABLET (FP) PO SCH (09:48)
[2023-10-04] MEDS: LOSARTAN POTASSIUM 25 MG TABLET PO SCH (09:48)
[2023-10-04] MEDS ORDERED: LOSARTAN POTASSIUM 50 MG TABLET PO SCH (10:00)
[2023-10-04 17:54] LABS: POTASSIUM 4.1 mmol/L (3.5-5.1)
[2023-10-04 17:56] LABS: ALBUMIN 3.1 g/dl (3.4-5.0); BLOOD UREA NITROGEN 17.8 mg/dL (7-18); CALCIUM 8.5 mg/dL (8.5-10.1)
[2023-10-04 17:58] LABS: CREATININE 1.4 mg/dL (0.55-1.3); URIC ACID 4.7 mg/dL (2.6-7.2)
[2023-10-04 18:01] LABS: BILIRUBIN,TOTAL 0.6 mg/dL (0.2-1); TOT PROT 7.7 g/dl (6.4-8.2)
[2023-10-04] MEDS: LIDOCAINE 4% PATCH TP SCH (18:18)
[2023-10-04] MEDS: ACETAMINOPHEN 325 MG TABLET (FP) PO SCH (18:18)
[2023-10-04] MEDS: rOPINIRole HCL 0.25 MG TABLET PO SCH (22:37)
[2023-10-04] MEDS: LIDOCAINE PATCH REMOVAL MC SCH (22:37)
[2023-10-04] MEDS: GABAPENTIN 100 MG CAPSULE PO SCH (22:37)
[2023-10-05 04:38] VITALS: TEMP 98.4
[2023-10-05 09:55] VITALS: BP 125/60; PULSE 65
[2023-10-05 10:14] LABS: POTASSIUM 3.9 mmol/L (3.5-5.1)
[2023-10-05 10:39] LABS: CALCIUM 8.8 mg/dL (8.5-10.1)
[2023-10-05 10:40] LABS: ALBUMIN 3.1 g/dl (3.4-5.0); BLOOD UREA NITROGEN 16.6 mg/dL (7-18)
[2023-10-05 10:42] LABS: CREATININE 1.4 mg/dL (0.55-1.3); URIC ACID 4.8 mg/dL (2.6-7.2)
[2023-10-05 10:44] LABS: BILIRUBIN,TOTAL 0.8 mg/dL (0.2-1); TOT PROT 7.8 g/dl (6.4-8.2)
== END 2023-10-05 17:30 | disposition home or self-care (01) ==
LOC: JER 09:02 → JERBED 13:52 → J6S 15:44
PROVIDERS: ADMIT Internal Medicine; ATTEND Internal Medicine
PROC: 30233N1 Transfusion of Nonautologous Red Blood Cells into Peripheral Vein, Percutaneous Approach (ICD-10-PCS; principal; 2023-10-02)
PROC: 3E033NZ Introduction of Analgesics, Hypnotics, Sedatives into Peripheral Vein, Percutaneous Approach (ICD-10-PCS; 2023-10-02)
PROC: 3E033GC Introduction of Other Therapeutic Substance into Peripheral Vein, Percutaneous Approach (ICD-10-PCS; 2023-10-02)
DX: N17.9 Acute kidney failure, unspecified (principal); D50.9 Iron deficiency anemia, unspecified; E11.40 Type 2 diabetes mellitus with diabetic neuropathy, unspecified; K70.30 Alcoholic cirrhosis of liver without ascites; Z79.4 Long term (current) use of insulin; I25.10 Atherosclerotic heart disease of native coronary artery without angina pectoris; I11.9 Hypertensive heart disease without heart failure; E11.22 Type 2 diabetes mellitus with diabetic chronic kidney disease; I12.9 Hypertensive chronic kidney disease with stage 1 through stage 4 chronic kidney disease, or unspecified chronic kidney disease; N18.9 Chronic kidney disease, unspecified; Z95.1 Presence of aortocoronary bypass graft; Z89.422 Acquired absence of other left toe(s); I73.9 Peripheral vascular disease, unspecified; Z86.718 Personal history of other venous thrombosis and embolism; Z87.891 Personal history of nicotine dependence; E78.5 Hyperlipidemia, unspecified; F10.21 Alcohol dependence, in remission
CPT/HCPCS: 36415; 36430; 75635-TC; 80048; 80053; 81003; 82272; 82607; 82728; 82746; 82962; 83540; 83550; 83735; 84100; 84155; 84165; 84550; 85025; 85027; 85045; 85610; 85730; 86850; 86900; 86901; 86922; 93005; 93010; 96365; 96375; 97116-GP; 97162-GP; 99285-25; G0378; J0131; J1756; P9038; P9058; Q9967

== ENCOUNTER 2023-10-13 16:45 | Inpatient (IN) | payer OTHER ==
[2023-10-13] MEDS ORDERED: ENOXAPARIN NA (PORCINE) 30 MG/0.3 ML DISP.SYRIN SQ ONE (18:34)
[2023-10-13] MEDS ORDERED: ENOXAPARIN NA (PORCINE) 40 MG/0.4 ML DISP.SYRIN SQ ONE (18:34)
[2023-10-13 18:41] LABS: BASO % 1.2 % (0-2.0); HEMATOCRIT 31.3 % (35.4-49); HEMOGLOBIN 9.9 GM/dL (11.7-16.9); LYMPH % 18.6 % (8-40); MCH 23.8 pg (25.7-33.7); MCHC 31.8 g/dl (32.0-35.9); MEAN PLT VOLUME 8.7 fl (7.5-11.1); NEUT % 59.2 % (42.8-82.8); PLATELET COUNT 142 10^3/uL (134-434); RBC 4.17 M/mm3 (4.00-5.60); RDW 26.4 % (11.9-15.9); WHITE BLOOD COUNT 4.7 K/mm3 (4.0-10.0)
[2023-10-13] MEDS: ENOXAPARIN NA (PORCINE) 40 MG/0.4 ML DISP.SYRIN SQ ONE (18:41)
[2023-10-13 18:50] LABS: INR 1.1 (0.83-1.09); PROTHROMBIN TIME (PATIENT) 12.4 SEC (9.7-13.0)
[2023-10-13 18:52] LABS: ACTIVATED PTT 36.8 SECONDS (25.2-36.5)
[2023-10-13 18:59] LABS: POTASSIUM 4.1 mmol/L (3.5-5.1)
[2023-10-13] MEDS ORDERED: ACETAMINOPHEN INJECTION 100 ML IVPB ONE (18:59)
[2023-10-13 19:02] LABS: CALCIUM 9.3 mg/dL (8.5-10.1)
[2023-10-13 19:03] LABS: ALBUMIN 3.2 g/dl (3.4-5.0)
[2023-10-13 19:06] LABS: CREATININE 1.9 mg/dL (0.55-1.3)
[2023-10-13] MEDS: ACETAMINOPHEN 1000 MG/100 ML BAG IVPB ONE (19:06)
[2023-10-13 19:08] LABS: BILIRUBIN,TOTAL 0.6 mg/dL (0.2-1); TOT PROT 7.8 g/dl (6.4-8.2)
[2023-10-13 20:24] LABS: ANISOCYTOSIS 1+; MACROCYTOSIS 0; PLATELET ESTIMATE NORMAL
[2023-10-13] MEDS: INSULIN ASPART SLIDING SCALE (NOVOLOG) 1 VIAL SQ SCH (22:26)
[2023-10-14] MEDS: ACETAMINOPHEN 325 MG TABLET (FP) PO PRN (00:13)
[2023-10-14] MEDS: GABAPENTIN 100 MG CAPSULE PO SCH (06:38)
[2023-10-14] MEDS ORDERED: EMPAGLIFLOZIN (JARDIANCE) 10 MG TABLET PO SCH (07:00)
[2023-10-14] MEDS ORDERED: sitaGLIPtin PHOSPHATE 50 MG TABLET PO SCH (07:00)
[2023-10-14] MEDS: LIDOCAINE PATCH REMOVAL MC SCH (08:01)
[2023-10-14 08:46] LABS: BASO % 1.1 % (0-2.0); EOS % 12.3 % (0-4.5); HEMATOCRIT 29.7 % (35.4-49); HEMOGLOBIN 9.7 GM/dL (11.7-16.9); MCH 24.3 pg (25.7-33.7); MCHC 32.8 g/dl (32.0-35.9); MEAN PLT VOLUME 8.9 fl (7.5-11.1); MONO % 10.4 % (3.8-10.2); NEUT % 55.2 % (42.8-82.8); PLATELET COUNT 127 10^3/uL (134-434); RBC 4.01 M/mm3 (4.00-5.60); RDW 26.3 % (11.9-15.9); WHITE BLOOD COUNT 3.9 K/mm3 (4.0-10.0)
[2023-10-14 09:13] LABS: POTASSIUM 3.9 mmol/L (3.5-5.1)
[2023-10-14 09:32] LABS: BLOOD UREA NITROGEN 28.4 mg/dL (7-18); MAGNESIUM 2.3 mg/dL (1.8-2.4)
[2023-10-14 09:35] LABS: CREATININE 1.6 mg/dL (0.55-1.3); PHOSPHOROUS 4.2 mg/dL (2.5-4.9)
[2023-10-14 09:36] LABS: BILIRUBIN,TOTAL 0.6 mg/dL (0.2-1); TOT PROT 7.4 g/dl (6.4-8.2)
[2023-10-14] MEDS: amLODIPine BESYLATE 5 MG TABLET (FP) PO SCH (10:17)
[2023-10-14] MEDS: ASPIRIN COATED 81 MG TABLET.EC PO SCH (10:18)
[2023-10-14] MEDS: CLOPIDOGREL BISULFATE 75 MG TABLET (FP) PO SCH (10:18)
[2023-10-14] MEDS: PANTOPRAZOLE 40 MG TABLET PO SCH (10:18)
[2023-10-14] MEDS: LOSARTAN POTASSIUM 25 MG TABLET PO SCH (10:18)
[2023-10-14] MEDS: LIDOCAINE 4% PATCH TP SCH (10:29)
[2023-10-14] MEDS ORDERED: ENOXAPARIN NA (PORCINE) 60 MG/0.6 ML DISP.SYRIN SQ SCH (17:00)
[2023-10-14] MEDS: ENOXAPARIN NA (PORCINE) 60 MG/0.6 ML DISP.SYRIN SQ SCH (17:17)
[2023-10-14] MEDS: rOPINIRole HCL 0.25 MG TABLET PO SCH (22:58)
[2023-10-14] MEDS: ATORVASTATIN CA 80 MG TABLET (FP) PO SCH (22:58)
[2023-10-15] MEDS: ACETAMINOPHEN 325 MG TABLET (FP) PO PRN (06:16)
[2023-10-15 11:33] LABS: CHOLESTEROL 93 mg/dL (50-200); LDL CHOLESTEROL (ONLY SJRH) 47 mg/dL (5-100)
[2023-10-15 11:36] LABS: HDL CHOLESTEROL 33 mg/dL (40-60)
[2023-10-15] MEDS: oxyCODONE HCL 5 MG TABLET PO PRN (13:36)
[2023-10-15] MEDS ORDERED: ENOXAPARIN NA (PORCINE) 80 MG/0.8 ML DISP.SYRIN SQ SCH (18:07)
[2023-10-15] MEDS: ENOXAPARIN NA (PORCINE) 80 MG/0.8 ML DISP.SYRIN SQ SCH (19:22)
[2023-10-16 08:37] LABS: EOS % 11.9 % (0-4.5); HEMATOCRIT 30.5 % (35.4-49); LYMPH % 19.6 % (8-40); MCH 24.1 pg (25.7-33.7); MCHC 32.7 g/dl (32.0-35.9); MEAN CELL VOLUME 73.7 fl (80-96); MEAN PLT VOLUME 9.3 fl (7.5-11.1); MONO % 11.7 % (3.8-10.2); NEUT % 55.8 % (42.8-82.8); PLATELET COUNT 151 10^3/uL (134-434); RBC 4.15 M/mm3 (4.00-5.60); RDW 26.5 % (11.9-15.9); WHITE BLOOD COUNT 4.8 K/mm3 (4.0-10.0)
[2023-10-16 08:38] LABS: POTASSIUM 3.8 mmol/L (3.5-5.1)
[2023-10-16 08:49] LABS: ALBUMIN 3.1 g/dl (3.4-5.0); BLOOD UREA NITROGEN 26.4 mg/dL (7-18); CALCIUM 8.9 mg/dL (8.5-10.1)
[2023-10-16 08:53] LABS: CREATININE 1.4 mg/dL (0.55-1.3)
[2023-10-16 08:54] LABS: BILIRUBIN,TOTAL 0.8 mg/dL (0.2-1); TOT PROT 7.2 g/dl (6.4-8.2)
[2023-10-16] MEDS ORDERED: LIDOCAINE HCL 1%, 10 MG/ML (20ML VIAL) ONE (14:45)
[2023-10-16] MEDS ORDERED: HEPARIN NA (PORCINE) 5,000 UNITS/ML 1ML VIAL ONE ×2 (14:45→14:50)
[2023-10-16] MEDS ORDERED: ONDANSETRON 4 MG/2 ML VIAL IVPUSH PRN ×2 (15:52→17:38)
[2023-10-16] MEDS ORDERED: LACTATED RINGERS SOLUTION 1,000 ML IV SCH ×2 (16:00→17:38)
[2023-10-16] MEDS ORDERED: PROPOFOL 20 ML ONE (16:03)
[2023-10-16] MEDS ORDERED: MIDAZOLAM HCL 2 MG/2 ML SINGLE DOSE VIAL ONE (16:04)
[2023-10-16] MEDS ORDERED: ceFAZolin SODIUM 1 GM VIAL ONE (16:33)
[2023-10-16] MEDS: ceFAZolin SODIUM 1 GM VIAL IVPB ONE (16:34)
[2023-10-16] MEDS: LIDOCAINE HCL 1%, 10 MG/ML (20ML VIAL) INF ONE (16:42)
[2023-10-16] MEDS ORDERED: ACETAMINOPHEN 325 MG TABLET (FP) PO PRN (17:38)
[2023-10-16] MEDS: ATORVASTATIN CA 80 MG TABLET (FP) PO SCH (21:37)
[2023-10-16] MEDS: ENOXAPARIN NA (PORCINE) 80 MG/0.8 ML DISP.SYRIN SQ SCH (21:37)
[2023-10-16] MEDS: GABAPENTIN 100 MG CAPSULE PO SCH (21:38)
[2023-10-16] MEDS: LIDOCAINE PATCH REMOVAL MC SCH (21:38)
[2023-10-16] MEDS: rOPINIRole HCL 0.25 MG TABLET PO SCH (22:37)
[2023-10-16] MEDS: MELATONIN 5 MG TABLETS PO ONE (22:37)
[2023-10-17] MEDS: oxyCODONE HCL 5 MG TABLET PO PRN ×2 (01:00→09:56)
[2023-10-17] MEDS: INSULIN ASPART SLIDING SCALE (NOVOLOG) 1 VIAL SQ SCH (06:00)
[2023-10-17 06:51] LABS: BASO % 0.8 % (0-2.0); EOS % 9.1 % (0-4.5); HEMATOCRIT 29.7 % (35.4-49); HEMOGLOBIN 9.7 GM/dL (11.7-16.9); LYMPH % 12.1 % (8-40); MCH 24.6 pg (25.7-33.7); MCHC 32.8 g/dl (32.0-35.9); MEAN PLT VOLUME 8.9 fl (7.5-11.1); PLATELET COUNT 133 10^3/uL (134-434); RBC 3.96 M/mm3 (4.00-5.60); RDW 26.7 % (11.9-15.9); WHITE BLOOD COUNT 4.8 K/mm3 (4.0-10.0)
[2023-10-17 09:30] LABS: ANISOCYTOSIS 0; MACROCYTOSIS 0; OVALOCYTE 1+
[2023-10-17] MEDS: ACETAMINOPHEN 325 MG TABLET (FP) PO PRN (09:58)
[2023-10-17] MEDS: ASPIRIN COATED 81 MG TABLET.EC PO SCH (09:59)
[2023-10-17] MEDS: CLOPIDOGREL BISULFATE 75 MG TABLET (FP) PO SCH (09:59)
[2023-10-17] MEDS: LOSARTAN POTASSIUM 25 MG TABLET PO SCH (09:59)
[2023-10-17] MEDS: LIDOCAINE 4% PATCH TP SCH (09:59)
[2023-10-17] MEDS: amLODIPine BESYLATE 5 MG TABLET (FP) PO SCH (09:59)
[2023-10-17] MEDS: PANTOPRAZOLE 40 MG TABLET PO SCH (09:59)
[2023-10-18 07:50] LABS: BASO % 0.8 % (0-2.0); EOS % 12.2 % (0-4.5); HEMATOCRIT 28.2 % (35.4-49); HEMOGLOBIN 9.3 GM/dL (11.7-16.9); LYMPH % 20.7 % (8-40); MCH 24.7 pg (25.7-33.7); MCHC 33.1 g/dl (32.0-35.9); MEAN CELL VOLUME 74.4 fl (80-96); MONO % 14.7 % (3.8-10.2); NEUT % 51.6 % (42.8-82.8); PLATELET COUNT 127 10^3/uL (134-434); RBC 3.79 M/mm3 (4.00-5.60); RDW 26.5 % (11.9-15.9)
[2023-10-18 08:04] LABS: POTASSIUM 4.2 mmol/L (3.5-5.1)
[2023-10-18 08:24] LABS: BLOOD UREA NITROGEN 28.1 mg/dL (7-18); CALCIUM 9.1 mg/dL (8.5-10.1)
[2023-10-18 08:28] LABS: CREATININE 1.6 mg/dL (0.55-1.3)
[2023-10-18 08:29] LABS: TOT PROT 7.3 g/dl (6.4-8.2)
[2023-10-19 07:32] LABS: BASO % 0.9 % (0-2.0); EOS % 12.3 % (0-4.5); HEMATOCRIT 27.9 % (35.4-49); HEMOGLOBIN 9.4 GM/dL (11.7-16.9); LYMPH % 20.2 % (8-40); MCH 24.9 pg (25.7-33.7); MCHC 33.8 g/dl (32.0-35.9); MEAN CELL VOLUME 73.8 fl (80-96); MEAN PLT VOLUME 8.7 fl (7.5-11.1); MONO % 14.2 % (3.8-10.2); NEUT % 52.4 % (42.8-82.8); PLATELET COUNT 133 10^3/uL (134-434); RBC 3.77 M/mm3 (4.00-5.60); RDW 26.7 % (11.9-15.9); WHITE BLOOD COUNT 4.4 K/mm3 (4.0-10.0)
[2023-10-19 08:05] LABS: BILIRUBIN,TOTAL 0.8 mg/dL (0.2-1); BLOOD UREA NITROGEN 25.4 mg/dL (7-18); CREATININE 1.5 mg/dL (0.55-1.3); POTASSIUM 4.2 mmol/L (3.5-5.1); TOT PROT 7.4 g/dl (6.4-8.2)
[2023-10-20 06:55] LABS: BASO % 0.9 % (0-2.0); EOS % 15.3 % (0-4.5); HEMATOCRIT 29.8 % (35.4-49); HEMOGLOBIN 9.8 GM/dL (11.7-16.9); LYMPH % 22.5 % (8-40); MCH 24.6 pg (25.7-33.7); MCHC 32.7 g/dl (32.0-35.9); MEAN CELL VOLUME 75.4 fl (80-96); MEAN PLT VOLUME 8.8 fl (7.5-11.1); MONO % 12.8 % (3.8-10.2); NEUT % 48.5 % (42.8-82.8); PLATELET COUNT 141 10^3/uL (134-434); RBC 3.96 M/mm3 (4.00-5.60); RDW 26.9 % (11.9-15.9); WHITE BLOOD COUNT 4.3 K/mm3 (4.0-10.0)
[2023-10-20 07:36] LABS: BILIRUBIN,TOTAL 0.7 mg/dL (0.2-1); BLOOD UREA NITROGEN 23.2 mg/dL (7-18); CALCIUM 9.2 mg/dL (8.5-10.1); CREATININE 1.5 mg/dL (0.55-1.3); POTASSIUM 4.3 mmol/L (3.5-5.1); TOT PROT 7.4 g/dl (6.4-8.2)
[2023-10-20 09:51] LABS: ANISOCYTOSIS 2+; MACROCYTOSIS 1+
[2023-10-20 09:52] LABS: PLATELET ESTIMATE ADEQUATE
[2023-10-20] MEDS: oxyCODONE HCL 5 MG TABLET PO PRN (09:56)
[2023-10-21] MEDS: APIXABAN 5 MG TABLET PO SCH (10:19)
[2023-10-22 07:58] LABS: BASO % 1.1 % (0-2.0); HEMATOCRIT 27.6 % (35.4-49); HEMOGLOBIN 9.2 GM/dL (11.7-16.9); LYMPH % 19.5 % (8-40); MCH 25.1 pg (25.7-33.7); MCHC 33.3 g/dl (32.0-35.9); MEAN CELL VOLUME 75.3 fl (80-96); MEAN PLT VOLUME 8.9 fl (7.5-11.1); MONO % 12.4 % (3.8-10.2); PLATELET COUNT 120 10^3/uL (134-434); RBC 3.67 M/mm3 (4.00-5.60); RDW 26.2 % (11.9-15.9); WHITE BLOOD COUNT 3.7 K/mm3 (4.0-10.0)
[2023-10-22 08:13] LABS: POTASSIUM 4.2 mmol/L (3.5-5.1)
[2023-10-22 08:18] LABS: BLOOD UREA NITROGEN 22.3 mg/dL (7-18)
[2023-10-22 08:21] LABS: CREATININE 1.5 mg/dL (0.55-1.3)
[2023-10-22] MEDS: CLOPIDOGREL BISULFATE 75 MG TABLET (FP) PO SCH (09:18)
[2023-10-22] MEDS: ENOXAPARIN NA (PORCINE) 80 MG/0.8 ML DISP.SYRIN SQ SCH (21:12)
[2023-10-23 07:43] LABS: HEMATOCRIT 28.5 % (35.4-49); HEMOGLOBIN 9.2 GM/dL (11.7-16.9); MCH 24.8 pg (25.7-33.7); MCHC 32.4 g/dl (32.0-35.9); MEAN CELL VOLUME 76.5 fl (80-96); MEAN PLT VOLUME 9.2 fl (7.5-11.1); PLATELET COUNT 129 10^3/uL (134-434); RBC 3.72 M/mm3 (4.00-5.60); RDW 26.8 % (11.9-15.9); WHITE BLOOD COUNT 4.5 K/mm3 (4.0-10.0)
[2023-10-23 07:55] LABS: POTASSIUM 4.1 mmol/L (3.5-5.1)
[2023-10-23 07:57] LABS: CALCIUM 9.2 mg/dL (8.5-10.1)
[2023-10-23 07:58] LABS: BLOOD UREA NITROGEN 25.2 mg/dL (7-18)
[2023-10-23 08:01] LABS: CREATININE 1.5 mg/dL (0.55-1.3)
[2023-10-23] MEDS: SENNOSIDES 8.8 MG/5 ML SYRUP PO SCH (21:46)
[2023-10-23] MEDS: POLYETHYLENE GLYCOL (HEALTHYLAX) 3350 17 GM PACKET PO SCH (21:48)
[2023-10-24 07:42] LABS: HEMATOCRIT 27.7 % (35.4-49); HEMOGLOBIN 9.1 GM/dL (11.7-16.9); MCH 24.9 pg (25.7-33.7); MCHC 32.8 g/dl (32.0-35.9); MEAN CELL VOLUME 75.7 fl (80-96); MEAN PLT VOLUME 9.1 fl (7.5-11.1); PLATELET COUNT 135 10^3/uL (134-434); RBC 3.66 M/mm3 (4.00-5.60); RDW 26.7 % (11.9-15.9); WHITE BLOOD COUNT 4.9 K/mm3 (4.0-10.0)
[2023-10-24 08:11] LABS: POTASSIUM 3.8 mmol/L (3.5-5.1)
[2023-10-24 08:13] LABS: CALCIUM 9.3 mg/dL (8.5-10.1)
[2023-10-24 08:14] LABS: BLOOD UREA NITROGEN 23.1 mg/dL (7-18)
[2023-10-24 08:18] LABS: CREATININE 1.5 mg/dL (0.55-1.3)
[2023-10-25 08:56] LABS: HEMOGLOBIN 9.2 GM/dL (11.7-16.9); MCH 24.9 pg (25.7-33.7); MCHC 32.7 g/dl (32.0-35.9); MEAN CELL VOLUME 76.2 fl (80-96); PLATELET COUNT 129 10^3/uL (134-434); RBC 3.67 M/mm3 (4.00-5.60); RDW 26.8 % (11.9-15.9); WHITE BLOOD COUNT 4.1 K/mm3 (4.0-10.0)
[2023-10-25 09:13] LABS: CALCIUM 9.4 mg/dL (8.5-10.1)
[2023-10-25 09:17] LABS: CREATININE 1.5 mg/dL (0.55-1.3)
[2023-10-25] MEDS: GABAPENTIN 100 MG CAPSULE PO SCH (15:06)
[2023-10-25] MEDS: ACETAMINOPHEN 325 MG TABLET (FP) PO PRN (16:19)
[2023-10-25] MEDS: INSULIN ASPART SLIDING SCALE (NOVOLOG) 1 VIAL SQ SCH (17:51)
[2023-10-25] MEDS: ENOXAPARIN NA (PORCINE) 80 MG/0.8 ML DISP.SYRIN SQ SCH (22:30)
[2023-10-25] MEDS: ATORVASTATIN CA 80 MG TABLET (FP) PO SCH (22:31)
[2023-10-25] MEDS: SENNOSIDES 8.8 MG/5 ML SYRUP PO SCH (22:31)
[2023-10-25] MEDS: LIDOCAINE PATCH REMOVAL MC SCH (22:31)
[2023-10-25] MEDS: POLYETHYLENE GLYCOL (HEALTHYLAX) 3350 17 GM PACKET PO SCH (22:31)
[2023-10-25] MEDS: rOPINIRole HCL 0.25 MG TABLET PO SCH (22:33)
[2023-10-26] MEDS: MUPIROCIN 2% TOPICAL OINTMENT FOR DECOLONIZATION NS SCH (06:52)
[2023-10-26] MEDS: amLODIPine BESYLATE 5 MG TABLET (FP) PO SCH (09:08)
[2023-10-26] MEDS: LOSARTAN POTASSIUM 25 MG TABLET PO SCH (09:08)
[2023-10-26] MEDS: PANTOPRAZOLE 40 MG TABLET PO SCH (09:08)
[2023-10-26] MEDS: CLOPIDOGREL BISULFATE 75 MG TABLET (FP) PO SCH (09:08)
[2023-10-26] MEDS: LIDOCAINE 4% PATCH TP SCH (09:09)
[2023-10-26 09:13] LABS: EOS % 13.6 % (0-4.5); HEMATOCRIT 26.8 % (35.4-49); HEMOGLOBIN 8.8 GM/dL (11.7-16.9); LYMPH % 22.2 % (8-40); MCH 24.9 pg (25.7-33.7); MCHC 32.9 g/dl (32.0-35.9); MEAN CELL VOLUME 75.8 fl (80-96); MEAN PLT VOLUME 8.7 fl (7.5-11.1); MONO % 11.9 % (3.8-10.2); NEUT % 51.3 % (42.8-82.8); PLATELET COUNT 122 10^3/uL (134-434); RBC 3.54 M/mm3 (4.00-5.60); RDW 27.1 % (11.9-15.9); WHITE BLOOD COUNT 3.5 K/mm3 (4.0-10.0)
[2023-10-26 09:43] LABS: ALBUMIN 2.9 g/dl (3.4-5.0); CALCIUM 9.3 mg/dL (8.5-10.1)
[2023-10-26 09:44] LABS: BLOOD UREA NITROGEN 26.3 mg/dL (7-18)
[2023-10-26 09:46] LABS: BILIRUBIN,TOTAL 0.7 mg/dL (0.2-1); CREATININE 1.5 mg/dL (0.55-1.3); TOT PROT 7.3 g/dl (6.4-8.2)
[2023-10-26 10:12] LABS: ANISOCYTOSIS 2+; MACROCYTOSIS 0
[2023-10-26] MEDS: HYDROmorphone HCL 2 MG TABLET PO ONE (12:39)
[2023-10-26] MEDS ORDERED: HEPARIN NA (PORCINE) 5,000 UNITS/ML 1ML VIAL ONE ×3 (14:33→20:53)
[2023-10-26] MEDS ORDERED: PROPOFOL 20 ML ONE (17:49)
[2023-10-26] MEDS ORDERED: SUGAMMADEX SODIUM 200 MG/2 ML VIAL ONE (17:50)
[2023-10-26] MEDS ORDERED: ROCURONIUM BROMIDE 50 MG/5 ML SYRINGE ONE ×2 (17:50→19:12)
[2023-10-26] MEDS ORDERED: MIDAZOLAM HCL 2 MG/2 ML SINGLE DOSE VIAL ONE (17:50)
[2023-10-26] MEDS ORDERED: oxyCODONE HCL 5 MG TABLET PO PRN ×2 (18:15)
[2023-10-26] MEDS ORDERED: LACTATED RINGERS SOLUTION 1,000 ML IV SCH (18:15)
[2023-10-26] MEDS ORDERED: ONDANSETRON 4 MG/2 ML VIAL IVPUSH PRN ×2 (18:15→21:44)
[2023-10-26] MEDS ORDERED: METOCLOPRAMIDE HCL INJECTION 10 MG/2 ML VIAL ONE (18:17)
[2023-10-26] MEDS ORDERED: LIDOCAINE HCL/PF 2% SDV 5ML VIAL ONE (18:33)
[2023-10-26] MEDS ORDERED: ceFAZolin SODIUM 1 GM VIAL ONE (18:33)
[2023-10-26] MEDS: ceFAZolin SODIUM 1 GM VIAL IVPB ONE (18:56)
[2023-10-26] MEDS ORDERED: POVIDONE-IODINE OINTMENT 10% - 28.4 GM TUBE ONE (19:20)
[2023-10-26] MEDS ORDERED: ONDANSETRON 4 MG/2 ML VIAL ONE (20:07)
[2023-10-26] MEDS ORDERED: SEVOFLURANE 250 ML BTL ONE (20:08)
[2023-10-26] MEDS ORDERED: ENOXAPARIN NA (PORCINE) 80 MG/0.8 ML DISP.SYRIN SQ SCH (22:00)
[2023-10-26] MEDS: ENOXAPARIN NA (PORCINE) 80 MG/0.8 ML DISP.SYRIN SQ SCH (22:23)
[2023-10-26] MEDS: SENNOSIDES 8.8 MG/5 ML SYRUP PO SCH (23:20)
[2023-10-26] MEDS: LIDOCAINE PATCH REMOVAL MC SCH (23:20)
[2023-10-26] MEDS: GABAPENTIN 100 MG CAPSULE PO SCH (23:20)
[2023-10-26] MEDS: POLYETHYLENE GLYCOL (HEALTHYLAX) 3350 17 GM PACKET PO SCH (23:20)
[2023-10-26] MEDS: ATORVASTATIN CA 80 MG TABLET (FP) PO SCH (23:20)
[2023-10-26] MEDS: rOPINIRole HCL 0.25 MG TABLET PO SCH (23:20)
[2023-10-26] MEDS: LACTATED RINGERS SOLUTION 1,000 ML IV SCH (23:30)
[2023-10-27 00:55] LABS: HEMATOCRIT 31.8 % (35.4-49); HEMOGLOBIN 10.6 GM/dL (11.7-16.9); MCH 25.9 pg (25.7-33.7); MCHC 33.4 g/dl (32.0-35.9); MEAN CELL VOLUME 77.5 fl (80-96); MEAN PLT VOLUME 8.6 fl (7.5-11.1); PLATELET COUNT 161 10^3/uL (134-434); WHITE BLOOD COUNT 6.3 K/mm3 (4.0-10.0)
[2023-10-27] MEDS: morphine SULFATE 4 MG/ML VIAL IVPUSH PRN (01:26)
[2023-10-27] MEDS: ACETAMINOPHEN 325 MG TABLET (FP) PO PRN (04:17)
[2023-10-27 07:08] LABS: HEMATOCRIT 28.7 % (35.4-49); HEMOGLOBIN 9.4 GM/dL (11.7-16.9); MCH 25.8 pg (25.7-33.7); MCHC 32.9 g/dl (32.0-35.9); MEAN CELL VOLUME 78.4 fl (80-96); MEAN PLT VOLUME 8.7 fl (7.5-11.1); PLATELET COUNT 159 10^3/uL (134-434); RBC 3.66 M/mm3 (4.00-5.60); RDW 25.8 % (11.9-15.9); WHITE BLOOD COUNT 9.2 K/mm3 (4.0-10.0)
[2023-10-27 07:20] LABS: POTASSIUM 4.2 mmol/L (3.5-5.1)
[2023-10-27 07:25] LABS: BLOOD UREA NITROGEN 25.1 mg/dL (7-18); CALCIUM 8.7 mg/dL (8.5-10.1); MAGNESIUM 1.7 mg/dL (1.8-2.4)
[2023-10-27 07:29] LABS: CREATININE 1.6 mg/dL (0.55-1.3)
[2023-10-27] MEDS: INSULIN ASPART SLIDING SCALE (NOVOLOG) 1 VIAL SQ SCH (07:31)
[2023-10-27] MEDS ORDERED: HEPARIN NA (PORCINE) 5,000 UNITS/ML 1ML VIAL ONE (08:12)
[2023-10-27] MEDS ORDERED: PROPOFOL 20 ML ONE (08:15)
[2023-10-27] MEDS: ceFAZolin SODIUM 1 GM VIAL IVPB ONE (08:51)
[2023-10-27] MEDS ORDERED: ONDANSETRON 4 MG/2 ML VIAL ONE (09:13)
[2023-10-27] MEDS ORDERED: DEXAMETHASONE SOD PHOSPHATE 4 MG/1 ML VIAL ONE (09:13)
[2023-10-27] MEDS: POVIDONE-IODINE OINTMENT 10% - 28.4 GM TUBE TP ONE (09:20)
[2023-10-27] MEDS: CLOPIDOGREL BISULFATE 75 MG TABLET (FP) PO SCH (10:05)
[2023-10-27] MEDS: amLODIPine BESYLATE 5 MG TABLET (FP) PO SCH (10:05)
[2023-10-27] MEDS: LOSARTAN POTASSIUM 25 MG TABLET PO SCH (10:05)
[2023-10-27] MEDS: LIDOCAINE 4% PATCH TP SCH (10:08)
[2023-10-27] MEDS: PANTOPRAZOLE 40 MG TABLET PO SCH (10:08)
[2023-10-27] MEDS: CHLORHEXIDINE GLUCONATE 4% CLEANSER FOR DECOLONIZATION TP SCH (22:15)
[2023-10-28 09:47] LABS: HEMATOCRIT 21.5 % (35.4-49); HEMOGLOBIN 7.3 GM/dL (11.7-16.9); MCH 26.4 pg (25.7-33.7); MCHC 33.8 g/dl (32.0-35.9); MEAN CELL VOLUME 78.1 fl (80-96); MEAN PLT VOLUME 8.6 fl (7.5-11.1); PLATELET COUNT 124 10^3/uL (134-434); RBC 2.75 M/mm3 (4.00-5.60); RDW 26.6 % (11.9-15.9); WHITE BLOOD COUNT 8.1 K/mm3 (4.0-10.0)
[2023-10-28 09:57] LABS: POTASSIUM 4.1 mmol/L (3.5-5.1)
[2023-10-28 09:59] LABS: ALBUMIN 2.6 g/dl (3.4-5.0); CALCIUM 8.4 mg/dL (8.5-10.1)
[2023-10-28 10:01] LABS: BLOOD UREA NITROGEN 29.8 mg/dL (7-18); MAGNESIUM 2.2 mg/dL (1.8-2.4)
[2023-10-28 10:03] LABS: CREATININE 1.7 mg/dL (0.55-1.3); PHOSPHOROUS 2.2 mg/dL (2.5-4.9)
[2023-10-28 10:04] LABS: BILIRUBIN,TOTAL 0.8 mg/dL (0.2-1); TOT PROT 6.6 g/dl (6.4-8.2)
[2023-10-28] MEDS: RIVAROXABAN 15 MG TABLET PO ONE (11:17)
[2023-10-28] MEDS: NAPH,MB-DB/K PH,MBDB POWDER PACKET PO ONE (14:16)
[2023-10-28 21:03] LABS: BASO % 0.4 % (0-2.0); EOS % 2.9 % (0-4.5); LYMPH % 14.4 % (8-40); MCH 26.6 pg (25.7-33.7); MCHC 33.8 g/dl (32.0-35.9); MEAN CELL VOLUME 78.6 fl (80-96); MEAN PLT VOLUME 8.3 fl (7.5-11.1); MONO % 14.1 % (3.8-10.2); NEUT % 68.2 % (42.8-82.8); PLATELET COUNT 88 10^3/uL (134-434); RBC 2.54 M/mm3 (4.00-5.60); RDW 24.6 % (11.9-15.9); WHITE BLOOD COUNT 5.7 K/mm3 (4.0-10.0)
[2023-10-28 21:12] LABS: HEMOGLOBIN 6.8 GM/dL (11.7-16.9)
[2023-10-29 06:59] LABS: HEMATOCRIT 24.8 % (35.4-49); HEMOGLOBIN 8.5 GM/dL (11.7-16.9); MCH 27.2 pg (25.7-33.7); MCHC 34.1 g/dl (32.0-35.9); MEAN CELL VOLUME 79.7 fl (80-96); MEAN PLT VOLUME 8.2 fl (7.5-11.1); PLATELET COUNT 112 10^3/uL (134-434); RBC 3.11 M/mm3 (4.00-5.60); RDW 23.4 % (11.9-15.9)
[2023-10-29 07:22] LABS: CALCIUM 8.7 mg/dL (8.5-10.1)
[2023-10-29 07:23] LABS: ALBUMIN 2.5 g/dl (3.4-5.0); BLOOD UREA NITROGEN 29.1 mg/dL (7-18); MAGNESIUM 2.1 mg/dL (1.8-2.4)
[2023-10-29 07:25] LABS: CREATININE 1.5 mg/dL (0.55-1.3); PHOSPHOROUS 2.4 mg/dL (2.5-4.9)
[2023-10-29 07:27] LABS: BILIRUBIN,TOTAL 3.8 mg/dL (0.2-1); TOT PROT 6.2 g/dl (6.4-8.2)
[2023-10-29] MEDS: MAGNESIUM SULFATE IN WATER 2 GM/50 ML IVPB IVPB ONE (09:09)
[2023-10-29] MEDS: ACETAMINOPHEN 325 MG TABLET (FP) PO SCH (10:37)
[2023-10-29] MEDS: oxyCODONE HCL 5 MG TABLET PO SCH (10:38)
[2023-10-29] MEDS ORDERED: oxyCODONE HCL 5 MG TABLET PO SCH (10:45)
[2023-10-29] MEDS: oxyCODONE HCL 5 MG TABLET PO PRN (14:54)
[2023-10-29] MEDS: RIVAROXABAN 15 MG TABLET PO SCH (17:43)
[2023-10-29] MEDS: DOCUSATE SODIUM 100 MG CAPSULE (FP) PO SCH (17:59)
[2023-10-30] MEDS ORDERED: HALOPERIDOL LACTATE 5 MG/ML IM PRN (05:31)
[2023-10-30 09:38] LABS: HEMATOCRIT 26.3 % (35.4-49); HEMOGLOBIN 8.9 GM/dL (11.7-16.9); MCH 26.8 pg (25.7-33.7); MCHC 33.8 g/dl (32.0-35.9); MEAN CELL VOLUME 79.2 fl (80-96); MEAN PLT VOLUME 8.7 fl (7.5-11.1); PLATELET COUNT 162 10^3/uL (134-434); RBC 3.32 M/mm3 (4.00-5.60); RDW 23.3 % (11.9-15.9); WHITE BLOOD COUNT 6.7 K/mm3 (4.0-10.0)
[2023-10-30 10:47] LABS: MAGNESIUM 2.1 mg/dL (1.8-2.4)
[2023-10-30 10:51] LABS: PHOSPHOROUS 2.7 mg/dL (2.5-4.9)
[2023-10-30 15:12] VITALS: BMI 23.8
[2023-10-30] MEDS: ACETAMINOPHEN 1000 MG/100 ML BAG IVPB ONE (18:28)
[2023-10-31] MEDS ORDERED: HALOPERIDOL LACTATE 5 MG/ML IM PRN (08:35)
[2023-10-31 09:02] LABS: HEMATOCRIT 24.7 % (35.4-49); HEMOGLOBIN 8.3 GM/dL (11.7-16.9); MCH 27.2 pg (25.7-33.7); MCHC 33.5 g/dl (32.0-35.9); MEAN CELL VOLUME 81.4 fl (80-96); MEAN PLT VOLUME 8.4 fl (7.5-11.1); PLATELET COUNT 169 10^3/uL (134-434); RBC 3.03 M/mm3 (4.00-5.60); RDW 23.1 % (11.9-15.9); WHITE BLOOD COUNT 4.4 K/mm3 (4.0-10.0)
[2023-10-31 09:17] LABS: POTASSIUM 3.9 mmol/L (3.5-5.1)
[2023-10-31 09:23] LABS: CALCIUM 8.8 mg/dL (8.5-10.1)
[2023-10-31 09:24] LABS: ALBUMIN 2.5 g/dl (3.4-5.0); MAGNESIUM 2.3 mg/dL (1.8-2.4)
[2023-10-31 09:27] LABS: CREATININE 1.7 mg/dL (0.55-1.3); PHOSPHOROUS 3.3 mg/dL (2.5-4.9); TOT PROT 6.7 g/dl (6.4-8.2)
[2023-10-31 09:39] LABS: BILIRUBIN,TOTAL 1.8 mg/dL (0.2-1)
[2023-10-31] MEDS: amLODIPine BESYLATE 5 MG TABLET (FP) PO SCH (09:59)
[2023-10-31] MEDS: LOSARTAN POTASSIUM 25 MG TABLET PO SCH (09:59)
[2023-10-31] MEDS: DOCUSATE SODIUM 100 MG CAPSULE (FP) PO SCH (09:59)
[2023-10-31] MEDS: PANTOPRAZOLE 40 MG TABLET PO SCH (10:00)
[2023-10-31] MEDS: LIDOCAINE 4% PATCH TP SCH (10:00)
[2023-10-31] MEDS: CLOPIDOGREL BISULFATE 75 MG TABLET (FP) PO SCH (10:00)
[2023-10-31] MEDS: oxyCODONE HCL 5 MG TABLET PO PRN (10:00)
[2023-10-31] MEDS: POLYETHYLENE GLYCOL (HEALTHYLAX) 3350 17 GM PACKET PO SCH (10:00)
[2023-10-31] MEDS: INSULIN ASPART SLIDING SCALE (NOVOLOG) 1 VIAL SQ SCH (11:17)
[2023-10-31] MEDS: GABAPENTIN 100 MG CAPSULE PO SCH (14:33)
[2023-10-31] MEDS: RIVAROXABAN 15 MG TABLET PO SCH (17:35)
[2023-10-31] MEDS: ATORVASTATIN CA 80 MG TABLET (FP) PO SCH (21:29)
[2023-10-31] MEDS: rOPINIRole HCL 0.25 MG TABLET PO SCH (21:29)
[2023-10-31] MEDS: SENNOSIDES 8.8 MG/5 ML SYRUP PO SCH (21:30)
[2023-10-31] MEDS: LIDOCAINE PATCH REMOVAL MC SCH (21:31)
[2023-10-31] MEDS: ACETAMINOPHEN 325 MG TABLET (FP) PO PRN (22:34)
[2023-11-01 09:34] LABS: EOS % 9.7 % (0-4.5); HEMATOCRIT 24.2 % (35.4-49); HEMOGLOBIN 8.1 GM/dL (11.7-16.9); MCH 27.3 pg (25.7-33.7); MCHC 33.6 g/dl (32.0-35.9); MEAN CELL VOLUME 81.2 fl (80-96); MEAN PLT VOLUME 8.3 fl (7.5-11.1); MONO % 13.4 % (3.8-10.2); NEUT % 62.9 % (42.8-82.8); PLATELET COUNT 177 10^3/uL (134-434); RBC 2.98 M/mm3 (4.00-5.60); RDW 23.8 % (11.9-15.9); WHITE BLOOD COUNT 4.6 K/mm3 (4.0-10.0)
[2023-11-01 10:24] LABS: ALBUMIN 2.4 g/dl (3.4-5.0); BLOOD UREA NITROGEN 30.2 mg/dL (7-18); CALCIUM 8.5 mg/dL (8.5-10.1); CREATININE 1.8 mg/dL (0.55-1.3); POTASSIUM 3.9 mmol/L (3.5-5.1)
[2023-11-01 10:26] LABS: BILIRUBIN,TOTAL 2.1 mg/dL (0.2-1); TOT PROT 6.6 g/dl (6.4-8.2)
[2023-11-02 08:20] LABS: BASO % 0.9 % (0-2.0); EOS % 10.7 % (0-4.5); HEMATOCRIT 24.3 % (35.4-49); HEMOGLOBIN 8.1 GM/dL (11.7-16.9); LYMPH % 13.6 % (8-40); MCH 26.9 pg (25.7-33.7); MCHC 33.4 g/dl (32.0-35.9); MEAN CELL VOLUME 80.5 fl (80-96); MEAN PLT VOLUME 8.1 fl (7.5-11.1); MONO % 13.8 % (3.8-10.2); PLATELET COUNT 195 10^3/uL (134-434); RBC 3.02 M/mm3 (4.00-5.60); RDW 23.8 % (11.9-15.9); WHITE BLOOD COUNT 4.9 K/mm3 (4.0-10.0)
[2023-11-02 08:31] LABS: ALBUMIN 2.5 g/dl (3.4-5.0); BLOOD UREA NITROGEN 26.9 mg/dL (7-18); CALCIUM 8.9 mg/dL (8.5-10.1)
[2023-11-02 08:35] LABS: CREATININE 1.5 mg/dL (0.55-1.3)
[2023-11-02 08:36] LABS: TOT PROT 6.7 g/dl (6.4-8.2)
[2023-11-02] MEDS ORDERED: INSULIN ASPART SLIDING SCALE (NOVOLOG) 1 VIAL SQ ONE (11:18)
[2023-11-03 10:34] LABS: BASO % 0.7 % (0-2.0); EOS % 10.4 % (0-4.5); HEMATOCRIT 25.2 % (35.4-49); HEMOGLOBIN 8.4 GM/dL (11.7-16.9); LYMPH % 12.2 % (8-40); MCH 27.1 pg (25.7-33.7); MCHC 33.3 g/dl (32.0-35.9); MEAN CELL VOLUME 81.2 fl (80-96); MEAN PLT VOLUME 8.1 fl (7.5-11.1); MONO % 10.8 % (3.8-10.2); NEUT % 65.9 % (42.8-82.8); PLATELET COUNT 206 10^3/uL (134-434); RBC 3.11 M/mm3 (4.00-5.60); RDW 23.7 % (11.9-15.9); WHITE BLOOD COUNT 5.2 K/mm3 (4.0-10.0)
[2023-11-03 10:42] LABS: POTASSIUM 3.9 mmol/L (3.5-5.1)
[2023-11-03 10:56] LABS: ALBUMIN 2.6 g/dl (3.4-5.0); BLOOD UREA NITROGEN 24.5 mg/dL (7-18); CALCIUM 8.8 mg/dL (8.5-10.1)
[2023-11-03 10:57] LABS: MAGNESIUM 2.3 mg/dL (1.8-2.4)
[2023-11-03 11:00] LABS: CREATININE 1.5 mg/dL (0.55-1.3)
[2023-11-03 11:01] LABS: BILIRUBIN,TOTAL 2.4 mg/dL (0.2-1)
[2023-11-03 22:37] VITALS: RESP 18
[2023-11-04 09:01] LABS: EOS % 9.9 % (0-4.5); HEMATOCRIT 26.6 % (35.4-49); HEMOGLOBIN 8.9 GM/dL (11.7-16.9); LYMPH % 15.3 % (8-40); MCH 27.5 pg (25.7-33.7); MCHC 33.5 g/dl (32.0-35.9); MEAN CELL VOLUME 82.1 fl (80-96); MEAN PLT VOLUME 7.9 fl (7.5-11.1); MONO % 11.7 % (3.8-10.2); NEUT % 62.1 % (42.8-82.8); PLATELET COUNT 243 10^3/uL (134-434); RBC 3.24 M/mm3 (4.00-5.60); RDW 23.2 % (11.9-15.9); WHITE BLOOD COUNT 5.2 K/mm3 (4.0-10.0)
[2023-11-04 09:19] LABS: POTASSIUM 3.8 mmol/L (3.5-5.1)
[2023-11-04 09:23] LABS: CALCIUM 8.8 mg/dL (8.5-10.1)
[2023-11-04 09:24] LABS: ALBUMIN 2.8 g/dl (3.4-5.0); BLOOD UREA NITROGEN 23.6 mg/dL (7-18); MAGNESIUM 2.1 mg/dL (1.8-2.4)
[2023-11-04 09:27] LABS: CREATININE 1.4 mg/dL (0.55-1.3)
[2023-11-04 09:28] LABS: BILIRUBIN,TOTAL 2.7 mg/dL (0.2-1); TOT PROT 7.4 g/dl (6.4-8.2)
[2023-11-05 10:09] LABS: BASO % 1.1 % (0-2.0); EOS % 10.5 % (0-4.5); HEMOGLOBIN 8.6 GM/dL (11.7-16.9); LYMPH % 18.7 % (8-40); MCH 27.7 pg (25.7-33.7); MCHC 34.2 g/dl (32.0-35.9); MEAN CELL VOLUME 81.2 fl (80-96); MEAN PLT VOLUME 7.7 fl (7.5-11.1); MONO % 12.8 % (3.8-10.2); NEUT % 56.9 % (42.8-82.8); PLATELET COUNT 220 10^3/uL (134-434); RBC 3.08 M/mm3 (4.00-5.60); RDW 23.2 % (11.9-15.9); WHITE BLOOD COUNT 4.6 K/mm3 (4.0-10.0)
[2023-11-05 10:20] LABS: POTASSIUM 3.9 mmol/L (3.5-5.1)
[2023-11-05 10:22] LABS: CALCIUM 8.8 mg/dL (8.5-10.1)
[2023-11-05 10:23] LABS: ALBUMIN 2.6 g/dl (3.4-5.0); BLOOD UREA NITROGEN 22.8 mg/dL (7-18); MAGNESIUM 2.3 mg/dL (1.8-2.4)
[2023-11-05 10:26] LABS: CREATININE 1.3 mg/dL (0.55-1.3)
[2023-11-05 10:28] LABS: BILIRUBIN,TOTAL 2.2 mg/dL (0.2-1)
[2023-11-05 10:40] LABS: ANISOCYTOSIS 1+; MACROCYTOSIS 1+
[2023-11-05] MEDS: oxyCODONE HCL 5 MG TABLET PO PRN (11:21)
[2023-11-05 15:11] VITALS: BP 142/66; PULSE 67; TEMP 98.1
== END 2023-11-05 21:12 | DRG 253 ==
LOC: JER 16:45 → JERBED 17:49 → J8W 23:02 → J4W 10-16 18:42 → J7W 10-24 13:30 → JICU 10-26 22:47 → J8W 10-30 20:42
PROVIDERS: ADMIT Internal Medicine; ATTEND Nurse Practitioner Family
PROC: B40FYZZ Plain Radiography of Right Lower Extremity Arteries using Other Contrast (ICD-10-PCS; 2023-10-16)
PROC: B40JYZZ Plain Radiography of Other Lower Arteries using Other Contrast (ICD-10-PCS; 2023-10-26)
PROC: 041 Lower Arteries, Bypass (ICD-10-PCS; principal; 2023-10-26 16:30)
PROC: 0HCKXZZ Extirpation of Matter from Right Lower Leg Skin, External Approach (ICD-10-PCS; 2023-10-27)
PROC: 30233N1 Transfusion of Nonautologous Red Blood Cells into Peripheral Vein, Percutaneous Approach (ICD-10-PCS; 2023-10-29)
PROC: 30233R1 Transfusion of Nonautologous Platelets into Peripheral Vein, Percutaneous Approach (ICD-10-PCS; 2023-10-29)
DX: E11.51 Type 2 diabetes mellitus with diabetic peripheral angiopathy without gangrene (principal); L76.32 Postprocedural hematoma of skin and subcutaneous tissue following other procedure; L97.419 Non-pressure chronic ulcer of right heel and midfoot with unspecified severity; I70.221 Atherosclerosis of native arteries of extremities with rest pain, right leg; I70.202 Unspecified atherosclerosis of native arteries of extremities, left leg; I12.9 Hypertensive chronic kidney disease with stage 1 through stage 4 chronic kidney disease, or unspecified chronic kidney disease; E78.5 Hyperlipidemia, unspecified; K70.30 Alcoholic cirrhosis of liver without ascites; N18.30 Chronic kidney disease, stage 3 unspecified; I25.10 Atherosclerotic heart disease of native coronary artery without angina pectoris; Y83.9 Surgical procedure, unspecified as the cause of abnormal reaction of the patient, or of later complication, without mention of misadventure at the time of the procedure
CPT/HCPCS: 36415; 36430; 76000-TC-FY; 80048; 80053; 80061; 82550; 82962; 83036; 83605; 83735; 84100; 84484; 85025; 85027; 85610; 85730; 86850; 86900; 86901; 86922; 87635; 93005; 93010; 93306-TC; 94760; 97116-GP; 97162-GP; 99285-25; C1760; C1768; C1897; J0131; J1644; P9037; P9038; P9058

== ENCOUNTER 2023-11-16 20:12 | Emergency (ER) | payer OTHER ==
[2023-11-16 20:38] VITALS: RESP 19; BMI 23.8
[2023-11-16] MEDS ORDERED: ACETAMINOPHEN INJECTION 100 ML ONE (20:49)
[2023-11-16] MEDS ORDERED: PIPERACILLIN/TAZOB 3.375 GM 3.375 GM/50 ML BAG IVPB ONE (20:50)
[2023-11-16] MEDS ORDERED: VANCOMYCIN 1 GRAM (PRE-DOCKED) 1,000 MG/250 ML BAG IVPB ONE (20:50)
[2023-11-16 21:39] LABS: BASO % 1.3 % (0-2.0); EOS % 6.2 % (0-4.5); LYMPH % 21.5 % (8-40); MCH 28.2 pg (25.7-33.7); MCHC 32.4 g/dl (32.0-35.9); MEAN CELL VOLUME 87.1 fl (80-96); MEAN PLT VOLUME 8.3 fl (7.5-11.1); MONO % 9.7 % (3.8-10.2); NEUT % 61.3 % (42.8-82.8); PLATELET COUNT 223 10^3/uL (134-434); RBC 2.41 M/mm3 (4.00-5.60); RDW 22.4 % (11.9-15.9); WHITE BLOOD COUNT 7.8 K/mm3 (4.0-10.0)
[2023-11-16 21:41] LABS: HEMOGLOBIN 6.8 GM/dL (11.7-16.9)
[2023-11-16 21:46] LABS: INR 1.43 (0.83-1.09)
[2023-11-16] MEDS: PIPERACILLIN/TAZOB 3.375 GM 3.375 GM in DEXTROSE 5%-WATER - 50 ML IVPB ONE (21:46)
[2023-11-16] MEDS: ACETAMINOPHEN 1000 MG/100 ML BAG IVPB ONE (21:47)
[2023-11-16] MEDS: LACTATED RINGERS SOLUTION 1,000 ML/1,000 ML INFUS.BAG IV SCH (21:47)
[2023-11-16 21:48] LABS: ACTIVATED PTT 35.5 SECONDS (25.2-36.5)
[2023-11-16 21:55] LABS: POTASSIUM 5.1 mmol/L (3.5-5.1)
[2023-11-16 21:57] LABS: CALCIUM 9.3 mg/dL (8.5-10.1)
[2023-11-16 21:58] LABS: ALBUMIN 2.9 g/dl (3.4-5.0)
[2023-11-16 22:01] LABS: CREATININE 1.8 mg/dL (0.55-1.3)
[2023-11-16 22:02] LABS: TOT PROT 6.9 g/dl (6.4-8.2)
[2023-11-16 22:04] LABS: ANISOCYTOSIS 3+; MACROCYTOSIS 0; OVALOCYTE 1+
[2023-11-16 22:06] LABS: VENOUS O2 SATURATION 15.9 % (70-80); VENOUS PCO2 41.3 mmHg (38-52); VENOUS PH 7.298 (7.310-7.410)
[2023-11-16] MEDS: VANCOMYCIN 1,000 MG in DEXTROSE 5%-WATER - 250 ML IVPB ONE (22:34)
[2023-11-16] MEDS ORDERED: ASPIRIN 81 MG CHEWABLE TABLETS ONE (22:35)
[2023-11-16 22:37] LABS: PH,URINE 5.5 (5.0-8.0); URINE APPEARANCE CLEAR; URINE BILIRUBIN NEGATIVE (NEGATIVE); URINE COLOR YELLOW; URINE GLUCOSE (UA) NEGATIVE (NEGATIVE); URINE KETONE NEGATIVE (NEGATIVE); URINE LEUK ESTERASE NEGATIVE (NEGATIVE); URINE NITRITE NEGATIVE (NEGATIVE); URINE PROTEIN NEGATIVE (NEGATIVE)
[2023-11-16 22:39] LABS: BLOOD UREA NITROGEN 76.7 mg/dL (7-18)
[2023-11-16] MEDS: ASPIRIN 81 MG CHEWABLE TABLETS PO ONE (22:39)
[2023-11-16 22:51] LABS: ERYTHROCYTE SEDIMENTATION RATE 48 mm/hr (0-20)
[2023-11-16 22:54] LABS: LACTIC ACID 2.3 mmol/L (0.4-2.0)
[2023-11-16 23:48] VITALS: BP 111/46; PULSE 79
[2023-11-16 23:55] VITALS: TEMP 97.6
[2023-11-17 00:28] LABS: LACTIC ACID 2.6 mmol/L (0.4-2.0)
== END 2023-11-17 01:26 | disposition short-term general hospital (02) ==
LOC: JER 20:12
PROC: 3E03329 Introduction of Other Anti-infective into Peripheral Vein, Percutaneous Approach (ICD-10-PCS; principal; 2023-11-16)
PROC: 3E03329 Introduction of Other Anti-infective into Peripheral Vein, Percutaneous Approach (ICD-10-PCS; 2023-11-16)
PROC: 3E033NZ Introduction of Analgesics, Hypnotics, Sedatives into Peripheral Vein, Percutaneous Approach (ICD-10-PCS; 2023-11-16)
DX: L03.032 Cellulitis of left toe (principal); Z20.822 Contact with and (suspected) exposure to COVID-19
CPT/HCPCS: 0241U-QW; 36415; 36430; 71045-TC-FY; 73590-TC-RT-FY; 73630-TC-RT-FY; 80053; 81003; 82803; 83605; 84484; 85025; 85610; 85651; 85730; 86140; 86850; 86900; 86901; 86922; 87040; 87086; 93005; 93010; 96365; 96368; 96375; 99285-25; J0131; P9058

== ENCOUNTER 2024-01-04 22:46 | Inpatient (IN) | payer OTHER ==
[2024-01-05 00:21] LABS: BASO % 0.3 % (0-2.0); EOS % 1.3 % (0-4.5); HEMATOCRIT 31.8 % (35.4-49); HEMOGLOBIN 10.5 GM/dL (11.7-16.9); LYMPH % 6.9 % (8-40); MCH 27.8 pg (25.7-33.7); MEAN CELL VOLUME 84.3 fl (80-96); MEAN PLT VOLUME 8.8 fl (7.5-11.1); MONO % 10.7 % (3.8-10.2); NEUT % 80.8 % (42.8-82.8); PLATELET COUNT 138 10^3/uL (134-434); RBC 3.78 M/mm3 (4.00-5.60); RDW 15.1 % (11.9-15.9); WHITE BLOOD COUNT 6.6 K/mm3 (4.0-10.0)
[2024-01-05 00:37] LABS: POTASSIUM 4.2 mmol/L (3.5-5.1)
[2024-01-05 00:40] LABS: BLOOD UREA NITROGEN 27.5 mg/dL (7-18); CALCIUM 8.9 mg/dL (8.5-10.1)
[2024-01-05 00:43] LABS: CREATININE 1.8 mg/dL (0.55-1.3)
[2024-01-05 00:45] LABS: BILIRUBIN,TOTAL 1.4 mg/dL (0.2-1)
[2024-01-05] MEDS: ACETAMINOPHEN 1000 MG/100 ML BAG IVPB ONE (00:53)
[2024-01-05] MEDS ORDERED: ACETAMINOPHEN INJECTION 100 ML ONE (00:55)
[2024-01-05 01:42] LABS: INR 1.17 (0.83-1.09); PROTHROMBIN TIME (PATIENT) 13.2 SEC (9.7-13.0)
[2024-01-05 01:45] LABS: ACTIVATED PTT 34.1 SECONDS (25.2-36.5)
[2024-01-05 01:49] LABS: EPI CELLS 5 /uL (0-25.1); HYALINE CASTS 0 /uL (0-3.1); PH,URINE 5.5 (5.0-8.0); URINE APPEARANCE CLEAR; URINE BACTERIA 0 /uL (0-1359); URINE BILIRUBIN NEGATIVE (NEGATIVE); URINE COLOR YELLOW; URINE GLUCOSE (UA) NEGATIVE (NEGATIVE); URINE KETONE NEGATIVE (NEGATIVE); URINE LEUK ESTERASE NEGATIVE (NEGATIVE); URINE NITRITE NEGATIVE (NEGATIVE); URINE PROTEIN 2+ (NEGATIVE); URINE RBC 14 /uL (0-23.9); URINE WBC 10 /uL (0-25.8)
[2024-01-05 02:13] LABS: HEMATOCRIT 27.1 % (35.4-49); MCH 27.8 pg (25.7-33.7); MCHC 33.4 g/dl (32.0-35.9); MEAN CELL VOLUME 83.3 fl (80-96); MEAN PLT VOLUME 8.2 fl (7.5-11.1); PLATELET COUNT 113 10^3/uL (134-434); RBC 3.25 M/mm3 (4.00-5.60); RDW 14.9 % (11.9-15.9); WHITE BLOOD COUNT 5.8 K/mm3 (4.0-10.0)
[2024-01-05] MEDS ORDERED: CLOPIDOGREL BISULFATE 300 MG TABLET ONE (03:31)
[2024-01-05] MEDS ORDERED: ASPIRIN 325 MG TABLET ONE (03:31)
[2024-01-05] MEDS: CLOPIDOGREL BISULFATE 300 MG TABLET PO ONE (03:33)
[2024-01-05] MEDS: ASPIRIN 325 MG TABLET PO ONE (03:34)
[2024-01-05] MEDS ORDERED: HEPARIN INFUSION - 25,000 UNITS/500 ML INFUS.BAG IVPB ONE (03:42)
[2024-01-05] MEDS: HEPARIN INFUSION - 25,000 UNITS/500 ML INFUS.BAG IVPB SCH (03:51)
[2024-01-05] MEDS ORDERED: ONDANSETRON 4 MG/2 ML VIAL IVPUSH PRN (06:00)
[2024-01-05] MEDS: POLYETHYLENE GLYCOL (HEALTHYLAX) 3350 17 GM PACKET PO SCH (10:10)
[2024-01-05] MEDS: ASPIRIN 81 MG CHEWABLE TABLETS PO SCH (10:10)
[2024-01-05] MEDS: PANTOPRAZOLE SODIUM 40 MG VIAL IVPUSH SCH (10:10)
[2024-01-05] MEDS: MUPIROCIN 2% TOPICAL OINTMENT FOR DECOLONIZATION NS SCH (11:35)
[2024-01-05] MEDS: SENNOSIDES 8.6MG TABLET (FP) PO SCH (21:17)
[2024-01-05] MEDS: CHLORHEXIDINE GLUCONATE 4% CLEANSER FOR DECOLONIZATION TP SCH (21:17)
[2024-01-05] MEDS: ATORVASTATIN CA 80 MG TABLET (FP) PO SCH (21:17)
[2024-01-06 08:42] LABS: HEMATOCRIT 28.8 % (35.4-49); HEMOGLOBIN 9.6 GM/dL (11.7-16.9); MCH 28.1 pg (25.7-33.7); MCHC 33.3 g/dl (32.0-35.9); MEAN CELL VOLUME 84.3 fl (80-96); MEAN PLT VOLUME 8.8 fl (7.5-11.1); PLATELET COUNT 128 10^3/uL (134-434); RBC 3.41 M/mm3 (4.00-5.60); WHITE BLOOD COUNT 7.2 K/mm3 (4.0-10.0)
[2024-01-06 09:11] LABS: POTASSIUM 4.1 mmol/L (3.5-5.1)
[2024-01-06 09:16] LABS: CALCIUM 8.5 mg/dL (8.5-10.1)
[2024-01-06 09:17] LABS: ALBUMIN 2.5 g/dl (3.4-5.0); BLOOD UREA NITROGEN 23.1 mg/dL (7-18); MAGNESIUM 2.1 mg/dL (1.8-2.4)
[2024-01-06 09:19] LABS: CREATININE 1.4 mg/dL (0.55-1.3)
[2024-01-06 09:20] LABS: PHOSPHOROUS 2.9 mg/dL (2.5-4.9)
[2024-01-06 09:21] LABS: BILIRUBIN,TOTAL 1.2 mg/dL (0.2-1); TOT PROT 6.9 g/dl (6.4-8.2)
[2024-01-06] MEDS: CLOPIDOGREL BISULFATE 75 MG TABLET (FP) PO SCH (11:37)
[2024-01-06] MEDS: ACETAMINOPHEN 325 MG TABLET (FP) PO PRN (14:59)
[2024-01-06] MEDS: MELATONIN 5 MG TABLETS PO PRN (22:07)
[2024-01-07] MEDS: sitaGLIPtin PHOSPHATE 50 MG TABLET PO SCH (06:17)
[2024-01-07 08:53] LABS: HEMATOCRIT 28.3 % (35.4-49); HEMOGLOBIN 9.6 GM/dL (11.7-16.9); MCH 28.2 pg (25.7-33.7); MCHC 33.9 g/dl (32.0-35.9); MEAN PLT VOLUME 8.7 fl (7.5-11.1); PLATELET COUNT 125 10^3/uL (134-434); RDW 15.2 % (11.9-15.9); WHITE BLOOD COUNT 6.2 K/mm3 (4.0-10.0)
[2024-01-07 09:17] LABS: POTASSIUM 3.6 mmol/L (3.5-5.1)
[2024-01-07 09:21] LABS: ALBUMIN 2.4 g/dl (3.4-5.0); BLOOD UREA NITROGEN 24.4 mg/dL (7-18); CALCIUM 8.5 mg/dL (8.5-10.1)
[2024-01-07 09:24] LABS: CREATININE 1.5 mg/dL (0.55-1.3)
[2024-01-07 09:25] LABS: PHOSPHOROUS 3.2 mg/dL (2.5-4.9)
[2024-01-07 09:26] LABS: BILIRUBIN,TOTAL 1.2 mg/dL (0.2-1); TOT PROT 6.7 g/dl (6.4-8.2)
[2024-01-07] MEDS: GABAPENTIN 100 MG CAPSULE PO SCH (14:35)
[2024-01-07] MEDS: INSULIN ASPART SLIDING SCALE (NOVOLOG) 1 VIAL SQ SCH (14:36)
[2024-01-07] MEDS ORDERED: MAGNESIUM HYDROX 2400MG/30ML ORAL SUSPENSION 30 ML CUP PO PRN (19:11)
[2024-01-07] MEDS: ATORVASTATIN CA 40 MG TABLET (FP) PO SCH (21:52)
[2024-01-08 09:18] LABS: HEMATOCRIT 29.7 % (35.4-49); HEMOGLOBIN 9.6 GM/dL (11.7-16.9); MCH 27.6 pg (25.7-33.7); MCHC 32.5 g/dl (32.0-35.9); MEAN CELL VOLUME 85.1 fl (80-96); MEAN PLT VOLUME 8.5 fl (7.5-11.1); PLATELET COUNT 163 10^3/uL (134-434); RBC 3.48 M/mm3 (4.00-5.60); RDW 15.3 % (11.9-15.9)
[2024-01-08 09:39] LABS: POTASSIUM 3.8 mmol/L (3.5-5.1)
[2024-01-08 09:47] LABS: ALBUMIN 2.5 g/dl (3.4-5.0); BLOOD UREA NITROGEN 25.2 mg/dL (7-18); CALCIUM 8.8 mg/dL (8.5-10.1); MAGNESIUM 2.1 mg/dL (1.8-2.4)
[2024-01-08 09:49] LABS: BILIRUBIN,TOTAL 1.1 mg/dL (0.2-1); TOT PROT 7.1 g/dl (6.4-8.2)
[2024-01-08 09:50] LABS: CREATININE 1.6 mg/dL (0.55-1.3); PHOSPHOROUS 3.6 mg/dL (2.5-4.9)
[2024-01-08] MEDS: ASPIRIN 81 MG CHEWABLE TABLETS PO SCH (09:59)
[2024-01-08] MEDS: PANTOPRAZOLE SODIUM 40 MG VIAL IVPUSH SCH (10:00)
[2024-01-08] MEDS: POLYETHYLENE GLYCOL (HEALTHYLAX) 3350 17 GM PACKET PO SCH (10:00)
[2024-01-08] MEDS: CLOPIDOGREL BISULFATE 75 MG TABLET (FP) PO SCH (10:00)
[2024-01-08] MEDS: PIPERACILLIN/TAZOB 3.375 GM 50 ML IVPB ONE (11:08)
[2024-01-08] MEDS: VANCOMYCIN/WATER FOR INJ (PEG) 1,000 MG/200 ML BAG IVPB ONE (11:08)
[2024-01-08] MEDS: PIPERACILLIN/TAZOB 3.375 GM 50 ML IVPB SCH (18:07)
[2024-01-08] MEDS: MELATONIN 5 MG TABLETS PO PRN (21:15)
[2024-01-08] MEDS: SENNOSIDES 8.6MG TABLET (FP) PO SCH (21:15)
[2024-01-09] MEDS: ACETAMINOPHEN 325 MG TABLET (FP) PO PRN (06:53)
[2024-01-09 07:27] LABS: HEMATOCRIT 27.6 % (35.4-49); HEMOGLOBIN 9.1 GM/dL (11.7-16.9); MCH 27.7 pg (25.7-33.7); MCHC 33.1 g/dl (32.0-35.9); MEAN CELL VOLUME 83.8 fl (80-96); MEAN PLT VOLUME 8.4 fl (7.5-11.1); PLATELET COUNT 163 10^3/uL (134-434); RBC 3.29 M/mm3 (4.00-5.60); RDW 15.3 % (11.9-15.9); WHITE BLOOD COUNT 6.6 K/mm3 (4.0-10.0)
[2024-01-09 07:45] LABS: POTASSIUM 3.8 mmol/L (3.5-5.1)
[2024-01-09 07:51] LABS: CALCIUM 8.8 mg/dL (8.5-10.1)
[2024-01-09 07:52] LABS: ALBUMIN 2.2 g/dl (3.4-5.0); BLOOD UREA NITROGEN 26.5 mg/dL (7-18); MAGNESIUM 2.1 mg/dL (1.8-2.4)
[2024-01-09 07:54] LABS: CREATININE 1.6 mg/dL (0.55-1.3)
[2024-01-09 07:55] LABS: BILIRUBIN,TOTAL 0.8 mg/dL (0.2-1); PHOSPHOROUS 3.9 mg/dL (2.5-4.9); TOT PROT 6.8 g/dl (6.4-8.2)
[2024-01-09] MEDS: ASPIRIN COATED 81 MG TABLET.EC PO SCH (10:42)
[2024-01-09] MEDS: VANCOMYCIN/WATER FOR INJ (PEG) 1,000 MG/200 ML BAG IVPB SCH (20:32)
[2024-01-10 07:00] LABS: INR 1.12 (0.83-1.09); PROTHROMBIN TIME (PATIENT) 12.8 SEC (9.7-13.0)
[2024-01-10 07:43] LABS: BASO % 0.8 % (0-2.0); EOS % 5.9 % (0-4.5); HEMATOCRIT 25.6 % (35.4-49); HEMOGLOBIN 8.6 GM/dL (11.7-16.9); LYMPH % 12.7 % (8-40); MCH 27.9 pg (25.7-33.7); MCHC 33.5 g/dl (32.0-35.9); MEAN CELL VOLUME 83.2 fl (80-96); MEAN PLT VOLUME 8.5 fl (7.5-11.1); MONO % 9.1 % (3.8-10.2); NEUT % 71.5 % (42.8-82.8); PLATELET COUNT 159 10^3/uL (134-434); RBC 3.07 M/mm3 (4.00-5.60); RDW 15.1 % (11.9-15.9); WHITE BLOOD COUNT 3.8 K/mm3 (4.0-10.0)
[2024-01-10 07:54] LABS: BILIRUBIN,TOTAL 0.6 mg/dL (0.2-1); BLOOD UREA NITROGEN 30.8 mg/dL (7-18); CALCIUM 8.5 mg/dL (8.5-10.1); CREATININE 1.7 mg/dL (0.55-1.3); MAGNESIUM 2.1 mg/dL (1.8-2.4); PHOSPHOROUS 4.1 mg/dL (2.5-4.9); TOT PROT 6.4 g/dl (6.4-8.2)
[2024-01-10] MEDS ORDERED: PROPOFOL 20 ML ONE (12:55)
[2024-01-10] MEDS ORDERED: LIDOCAINE HCL/PF 2% SDV 5ML VIAL ONE (12:55)
[2024-01-10] MEDS ORDERED: SUCCINYLCHOLINE CHLORIDE 200 MG/10 ML SYRINGE ONE (12:55)
[2024-01-10] MEDS ORDERED: ONDANSETRON 4 MG/2 ML VIAL ONE (13:01)
[2024-01-10] MEDS ORDERED: SEVOFLURANE 250 ML BTL ONE (13:04)
[2024-01-10] MEDS ORDERED: ONDANSETRON 4 MG/2 ML VIAL IVPUSH PRN ×2 (13:25→13:49)
[2024-01-10] MEDS ORDERED: oxyCODONE HCL 5 MG TABLET PO PRN (13:25)
[2024-01-10] MEDS ORDERED: MAGNESIUM HYDROX 2400MG/30ML ORAL SUSPENSION 30 ML CUP PO PRN (13:49)
[2024-01-10] MEDS ORDERED: ACETAMINOPHEN 325 MG TABLET (FP) PO PRN (13:49)
[2024-01-10] MEDS: GABAPENTIN 100 MG CAPSULE PO SCH (14:23)
[2024-01-10] MEDS: INSULIN ASPART SLIDING SCALE (NOVOLOG) 1 VIAL SQ SCH (17:01)
[2024-01-10] MEDS: VANCOMYCIN/WATER FOR INJ (PEG) 1,000 MG/200 ML BAG IVPB SCH (18:20)
[2024-01-10] MEDS: ATORVASTATIN CA 40 MG TABLET (FP) PO SCH (22:14)
[2024-01-10] MEDS: SENNOSIDES 8.6MG TABLET (FP) PO SCH (22:14)
[2024-01-10] MEDS: POLYETHYLENE GLYCOL (HEALTHYLAX) 3350 17 GM PACKET PO SCH (22:15)
[2024-01-11 07:57] LABS: BASO % 0.9 % (0-2.0); EOS % 6.5 % (0-4.5); HEMATOCRIT 28.1 % (35.4-49); HEMOGLOBIN 9.1 GM/dL (11.7-16.9); LYMPH % 15.4 % (8-40); MCH 27.6 pg (25.7-33.7); MCHC 32.5 g/dl (32.0-35.9); MEAN CELL VOLUME 84.8 fl (80-96); MEAN PLT VOLUME 8.4 fl (7.5-11.1); MONO % 10.3 % (3.8-10.2); NEUT % 66.9 % (42.8-82.8); PLATELET COUNT 180 10^3/uL (134-434); RBC 3.31 M/mm3 (4.00-5.60); RDW 15.4 % (11.9-15.9); WHITE BLOOD COUNT 3.8 K/mm3 (4.0-10.0)
[2024-01-11 08:11] LABS: POTASSIUM 4.2 mmol/L (3.5-5.1)
[2024-01-11 08:22] LABS: CALCIUM 8.5 mg/dL (8.5-10.1)
[2024-01-11 08:23] LABS: ALBUMIN 2.1 g/dl (3.4-5.0); BLOOD UREA NITROGEN 28.3 mg/dL (7-18)
[2024-01-11 08:25] LABS: CREATININE 1.7 mg/dL (0.55-1.3)
[2024-01-11 08:27] LABS: BILIRUBIN,TOTAL 0.5 mg/dL (0.2-1); TOT PROT 6.8 g/dl (6.4-8.2)
[2024-01-11] MEDS: ASPIRIN COATED 81 MG TABLET.EC PO SCH (10:12)
[2024-01-11] MEDS: PANTOPRAZOLE SODIUM 40 MG VIAL IVPUSH SCH (10:13)
[2024-01-11] MEDS: oxyCODONE HCL 5 MG TABLET PO PRN (20:32)
[2024-01-11] MEDS: MELATONIN 5 MG TABLETS PO PRN (21:53)
[2024-01-12 08:28] LABS: POTASSIUM 4.3 mmol/L (3.5-5.1)
[2024-01-12 08:31] LABS: CALCIUM 8.8 mg/dL (8.5-10.1)
[2024-01-12 08:32] LABS: ALBUMIN 2.3 g/dl (3.4-5.0); BLOOD UREA NITROGEN 24.1 mg/dL (7-18); MAGNESIUM 2.2 mg/dL (1.8-2.4)
[2024-01-12 08:35] LABS: CREATININE 1.4 mg/dL (0.55-1.3); PHOSPHOROUS 3.8 mg/dL (2.5-4.9)
[2024-01-12 08:36] LABS: BILIRUBIN,TOTAL 0.5 mg/dL (0.2-1)
[2024-01-12 09:13] LABS: HEMATOCRIT 28.1 % (35.4-49); HEMOGLOBIN 9.1 GM/dL (11.7-16.9); MCH 27.4 pg (25.7-33.7); MCHC 32.5 g/dl (32.0-35.9); MEAN CELL VOLUME 84.4 fl (80-96); MEAN PLT VOLUME 8.2 fl (7.5-11.1); PLATELET COUNT 201 10^3/uL (134-434); RBC 3.33 M/mm3 (4.00-5.60); RDW 15.3 % (11.9-15.9); WHITE BLOOD COUNT 4.3 K/mm3 (4.0-10.0)
[2024-01-12] MEDS: HEPARIN NA (PORCINE) 5,000 UNITS/ML 1ML VIAL SQ SCH (22:29)
[2024-01-13 08:45] LABS: HEMATOCRIT 28.3 % (35.4-49); HEMOGLOBIN 9.6 GM/dL (11.7-16.9); MEAN CELL VOLUME 82.4 fl (80-96); PLATELET COUNT 188 10^3/uL (134-434); RBC 3.44 M/mm3 (4.00-5.60); RDW 15.2 % (11.9-15.9); WHITE BLOOD COUNT 3.8 K/mm3 (4.0-10.0)
[2024-01-13 08:53] LABS: POTASSIUM 4.1 mmol/L (3.5-5.1)
[2024-01-13 09:02] LABS: CALCIUM 9.2 mg/dL (8.5-10.1)
[2024-01-13 09:03] LABS: ALBUMIN 2.4 g/dl (3.4-5.0); BLOOD UREA NITROGEN 21.5 mg/dL (7-18); MAGNESIUM 2.2 mg/dL (1.8-2.4)
[2024-01-13 09:06] LABS: CREATININE 1.2 mg/dL (0.55-1.3); PHOSPHOROUS 3.6 mg/dL (2.5-4.9)
[2024-01-13 09:07] LABS: TOT PROT 7.2 g/dl (6.4-8.2)
[2024-01-13 09:09] LABS: BILIRUBIN,TOTAL 0.5 mg/dL (0.2-1)
[2024-01-13] MEDS: PANTOPRAZOLE 40 MG TABLET PO SCH (10:21)
[2024-01-14 10:36] VITALS: RESP 18
[2024-01-14] MEDS: VANCOMYCIN/WATER FOR INJ (PEG) 1,000 MG/200 ML BAG IVPB SCH (12:31)
[2024-01-14] MEDS: VANCOMYCIN 1,000 MG in DEXTROSE 5%-WATER - 250 ML IVPB SCH (12:32)
[2024-01-14] MEDS: LISINOPRIL 5 MG TABLET PO SCH (15:44)
[2024-01-14 21:27] VITALS: BMI 27.7
[2024-01-15 08:31] LABS: POTASSIUM 4.2 mmol/L (3.5-5.1)
[2024-01-15 08:33] LABS: HEMATOCRIT 29.6 % (35.4-49); HEMOGLOBIN 9.8 GM/dL (11.7-16.9); MCH 27.5 pg (25.7-33.7); MCHC 33.2 g/dl (32.0-35.9); MEAN CELL VOLUME 82.7 fl (80-96); MEAN PLT VOLUME 7.7 fl (7.5-11.1); PLATELET COUNT 196 10^3/uL (134-434); RBC 3.58 M/mm3 (4.00-5.60); RDW 15.7 % (11.9-15.9)
[2024-01-15 08:44] LABS: CALCIUM 9.3 mg/dL (8.5-10.1)
[2024-01-15 08:45] LABS: ALBUMIN 2.5 g/dl (3.4-5.0); BLOOD UREA NITROGEN 19.3 mg/dL (7-18)
[2024-01-15 08:46] LABS: MAGNESIUM 1.9 mg/dL (1.8-2.4)
[2024-01-15 08:48] LABS: CREATININE 1.3 mg/dL (0.55-1.3); PHOSPHOROUS 3.9 mg/dL (2.5-4.9)
[2024-01-15 08:49] LABS: BILIRUBIN,TOTAL 0.8 mg/dL (0.2-1)
[2024-01-15 08:50] LABS: TOT PROT 7.6 g/dl (6.4-8.2)
[2024-01-15 14:22] VITALS: BP 145/63; PULSE 61; TEMP 98.2
== END 2024-01-15 18:14 | disposition home or self-care (01) | DRG 982 ==
LOC: JER 22:46 → JERBED 01-05 03:19 → JICU 01-05 05:32 → J4W 01-05 22:15
PROVIDERS: ADMIT Internal Medicine Pulmonary Disease; ATTEND Internal Medicine
PROC: 0JDL0ZZ Extraction of Right Upper Leg Subcutaneous Tissue and Fascia, Open Approach (ICD-10-PCS; principal; 2024-01-10 09:19)
PROC: 02HV33Z Insertion of Infusion Device into Superior Vena Cava, Percutaneous Approach (ICD-10-PCS; 2024-01-15)
PROC: B518YZA Fluoroscopy of Superior Vena Cava using Other Contrast, Guidance (ICD-10-PCS; 2024-01-15)
DX: I21.4 Non-ST elevation (NSTEMI) myocardial infarction (principal); L02.415 Cutaneous abscess of right lower limb; L97.929 Non-pressure chronic ulcer of unspecified part of left lower leg with unspecified severity; E11.22 Type 2 diabetes mellitus with diabetic chronic kidney disease; I12.9 Hypertensive chronic kidney disease with stage 1 through stage 4 chronic kidney disease, or unspecified chronic kidney disease; K70.30 Alcoholic cirrhosis of liver without ascites; E11.51 Type 2 diabetes mellitus with diabetic peripheral angiopathy without gangrene; J44.9 Chronic obstructive pulmonary disease, unspecified; N18.9 Chronic kidney disease, unspecified; I25.10 Atherosclerotic heart disease of native coronary artery without angina pectoris; E78.5 Hyperlipidemia, unspecified; E11.622 Type 2 diabetes mellitus with other skin ulcer; D63.1 Anemia in chronic kidney disease; S70.11XA Contusion of right thigh, initial encounter; W19.XXXA Unspecified fall, initial encounter; Y93.9 Activity, unspecified; Y92.89 Other specified places as the place of occurrence of the external cause; Y99.9 Unspecified external cause status
CPT/HCPCS: 0241U-QW; 36415; 36569; 71045-TC-FY; 73700-TC-RT; 76882-TC-RT; 80053; 81003; 82962; 83605; 83735; 84100; 84484; 85025; 85027; 85610; 85730; 86850; 86900; 86901; 87040; 87070; 87086; 87186; 87205; 87481; 93005; 93010; 93306-TC; 93971-TC; 94760; 97116-GP; 97162-GP; 99291; G0480; J0131; J1644

== ENCOUNTER 2024-03-29 15:46 | Observation (INO) | payer OTHER ==
[2024-03-29 17:54] LABS: BASO % 0.8 % (0-2.0); EOS % 11.8 % (0-4.5); HEMATOCRIT 28.7 % (35.4-49); HEMOGLOBIN 9.2 GM/dL (11.7-16.9); LYMPH % 17.7 % (8-40); MCH 25.9 pg (25.7-33.7); MCHC 32.2 g/dl (32.0-35.9); MEAN CELL VOLUME 80.4 fl (80-96); MEAN PLT VOLUME 8.7 fl (7.5-11.1); MONO % 12.9 % (3.8-10.2); NEUT % 56.8 % (42.8-82.8); PLATELET COUNT 108 10^3/uL (134-434); RBC 3.57 M/mm3 (4.00-5.60); RDW 17.6 % (11.9-15.9); WHITE BLOOD COUNT 3.6 K/mm3 (4.0-10.0)
[2024-03-29 18:08] LABS: POTASSIUM 4.5 mmol/L (3.5-5.1)
[2024-03-29 18:09] LABS: CALCIUM 9.2 mg/dL (8.5-10.1)
[2024-03-29 18:10] LABS: ALBUMIN 3.2 g/dl (3.4-5.0); BLOOD UREA NITROGEN 22.9 mg/dL (7-18)
[2024-03-29 18:13] LABS: CREATININE 1.4 mg/dL (0.55-1.3)
[2024-03-29 18:15] LABS: BILIRUBIN,TOTAL 1.1 mg/dL (0.2-1); TOT PROT 8.4 g/dl (6.4-8.2)
[2024-03-29 18:18] LABS: INR 1.12 (0.83-1.09); PROTHROMBIN TIME (PATIENT) 12.8 SEC (9.7-13.0)
[2024-03-30] MEDS ORDERED: GABAPENTIN 100 MG CAPSULE ONE (00:09)
[2024-03-30] MEDS: GABAPENTIN 100 MG CAPSULE PO SCH (00:19)
[2024-03-30 02:21] VITALS: BMI 27.1
[2024-03-30] MEDS: HEPARIN NA (PORCINE) 5,000 UNITS/ML 1ML VIAL SQ SCH (05:26)
[2024-03-30] MEDS: INSULIN ASPART SLIDING SCALE (NOVOLOG) 1 VIAL SQ SCH (06:00)
[2024-03-30 09:48] LABS: BASO % 0.9 % (0-2.0); EOS % 12.1 % (0-4.5); HEMATOCRIT 26.1 % (35.4-49); HEMOGLOBIN 8.6 GM/dL (11.7-16.9); LYMPH % 22.5 % (8-40); MCH 25.8 pg (25.7-33.7); MCHC 32.8 g/dl (32.0-35.9); MEAN CELL VOLUME 78.7 fl (80-96); MEAN PLT VOLUME 8.4 fl (7.5-11.1); MONO % 12.2 % (3.8-10.2); NEUT % 52.3 % (42.8-82.8); PLATELET COUNT 93 10^3/uL (134-434); RBC 3.32 M/mm3 (4.00-5.60); RDW 17.5 % (11.9-15.9)
[2024-03-30] MEDS: CLOPIDOGREL BISULFATE 75 MG TABLET (FP) PO SCH (09:56)
[2024-03-30] MEDS: ASPIRIN COATED 81 MG TABLET.EC PO SCH (09:56)
[2024-03-30] MEDS: amLODIPine BESYLATE 5 MG TABLET (FP) PO SCH (09:56)
[2024-03-30] MEDS: sitaGLIPtin PHOSPHATE 50 MG TABLET PO SCH (09:56)
[2024-03-30] MEDS: THIAMINE 100 MG TABLET PO SCH (09:56)
[2024-03-30] MEDS: FOLIC ACID 1 MG TABLET (FP) PO SCH (09:56)
[2024-03-30 10:11] LABS: POTASSIUM 3.9 mmol/L (3.5-5.1)
[2024-03-30 10:17] LABS: CALCIUM 8.9 mg/dL (8.5-10.1)
[2024-03-30 10:18] LABS: ALBUMIN 2.9 g/dl (3.4-5.0); BLOOD UREA NITROGEN 22.6 mg/dL (7-18)
[2024-03-30 10:23] LABS: CREATININE 1.4 mg/dL (0.55-1.3); TOT PROT 7.4 g/dl (6.4-8.2)
[2024-03-30] MEDS: FLU VACCINE (FLULAVAL) PF 45 MCG/0.5 ML SYRINGE 2024-2025 IM ONE (11:02)
[2024-03-30] MEDS: PNEUMOC 20-VAL CONJ-DIP CRM/PF 0.5 ML SYRINGE IM ONE (11:03)
[2024-03-30] MEDS: SUCRALFATE 1 GM TABLET (FP) PO SCH (11:22)
[2024-03-30 14:28] LABS: RETICULOCYTES 1.34 % (0.5-1.5)
[2024-03-30] MEDS: ROSUVASTATIN CA 20 MG TABLET PO SCH (22:01)
[2024-03-31 10:13] LABS: BASO % 1.1 % (0-2.0); EOS % 11.6 % (0-4.5); HEMATOCRIT 29.8 % (35.4-49); HEMOGLOBIN 9.5 GM/dL (11.7-16.9); LYMPH % 25.3 % (8-40); MCH 25.6 pg (25.7-33.7); MCHC 31.9 g/dl (32.0-35.9); MEAN CELL VOLUME 80.2 fl (80-96); MONO % 11.6 % (3.8-10.2); NEUT % 50.4 % (42.8-82.8); PLATELET COUNT 121 10^3/uL (134-434); RBC 3.72 M/mm3 (4.00-5.60); RDW 17.5 % (11.9-15.9); WHITE BLOOD COUNT 3.8 K/mm3 (4.0-10.0)
[2024-03-31 10:17] LABS: INR 1.12 (0.83-1.09); PROTHROMBIN TIME (PATIENT) 12.8 SEC (9.7-13.0)
[2024-03-31 10:31] LABS: POTASSIUM 4.6 mmol/L (3.5-5.1)
[2024-03-31 10:39] LABS: BLOOD UREA NITROGEN 27.8 mg/dL (7-18); CALCIUM 9.1 mg/dL (8.5-10.1); MAGNESIUM 2.1 mg/dL (1.8-2.4)
[2024-03-31 10:41] LABS: CREATININE 1.6 mg/dL (0.55-1.3)
[2024-03-31 10:42] LABS: BILIRUBIN,TOTAL 1.2 mg/dL (0.2-1); PHOSPHOROUS 3.7 mg/dL (2.5-4.9); TOT PROT 8.2 g/dl (6.4-8.2)
[2024-03-31] MEDS: LISINOPRIL 5 MG TABLET PO SCH (12:11)
[2024-03-31] MEDS: EMPAGLIFLOZIN (JARDIANCE) 10 MG TABLET PO SCH (16:05)
[2024-03-31 21:29] VITALS: RESP 18
[2024-04-01 08:53] LABS: BASO % 0.9 % (0-2.0); EOS % 10.5 % (0-4.5); HEMATOCRIT 25.8 % (35.4-49); HEMOGLOBIN 8.2 GM/dL (11.7-16.9); LYMPH % 25.1 % (8-40); MCH 25.5 pg (25.7-33.7); MCHC 31.8 g/dl (32.0-35.9); MEAN CELL VOLUME 80.1 fl (80-96); MEAN PLT VOLUME 8.9 fl (7.5-11.1); MONO % 13.3 % (3.8-10.2); NEUT % 50.2 % (42.8-82.8); PLATELET COUNT 99 10^3/uL (134-434); RBC 3.22 M/mm3 (4.00-5.60); RDW 17.2 % (11.9-15.9); WHITE BLOOD COUNT 2.9 K/mm3 (4.0-10.0)
[2024-04-01 09:16] LABS: POTASSIUM 4.4 mmol/L (3.5-5.1)
[2024-04-01 09:19] LABS: CALCIUM 8.8 mg/dL (8.5-10.1)
[2024-04-01 09:20] LABS: ALBUMIN 2.6 g/dl (3.4-5.0); BLOOD UREA NITROGEN 28.3 mg/dL (7-18)
[2024-04-01 09:23] LABS: CREATININE 1.6 mg/dL (0.55-1.3)
[2024-04-01 09:26] LABS: BILIRUBIN,TOTAL 0.9 mg/dL (0.2-1); TOT PROT 7.1 g/dl (6.4-8.2)
[2024-04-01 14:13] VITALS: BP 127/67; PULSE 66; TEMP 98.6
== END 2024-04-01 16:23 | disposition home or self-care (01) ==
LOC: JER 15:46 → UNDOADMOB 21:25 → INTOOBSV 21:25 → JERBED 21:25 → J5S 03-30 01:15 → JERBED 03-30 10:52
PROVIDERS: ADMIT Internal Medicine; ATTEND Internal Medicine
PROC: 3E023GC Introduction of Other Therapeutic Substance into Muscle, Percutaneous Approach (ICD-10-PCS; principal; 2024-03-30)
DX: I99.8 Other disorder of circulatory system (principal); I11.9 Hypertensive heart disease without heart failure; I12.9 Hypertensive chronic kidney disease with stage 1 through stage 4 chronic kidney disease, or unspecified chronic kidney disease; E11.22 Type 2 diabetes mellitus with diabetic chronic kidney disease; N18.9 Chronic kidney disease, unspecified; I73.9 Peripheral vascular disease, unspecified; G89.29 Other chronic pain; K70.30 Alcoholic cirrhosis of liver without ascites; I77.1 Stricture of artery; R94.5 Abnormal results of liver function studies; Z95.1 Presence of aortocoronary bypass graft; E78.5 Hyperlipidemia, unspecified; Z86.718 Personal history of other venous thrombosis and embolism; Z95.5 Presence of coronary angioplasty implant and graft; Z87.891 Personal history of nicotine dependence; Z86.14 Personal history of Methicillin resistant Staphylococcus aureus infection; E11.621 Type 2 diabetes mellitus with foot ulcer; E11.69 Type 2 diabetes mellitus with other specified complication; M86.671 Other chronic osteomyelitis, right ankle and foot; Z48.812 Encounter for surgical aftercare following surgery on the circulatory system
CPT/HCPCS: 36415; 75635-TC; 80053; 80061; 82728; 82962; 83036; 83540; 83550; 83605; 83735; 84100; 84443; 85025; 85045; 85610; 85730; 86850; 86900; 86901; 93005; 93010; 93922; 93925-TC; 93971; 96372; 97116-GP; 97161-GP; 99285-25; G0378; G0463-25; J1644; Q9967

== ENCOUNTER 2024-04-19 04:11 | Inpatient (IN) | payer OTHER ==
[2024-04-15 09:31] VITALS: BMI 26.4
[2024-04-19] MEDS ORDERED: HEPARIN NA (PORCINE) 5,000 UNITS/ML 1ML VIAL ONE ×3 (10:25→15:57)
[2024-04-19] MEDS ORDERED: POVIDONE-IODINE OINTMENT 10% - 28.4 GM TUBE ONE ×3 (10:25→17:32)
[2024-04-19] MEDS ORDERED: PAPAVERINE HCL 30 MG/1 ML 10 ML VIAL NR ONE (10:57)
[2024-04-19] MEDS: ACETAMINOPHEN 500 MG TABLET (FP) PO ONE (11:20)
[2024-04-19] MEDS ORDERED: ACETAMINOPHEN 500 MG TABLET (FP) ONE (11:24)
[2024-04-19] MEDS ORDERED: oxyCODONE HCL 5 MG TABLET PO PRN (11:57)
[2024-04-19] MEDS ORDERED: PROPOFOL 20 ML ONE ×2 (12:02→18:00)
[2024-04-19] MEDS ORDERED: ROCURONIUM BROMIDE 50 MG/5 ML SYRINGE ONE ×2 (12:03→15:28)
[2024-04-19] MEDS ORDERED: MIDAZOLAM HCL 2 MG/2 ML SINGLE DOSE VIAL ONE (12:03)
[2024-04-19] MEDS: ceFAZolin SODIUM 1 GM VIAL IVPB ONE (13:13)
[2024-04-19] MEDS ORDERED: ONDANSETRON 4 MG/2 ML VIAL ONE (13:20)
[2024-04-19] MEDS ORDERED: DEXAMETHASONE SOD PHOSPHATE 4 MG/1 ML VIAL ONE (13:20)
[2024-04-19] MEDS ORDERED: PROTAMINE SULFATE 50 MG/5 ML VIAL ONE (17:29)
[2024-04-19] MEDS: POVIDONE-IODINE OINTMENT 10% - 28.4 GM TUBE TP ONE (18:00)
[2024-04-19] MEDS ORDERED: ACETAMINOPHEN INJECTION 100 ML ONE (18:48)
[2024-04-19] MEDS: ACETAMINOPHEN 1000 MG/100 ML BAG IVPB SCH (18:51)
[2024-04-19] MEDS: LACTATED RINGERS SOLUTION 1,000 ML IV SCH (19:53)
[2024-04-19] MEDS: CEFAZOLIN 2 GM in DEXTROSE 5%-WATER - 100 ML IVPB ONE (21:26)
[2024-04-19] MEDS: oxyCODONE HCL 5 MG TABLET PO PRN (21:27)
[2024-04-19] MEDS: HEPARIN NA (PORCINE) 5,000 UNITS/ML 1ML VIAL SQ SCH (21:29)
[2024-04-19] MEDS: GABAPENTIN 100 MG CAPSULE PO SCH (21:29)
[2024-04-19] MEDS: ATORVASTATIN CA 80 MG TABLET (FP) PO SCH (21:29)
[2024-04-19] MEDS: CEFAZOLIN 500 MG in DEXTROSE 5%-WATER - 50 ML IVPB SCH (21:30)
[2024-04-19] MEDS: CHLORHEXIDINE GLUCONATE 4% CLEANSER FOR DECOLONIZATION TP SCH (22:54)
[2024-04-20] MEDS: MUPIROCIN 2% TOPICAL OINTMENT FOR DECOLONIZATION NS SCH (01:54)
[2024-04-20] MEDS: morphine SULFATE 4 MG/ML VIAL IVPUSH PRN (02:41)
[2024-04-20 08:22] LABS: BASO % 0.3 % (0-2.0); EOS % 0.4 % (0-4.5); HEMOGLOBIN 7.3 GM/dL (11.7-16.9); LYMPH % 9.8 % (8-40); MCH 24.8 pg (25.7-33.7); MCHC 31.8 g/dl (32.0-35.9); MEAN CELL VOLUME 78.1 fl (80-96); MEAN PLT VOLUME 9.2 fl (7.5-11.1); MONO % 11.5 % (3.8-10.2); PLATELET COUNT 108 10^3/uL (134-434); RBC 2.94 M/mm3 (4.00-5.60); RDW 17.6 % (11.9-15.9); WHITE BLOOD COUNT 5.1 K/mm3 (4.0-10.0)
[2024-04-20] MEDS: FOLIC ACID 1 MG TABLET (FP) PO SCH (09:45)
[2024-04-20] MEDS: PANTOPRAZOLE 40 MG TABLET PO SCH (09:45)
[2024-04-20] MEDS: THIAMINE 100 MG TABLET PO SCH (09:45)
[2024-04-20] MEDS: CYANOCOBALAMIN 1,000 MCG TABLET (FP) PO SCH (09:45)
[2024-04-20] MEDS: ASPIRIN COATED 81 MG TABLET.EC PO SCH (09:45)
[2024-04-20] MEDS: INSULIN ASPART SLIDING SCALE (NOVOLOG) 1 VIAL SQ SCH (11:11)
[2024-04-20] MEDS: hydrALAZINE HCL 20 MG/ML VIAL IVPUSH ONE (12:33)
[2024-04-20] MEDS: amLODIPine BESYLATE 10 MG TABLET (FP) PO SCH (15:30)
[2024-04-20 16:18] LABS: BASO % 0.7 % (0-2.0); EOS % 3.6 % (0-4.5); HEMATOCRIT 24.3 % (35.4-49); HEMOGLOBIN 7.6 GM/dL (11.7-16.9); LYMPH % 12.1 % (8-40); MCH 24.6 pg (25.7-33.7); MCHC 31.1 g/dl (32.0-35.9); MEAN CELL VOLUME 79.1 fl (80-96); MEAN PLT VOLUME 7.9 fl (7.5-11.1); MONO % 13.5 % (3.8-10.2); NEUT % 70.1 % (42.8-82.8); PLATELET COUNT 128 10^3/uL (134-434); RBC 3.07 M/mm3 (4.00-5.60); RDW 18.1 % (11.9-15.9); WHITE BLOOD COUNT 6.1 K/mm3 (4.0-10.0)
[2024-04-20 16:39] LABS: POTASSIUM 4.1 mmol/L (3.5-5.1)
[2024-04-20 16:42] LABS: CALCIUM 8.9 mg/dL (8.5-10.1)
[2024-04-20 16:43] LABS: BLOOD UREA NITROGEN 41.8 mg/dL (7-18)
[2024-04-20 16:46] LABS: CREATININE 2.4 mg/dL (0.55-1.3)
[2024-04-20] MEDS: SODIUM CHLORIDE 500 ML IV STA (18:50)
[2024-04-20] MEDS: SODIUM CHLORIDE 1,000 ML IV SCH (18:50)
[2024-04-20] MEDS ORDERED: CEFAZOLIN 500 MG in DEXTROSE 5%-WATER - 50 ML IVPB SCH (22:00)
[2024-04-21 07:34] LABS: BASO % 1.1 % (0-2.0); EOS % 7.7 % (0-4.5); HEMATOCRIT 21.5 % (35.4-49); LYMPH % 17.7 % (8-40); MEAN CELL VOLUME 78.1 fl (80-96); MEAN PLT VOLUME 8.4 fl (7.5-11.1); MONO % 13.7 % (3.8-10.2); NEUT % 59.8 % (42.8-82.8); PLATELET COUNT 110 10^3/uL (134-434); RBC 2.76 M/mm3 (4.00-5.60); RDW 17.7 % (11.9-15.9)
[2024-04-21 07:51] LABS: POTASSIUM 4.2 mmol/L (3.5-5.1)
[2024-04-21 07:52] LABS: HEMOGLOBIN 6.9 GM/dL (11.7-16.9)
[2024-04-21 07:54] LABS: CALCIUM 8.3 mg/dL (8.5-10.1)
[2024-04-21 07:55] LABS: BLOOD UREA NITROGEN 42.5 mg/dL (7-18)
[2024-04-21 07:58] LABS: CREATININE 2.1 mg/dL (0.55-1.3)
[2024-04-21 09:21] LABS: ALBUMIN 2.9 g/dl (3.4-5.0); MAGNESIUM 2.1 mg/dL (1.8-2.4)
[2024-04-21 09:23] LABS: BILIRUBIN,DIRECT 0.4 mg/dL (0.0-0.2)
[2024-04-21 09:24] LABS: PHOSPHOROUS 3.6 mg/dL (2.5-4.9)
[2024-04-21 09:25] LABS: BILIRUBIN,TOTAL 0.9 mg/dL (0.2-1); TOT PROT 7.3 g/dl (6.4-8.2)
[2024-04-21] MEDS: CLOPIDOGREL BISULFATE 75 MG TABLET (FP) PO SCH (10:15)
[2024-04-21] MEDS: LORazepam 0.5 MG TABLET PO ONE (11:50)
[2024-04-21] MEDS: POLYETHYLENE GLYCOL (HEALTHYLAX) 3350 17 GM PACKET PO SCH (14:44)
[2024-04-21 20:21] LABS: BASO % 0.9 % (0-2.0); EOS % 7.8 % (0-4.5); HEMATOCRIT 24.1 % (35.4-49); HEMOGLOBIN 7.7 GM/dL (11.7-16.9); MCH 25.5 pg (25.7-33.7); MEAN CELL VOLUME 79.5 fl (80-96); MEAN PLT VOLUME 8.3 fl (7.5-11.1); MONO % 15.4 % (3.8-10.2); NEUT % 59.9 % (42.8-82.8); PLATELET COUNT 109 10^3/uL (134-434); RBC 3.03 M/mm3 (4.00-5.60); RDW 17.8 % (11.9-15.9); WHITE BLOOD COUNT 4.5 K/mm3 (4.0-10.0)
[2024-04-21] MEDS: SENNOSIDES 8.6MG TABLET (FP) PO SCH (21:03)
[2024-04-22] MEDS: INSULIN ASPART SLIDING SCALE (NOVOLOG) 1 VIAL SQ SCH (06:54)
[2024-04-22] MEDS: PANTOPRAZOLE 40 MG TABLET PO SCH (06:57)
[2024-04-22 07:14] LABS: HEMATOCRIT 26.2 % (35.4-49); HEMOGLOBIN 8.4 GM/dL (11.7-16.9); MCH 25.7 pg (25.7-33.7); MCHC 32.1 g/dl (32.0-35.9); MEAN PLT VOLUME 8.4 fl (7.5-11.1); PLATELET COUNT 108 10^3/uL (134-434); RBC 3.27 M/mm3 (4.00-5.60); RDW 17.1 % (11.9-15.9); WHITE BLOOD COUNT 5.8 K/mm3 (4.0-10.0)
[2024-04-22 07:31] LABS: POTASSIUM 4.5 mmol/L (3.5-5.1)
[2024-04-22 07:33] LABS: CALCIUM 8.6 mg/dL (8.5-10.1)
[2024-04-22 07:34] LABS: BLOOD UREA NITROGEN 43.4 mg/dL (7-18)
[2024-04-22 07:37] LABS: CREATININE 2.1 mg/dL (0.55-1.3)
[2024-04-22 07:38] LABS: BILIRUBIN,TOTAL 1.3 mg/dL (0.2-1); TOT PROT 7.6 g/dl (6.4-8.2)
[2024-04-22] MEDS: FOLIC ACID 1 MG TABLET (FP) PO SCH (09:41)
[2024-04-22] MEDS: CLOPIDOGREL BISULFATE 75 MG TABLET (FP) PO SCH (09:41)
[2024-04-22] MEDS: CYANOCOBALAMIN 1,000 MCG TABLET (FP) PO SCH (09:41)
[2024-04-22] MEDS: HEPARIN NA (PORCINE) 5,000 UNITS/ML 1ML VIAL SQ SCH (09:42)
[2024-04-22] MEDS: LOSARTAN POTASSIUM 25 MG TABLET PO SCH (09:42)
[2024-04-22] MEDS: ASPIRIN COATED 81 MG TABLET.EC PO SCH (09:42)
[2024-04-22] MEDS: amLODIPine BESYLATE 10 MG TABLET (FP) PO SCH (09:42)
[2024-04-22] MEDS: THIAMINE 100 MG TABLET PO SCH (09:42)
[2024-04-22] MEDS: oxyCODONE HCL 5 MG TABLET PO PRN (09:43)
[2024-04-22] MEDS ORDERED: MUPIROCIN 2% TOPICAL OINTMENT FOR DECOLONIZATION NS SCH (10:00)
[2024-04-22] MEDS: ALBUTEROL SO4 2.5/IPRATROPIUM 0.5 INH SOL 3 ML VIAL.NEB. NEB ONE (11:38)
[2024-04-22] MEDS: LACTATED RINGERS SOLUTION 1,000 ML/1,000 ML INFUS.BAG IV SCH (12:17)
[2024-04-22] MEDS: GABAPENTIN 100 MG CAPSULE PO SCH (14:28)
[2024-04-22] MEDS: POLYETHYLENE GLYCOL (HEALTHYLAX) 3350 17 GM PACKET PO SCH (14:29)
[2024-04-22] MEDS ORDERED: ACETAMINOPHEN 1000 MG/100 ML BAG IVPB PRN ×2 (17:47→17:48)
[2024-04-22] MEDS: FLUTICASONE/SALMETEROL (WIXELA) 100 MCG/50 MCG DISKUS IH SCH (21:38)
[2024-04-22] MEDS: SENNOSIDES 8.6MG TABLET (FP) PO SCH (21:38)
[2024-04-22] MEDS: ATORVASTATIN CA 80 MG TABLET (FP) PO SCH (21:39)
[2024-04-22] MEDS ORDERED: CHLORHEXIDINE GLUCONATE 4% CLEANSER FOR DECOLONIZATION TP SCH (22:00)
[2024-04-23 08:37] LABS: BASO % 0.9 % (0-2.0); HEMATOCRIT 23.2 % (35.4-49); HEMOGLOBIN 7.5 GM/dL (11.7-16.9); LYMPH % 17.7 % (8-40); MCH 25.4 pg (25.7-33.7); MCHC 32.3 g/dl (32.0-35.9); MEAN CELL VOLUME 78.6 fl (80-96); MEAN PLT VOLUME 8.7 fl (7.5-11.1); MONO % 16.6 % (3.8-10.2); NEUT % 54.8 % (42.8-82.8); PLATELET COUNT 94 10^3/uL (134-434); RBC 2.95 M/mm3 (4.00-5.60); RDW 17.5 % (11.9-15.9); WHITE BLOOD COUNT 3.8 K/mm3 (4.0-10.0)
[2024-04-23 08:58] LABS: POTASSIUM 4.5 mmol/L (3.5-5.1)
[2024-04-23 09:01] LABS: CALCIUM 8.4 mg/dL (8.5-10.1)
[2024-04-23 09:02] LABS: ALBUMIN 2.7 g/dl (3.4-5.0); BLOOD UREA NITROGEN 43.6 mg/dL (7-18); MAGNESIUM 2.1 mg/dL (1.8-2.4)
[2024-04-23 09:05] LABS: CREATININE 2.3 mg/dL (0.55-1.3)
[2024-04-23 09:06] LABS: TOT PROT 7.1 g/dl (6.4-8.2)
[2024-04-23] MEDS ORDERED: LACTATED RINGERS SOLUTION 1,000 ML/1,000 ML INFUS.BAG IV SCH (13:19)
[2024-04-23] MEDS: FUROSEMIDE 40 MG/4 ML INJECTABLE VIAL IVPUSH ONE (14:54)
[2024-04-24 10:07] LABS: BASO % 0.7 % (0-2.0); EOS % 9.3 % (0-4.5); HEMATOCRIT 23.3 % (35.4-49); HEMOGLOBIN 7.6 GM/dL (11.7-16.9); LYMPH % 17.4 % (8-40); MCH 25.5 pg (25.7-33.7); MCHC 32.5 g/dl (32.0-35.9); MEAN CELL VOLUME 78.5 fl (80-96); MEAN PLT VOLUME 8.5 fl (7.5-11.1); NEUT % 55.6 % (42.8-82.8); PLATELET COUNT 96 10^3/uL (134-434); RBC 2.97 M/mm3 (4.00-5.60); RDW 18.1 % (11.9-15.9); WHITE BLOOD COUNT 3.3 K/mm3 (4.0-10.0)
[2024-04-24 10:24] LABS: IRON SERUM 23 ug/dL (50-175); TOTAL IRON BINDING CAPACITY 372 ug/dL (250-450)
[2024-04-24 10:38] LABS: POTASSIUM 4.2 mmol/L (3.5-5.1)
[2024-04-24 10:44] LABS: ALBUMIN 2.7 g/dl (3.4-5.0); BLOOD UREA NITROGEN 42.3 mg/dL (7-18); CALCIUM 8.9 mg/dL (8.5-10.1); MAGNESIUM 2.3 mg/dL (1.8-2.4)
[2024-04-24 10:48] LABS: CREATININE 2.1 mg/dL (0.55-1.3)
[2024-04-24 10:49] LABS: BILIRUBIN,TOTAL 1.2 mg/dL (0.2-1)
[2024-04-24] MEDS: FUROSEMIDE 20 MG TABLET (FP) PO SCH (11:44)
[2024-04-24] MEDS: IRON SUCROSE INJECTION 100 MG in SODIUM CHLORIDE 95 ML IVPB ONE (15:38)
[2024-04-24] MEDS: ALBUTEROL SO4 2.5/IPRATROPIUM 0.5 INH SOL 3 ML VIAL.NEB. NEB PRN (18:49)
[2024-04-25 09:43] LABS: BASO % 0.8 % (0-2.0); EOS % 8.7 % (0-4.5); HEMATOCRIT 24.6 % (35.4-49); HEMOGLOBIN 7.8 GM/dL (11.7-16.9); LYMPH % 17.4 % (8-40); MCH 25.3 pg (25.7-33.7); MCHC 31.8 g/dl (32.0-35.9); MEAN CELL VOLUME 79.4 fl (80-96); MEAN PLT VOLUME 8.8 fl (7.5-11.1); MONO % 16.1 % (3.8-10.2); PLATELET COUNT 118 10^3/uL (134-434); RDW 18.2 % (11.9-15.9); WHITE BLOOD COUNT 4.6 K/mm3 (4.0-10.0)
[2024-04-25 10:09] LABS: POTASSIUM 4.1 mmol/L (3.5-5.1)
[2024-04-25 10:26] LABS: BLOOD UREA NITROGEN 38.9 mg/dL (7-18); CALCIUM 8.9 mg/dL (8.5-10.1)
[2024-04-25 10:27] LABS: ALBUMIN 2.8 g/dl (3.4-5.0); MAGNESIUM 2.4 mg/dL (1.8-2.4)
[2024-04-25 10:30] LABS: CREATININE 2.2 mg/dL (0.55-1.3)
[2024-04-25 10:31] LABS: TOT PROT 7.2 g/dl (6.4-8.2)
[2024-04-25 10:33] LABS: BILIRUBIN,TOTAL 1.2 mg/dL (0.2-1)
[2024-04-25] MEDS: IRON SUCROSE INJECTION 100 MG in SODIUM CHLORIDE 95 ML IVPB ONE (14:51)
[2024-04-26 04:25] VITALS: RESP 18
[2024-04-26 09:18] LABS: BASO % 1.2 % (0-2.0); EOS % 10.7 % (0-4.5); HEMATOCRIT 24.6 % (35.4-49); HEMOGLOBIN 7.9 GM/dL (11.7-16.9); LYMPH % 18.6 % (8-40); MCH 25.3 pg (25.7-33.7); MEAN CELL VOLUME 79.1 fl (80-96); MEAN PLT VOLUME 8.6 fl (7.5-11.1); MONO % 15.6 % (3.8-10.2); NEUT % 53.9 % (42.8-82.8); PLATELET COUNT 114 10^3/uL (134-434); RBC 3.12 M/mm3 (4.00-5.60); RDW 18.7 % (11.9-15.9); WHITE BLOOD COUNT 4.5 K/mm3 (4.0-10.0)
[2024-04-26] MEDS: TAMSULOSIN HCL 0.4 MG CAP PO SCH (09:58)
[2024-04-26 10:30] LABS: POTASSIUM 4.3 mmol/L (3.5-5.1)
[2024-04-26 10:37] LABS: ALBUMIN 2.8 g/dl (3.4-5.0); BLOOD UREA NITROGEN 36.7 mg/dL (7-18); MAGNESIUM 2.3 mg/dL (1.8-2.4)
[2024-04-26 10:41] LABS: CREATININE 2.1 mg/dL (0.55-1.3)
[2024-04-26 10:42] LABS: BILIRUBIN,TOTAL 1.4 mg/dL (0.2-1)
[2024-04-26 10:43] LABS: TOT PROT 7.2 g/dl (6.4-8.2)
[2024-04-26] MEDS ORDERED: FUROSEMIDE 40 MG TABLET (FP) PO SCH (13:23)
[2024-04-26] MEDS: FUROSEMIDE 40 MG/4 ML INJECTABLE VIAL IVPUSH SCH (13:54)
[2024-04-26] MEDS ORDERED: DEXTROSE 5%-LACTATED RINGERS 1,000 ML IV SCH (19:30)
[2024-04-27 08:49] LABS: BASO % 0.8 % (0-2.0); EOS % 8.3 % (0-4.5); HEMATOCRIT 23.5 % (35.4-49); HEMOGLOBIN 7.6 GM/dL (11.7-16.9); LYMPH % 15.3 % (8-40); MCH 25.8 pg (25.7-33.7); MCHC 32.4 g/dl (32.0-35.9); MEAN CELL VOLUME 79.7 fl (80-96); MEAN PLT VOLUME 8.8 fl (7.5-11.1); MONO % 12.5 % (3.8-10.2); NEUT % 63.1 % (42.8-82.8); PLATELET COUNT 100 10^3/uL (134-434); RBC 2.95 M/mm3 (4.00-5.60); RDW 18.3 % (11.9-15.9); WHITE BLOOD COUNT 3.9 K/mm3 (4.0-10.0)
[2024-04-27 08:51] LABS: HEMATOCRIT 24.1 % (35.4-49); HEMOGLOBIN 7.6 GM/dL (11.7-16.9); MCH 25.3 pg (25.7-33.7); MCHC 31.6 g/dl (32.0-35.9); MEAN CELL VOLUME 79.8 fl (80-96); MEAN PLT VOLUME 8.8 fl (7.5-11.1); PLATELET COUNT 100 10^3/uL (134-434); RBC 3.01 M/mm3 (4.00-5.60); RDW 18.3 % (11.9-15.9); WHITE BLOOD COUNT 3.9 K/mm3 (4.0-10.0)
[2024-04-27 09:08] LABS: POTASSIUM 3.9 mmol/L (3.5-5.1)
[2024-04-27 09:13] LABS: ALBUMIN 2.8 g/dl (3.4-5.0); BLOOD UREA NITROGEN 41.1 mg/dL (7-18); MAGNESIUM 2.4 mg/dL (1.8-2.4)
[2024-04-27 09:16] LABS: CREATININE 2.4 mg/dL (0.55-1.3)
[2024-04-27 09:17] LABS: BILIRUBIN,TOTAL 1.3 mg/dL (0.2-1); PHOSPHOROUS 4.3 mg/dL (2.5-4.9); TOT PROT 7.2 g/dl (6.4-8.2)
[2024-04-28 09:24] LABS: HEMATOCRIT 23.3 % (35.4-49); HEMOGLOBIN 7.5 GM/dL (11.7-16.9); MCH 25.5 pg (25.7-33.7); MCHC 32.2 g/dl (32.0-35.9); MEAN CELL VOLUME 79.2 fl (80-96); PLATELET COUNT 100 10^3/uL (134-434); RBC 2.94 M/mm3 (4.00-5.60); RDW 18.4 % (11.9-15.9); WHITE BLOOD COUNT 3.4 K/mm3 (4.0-10.0)
[2024-04-28 09:40] LABS: POTASSIUM 3.9 mmol/L (3.5-5.1)
[2024-04-28 10:00] LABS: BLOOD UREA NITROGEN 42.1 mg/dL (7-18)
[2024-04-28 10:01] LABS: CALCIUM 8.9 mg/dL (8.5-10.1)
[2024-04-28 10:02] LABS: CREATININE 2.4 mg/dL (0.55-1.3); MAGNESIUM 2.3 mg/dL (1.8-2.4)
[2024-04-28 10:03] LABS: PHOSPHOROUS 4.3 mg/dL (2.5-4.9)
[2024-04-28] MEDS ORDERED: ACETAMINOPHEN 1000 MG/100 ML BAG IVPB PRN ×2 (11:54)
[2024-04-28] MEDS ORDERED: HYDROmorphone HCL CARPU-JECT 2 MG/1 ML DISP.SYRIN IVPUSH PRN (12:29)
[2024-04-28] MEDS: ACETAMINOPHEN 500 MG TABLET (FP) PO PRN (14:15)
[2024-04-28] MEDS: METOLAZONE 5 MG TABLET PO ONE (14:15)
[2024-04-28 14:56] VITALS: BP 114/72; PULSE 101; TEMP 97.8
== END 2024-04-28 17:55 | DRG 253 ==
LOC: J2C 04:11 → JICU 20:21 → J8W 04-22 06:17
PROVIDERS: ADMIT Surgery; ATTEND Internal Medicine
PROC: 041 Lower Arteries, Bypass (ICD-10-PCS; 2024-04-19)
PROC: 06BQ4ZZ Excision of Left Saphenous Vein, Percutaneous Endoscopic Approach (ICD-10-PCS; 2024-04-19)
PROC: B41DZZZ Fluoroscopy of Aorta and Bilateral Lower Extremity Arteries (ICD-10-PCS; 2024-04-19)
PROC: 041 Lower Arteries, Bypass (ICD-10-PCS; principal; 2024-04-19 12:30)
PROC: 30233N1 Transfusion of Nonautologous Red Blood Cells into Peripheral Vein, Percutaneous Approach (ICD-10-PCS; 2024-04-21)
DX: E11.51 Type 2 diabetes mellitus with diabetic peripheral angiopathy without gangrene (principal); N17.9 Acute kidney failure, unspecified; I25.10 Atherosclerotic heart disease of native coronary artery without angina pectoris; I11.9 Hypertensive heart disease without heart failure; I70.201 Unspecified atherosclerosis of native arteries of extremities, right leg; F10.20 Alcohol dependence, uncomplicated; I77.9 Disorder of arteries and arterioles, unspecified; E78.5 Hyperlipidemia, unspecified; K21.9 Gastro-esophageal reflux disease without esophagitis; J44.9 Chronic obstructive pulmonary disease, unspecified; K70.30 Alcoholic cirrhosis of liver without ascites; E11.40 Type 2 diabetes mellitus with diabetic neuropathy, unspecified; D64.9 Anemia, unspecified; E87.70 Fluid overload, unspecified; R60.1 Generalized edema; W44.F3XA Food entering into or through a natural orifice, initial encounter; T17.928A Food in respiratory tract, part unspecified causing other injury, initial encounter; Y93.9 Activity, unspecified; Y92.89 Other specified places as the place of occurrence of the external cause; Y99.9 Unspecified external cause status
CPT/HCPCS: 0241U-QW; 36415; 36430; 70450-TC; 71045-TC-FY; 76000-TC-FY; 76870-TC; 80048; 80053; 80076; 82962; 83036; 83540; 83550; 83735; 84100; 85025; 85027; 86850; 86900; 86901; 86922; 87635; 93005; 93010; 94010; 94640; 94760; 97116-GP; 97162-GP; J0131; J1644; J1756; P9058

== ENCOUNTER 2024-05-11 10:07 | Observation (INO) | payer OTHER ==
[2024-05-11 10:25] VITALS: BMI 23.3
[2024-05-11 12:18] LABS: VENOUS BASE EXCESS -1.5 mmol/L (-2-2); VENOUS O2 SATURATION 44.2 % (70-80); VENOUS PCO2 38.8 mmHg (38-52); VENOUS PH 7.395 (7.310-7.410)
[2024-05-11 12:39] LABS: POTASSIUM 5.1 mmol/L (3.5-5.1)
[2024-05-11 12:41] LABS: CALCIUM 8.9 mg/dL (8.5-10.1)
[2024-05-11 12:42] LABS: BASO % 0.9 % (0-2.0); BLOOD UREA NITROGEN 34.7 mg/dL (7-18); EOS % 4.8 % (0-4.5); HEMATOCRIT 25.9 % (35.4-49); HEMOGLOBIN 8.4 GM/dL (11.7-16.9); LYMPH % 11.7 % (8-40); MAGNESIUM 3.5 mg/dL (1.8-2.4); MCHC 32.3 g/dl (32.0-35.9); MEAN CELL VOLUME 80.3 fl (80-96); MEAN PLT VOLUME 8.3 fl (7.5-11.1); MONO % 15.1 % (3.8-10.2); NEUT % 67.5 % (42.8-82.8); PLATELET COUNT 133 10^3/uL (134-434); RBC 3.22 M/mm3 (4.00-5.60); RDW 20.8 % (11.9-15.9); WHITE BLOOD COUNT 3.4 K/mm3 (4.0-10.0)
[2024-05-11 12:45] LABS: CREATININE 2.2 mg/dL (0.55-1.3)
[2024-05-11 12:46] LABS: BILIRUBIN,TOTAL 1.4 mg/dL (0.2-1)
[2024-05-11 12:49] LABS: PHOSPHOROUS 3.8 mg/dL (2.5-4.9)
[2024-05-11 13:40] LABS: ANISOCYTOSIS 2+; MACROCYTOSIS 0
[2024-05-11] MEDS: FUROSEMIDE 40 MG/4 ML INJECTABLE VIAL IVPUSH SCH (17:56)
[2024-05-11] MEDS: ACETAMINOPHEN 500 MG TABLET (FP) PO PRN (17:57)
[2024-05-11] MEDS: HYDROmorphone HCL CARPU-JECT 2 MG/1 ML DISP.SYRIN IVPUSH PRN (17:57)
[2024-05-11] MEDS: HEPARIN NA (PORCINE) 5,000 UNITS/ML 1ML VIAL SQ SCH (21:27)
[2024-05-11] MEDS: ATORVASTATIN CA 80 MG TABLET (FP) PO SCH (21:27)
[2024-05-11] MEDS: GABAPENTIN 100 MG CAPSULE PO SCH (21:27)
[2024-05-11] MEDS: POLYETHYLENE GLYCOL (HEALTHYLAX) 3350 17 GM PACKET PO SCH (21:27)
[2024-05-11] MEDS: INSULIN ASPART SLIDING SCALE (NOVOLOG) 1 VIAL SQ SCH (21:27)
[2024-05-11] MEDS: LATANOPROST 0.005% OPHTH SOLN 2.5ML BOTTLE OU SCH (22:08)
[2024-05-12 08:04] LABS: BASO % 1.2 % (0-2.0); EOS % 6.4 % (0-4.5); HEMATOCRIT 25.6 % (35.4-49); HEMOGLOBIN 8.2 GM/dL (11.7-16.9); LYMPH % 12.6 % (8-40); MCH 26.1 pg (25.7-33.7); MCHC 32.1 g/dl (32.0-35.9); MEAN CELL VOLUME 81.4 fl (80-96); MEAN PLT VOLUME 8.2 fl (7.5-11.1); MONO % 15.7 % (3.8-10.2); NEUT % 64.1 % (42.8-82.8); PLATELET COUNT 136 10^3/uL (134-434); RBC 3.14 M/mm3 (4.00-5.60); RDW 21.5 % (11.9-15.9); WHITE BLOOD COUNT 3.4 K/mm3 (4.0-10.0)
[2024-05-12 08:09] LABS: POTASSIUM 4.6 mmol/L (3.5-5.1)
[2024-05-12 08:19] LABS: ALBUMIN 3.1 g/dl (3.4-5.0)
[2024-05-12 08:20] LABS: CALCIUM 8.6 mg/dL (8.5-10.1); MAGNESIUM 3.3 mg/dL (1.8-2.4)
[2024-05-12 08:22] LABS: CREATININE 2.2 mg/dL (0.55-1.3)
[2024-05-12 08:24] LABS: BILIRUBIN,TOTAL 1.6 mg/dL (0.2-1); TOT PROT 7.8 g/dl (6.4-8.2)
[2024-05-12] MEDS: THIAMINE 100 MG TABLET PO SCH (10:16)
[2024-05-12] MEDS: FOLIC ACID 1 MG TABLET (FP) PO SCH (10:16)
[2024-05-12] MEDS: ASPIRIN COATED 81 MG TABLET.EC PO SCH (10:16)
[2024-05-12] MEDS: CLOPIDOGREL BISULFATE 75 MG TABLET (FP) PO SCH (10:17)
[2024-05-12] MEDS: PANTOPRAZOLE 40 MG TABLET PO SCH (10:17)
[2024-05-12] MEDS: CYANOCOBALAMIN 1,000 MCG TABLET (FP) PO SCH (10:17)
[2024-05-12] MEDS: TAMSULOSIN HCL 0.4 MG CAP PO SCH (10:17)
[2024-05-12] MEDS: LOSARTAN POTASSIUM 25 MG TABLET PO SCH (10:17)
[2024-05-12] MEDS: metoPROLOL SUCCINATE 25 MG TAB.SR.24H (FP) PO SCH (10:18)
[2024-05-12] MEDS: LIDOCAINE 5% TOPICAL PATCH TP SCH (19:22)
[2024-05-12] MEDS: MELATONIN 5 MG TABLETS PO ONE (22:12)
[2024-05-12] MEDS: LIDOCAINE PATCH REMOVAL MC SCH (22:32)
[2024-05-13] MEDS: FUROSEMIDE 40 MG/4 ML INJECTABLE VIAL IVPUSH SCH (06:36)
[2024-05-13 09:49] LABS: BASO % 0.7 % (0-2.0); EOS % 4.8 % (0-4.5); HEMATOCRIT 22.8 % (35.4-49); HEMOGLOBIN 7.4 GM/dL (11.7-16.9); LYMPH % 14.2 % (8-40); MCHC 32.4 g/dl (32.0-35.9); MEAN CELL VOLUME 80.3 fl (80-96); MEAN PLT VOLUME 8.2 fl (7.5-11.1); MONO % 16.6 % (3.8-10.2); NEUT % 63.7 % (42.8-82.8); PLATELET COUNT 89 10^3/uL (134-434); RBC 2.84 M/mm3 (4.00-5.60); RDW 21.2 % (11.9-15.9); WHITE BLOOD COUNT 2.6 K/mm3 (4.0-10.0)
[2024-05-13 10:10] LABS: POTASSIUM 4.4 mmol/L (3.5-5.1)
[2024-05-13 10:11] LABS: CALCIUM 8.6 mg/dL (8.5-10.1)
[2024-05-13 10:12] LABS: ALBUMIN 2.8 g/dl (3.4-5.0); MAGNESIUM 2.9 mg/dL (1.8-2.4)
[2024-05-13 10:15] LABS: CREATININE 2.5 mg/dL (0.55-1.3)
[2024-05-13 10:16] LABS: BILIRUBIN,TOTAL 1.2 mg/dL (0.2-1); TOT PROT 7.2 g/dl (6.4-8.2)
[2024-05-13 10:20] LABS: N-TERMINAL BNP 11426.8 pg/ml (5-450)
[2024-05-13] MEDS: SACUBITRIL/VALSARTAN 24 MG-26 MG TABLET PO SCH (22:35)
[2024-05-13] MEDS: BETAMETHASONE VALERATE 0.1% CREAM 15 GM TUBE TP SCH (22:37)
[2024-05-14 05:28] LABS: ARTERIAL BLD GAS O2 SATURATION 82.7 % (95-98); ARTERIAL BLOOD GAS PO2 46.6 mmHg (80-100); ARTERIAL BLOOD GAS pH 7.399 (7.350-7.450)
[2024-05-14] MEDS: ALBUTEROL SO4 2.5/IPRATROPIUM 0.5 INH SOL 3 ML VIAL.NEB. NEB PRN (05:30)
[2024-05-14 05:31] LABS: ALLENS TEST POSITIVE
[2024-05-14 08:36] LABS: BASO % 0.9 % (0-2.0); EOS % 6.8 % (0-4.5); HEMATOCRIT 23.9 % (35.4-49); HEMOGLOBIN 7.7 GM/dL (11.7-16.9); LYMPH % 14.1 % (8-40); MCH 26.4 pg (25.7-33.7); MCHC 32.2 g/dl (32.0-35.9); MEAN CELL VOLUME 81.9 fl (80-96); MEAN PLT VOLUME 8.2 fl (7.5-11.1); MONO % 15.7 % (3.8-10.2); NEUT % 62.5 % (42.8-82.8); PLATELET COUNT 95 10^3/uL (134-434); RBC 2.92 M/mm3 (4.00-5.60); RDW 21.6 % (11.9-15.9); WHITE BLOOD COUNT 2.6 K/mm3 (4.0-10.0)
[2024-05-14 08:55] LABS: POTASSIUM 4.4 mmol/L (3.5-5.1)
[2024-05-14 08:58] LABS: BLOOD UREA NITROGEN 39.7 mg/dL (7-18); CALCIUM 8.6 mg/dL (8.5-10.1); MAGNESIUM 2.9 mg/dL (1.8-2.4)
[2024-05-14 09:02] LABS: CREATININE 2.5 mg/dL (0.55-1.3)
[2024-05-14 09:03] LABS: BILIRUBIN,TOTAL 1.6 mg/dL (0.2-1); TOT PROT 7.7 g/dl (6.4-8.2)
[2024-05-14 13:10] LABS: N-TERMINAL BNP 5759.7 pg/ml (5-450)
[2024-05-14] MEDS: LORazepam 2 MG/ML SDV VIAL IVPUSH ONE (23:28)
[2024-05-15 08:24] LABS: HEMATOCRIT 23.5 % (35.4-49); HEMOGLOBIN 7.6 GM/dL (11.7-16.9); MCH 26.6 pg (25.7-33.7); MCHC 32.3 g/dl (32.0-35.9); MEAN CELL VOLUME 82.3 fl (80-96); MEAN PLT VOLUME 8.6 fl (7.5-11.1); PLATELET COUNT 79 10^3/uL (134-434); RBC 2.85 M/mm3 (4.00-5.60); RDW 21.9 % (11.9-15.9)
[2024-05-15 08:28] LABS: WHITE BLOOD COUNT 1.8 K/mm3 (4.0-10.0)
[2024-05-15 08:31] LABS: POTASSIUM 4.1 mmol/L (3.5-5.1)
[2024-05-15 08:36] LABS: CALCIUM 8.6 mg/dL (8.5-10.1)
[2024-05-15 08:37] LABS: ALBUMIN 2.6 g/dl (3.4-5.0); BLOOD UREA NITROGEN 36.6 mg/dL (7-18); MAGNESIUM 2.5 mg/dL (1.8-2.4)
[2024-05-15 08:40] LABS: CREATININE 2.3 mg/dL (0.55-1.3)
[2024-05-15 08:41] LABS: BILIRUBIN,TOTAL 1.2 mg/dL (0.2-1); TOT PROT 6.7 g/dl (6.4-8.2)
[2024-05-15 09:44] LABS: ANISOCYTOSIS 0; MACROCYTOSIS 0
[2024-05-15] MEDS: IRON SUCROSE INJECTION 200 MG in SODIUM CHLORIDE 100 ML IVPB ONE ×2 (18:10→19:02)
[2024-05-15] MEDS: HEPARIN NA (PORCINE) 5,000 UNITS/ML 1ML VIAL SQ SCH (22:29)
[2024-05-16 12:26] LABS: BASO % 1.5 % (0-2.0); EOS % 9.2 % (0-4.5); HEMATOCRIT 27.6 % (35.4-49); HEMOGLOBIN 8.8 GM/dL (11.7-16.9); LYMPH % 11.3 % (8-40); MCH 26.2 pg (25.7-33.7); MCHC 31.7 g/dl (32.0-35.9); MEAN CELL VOLUME 82.6 fl (80-96); MEAN PLT VOLUME 8.5 fl (7.5-11.1); MONO % 15.4 % (3.8-10.2); NEUT % 62.6 % (42.8-82.8); PLATELET COUNT 118 10^3/uL (134-434); RBC 3.34 M/mm3 (4.00-5.60); WHITE BLOOD COUNT 2.6 K/mm3 (4.0-10.0)
[2024-05-16 12:29] LABS: INR 1.25 (0.83-1.09); PROTHROMBIN TIME (PATIENT) 13.7 SEC (9.7-13.0)
[2024-05-16 12:43] LABS: POTASSIUM 3.6 mmol/L (3.5-5.1)
[2024-05-16 12:44] LABS: CALCIUM 9.2 mg/dL (8.5-10.1)
[2024-05-16 12:45] LABS: BLOOD UREA NITROGEN 27.7 mg/dL (7-18)
[2024-05-16 18:49] VITALS: RESP 17
[2024-05-16 20:36] VITALS: BP 107/60; PULSE 78; TEMP 98.1
[2024-05-17] MEDS ORDERED: IRON SUCROSE INJECTION 200 MG in SODIUM CHLORIDE 100 ML IVPB SCH (10:00)
== END 2024-05-16 20:35 ==
LOC: JER 10:07 → JERBED 13:47 → UNDOADMOB 13:47 → OBSVTOIN 15:43 → INTOOBSV 15:43 → J4S 16:55 → JERBED 16:55 → J4S 05-12 14:40
PROVIDERS: ADMIT Internal Medicine
PROC: 3E033NZ Introduction of Analgesics, Hypnotics, Sedatives into Peripheral Vein, Percutaneous Approach (ICD-10-PCS; principal; 2024-05-12)
PROC: 3E0F7GC Introduction of Other Therapeutic Substance into Respiratory Tract, Via Natural or Artificial Opening (ICD-10-PCS; 2024-05-12)
PROC: 3E033GC Introduction of Other Therapeutic Substance into Peripheral Vein, Percutaneous Approach (ICD-10-PCS; 2024-05-12)
DX: R41.82 Altered mental status, unspecified (principal); I11.0 Hypertensive heart disease with heart failure; I12.0 Hypertensive chronic kidney disease with stage 5 chronic kidney disease or end stage renal disease; N18.6 End stage renal disease; E11.22 Type 2 diabetes mellitus with diabetic chronic kidney disease; Z99.2 Dependence on renal dialysis; E78.5 Hyperlipidemia, unspecified; I25.2 Old myocardial infarction; E66.9 Obesity, unspecified; I50.9 Heart failure, unspecified; Z95.1 Presence of aortocoronary bypass graft; Z87.891 Personal history of nicotine dependence; D64.9 Anemia, unspecified; J44.9 Chronic obstructive pulmonary disease, unspecified; I73.9 Peripheral vascular disease, unspecified; Z86.16 Personal history of COVID-19; K70.30 Alcoholic cirrhosis of liver without ascites; Z86.718 Personal history of other venous thrombosis and embolism; R79.89 Other specified abnormal findings of blood chemistry
CPT/HCPCS: 0241U-QW; 36415; 36600; 70450-TC; 71045-TC-FY; 76775-TC; 80048; 80053; 82140; 82803; 82962; 83735; 83880; 84100; 84155; 84165; 84443; 84484; 85025; 85045; 85610; 86022; 86787; 87040; 87635; 93005; 93010; 93306-TC; 94640; 96365; 96366; 96375; 96376; 97116-GP; 97161-GP; 99285-25; G0378; J1644; J1756

== ENCOUNTER 2024-07-08 16:22 | Observation (INO) | payer OTHER ==
[2024-07-08] MEDS ORDERED: ACETAMINOPHEN INJECTION 100 ML ONE (17:32)
[2024-07-08] MEDS: ACETAMINOPHEN 1000 MG/100 ML BAG IVPB ONE (17:48)
[2024-07-08 18:04] LABS: HEMATOCRIT 26.2 % (40.1-51.0); HEMOGLOBIN 8.6 g/dL (13.7-17.5); MCHC 32.8 g/dl (32.3-36.5); MEAN PLT VOLUME 11.6 fl (9.4-12.4); PLATELET COUNT 90 x10^3/uL (163-337)
[2024-07-08 18:17] LABS: INR 1.09 (0.83-1.09)
[2024-07-08 18:20] LABS: ACTIVATED PTT 29.6 SECONDS (25.2-36.5)
[2024-07-08 18:21] LABS: CALCIUM 9.1 mg/dL (8.5-10.1)
[2024-07-08 18:25] LABS: CREATININE 2.4 mg/dL (0.55-1.3)
[2024-07-08 18:26] LABS: BILIRUBIN,TOTAL 0.8 mg/dL (0.2-1)
[2024-07-08 19:20] LABS: URINE APPEARANCE CLEAR; URINE BILIRUBIN NEGATIVE (NEGATIVE); URINE COLOR YELLOW; URINE GLUCOSE (UA) NEGATIVE (NEGATIVE); URINE KETONE NEGATIVE (NEGATIVE); URINE LEUK ESTERASE NEGATIVE (NEGATIVE); URINE NITRITE NEGATIVE (NEGATIVE); URINE PROTEIN NEGATIVE (NEGATIVE); URINE UROBILINOGEN 0.2 mg/dL (0.2-1.0)
[2024-07-08] MEDS: SODIUM CHLORIDE 0.9% 500 ML INFUS.BAG IV ONE (19:27)
[2024-07-08 22:48] LABS: Reticulocyte % 3.24 % (0.51-1.81)
[2024-07-08 23:59] VITALS: BMI 25.0
[2024-07-09] MEDS: SODIUM CHLORIDE 1,000 ML IV SCH (01:56)
[2024-07-09] MEDS: GABAPENTIN 100 MG CAPSULE PO SCH (06:18)
[2024-07-09] MEDS: INSULIN ASPART SLIDING SCALE (NOVOLOG) 1 VIAL SQ SCH (06:18)
[2024-07-09 08:30] LABS: HEMATOCRIT 24.2 % (40.1-51.0); HEMOGLOBIN 7.8 g/dL (13.7-17.5); MCHC 32.2 g/dl (32.3-36.5); MEAN CELL VOLUME 89.3 fl (79.0-92.2); MEAN PLT VOLUME 11.1 fl (9.4-12.4); PLATELET COUNT 76 x10^3/uL (163-337); RDW 17.7 % (12.2-16.6)
[2024-07-09 08:48] LABS: POTASSIUM 3.6 mmol/L (3.5-5.1)
[2024-07-09] MEDS ORDERED: MAGNESIUM HYDROX 2400MG/30ML ORAL SUSPENSION 30 ML CUP PO PRN (08:55)
[2024-07-09 08:56] LABS: CALCIUM 8.7 mg/dL (8.5-10.1)
[2024-07-09 08:57] LABS: ALBUMIN 2.6 g/dl (3.4-5.0)
[2024-07-09 09:01] LABS: BILIRUBIN,TOTAL 0.6 mg/dL (0.2-1); TOT PROT 6.2 g/dl (6.4-8.2)
[2024-07-09] MEDS: THIAMINE 100 MG TABLET PO SCH (10:41)
[2024-07-09] MEDS: FOLIC ACID 1 MG TABLET (FP) PO SCH (10:42)
[2024-07-09] MEDS: PANTOPRAZOLE 40 MG TABLET PO SCH (10:42)
[2024-07-09] MEDS: ASPIRIN COATED 81 MG TABLET.EC PO SCH (10:42)
[2024-07-09] MEDS: TAMSULOSIN HCL 0.4 MG CAP PO SCH (10:42)
[2024-07-09] MEDS: CLOPIDOGREL BISULFATE 75 MG TABLET (FP) PO SCH (10:43)
[2024-07-09] MEDS: SIMETHICONE 80 MG TAB.CHEW (FP) PO SCH (10:43)
[2024-07-09] MEDS: SACUBITRIL/VALSARTAN 24 MG-26 MG TABLET PO SCH (12:27)
[2024-07-09] MEDS ORDERED: INSULIN (NOVOLOG) ASPART 100 UNITS/ML 10ML VIAL ONE (17:53)
[2024-07-09] MEDS: ATORVASTATIN CA 80 MG TABLET (FP) PO SCH (21:07)
[2024-07-10 06:43] VITALS: RESP 18
[2024-07-10 08:32] VITALS: BP 100/60; PULSE 88; TEMP 97.5
[2024-07-10 12:49] LABS: HEMATOCRIT 24.4 % (40.1-51.0); HEMOGLOBIN 8.2 g/dL (13.7-17.5); MCHC 33.6 g/dl (32.3-36.5); MEAN CELL VOLUME 90.4 fl (79.0-92.2); MEAN PLT VOLUME 11.6 fl (9.4-12.4); PLATELET COUNT 75 x10^3/uL (163-337); RDW 17.7 % (12.2-16.6)
[2024-07-10 13:18] LABS: POTASSIUM 3.3 mmol/L (3.5-5.1)
[2024-07-10 13:20] LABS: CALCIUM 8.6 mg/dL (8.5-10.1)
[2024-07-10 13:21] LABS: ALBUMIN 2.6 g/dl (3.4-5.0)
[2024-07-10 13:24] LABS: CREATININE 1.8 mg/dL (0.55-1.3)
[2024-07-10 13:25] LABS: BILIRUBIN,TOTAL 0.6 mg/dL (0.2-1); TOT PROT 6.4 g/dl (6.4-8.2)
[2024-07-10] MEDS: POTASSIUM CHLORIDE ORAL LIQUID 20 MEQ/15 ML PO ONE (13:41)
== END 2024-07-10 13:51 | disposition home or self-care (01) ==
LOC: JER 16:22 → JERBED 19:59 → J7W 23:47
PROVIDERS: ADMIT Hospitalist
PROC: 3E033NZ Introduction of Analgesics, Hypnotics, Sedatives into Peripheral Vein, Percutaneous Approach (ICD-10-PCS; principal; 2024-07-08)
PROC: 3E013VG Introduction of Insulin into Subcutaneous Tissue, Percutaneous Approach (ICD-10-PCS; 2024-07-08)
PROC: 3E0337Z Introduction of Electrolytic and Water Balance Substance into Peripheral Vein, Percutaneous Approach (ICD-10-PCS; 2024-07-08)
DX: I21.A1 Myocardial infarction type 2 (principal); W18.39XA Other fall on same level, initial encounter; Y93.89 Activity, other specified; Y92.098 Other place in other non-institutional residence as the place of occurrence of the external cause; D64.9 Anemia, unspecified; I25.10 Atherosclerotic heart disease of native coronary artery without angina pectoris; Z04.3 Encounter for examination and observation following other accident; I11.0 Hypertensive heart disease with heart failure; Z87.891 Personal history of nicotine dependence; E46 Unspecified protein-calorie malnutrition; E78.5 Hyperlipidemia, unspecified; Z95.1 Presence of aortocoronary bypass graft; F10.21 Alcohol dependence, in remission; K22.70 Barrett's esophagus without dysplasia; K70.30 Alcoholic cirrhosis of liver without ascites; D61.818 Other pancytopenia; Z86.718 Personal history of other venous thrombosis and embolism; I73.9 Peripheral vascular disease, unspecified
CPT/HCPCS: 36415; 70450-TC; 71045-TC-FY; 72125-TC; 80048; 80053; 81003; 82607; 82728; 82746; 82962; 83540; 83550; 84484; 85027; 85610; 85730; 86850; 86900; 86901; 87086; 93005; 93010; 96361; 96372; 96374; 97116-GP; 97162-GP; 99291; G0378; J0131